=== PATIENT | female | born 1960 | race Caucasian/White ===

== ENCOUNTER 2016-06-13 11:39 | Emergency (ER) | payer MEDICAID ==
[2016-06-13] MEDS ORDERED: NITROGLYCERIN OINT 1 INCH/GM PACKET TOPICAL STA (12:12)
--- NOTE | 2016-06-13 12:16 | ED ---
General Adult HPI - General Chief complaint: Chest Pain Stated complaint: Chest pain Time Seen by Provider: 06/13/16 11:59 Source: patient, RN notes reviewed Mode of arrival: wheelchair Limitations: no limitations - History of Present Illness Initial comments: Patient is a pleasant 55-year-old female presenting to the emergency department complaining of chest discomfort. Onset of symptoms was a week or so ago. Patient has had intermittent symptoms. Discomfort is currently severe rated 10/ 10. Discomfort feels like pressure. Patient does have some mild associated dyspnea. Patient has occasional nausea and occasional diaphoresis. Patient has been taking nitroglycerin multiple times and has finished approximately half of bottle. No leg pain or swelling. No cough or fever. - Related Data Home Medications Medication Instructions Recorded Confirmed Aspirin EC [Ecotrin Low Dose] 81 mg PO DAILY 06/13/16 06/13/16 Ergocalciferol [Vitamin D2] 50,000 unit PO Q7D 06/13/16 06/13/16 Gabapentin [Neurontin] 300 - 600 mg PO HS PRN 06/13/16 06/13/16 Nitroglycerin Sl Tabs [Nitrostat] 0.4 mg SUBLINGUAL Q5M PRN 06/13/16 06/13/16 Ondansetron HCl [Zofran] 4 - 8 mg PO Q4-6H PRN 06/13/16 06/13/16 clonazePAM [KlonoPIN] 2 mg PO TID 06/13/16 06/13/16 Allergies Allergy/AdvReac Type Severity Reaction Status Date / Time No Known Allergies Allergy Verified 06/13/16 12:25 Review of Systems ROS Statement: Those systems with pertinent positive or pertinent negative responses have been documented in the HPI. ROS Other: All systems not noted in ROS Statement are negative. Constitutional: Denies: fever Eyes: Denies: eye pain ENT: Denies: ear pain Respiratory: Reports: dyspnea. Denies: cough Cardiovascular: Reports: chest pain Endocrine: Denies: fatigue Gastrointestinal: Reports: nausea Genitourinary: Denies: dysuria Musculoskeletal: Denies: back pain Skin: Denies: rash Neurological: Denies: weakness Past Medical History Past Medical History: Chest Pain / Angina History of Any Multi-Drug Resistant Organisms: None Reported Past Surgical History: Breast Surgery, Hysterectomy Additional Past Surgical History / Comment(s): right breast lumpectomy Past Psychological History: No Psychological Hx Reported Smoking Status: Current every day smoker Past Alcohol Use History: None Reported Past Drug Use History: None Reported General Exam Limitations: no limitations General appearance: alert, in no apparent distress Head exam: Present: atraumatic Eye exam: Present: normal appearance, PERRL ENT exam: Present: normal oropharynx Neck exam: Present: normal inspection Respiratory exam: Present: normal lung sounds bilaterally. Absent: chest wall tenderness Cardiovascular Exam: Present: regular rate, normal rhythm Expanded Peripheral pulses: 2+: Radial (R), Radial (L), Dorsalis Pedis (R), Dorsalis Pedis (L) GI/Abdominal exam: Present: soft. Absent: tenderness Extremities exam: Present: normal inspection. Absent: pedal edema, calf tenderness Neurological exam: Present: alert Psychiatric exam: Present: normal affect, normal mood Skin exam: Absent: rash Course Vital Signs 06/13/16 06/13/16 06/13/16 11:43 11:55 12:41 Temperature 97.8 F Pulse Rate 89 90 Pulse Rate [ 83 Bilateral Radial] Respiratory 20 14 18 Rate Blood Pressure 114/68 108/69 O2 Sat by Pulse 98 97 Oximetry 06/13/16 06/13/16 13:00 13:26 Temperature Pulse Rate 84 77 Pulse Rate [ Bilateral Radial] Respiratory 18 Rate Blood Pressure 108/61 98/63 O2 Sat by Pulse 98 Oximetry EKG Findings - EKG Comments: EKG Findings:: Normal sinus rhythm at 79. Care 158. QRS 70. QT 364. QTC 417. Normal axis. Normal QRS. Nonspecific T waves. Medical Decision Making - Medical Decision Making Patient reexamined and improved following nitroglycerin. Called patient's professional benefits sales consultant was not available at this time. Patient does prefer to be transferred because her professional benefits sales consultant is at [facility]. Case discussed with Dr. Kirby at the emergency department, who will accept transfer. Patient is recommended transfer by and once however does refuse this. Patient will transfer by private vehicle. - Lab Data Result diagrams: 06/13/16 12:38 06/13/16 12:38 Lab Results 06/13/16 06/13/16 06/13/16 Range/Units 12:38 12:38 12:38 WBC 7.2 (3.8-10.6) k/uL RBC 4.67 (3.80-5.40) m/uL Hgb 14.2 (11.4-16.0) gm/dL Hct 41.3 (34.0-46.0) % MCV 88.5 (80.0-100.0) fL MCH 30.4 (25.0-35.0) pg MCHC 34.3 (31.0-37.0) g/dL RDW 13.3 (11.5-15.5) % Plt Count 277 (150-450) k/uL Neutrophils % 69 % Lymphocytes % 25 % Monocytes % 4 % Eosinophils % 1 % Basophils % 0 % Neutrophils # 4.9 (1.3-7.7) k/uL Lymphocytes # 1.8 (1.0-4.8) k/uL Monocytes # 0.3 (0-1.0) k/uL Eosinophils # 0.1 (0-0.7) k/uL Basophils # 0.0 (0-0.2) k/uL PT (9.0-12.0) sec INR (<1.1) APTT (22.0-30.0) sec Sodium 141 (137-145) mmol/L Potassium 4.8 (3.5-5.1) mmol/L Chloride 108 H (98-107) mmol/L Carbon Dioxide 23 (22-30) mmol/L Anion Gap 10 mmol/L BUN 15 (7-17) mg/dL Creatinine 0.91 (0.52-1.04) mg/dL Est GFR (MDRD) Af Amer >60 (>60 ml/min/1.73 sqM) Est GFR (MDRD) Non-Af >60 (>60 ml/min/1.73 sqM) Glucose 95 (74-99) mg/dL Calcium 9.5 (8.4-10.2) mg/dL Magnesium 2.0 (1.6-2.3) mg/dL Total Bilirubin 0.5 (0.2-1.3) mg/dL AST 31 (14-36) U/L ALT 35 (9-52) U/L Alkaline Phosphatase 106 (38-126) U/L Total Creatine Kinase 75 (30-135) U/L CK-MB (CK-2) 0.3 (0.0-2.4) ng/mL CK-MB (CK-2) Rel Index 0.4 Troponin I <0.012 (0.000-0.034) ng/mL Total Protein 6.8 (6.3-8.2) g/dL Albumin 4.1 (3.5-5.0) g/dL 06/13/16 Range/Units 12:38 WBC (3.8-10.6) k/uL RBC (3.80-5.40) m/uL Hgb (11.4-16.0) gm/dL Hct (34.0-46.0) % MCV (80.0-100.0) fL MCH (25.0-35.0) pg MCHC (31.0-37.0) g/dL RDW (11.5-15.5) % Plt Count (150-450) k/uL Neutrophils % % Lymphocytes % % Monocytes % % Eosinophils % % Basophils % % Neutrophils # (1.3-7.7) k/uL Lymphocytes # (1.0-4.8) k/uL Monocytes # (0-1.0) k/uL Eosinophils # (0-0.7) k/uL Basophils # (0-0.2) k/uL PT 10.8 (9.0-12.0) sec INR 1.1 (<1.1) APTT 23.6 (22.0-30.0) sec Sodium (137-145) mmol/L Potassium (3.5-5.1) mmol/L Chloride (98-107) mmol/L Carbon Dioxide (22-30) mmol/L Anion Gap mmol/L BUN (7-17) mg/dL Creatinine (0.52-1.04) mg/dL Est GFR (MDRD) Af Amer (>60 ml/min/1.73 sqM) Est GFR (MDRD) Non-Af (>60 ml/min/1.73 sqM) Glucose (74-99) mg/dL Calcium (8.4-10.2) mg/dL Magnesium (1.6-2.3) mg/dL Total Bilirubin (0.2-1.3) mg/dL AST (14-36) U/L ALT (9-52) U/L Alkaline Phosphatase (38-126) U/L Total Creatine Kinase (30-135) U/L CK-MB (CK-2) (0.0-2.4) ng/mL CK-MB (CK-2) Rel Index Troponin I (0.000-0.034) ng/mL Total Protein (6.3-8.2) g/dL Albumin (3.5-5.0) g/dL - Radiology Data Radiology results: image reviewed (Chest x-ray shows no acute process) Disposition Clinical Impression: Chest pain Disposition: OTHER INSTITUTION NOT DEFINED - Out of Hospital Transfer - Req. Specs Out of Hospital Transfer - Requested Specifics: Other Emergency Center
[2016-06-13] MEDS: ASPIRIN 81 MG CHEW PO STA (12:40)
[2016-06-13 12:41] VITALS: RESP 18
[2016-06-13 12:45] LABS: Basophils % (A) 0 %; CH 31.3; CHCM 35.4; Eosinophils # (A) 0.1 k/uL (0-0.7); Eosinophils % (A) 1 %; HCT 41.3 % (34.0-46.0); HDW 2.62; HGB 14.2 gm/dL (11.4-16.0); Luc # (Auto) 0.09; Luc % (Auto) 1; Lymphocytes # (A) 1.8 k/uL (1.0-4.8); Lymphocytes % (A) 25 %; MCH 30.4 pg (25.0-35.0); MCHC 34.3 g/dL (31.0-37.0); MCV 88.5 fL (80.0-100.0); Mean Platelet Volume 6.5; Monocytes # (A) 0.3 k/uL (0-1.0); Monocytes % (A) 4 %; Neutrophils # (A) 4.9 k/uL (1.3-7.7); Neutrophils % (A) 69 %; RBC 4.67 m/uL (3.80-5.40); RDW 13.3 % (11.5-15.5); WBC 7.2 k/uL (3.8-10.6); WBC (Perox) 7.51
[2016-06-13] MEDS: NITROGLYCERIN SL TABS 0.4 MG TAB SUBLINGUAL STA ×3 (12:53→14:40)
[2016-06-13 12:54] LABS: INR 1.1 (<1.1); Partial Thromboplastin Time 23.6 sec (22.0-30.0); Prothrombin Time 10.8 sec (9.0-12.0)
[2016-06-13 13:04] LABS: ALT 35 U/L (9-52); AST 31 U/L (14-36); Alkaline Phosphatase 106 U/L (38-126); Anion Gap 10 mmol/L; Blood Urea Nitrogen 15 mg/dL (7-17); Calcium 9.5 mg/dL (8.4-10.2); Carbon Dioxide 23 mmol/L (22-30); Chloride 108 mmol/L (98-107); Glucose 95 mg/dL (74-99); Non-African American GFR(MDRD) >60 (>60 ml/min/1.73 sqM); Potassium 4.8 mmol/L (3.5-5.1); Sodium 141 mmol/L (137-145); Total Bilirubin 0.5 mg/dL (0.2-1.3); Total Protein 6.8 g/dL (6.3-8.2)
[2016-06-13 13:07] LABS: Creatine Kinase 75 U/L (30-135)
--- NOTE | 2016-06-13 13:16 | XR ---
EXAMINATION TYPE: XR chest 2V DATE OF EXAM: 06/13/2016 1:11 PM COMPARISON: 08/08/2011 TECHNIQUE: PA and lateral views submitted. HISTORY: Chest pain FINDINGS: The lungs are clear and there is no pneumothorax, pleural effusion, or focal pneumonia. Biapical pl eural thickening. IMPRESSION: 1. No acute process.
[2016-06-13 13:20] LABS: Creatine Kinase MB 0.3 ng/mL (0.0-2.4); Troponin I <0.012 ng/mL (0.000-0.034)
[2016-06-13 15:24] VITALS: BP 118/59; PULSE 65; TEMP 97.3
== END 2016-06-13 15:24 | disposition other institution (70) ==
LOC: EC 11:39
DX: R07.9 Chest pain, unspecified (principal); F17.200 Nicotine dependence, unspecified, uncomplicated; Z79.82 Long term (current) use of aspirin; Z79.899 Other long term (current) drug therapy
CPT/HCPCS: 36415; 71020; 80053; 82550; 82553; 83735; 84484; 85025; 85610; 85730; 93005; 99285

== ENCOUNTER 2017-04-23 13:15 | Inpatient (IN) | payer BC, MEDICAID ==
[2017-04-23] MEDS ORDERED: NITROGLYCERIN OINT 1 INCH/GM PACKET TOPICAL STA (13:43)
[2017-04-23] MEDS ORDERED: ASPIRIN 81 MG PO STA (13:43)
--- NOTE | 2017-04-23 14:07 | ED ---
General Adult HPI - General Chief complaint: Chest Pain Stated complaint: CHEST PAIN Time Seen by Provider: 04/23/17 13:15 Source: patient, EMS, RN notes reviewed Mode of arrival: EMS - History of Present Illness Initial comments: This a 56-year-old female presents emergency department stating that she was told she had a 60% blockage in her heart for years ago. Patient states today she has been having chest pain for the last 2 days. Patient states the pain is intermittent. Patient states it never completely goes away but gets much better. Patient states the pain is significant she has had some diaphoresis. Patient denies any shortness of breath or difficulty breathing. Patient denies any nausea vomiting or diarrhea. Patient denies any abdominal pain. Patient states she has been dizzy but had no near syncopal episodes. Patient states she 's had a mild headache but denies any numbness or weakness. Patient states occasionally she has some tingling in her fingers. Patient denies any recent injury or trauma. Patient denies any swelling in her legs or calf pain. - Related Data Home Medications Medication Instructions Recorded Confirmed Aspirin EC [Ecotrin Low Dose] 81 mg PO DAILY 06/13/16 04/23/17 Ergocalciferol [Vitamin D2] 50,000 unit PO Q28D 06/13/16 04/23/17 Nitroglycerin Sl Tabs [Nitrostat] 0.4 mg SUBLINGUAL Q5M PRN 06/13/16 04/23/17 clonazePAM [KlonoPIN] 1 mg PO TID 04/23/17 04/23/17 Allergies Allergy/AdvReac Type Severity Reaction Status Date / Time No Known Allergies Allergy Verified 04/23/17 13:59 Review of Systems ROS Statement: Those systems with pertinent positive or pertinent negative responses have been documented in the HPI. ROS Other: All systems not noted in ROS Statement are negative. Past Medical History Past Medical History: Chest Pain / Angina History of Any Multi-Drug Resistant Organisms: None Reported Past Surgical History: Breast Surgery, Hysterectomy Additional Past Surgical History / Comment(s): right breast lumpectomy Past Psychological History: No Psychological Hx Reported Smoking Status: Current every day smoker Past Alcohol Use History: None Reported Past Drug Use History: None Reported General Exam - General Exam Comments Initial Comments: GENERAL: Patient is well-developed and well-nourished. Patient is nontoxic and well- hydrated and is in mild distress. ENT: Neck is soft and supple. No significant lymphadenopathy is noted. Oropharynx is clear. Moist mucous membranes. Neck has full range of motion without eliciting any pain. EYES: The sclera were anicteric and conjunctiva were pink and moist. Extraocular movements were intact and pupils were equal round and reactive to light. Eyelids were unremarkable. PULMONARY: Unlabored respirations. Good breath sounds bilaterally. No audible rales rhonchi or wheezing was noted. CARDIOVASCULAR: There is a regular rate and rhythm without any murmurs gallops or rubs. ABDOMEN: Soft and nontender with normal bowel sounds. No palpable organomegaly was noted. There is no palpable pulsatile mass. SKIN: Skin is clear with no lesions or rashes and otherwise unremarkable. NEUROLOGIC: Patient is alert and oriented x3. Cranial nerves II through XII are grossly intact. Motor and sensory are also intact. Normal speech, volume and content. Symmetrical smile. MUSCULOSKELETAL: Normal extremities with adequate strength and full range of motion. LYMPHATICS: No significant lymphadenopathy is noted PSYCHIATRIC: Normal psychiatric evaluation. Normal interpersonal interactions appears functionally intact in deals appropriately with others. No signs of depression. No signs of anxiety. Course Vital Signs 04/23/17 04/23/17 04/23/17 13:20 13:49 14:05 Temperature 97.5 F L Pulse Rate 67 Pulse Rate [ 54 L Rig Builder Helper ] Respiratory 16 Rate Blood Pressure 119/69 O2 Sat by Pulse 98 Oximetry 04/23/17 15:06 Temperature 97.4 F L Pulse Rate 56 L Pulse Rate [ Rig Builder Helper ] Respiratory 20 Rate Blood Pressure 118/71 O2 Sat by Pulse 98 Oximetry Medical Decision Making - Medical Decision Making EKG shows sinus bradycardia 51 bpm CO interval is 158 QRS is 74 Q-T intervals 406 QTC is 374. Patient's EKG shows no ST segment elevation or depression or T wave abnormalities are noted. Chest x-ray shows no acute abnormality I placed the patient heparin because the significance of her symptoms and the persistence of her symptoms. I spoke with Dr. Monte he agreed to admit the patient I wrote admitting orders I consult cardiology I continue the heparin Nitropaste and aspirin on the floor. - Lab Data Result diagrams: 04/23/17 14:00 04/23/17 14:00 Lab Results 01/15/18 01/15/18 01/15/18 Range/Units 14:00 14:00 14:00 WBC 7.9 (3.8-10.6) k/uL RBC 4.48 (3.80-5.40) m/uL Hgb 13.4 (11.4-16.0) gm/dL Hct 41.2 (34.0-46.0) % MCV 91.9 (80.0-100.0) fL MCH 29.9 (25.0-35.0) pg MCHC 32.5 (31.0-37.0) g/dL RDW 14.3 (11.5-15.5) % Plt Count 191 (150-450) k/uL Neutrophils % 68 % Lymphocytes % 27 % Monocytes % 3 % Eosinophils % 1 % Basophils % 0 % Neutrophils # 5.4 (1.3-7.7) k/uL Lymphocytes # 2.1 (1.0-4.8) k/uL Monocytes # 0.3 (0-1.0) k/uL Eosinophils # 0.1 (0-0.7) k/uL Basophils # 0.0 (0-0.2) k/uL PT (9.0-12.0) sec INR (<1.2) APTT (22.0-30.0) sec Sodium 142 (137-145) mmol/L Potassium 4.5 (3.5-5.1) mmol/L Chloride 109 H (98-107) mmol/L Carbon Dioxide 23 (22-30) mmol/L Anion Gap 10 mmol/L BUN 16 (7-17) mg/dL Creatinine 0.93 (0.52-1.04) mg/dL Est GFR (MDRD) Af Amer >60 (>60 ml/min/1.73 sqM) Est GFR (MDRD) Non-Af >60 (>60 ml/min/1.73 sqM) Glucose 81 (74-99) mg/dL Calcium 8.6 (8.4-10.2) mg/dL Magnesium 1.7 (1.6-2.3) mg/dL Total Bilirubin 0.3 (0.2-1.3) mg/dL AST 20 (14-36) U/L ALT 28 (9-52) U/L Alkaline Phosphatase 80 (38-126) U/L Total Creatine Kinase 54 (30-135) U/L CK-MB (CK-2) 0.3 (0.0-2.4) ng/mL CK-MB (CK-2) Rel Index 0.6 Troponin I <0.012 (0.000-0.034) ng/mL Total Protein 5.8 L (6.3-8.2) g/dL Albumin 3.5 (3.5-5.0) g/dL 04/23/17 Range/Units 14:00 WBC (3.8-10.6) k/uL RBC (3.80-5.40) m/uL Hgb (11.4-16.0) gm/dL Hct (34.0-46.0) % MCV (80.0-100.0) fL MCH (25.0-35.0) pg MCHC (31.0-37.0) g/dL RDW (11.5-15.5) % Plt Count (150-450) k/uL Neutrophils % % Lymphocytes % % Monocytes % % Eosinophils % % Basophils % % Neutrophils # (1.3-7.7) k/uL Lymphocytes # (1.0-4.8) k/uL Monocytes # (0-1.0) k/uL Eosinophils # (0-0.7) k/uL Basophils # (0-0.2) k/uL PT 10.8 (9.0-12.0) sec INR 1.1 (<1.2) APTT 23.2 (22.0-30.0) sec Sodium (137-145) mmol/L Potassium (3.5-5.1) mmol/L Chloride (98-107) mmol/L Carbon Dioxide (22-30) mmol/L Anion Gap mmol/L BUN (7-17) mg/dL Creatinine (0.52-1.04) mg/dL Est GFR (MDRD) Af Amer (>60 ml/min/1.73 sqM) Est GFR (MDRD) Non-Af (>60 ml/min/1.73 sqM) Glucose (74-99) mg/dL Calcium (8.4-10.2) mg/dL Magnesium (1.6-2.3) mg/dL Total Bilirubin (0.2-1.3) mg/dL AST (14-36) U/L ALT (9-52) U/L Alkaline Phosphatase (38-126) U/L Total Creatine Kinase (30-135) U/L CK-MB (CK-2) (0.0-2.4) ng/mL CK-MB (CK-2) Rel Index Troponin I (0.000-0.034) ng/mL Total Protein (6.3-8.2) g/dL Albumin (3.5-5.0) g/dL Critical Care Time Critical Care Time: Yes Total Critical Care Time: 35 Disposition Clinical Impression: Unstable angina pectoris Disposition: ADMITTED IP TO THIS HOSP Referrals: Nonstaff,Physician [REFERRING] - 1-2 days Time of Disposition: 15:51
[2017-04-23 14:16] LABS: Basophils % (A) 0 %; Eosinophils # (A) 0.1 k/uL (0-0.7); Eosinophils % (A) 1 %; HCT 41.2 % (34.0-46.0); HGB 13.4 gm/dL (11.4-16.0); Lymphocytes # (A) 2.1 k/uL (1.0-4.8); Lymphocytes % (A) 27 %; MCH 29.9 pg (25.0-35.0); MCHC 32.5 g/dL (31.0-37.0); MCV 91.9 fL (80.0-100.0); Mean Platelet Volume 7.1; Monocytes # (A) 0.3 k/uL (0-1.0); Monocytes % (A) 3 %; Neutrophils # (A) 5.4 k/uL (1.3-7.7); Neutrophils % (A) 68 %; Platelet Count 191 k/uL (150-450); RBC 4.48 m/uL (3.80-5.40); RDW 14.3 % (11.5-15.5); WBC 7.9 k/uL (3.8-10.6)
[2017-04-23 14:25] LABS: INR 1.1 (<1.2); Partial Thromboplastin Time 23.2 sec (22.0-30.0); Prothrombin Time 10.8 sec (9.0-12.0)
--- NOTE | 2017-04-23 14:26 | XR ---
EXAMINATION TYPE: XR chest 2V DATE OF EXAM: 04/23/2017 COMPARISON: 06/13/2016 TECHNIQUE: PA and lateral views submitted. HISTORY: Chest pain FINDINGS: The lungs are clear and there is no pneumothorax, pleural effusion, or focal pneumonia. Atheroscler otic change aorta. I. Arthropathy shoulders. Hyperinflation suggests COPD. IMPRESSION: 1. No acute process.
[2017-04-23 14:27] LABS: ALT 28 U/L (9-52); AST 20 U/L (14-36); Albumin 3.5 g/dL (3.5-5.0); Alkaline Phosphatase 80 U/L (38-126); Anion Gap 10 mmol/L; Blood Urea Nitrogen 16 mg/dL (7-17); Calcium 8.6 mg/dL (8.4-10.2); Carbon Dioxide 23 mmol/L (22-30); Chloride 109 mmol/L (98-107); Glucose 81 mg/dL (74-99); Magnesium 1.7 mg/dL (1.6-2.3); Potassium 4.5 mmol/L (3.5-5.1); Sodium 142 mmol/L (137-145); Total Bilirubin 0.3 mg/dL (0.2-1.3); Total Protein 5.8 g/dL (6.3-8.2)
[2017-04-23 14:37] LABS: Creatine Kinase 54 U/L (30-135)
[2017-04-23 14:50] LABS: Creatine Kinase MB 0.3 ng/mL (0.0-2.4); Troponin I <0.012 ng/mL (0.000-0.034)
[2017-04-23] MEDS ORDERED: MORPHINE SULFATE 2 MG/ML SYRINGE IVP ONE (15:30)
[2017-04-23] MEDS ORDERED: ONDANSETRON 4 MG/2 ML VIAL IM STA (15:38)
[2017-04-23] MEDS ORDERED: HEPARIN SODIUM,PORCINE 5,000 UNIT/ML 1 ML VIAL IV ONE (15:46)
[2017-04-23] MEDS ORDERED: NITROGLYCERIN SL TABS 0.4 MG TAB SUBLINGUAL PRN (15:53)
[2017-04-23] MEDS ORDERED: HEPARIN SOD,PORK IN 0.45% NACL 25,000 UNIT in 0.45% NACL 1 500ML.BAG IV SCH (16:00)
[2017-04-23 17:08] VITALS: BMI 24.1
[2017-04-23] MEDS ORDERED: MORPHINE SULFATE 2 MG/ML SYRINGE IVP PRN (17:21)
[2017-04-23] MEDS: NITROGLYCERIN OINT 1 INCH/GM PACKET TOPICAL SCH (17:27)
[2017-04-23] MEDS: clonazePAM 1 MG TAB PO SCH ×2 (17:27→23:03)
[2017-04-23] MEDS: ACETAMINOPHEN TAB 325 MG TAB PO PRN (19:35)
[2017-04-23] MEDS ORDERED: HYDROmorphone 0.5 MG/0.5 ML SYRINGE IVP PRN (20:10)
[2017-04-23] MEDS ORDERED: TEMAZEPAM 15 MG CAP PO PRN (20:10)
[2017-04-23] MEDS: ONDANSETRON 4 MG/2 ML VIAL IVP PRN (21:17)
[2017-04-23 21:51] LABS: Creatine Kinase 44 U/L (30-135)
[2017-04-23 22:05] LABS: Creatine Kinase MB <0.2 ng/mL (0.0-2.4); Troponin I <0.012 ng/mL (0.000-0.034)
[2017-04-23 22:35] LABS: Potassium 4.2 mmol/L (3.5-5.1)
--- NOTE | 2017-04-24 00:21 | P.HPIM ---
History of Present Illness H&P Date: 04/23/17 Chief Complaint: Chest pain Patient is a 56-year-old female with a known history of anxiety/panic disorder, GERD and previous history of cardiac catheterization 4 years ago, was found to have 60% blockages as per patient came to ER with complaints of chest pain mainly left retrosternal area-below the left breast.. On and off stabbing pain which has been present for the past 2 days. Patient felt some right arm heaviness and tingling. Pain is associated with shortness of breath and clamminess. Patient states it never completely goes away but gets much better. Patient denies any nausea vomiting or diarrhea. Patient denies any abdominal pain. Patient states she has been dizzy but had no near syncopal episodes. Patient states she's had a mild headache but denies any numbness or weakness. Patient states occasionally she has some tingling in her fingers. Patient denies any recent injury or trauma. Patient denies any swelling in her legs or calf pain. Patient does have a history of panic disorder and does take medications. Patient does take baby aspirin at home. No fever no chills. No recent illnesses. Patient is taking care of her mother wheeze came to be admitted for [facility] in next few days. EKG sinus tachycardia chest x-ray no acute cardio prudent process. Troponin 2 negative. TSH within normal limits Review of Systems Constitutional: Patient denies any fever or chills . No generalized weakness or weight loss. Abdomen: Patient denied nausea vomiting and diarrhea and abdominal pain. Cardiovascular: Patient does have chest pain. No shortness of breath no leg swelling no palpitations. Respiratory: patient denied any cough is from production. No shortness of breath Neurologic: Patient denied any numbness or tingling headache. Musculoskeletal: Patient denies any complaints of joint swelling or deformity. Skin: Negative Psychiatric: Negative Endocrine: No heat or cold intolerance. No recent weight gain. Genitourinary: No dysuria or hematuria. All other 14 point ROS negative except the above Past Medical History Past Medical History: Chest Pain / Angina, GERD/Reflux History of Any Multi-Drug Resistant Organisms: None Reported Past Surgical History: Breast Surgery, Hysterectomy Additional Past Surgical History / Comment(s): right breast lumpectomy Past Anesthesia/Blood Transfusion Reactions: No Reported Reaction Past Psychological History: Anxiety Additional Psychological History / Comment(s): klonopin 1mg tid Smoking Status: Current every day smoker Past Alcohol Use History: None Reported Past Drug Use History: None Reported - Past Family History Father Family Medical History: Chest Pain / Angina, Coronary Artery Disease (CAD), Myocardial Infarction (PA) Mother Family Medical History: Coronary Artery Disease (CAD), Myocardial Infarction (PA ) Additional Family Medical History / Comment(s): history of multiple stents Medications and Allergies Home Medications Medication Instructions Recorded Confirmed Type Aspirin EC [Ecotrin Low Dose] 81 mg PO DAILY 06/13/16 04/23/17 History Ergocalciferol [Vitamin D2] 50,000 unit PO Q28D 06/13/16 04/23/17 History Nitroglycerin Sl Tabs [Nitrostat] 0.4 mg SUBLINGUAL Q5M PRN 06/13/16 04/23/17 History clonazePAM [KlonoPIN] 1 mg PO TID 04/23/17 04/23/17 History Allergies Allergy/AdvReac Type Severity Reaction Status Date / Time No Known Allergies Allergy Verified 04/23/17 13:59 Physical Exam Vitals: Vital Signs Temp Pulse Pulse Pulse Resp BP BP 04/23/17 20:00 97.8 F 55 L 18 101/58 04/23/17 19:30 97/57 04/23/17 17:30 16 04/23/17 16:56 97.7 F 49 L 16 99/58 04/23/17 16:25 97.9 F 04/23/17 15:06 97.4 F L 56 L 20 118/71 04/23/17 14:05 54 L 04/23/17 13:49 97.5 F L 04/23/17 13:20 67 16 119/69 Pulse Ox 04/23/17 20:00 92 L 04/23/17 19:30 04/23/17 17:30 04/23/17 16:56 99 04/23/17 16:25 04/23/17 15:06 98 04/23/17 14:05 04/23/17 13:49 04/23/17 13:20 98 Intake and Output 04/23/17 04/23/17 04/23/17 06:59 14:59 22:59 Intake Total 328.909 Balance 328.909 Intake: Intake, IV Titration 88.909 Amount Heparin Sod,Pork in 0.45% 88.909 NaCl 25,000 unit In 0.45 % NaCl 1 500ml.bag @ 12 UNITS/KG/HR 14.15 mls/hr IV .Q24H [facility] Rx#: [id number] Oral 240 Other: Voiding Method Toilet Weight 58.967 kg 58 kg Patient Weight 04/24/17 06:59 Weight 58 kg PHYSICAL EXAMINATION: Patient is lying in the bed comfortably, no acute distress, awake alert and oriented.. Anxious. HEENT: Normocephalic. Neck is supple. Pupils reactive. Nostrils clear. Oral cavity is moist. Ears reveal no drainage. Neck reveals no JVD, carotid bruits, or thyromegaly. CHEST EXAMINATION: Trachea is central. Symmetrical expansion. Lung gleason clear to auscultation and percussion. CARDIAC: Normal S1, S2 with no gallops. No murmurs ABDOMEN: Soft. Bowel sounds normal. No organomegaly. No abdominal bruits. Extremities: reveal no edema. No clubbing or cyanosis Neurologically awake, alert, oriented x3 with well-coordinated movements. No focal deficits noted Skin: No rash or skin lesions. Psychiatric: Cooperative. Nonsuicidal Musculoskeletal: No joint swelling or deformity. Normal range of motion. Results CBC & Chem 7: 04/23/17 14:00 04/23/17 21:49 Labs: Abnormal Lab Results - Last 24 Hours (Table) 04/23/17 04/23/17 Range/Units 14:00 20:56 APTT 50.3 H (22.0-30.0) sec Chloride 109 H (98-107) mmol/L Total Protein 5.8 L (6.3-8.2) g/dL Thrombosis Risk Factor Assmnt - Choose All That Apply Each Factor Represents 1 point: Age 41-60 years Thrombosis Risk Factor Assessment Total Risk Factor Score: 1 Thrombosis Risk Factor Assessment Level: Low Risk Assessment and Plan Assessment: Chest pain. Possible unstable angina History of prior cardiac Catheterization with 60% stenosis GERD Anxiety and panic disorder Nicotine addiction Plan: Patient will be converted on heparin drip and Nitropaste. ASA. Continue the pain management with morphine. Telemetry monitoring and serial EKG and troponins. Cardiology has been consulted. Smoking cessation has been counseled extensively. Further recommendations based on the clinical course. Continue to follow closely. Time with Patient: Greater than 30
[2017-04-24] MEDS: NITROGLYCERIN OINT 1 INCH/GM PACKET TOPICAL SCH ×2 (01:39→06:02)
[2017-04-24] MEDS: FAMOTIDINE 20 MG TAB PO SCH ×3 (01:45→21:04)
[2017-04-24 02:09] LABS: Creatine Kinase 46 U/L (30-135)
[2017-04-24 02:23] LABS: Creatine Kinase MB 0.3 ng/mL (0.0-2.4); Troponin I <0.012 ng/mL (0.000-0.034)
[2017-04-24 03:13] LABS: Cholesterol 176 mg/dL (<200); HDL Cholesterol 35 mg/dL (40-60); LDL Cholesterol,Calculated 96 mg/dL (0-99); Triglycerides 225 mg/dL (<150)
[2017-04-24] MEDS: ACETAMINOPHEN TAB 325 MG TAB PO PRN (04:39)
[2017-04-24] MEDS ORDERED: AMINOPHYLLINE 500 MG/20 ML VIAL IV PRN (07:57)
[2017-04-24] MEDS ORDERED: REGADENOSON 0.4 MG/5 ML SYRINGE IV ONE (07:57)
[2017-04-24] MEDS: ONDANSETRON 4 MG/2 ML VIAL IVP PRN ×2 (08:00→21:04)
--- NOTE | 2017-04-24 10:18 | ECHOF ---
Referral Reason:cp MEASUREMENTS -------- HEIGHT: 152.4 cm WEIGHT: 57.2 kg BP: RVIDd: 2.5 cm (< 3.3) IVSd: 0.8 cm (0.6 - 1.1) LVIDd: 4.0 cm (3.9 - 5.3) LVPWd: 0.8 cm (0.6 - 1.1) IVSs: 1.1 cm LVIDs: 2.8 cm LVPWs: 1.2 cm LA Diam: 3.1 cm (2.7 - 3.8) Ao Diam: 3.1 cm (2.0 - 3.7) AV Cusp: 1.9 cm (1.5 - 2.6) LA Diam: 2.9 cm (2.7 - 3.8) MV EXCURSION: 20.043 mm (> 18.000) MV EF SLOPE: 120 mm/s (70 - 150) EPSS: 0.4 cm MV E Frankie: 0.72 m/s MV DecT: 159 ms MV A Frankie: 0.53 m/s MV E/A Ratio: 1.37 RAP: 5.00 mmHg RVSP: 15.28 mmHg FINDINGS -------- Sinus rhythm. This was a technically good study. LV size, wall thickness and systolic function are normal, with an EF greater than 55%. The left alton tricular size is normal. The right ventricle is normal in size. The left atrial size is normal. The right atrial size is normal. The aortic valve is trileaflet, and appears structurally normal. No aortic stenosis or regurgitation. Mild mitral regurgitation is present. Mild tricuspid regurgitation present. There is no evidence of pulmonary hypertension. The right v entricular systolic pressure, as measured by Doppler, is 15.28mmHg. There is no pulmonic regurgitation present. The aortic root size is normal. There is no pericardial effusion. CONCLUSIONS -------- 1. LV size, wall thickness and systolic function are normal, with an EF greater than 55%. 2. The left ventricular size is normal. 3. The aortic valve is trileaflet, and appears structurally normal. No aortic stenosis or regurgitati on. 4. Mild mitral regurgitation is present. 5. Mild tricuspid regurgitation present. 6. There is no evidence of pulmonary hypertension. 7. The right ventricular systolic pressure, as measured by Doppler, is 15.28mmHg. 8. There is no pulmonic regurgitation present. 9. The aortic root size is normal. 10. There is no pericardial effusion. FARM ASSISTANT: Dalia Rivera RDCS
--- NOTE | 2017-04-24 11:09 | EST ---
EXERCISE STRESS DATE OF SERVICE: 04/24/2017 AGE: 56 SEX: Female HT: 61" WT: 127 pounds PROTOCOL: Lexiscan Cardiolite. STAGE: DURATION OF EXERCISE: HEART RATE REST: 45 BLOOD PRESSURE REST: 100/50 MAXIMUM HEART RATE ACHIEVED: 103 MAXIMUM BLOOD PRESSURE: 148/56 85% MPHR: 141 100% MPHR: 166 METS: INDICATIONS: Chest pain. CLINICAL INFORMATION: Baseline EKG shows sinus rhythm, normal axis, normal intervals, with nonspecific T-wave inversions in the precordial leads. The patient was given intravenous Lexiscan as per protocol. Did not have chest pain or diagnostic ST-segment depression. CONCLUSIONS: 1. Negative stress test by EKG criteria. 2. Cardiolite portion of the stress test will be reported separately. MMDONAL / CASIN: [id number] /
[2017-04-24] MEDS: ASPIRIN 325 MG TAB PO SCH (11:36)
[2017-04-24] MEDS: clonazePAM 1 MG TAB PO SCH ×3 (11:37→21:04)
--- NOTE | 2017-04-24 12:43 | NM ---
EXAMINATION TYPE: NM stress lexiscan cardiolite DATE OF EXAM: 04/24/2017 COMPARISON: Chest x-ray 04/23/2017 HISTORY: Chest pain TECHNIQUE: After the intravenous administration of 10.1 mCi Tc 99m Sestamibi - Cardiolite resting SP ECT images acquired 50 minutes post injection. The patient received 0.4mg Lexiscan, 26.1 mCi Tc 99m Sestamibi - Stress images obtained [address] injection FINDINGS: Review of stress and rest SPECT images demonstrates questionable mild decreased apical reversible upt tal on stress as compared to rest images. Gated analysis shows normal wall motion with an estimated left ventricular ejection fraction of 67 %. IMPRESSION: Difficult to exclude pharmacologically induced left ventricular apical ischemia
[2017-04-24] MEDS ORDERED: ASPIRIN 325 MG TAB PO STA (13:21)
[2017-04-24] MEDS ORDERED: ATORVASTATIN 80 MG TAB PO STA (13:21)
[2017-04-24] MEDS ORDERED: ALPRAZolam 0.5 MG TAB PO PRN (13:21)
[2017-04-24] MEDS ORDERED: NITROGLYCERIN SL TABS 0.4 MG TAB SUBLINGUAL PRN (13:21)
[2017-04-24] MEDS ORDERED: SODIUM CHLORIDE 0.9% 1,000 ML in EMPTY BAG 1 BAG IV ONE (13:21)
[2017-04-24] MEDS ORDERED: ALPRAZolam 0.25 MG TAB PO PRN (13:21)
[2017-04-24] MEDS: HYDROcodone/APAP 5-325MG 1 EACH TAB PO PRN (16:29)
--- NOTE | 2017-04-24 22:03 | P.PN ---
Subjective Progress Note Date: 04/24/17 Principal diagnosis: Chest pain Patient is a 56-year-old female with a known history of anxiety/panic disorder, GERD and previous history of cardiac catheterization 4 years ago, was found to have 60% blockages as per patient came to ER with complaints of chest pain mainly left retrosternal area-below the left breast.. On and off stabbing pain which has been present for the past 2 days. Patient felt some right arm heaviness and tingling. Pain is associated with shortness of breath and clamminess. Patient states it never completely goes away but gets much better. Patient denies any nausea vomiting or diarrhea. Patient denies any abdominal pain. Patient states she has been dizzy but had no near syncopal episodes. Patient states she's had a mild headache but denies any numbness or weakness. Patient states occasionally she has some tingling in her fingers. Patient denies any recent injury or trauma. Patient denies any swelling in her legs or calf pain. Patient does have a history of panic disorder and does take medications. Patient does take baby aspirin at home. No fever no chills. No recent illnesses. Patient is taking care of her mother wheeze came to be admitted for correction in next few days. EKG sinus tachycardia chest x-ray no acute cardio prudent process. Troponin 2 negative. TSH within normal limits On 04/24/2017 Patient had stress test today Lexiscan showed small apical ischemia reversible. Cardiology is planning for cardiac catheter tomorrow otherwise patient is still complaining of left-sided chest pain. Patient also very anxious and does have a history of panic disorder. No fever no chills. No cough is from production. No other acute overnight issues All other review of systems negative above Current medications reviewed Objective - Vital Signs Vital signs: Vital Signs Temp 96.9 F L 04/24/17 11:25 Pulse 50 L 04/24/17 11:25 Resp 18 04/24/17 11:25 BP 97/55 04/24/17 11:25 Pulse Ox 98 04/24/17 11:25 Intake & Output 04/23/17 04/24/17 04/24/17 18:59 06:59 18:59 Intake Total 240 200.909 Output Total 100 400 Balance 240 100.909 -400 Weight 58 kg 57.7 kg Intake: IV 112 Heparin Sod,Pork in 0.45% 112 NaCl 25,000 unit In 0.45 % NaCl 1 500ml.bag @ 12 UNITS/KG/HR 14.15 mls/hr IV .Q24H [facility] Rx#: [id number] Intake, IV Titration 88.909 Amount Heparin Sod,Pork in 0.45% 88.909 NaCl 25,000 unit In 0.45 % NaCl 1 500ml.bag @ 12 UNITS/KG/HR 14.15 mls/hr IV .Q24H [facility] Rx#: [id number] Oral 240 0 Output: Urine 100 400 Other: Voiding Method Toilet Toilet # Voids 1 - Exam PHYSICAL EXAMINATION: Patient is lying in the bed comfortably, no acute distress, awake alert and oriented. Patient seems very anxious. HEENT: Normocephalic. Neck is supple. Pupils reactive. Nostrils clear. Oral cavity is moist. Ears reveal no drainage. Neck reveals no JVD, carotid bruits, or thyromegaly. CHEST EXAMINATION: Trachea is central. Symmetrical expansion. Lung gleason clear to auscultation and percussion. CARDIAC: Normal S1, S2 with no gallops. No murmurs ABDOMEN: Soft. Bowel sounds normal. No organomegaly. No abdominal bruits. Extremities: reveal no edema. No clubbing or cyanosis Neurologically awake, alert, oriented x3 with well-coordinated movements. No focal deficits noted Skin: No rash or skin lesions. Psychiatric: Coperative. Nonsuicidal Musculoskeletal: No joint swelling or deformity. Normal range of motion. - Labs CBC & Chem 7: 04/23/17 14:00 04/23/17 21:49 Labs: Abnormal Lab Results - Last 24 Hours (Table) 04/23/17 04/23/17 Range/Units 20:56 21:49 APTT 50.3 H (22.0-30.0) sec Triglycerides 225 H (<150) mg/dL HDL Cholesterol 35 L (40-60) mg/dL Assessment and Plan Assessment: Chest pain with abnormal stress test History of prior cardiac Catheterization with 60% stenosis GERD Anxiety and panic disorder Nicotine addiction Plan: Patient will be continued on aspirin. Cardiology is planning for cardiac catheterization tomorrow. Continue with telemetry monitoring and pain management. Continue with anxiolytics. Smoking cessation has been counseled extensively. Further recommendations based on the clinical course. Continue to follow closely. Time with Patient: Greater than 30
[2017-04-25 05:51] LABS: Basophils % (A) 1 %; Eosinophils # (A) 0.1 k/uL (0-0.7); Eosinophils % (A) 2 %; HCT 40.9 % (34.0-46.0); HGB 13.9 gm/dL (11.4-16.0); Lymphocytes # (A) 2.6 k/uL (1.0-4.8); Lymphocytes % (A) 43 %; MCH 30.7 pg (25.0-35.0); MCV 90.2 fL (80.0-100.0); Mean Platelet Volume 6.7; Monocytes # (A) 0.3 k/uL (0-1.0); Monocytes % (A) 4 %; Neutrophils # (A) 3.1 k/uL (1.3-7.7); Neutrophils % (A) 50 %; Platelet Count 239 k/uL (150-450); RBC 4.54 m/uL (3.80-5.40); RDW 12.7 % (11.5-15.5); WBC 6.1 k/uL (3.8-10.6)
[2017-04-25] MEDS: ASPIRIN 325 MG TAB PO SCH (05:51)
[2017-04-25] MEDS: FAMOTIDINE 20 MG TAB PO SCH ×2 (05:51→20:27)
[2017-04-25] MEDS: HYDROcodone/APAP 5-325MG 1 EACH TAB PO PRN ×3 (05:51→20:27)
[2017-04-25] MEDS: clonazePAM 1 MG TAB PO SCH ×3 (05:51→20:27)
[2017-04-25] MEDS: ONDANSETRON 4 MG/2 ML VIAL IVP PRN ×2 (05:53→20:26)
[2017-04-25] MEDS ORDERED: ATORVASTATIN 80 MG TAB PO ONE (06:00)
[2017-04-25 06:06] LABS: Anion Gap 7 mmol/L; Blood Urea Nitrogen 16 mg/dL (7-17); Calcium 9.4 mg/dL (8.4-10.2); Carbon Dioxide 29 mmol/L (22-30); Chloride 107 mmol/L (98-107); Glucose 91 mg/dL (74-99); Potassium 4.6 mmol/L (3.5-5.1); Sodium 143 mmol/L (137-145)
[2017-04-25] MEDS ORDERED: IV FLUID CONTINUATION 1,000 ML IV ONE (12:40)
[2017-04-25] MEDS ORDERED: LIDOCAINE 2% INJ 20 MG/ML (20 ML MDV) ONE (12:50)
[2017-04-25] MEDS ORDERED: fentaNYL (PF) 50 MCG/ML 2 ML AMP ONE (13:08)
[2017-04-25] MEDS ORDERED: fentaNYL (PF) 50 MCG/ML 2 ML AMP IV ONE (13:09)
[2017-04-25] MEDS ORDERED: LIDOCAINE 2% INJ 20 MG/ML SQ ONE (13:11)
[2017-04-25] MEDS: NITROGLYCERIN 1000MCG/10ML SYRINGE INTRACORON ONE ×2 (13:23→13:25)
[2017-04-25] MEDS ORDERED: IOHEXOL 350 MG/ML 125ML BOTTLE INJ ONE (13:37)
[2017-04-25] MEDS ORDERED: SODIUM CHLORIDE 0.9% 1,000 ML IV SCH (13:45)
[2017-04-25] MEDS ORDERED: RX INFO: IV CONTRAST WAS GIVEN 1 EACH MISC MISCELLANE PRN (13:45)
[2017-04-25] MEDS: amLODIPine 2.5 MG TAB PO SCH (14:23)
--- NOTE | 2017-04-25 15:31 | CC ---
CARDIAC CATHETERIZATION REPORT Mrs. Vera is a 56-year-old female with a history of coronary artery disease by cardiac catheterization in 1994, [id number] who presented with persistent chest discomfort going on for the last few days. Her cardiac enzymes and EKG showed no acute changes, but because of the persistent symptoms, she underwent stress test that showed evidence of apical ischemia. In view of that, recommendation made regarding cardiac catheterization. The procedures, risks and complication were discussed with the patient who is in full understanding and agreement. PROCEDURE: Patient was brought to the Enforcement Safety Officer in a fasting semi-sedated state after receiving fentanyl and Benadryl and achieving moderate conscious sedated state. Using Xylocaine anesthesia and Seldinger technique, a 6-Niuean sheath was introduced in the right femoral artery. Selective right and left angiography performed using a 6-Niuean 4 bend right and left Betty catheter and multiviews of the right coronary artery including hemiaxial views were obtained. Following that, a 6-Niuean tight pigtail catheter was introduced into the left ventricle and a 30 degree ZULETA view of the left ventricle was obtained. Following that, catheter and sheaths were removed. Hemostasis was obtained with deployment of an Angio-Seal. There was no immediate complication. Patient is returned to her room in a stable condition. FINDINGS: 1. LEFT MAIN: This is a large-sized vessel, bifurcating into left circumflex, left anterior descending artery, left main coronary artery without any significant obstructive coronary disease. 2. LEFT CIRCUMFLEX: This is a large vessel giving rise to a large diagonal branch. The proximal right coronary artery has an eccentric 30% to 40% plaque. There is another mild plaque in the mid segment of 20% to 30%. The rest of the vessel has no high-grade stenosis. 3. LEFT CIRCUMFLEX: This is a nondominant vessel giving rise to a large obtuse marginal branch. The left circumflex has mild plaque in the mid segment of 20% without any evidence of high-grade stenosis. 4. RIGHT CORONARY ARTERY: This is a dominant vessel bifurcating distally into PDA and posterolateral segment and branches. The midportion of the right coronary artery has diffuse intimal disease and had catheter-induced spasm. The severity of the stenosis throughout the mid right coronary artery is about 40% to 50%. The rest of the vessel has no high-grade stenosis. 5. LEFT VENTRICULOGRAM: Left ventriculogram was performed in 30 degree ZULETA view and reveals normal left ventricular size and systolic function. Ejection fraction is 60%. There was no significant mitral regurgitation. 6. HEMODYNAMICS: There was no gradient across the aortic valve. The left ventricle end-diastolic pressure varela 20 mmHg. CONCLUSION: 1. Moderate disease in the mid right coronary artery with mild disease in the left anterior descending artery and left circumflex. 2. Normal left ventricular size and systolic function. RECOMMENDATION: At this time, I see no evidence of high-grade stenosis to explain her symptoms. I would recommend to maximize her medical therapy and it is possible that some of her symptoms are related to vasospastic disease. Those findings and recommendation were discussed with the patient and her family who are in full understanding and agreement. Duration of the procedure is 26 minutes. MMANGELITAL / IJN: [id number] /
--- NOTE | 2017-04-25 16:10 | CONS ---
CONSULTATION DATE OF SERVICE: 04/24/16 This patient was seen on the and it was dictated then but for some reason the coloring room worker is not available so I am redictating the consult. Mrs. Vera is a 56-year-old female with known history of coronary artery disease has underwent cardiac catheterization in 2014 in [facility] and presented with symptoms of chest discomfort. She has moved to [place] recently has been under increased amount of stress with her mother being in hospice care. For the last few days, she has been complaining of some persistent chest discomfort with dyspnea, dizziness and palpitation. Because of that, she came into the emergency room and subsequently admitted. Prior to that, she has been active physically without difficulty. She has no history of PND or orthopnea. No peripheral edema. No syncope. She has been feeling dizzy at times. Her coronary risk factors are negative for documented hypertension or hyperlipidemia. She is nondiabetic. MEDICATION: Medications at home include aspirin, vitamin D, and Klonopin. REVIEW OF SYSTEMS: RESPIRATORY system: She has dyspnea on exertion. No recent wheezing or cough. Gastroenterology system: No recent GI bleed. No peptic ulcer disease. system: No dysuria or hematuria. Nervous system: No history of stroke or seizure. PHYSICAL EXAMINATION: She is a 56-year-old female, alert, oriented, in no apparent distress. Blood pressure 119/60 with a heart in the 60s. HEAD: Normocephalic. Eyes sclerae anicteric. Neck good upstroke. No bruit. No jugular distention. LUNGS: Clear to auscultation. HEART: Regular rate and rhythm S1, S2. No S3 with soft systolic murmur. No diastolic murmur. No rub. ABDOMEN: Soft, nontender. Positive bowel sounds. No organomegaly. EXTREMITIES: No edema. Intact distal pulses. LAB DATA: BUN and creatinine 16 and 0.93, potassium 4.3. Troponin less than 0.0612 for 3 samples. Cholesterol 176, LDL of 95, hemoglobin of 13.4. EKG reveals sinus mechanism with sinus bradycardia and T-wave inversion anteriorly with no evolution. Chest x-ray shows no infiltrate. IMPRESSION: 1. Chest discomfort of unclear etiology, has atypical features for ischemic heart disease. 2. History of coronary artery disease by cardiac catheterization according to the patient. 3. History of anxiety. RECOMMENDATION: From the cardiac standpoint, I will obtain an echocardiogram as well as stress myocardial perfusion imaging to evaluate her status and guide her treatment. Depending on results of testing, further recommendations will be made. In the meantime, I will try to obtain the results of prior cardiac catheterization. Thank you for this consult. We will follow with you. GRAYSON / COLE: [id number] /
[2017-04-25] MEDS ORDERED: diphenhydrAMINE 2% CREAM 28.4 GM TUBE TOPICAL PRN (20:23)
[2017-04-26 06:37] LABS: Anion Gap 6 mmol/L; Blood Urea Nitrogen 18 mg/dL (7-17); Carbon Dioxide 26 mmol/L (22-30); Chloride 109 mmol/L (98-107); Glucose 91 mg/dL (74-99); Potassium 4.4 mmol/L (3.5-5.1); Sodium 141 mmol/L (137-145)
[2017-04-26] MEDS: amLODIPine 2.5 MG TAB PO SCH (08:03)
[2017-04-26] MEDS: FAMOTIDINE 20 MG TAB PO SCH (08:04)
[2017-04-26] MEDS: HYDROcodone/APAP 5-325MG 1 EACH TAB PO PRN (08:04)
[2017-04-26] MEDS: clonazePAM 1 MG TAB PO SCH (08:05)
[2017-04-26] MEDS: ONDANSETRON 4 MG/2 ML VIAL IVP PRN (08:05)
[2017-04-26] MEDS ORDERED: ATORVASTATIN 40 MG TAB PO SCH (09:00)
[2017-04-26] MEDS ORDERED: ASPIRIN 81 MG PO SCH (09:00)
--- NOTE | 2017-04-26 09:29 | PN ---
PROGRESS NOTE Mrs. Vera is a 56-year-old female who presented with symptoms of chest pain. Had an abnormal myocardial perfusion imaging. Underwent cardiac catheterization, revealed mild to moderate triple-vessel coronary artery disease. She is feeling tired at this time. She has vague pressure. No dizziness. No palpitation. No nausea. She continued to be on aspirin once a day, amlodipine 2.5 mg daily, and atorvastatin 40 mg daily. PHYSICAL EXAMINATION: Blood pressure 109/60 with a heart rate in the 60s. LUNGS: Clear. HEART: Regular rate and rhythm, S1, S2. No S3. No rub. ABDOMEN: Soft, nontender. EXTREMITIES: No edema. Right groin no hematoma. LAB DATA: Revealed BUN and creatinine of 18 and 1.12, potassium 4.4. IMPRESSION: 1. Mild to moderate coronary artery disease. 2. Chest discomfort of unclear etiology. Possible vasospastic disease cannot be excluded. 3. Hyperlipidemia. RECOMMENDATION: Patient should be able to be discharged home today and followed as an outpatient. MMODL / IJN: [id number] /
[2017-04-26 10:49] VITALS: RESP 20
[2017-04-26 11:56] VITALS: BP 105/49; PULSE 52; TEMP 97.3
[2017-04-27] MEDS ORDERED: FAMOTIDINE 20 MG TAB PO SCH (09:00)
--- NOTE | 2017-04-27 23:32 | P.PN ---
Subjective Progress Note Date: 04/25/17 Principal diagnosis: Chest pain Patient is a 56-year-old female with a known history of anxiety/panic disorder, GERD and previous history of cardiac catheterization 4 years ago, was found to have 60% blockages as per patient came to ER with complaints of chest pain mainly left retrosternal area-below the left breast.. On and off stabbing pain which has been present for the past 2 days. Patient felt some right arm heaviness and tingling. Pain is associated with shortness of breath and clamminess. Patient states it never completely goes away but gets much better. Patient denies any nausea vomiting or diarrhea. Patient denies any abdominal pain. Patient states she has been dizzy but had no near syncopal episodes. Patient states she's had a mild headache but denies any numbness or weakness. Patient states occasionally she has some tingling in her fingers. Patient denies any recent injury or trauma. Patient denies any swelling in her legs or calf pain. Patient does have a history of panic disorder and does take medications. Patient does take baby aspirin at home. No fever no chills. No recent illnesses. Patient is taking care of her mother wheeze came to be admitted for group home in next few days. EKG sinus tachycardia chest x-ray no acute cardio prudent process. Troponin 2 negative. TSH within normal limits On 04/24/2017 Patient had stress test today Lexiscan showed small apical ischemia reversible. Cardiology is planning for cardiac catheter tomorrow otherwise patient is still complaining of left-sided chest pain. Patient also very anxious and does have a history of panic disorder. No fever no chills. No cough is from production. No other acute overnight issues. 04/25/2017 Patient had cardiac cath today which showed about 40% stenosis. Suspected passive spasm. Patient was started on Norvasc at low-dose. Otherwise patient continues to have left upper chest pain. No fever no chills no cough is from production. Otherwise no acute overnight issues. Anticipate discharge tomorrow. All other review of systems negative above Current medications reviewed Objective - Vital Signs Vital signs: Vital Signs Temp 98.0 F 04/25/17 19:50 Pulse 52 L 04/25/17 19:50 Resp 16 04/25/17 19:50 BP 109/58 04/25/17 19:50 Pulse Ox 95 04/25/17 19:50 Intake & Output 04/25/17 04/25/17 04/26/17 06:59 18:59 06:59 Intake Total 300 150 580 Output Total 3 700 Balance 297 -550 580 Weight 64.1 kg Intake: IV 150 Intake, IV Titration 60 100 Amount Sodium Chloride 0.9% 1, 100 000 ml @ 100 mls/hr IV . Q10H [facility] Rx#:[id number] Sodium Chloride 0.9% 1, 60 000 ml In Empty Bag 1 bag @ 1 ML/KG/HR 57.7 mls/hr IV .[id number] ONE Rx#: [id number] Oral 240 480 Output: Urine 3 700 Other: Voiding Method Toilet Toilet Bedpan # Voids 1 1 - Exam PHYSICAL EXAMINATION: Patient is lying in the bed comfortably, no acute distress, awake alert and oriented. Patient seems very anxious. HEENT: Normocephalic. Neck is supple. Pupils reactive. Nostrils clear. Oral cavity is moist. Ears reveal no drainage. Neck reveals no JVD, carotid bruits, or thyromegaly. CHEST EXAMINATION: Trachea is central. Symmetrical expansion. Lung gleason clear to auscultation and percussion. CARDIAC: Normal S1, S2 with no gallops. No murmurs ABDOMEN: Soft. Bowel sounds normal. No organomegaly. No abdominal bruits. Extremities: reveal no edema. No clubbing or cyanosis Neurologically awake, alert, oriented x3 with well-coordinated movements. No focal deficits noted Skin: No rash or skin lesions. Psychiatric: Coperative. Nonsuicidal Musculoskeletal: No joint swelling or deformity. Normal range of motion. - Labs CBC & Chem 7: 04/25/17 05:24 04/26/17 06:04 Labs: Abnormal Lab Results - Last 24 Hours (Table) 04/25/17 Range/Units 05:24 Creatinine 1.10 H (0.52-1.04) mg/dL Assessment and Plan Assessment: Chest pain with abnormal stress test. Cardiac catheterization showed 40-50% stenosis. History of prior cardiac Catheterization with 60% stenosis GERD Anxiety and panic disorder Nicotine addiction Plan: Patient will be continued on aspirin . Statin and Norvasc was added. Continue with telemetry monitoring and pain management. Continue with anxiolytics. Smoking cessation has been counseled extensively. Further recommendations based on the clinical course. Continue to follow closely. Discussed with the family and the patient more than 20 minutes. Time with Patient: Greater than 30
--- NOTE | 2017-04-27 23:34 | P.DS ---
Providers Date of admission: 04/24/17 15:27 Expected date of discharge: 04/26/17 Attending physician: Berta Monte Consults: 04/23/17 15:53 Consult Physician Urgent Consulting Provider: [facility] Consult Reason/Comments: [place] Do you want consulting provider notified?: Yes Primary care physician: Luis Holland [facility] Course: Discharge diagnosis Chest pain with abnormal stress test. Cardiac catheterization showed 40-50% stenosis. History of prior cardiac Catheterization with 60% stenosis GERD Anxiety and panic disorder Nicotine addiction Hospital course Patient is a 56-year-old female with a known history of anxiety/panic disorder, GERD and previous history of cardiac catheterization 4 years ago, was found to have 60% blockages as per patient came to ER with complaints of chest pain mainly left retrosternal area-below the left breast.. On and off stabbing pain which has been present for the past 2 days. Patient felt some right arm heaviness and tingling. Pain is associated with shortness of breath and clamminess. Patient states it never completely goes away but gets much better. Patient denies any nausea vomiting or diarrhea. Patient denies any abdominal pain. Patient states she has been dizzy but had no near syncopal episodes. Patient states she's had a mild headache but denies any numbness or weakness. Patient states occasionally she has some tingling in her fingers. Patient denies any recent injury or trauma. Patient denies any swelling in her legs or calf pain. Patient does have a history of panic disorder and does take medications. Patient does take baby aspirin at home. No fever no chills. No recent illnesses. Patient is taking care of her mother wheeze came to be admitted for intermediate in next few days. EKG sinus tachycardia chest x-ray no acute cardio prudent process. Troponin 2 negative. TSH within normal limits On 04/24/2017 Patient had stress test today Lexiscan showed small apical ischemia reversible. Cardiology is planning for cardiac catheter tomorrow otherwise patient is still complaining of left-sided chest pain. Patient also very anxious and does have a history of panic disorder. No fever no chills. No cough is from production. No other acute overnight issues. 04/25/2017 Patient had cardiac cath today which showed about 40% stenosis. Suspected passive spasm. Patient was started on Norvasc at low-dose. Otherwise patient continues to have left upper chest pain. No fever no chills no cough is from production. Otherwise no acute overnight issues. Anticipate discharge tomorrow. Patient was continued on aspirin . Statin and Norvasc was added. Continued with anxiolytics. Smoking cessation has been counseled extensively. Patient did improve symptomatically. Otherwise stable to be discharged home. PHYSICAL EXAMINATION: Patient is lying in the bed comfortably, no acute distress, awake alert and oriented.. HEENT: Normocephalic. Neck is supple. Pupils reactive. Nostrils clear. Oral cavity is moist. Ears reveal no drainage. Neck reveals no JVD, carotid bruits, or thyromegaly. CHEST EXAMINATION: Trachea is central. Symmetrical expansion. Lung gleason clear to auscultation and percussion. CARDIAC: Normal S1, S2 with no gallops. No murmurs ABDOMEN: Soft. Bowel sounds normal. No organomegaly. No abdominal bruits. Extremities: reveal no edema. No clubbing or cyanosis Neurologically awake, alert, oriented x3 with well-coordinated movements. No focal deficits noted Skin: No rash or skin lesions. Psychiatric: Coperative. Nonsuicidal Musculoskeletal: No joint swelling or deformity. Normal range of motion. Total time taken greater than 35 minutes including 18 minutes for counseling and coordination of care. Patient Condition at Discharge: Fair Plan - Discharge Summary Discharge Rx Participant: Yes New Discharge Prescriptions: New amLODIPine [Norvasc] 2.5 mg PO DAILY #30 tab Aspirin 81 mg PO DAILY #30 chew Atorvastatin [Lipitor] 40 mg PO DAILY #30 tab Famotidine [Pepcid] 20 mg PO DAILY #30 tab Continue Ergocalciferol [Vitamin D2 (DRISDOL)] 50,000 unit PO Q28D clonazePAM [KlonoPIN] 1 mg PO TID Nitroglycerin Sl Tabs [Nitrostat] 0.4 mg SUBLINGUAL Q5M PRN #25 tab PRN Reason: Chest Pain Discontinued Aspirin EC [Ecotrin Low Dose] 81 mg PO DAILY Discharge Medication List Ergocalciferol [Vitamin D2 (DRISDOL)] 50,000 unit PO Q28D 06/13/16 [History] clonazePAM [KlonoPIN] 1 mg PO TID 04/23/17 [History] Aspirin 81 mg PO DAILY #30 chew 04/26/17 [Rx] Atorvastatin [Lipitor] 40 mg PO DAILY #30 tab 04/26/17 [Rx] Famotidine [Pepcid] 20 mg PO DAILY #30 tab 04/26/17 [Rx] Nitroglycerin Sl Tabs [Nitrostat] 0.4 mg SUBLINGUAL Q5M PRN #25 tab 04/26/17 [Rx ] amLODIPine [Norvasc] 2.5 mg PO DAILY #30 tab 04/26/17 [Rx] Follow up Appointment(s)/Referral(s): Kasey Hollingsworth MD [STAFF PHYSICIAN] - 05/02/17 2:30 pm Nonstaff,Physician [REFERRING] - 1-2 days Patient Instructions/Handouts: *Surgery [facility] - After Heart Catheterization - Guidance Consultant Instructions, Left Heart Catheterization (DC) Activity/Diet/Wound Care/Special Instructions: To help find a new primary care doctor you can go onto the [facility] website and go to the find a doctor tab. Discharge Disposition: HOME SELF-CARE
== END 2017-04-26 14:14 | disposition home or self-care (01) | DRG 287 ==
LOC: EC 13:15 → 3OBS 15:53 → 6SEL 21:54 → OBSVTOIN 04-24 15:27
PROVIDERS: ADMIT Internal Medicine; ATTEND Internal Medicine
PROC: B2111ZZ Fluoroscopy of Multiple Coronary Arteries using Low Osmolar Contrast (ICD-10-PCS; 2017-04-25)
PROC: 4A023N7 Measurement of Cardiac Sampling and Pressure, Left Heart, Percutaneous Approach (ICD-10-PCS; principal; 2017-04-25 12:45)
DX: I25.110 Atherosclerotic heart disease of native coronary artery with unstable angina pectoris (principal); E78.5 Hyperlipidemia, unspecified; F17.200 Nicotine dependence, unspecified, uncomplicated; F41.0 Panic disorder [episodic paroxysmal anxiety]; R00.0 Tachycardia, unspecified; K21.9 Gastro-esophageal reflux disease without esophagitis; R51 Headache; R00.1 Bradycardia, unspecified; R20.2 Paresthesia of skin; Z79.899 Other long term (current) drug therapy; Z79.82 Long term (current) use of aspirin; Z82.49 Family history of ischemic heart disease and other diseases of the circulatory system; Z71.6 Tobacco abuse counseling; Z90.710 Acquired absence of both cervix and uterus
CPT/HCPCS: 36415; 71046; 78452; 80048; 80053; 80061; 82550; 82553; 83735; 84132; 84443; 84484; 85025; 85610; 85730; 93005; 93017; 93306; 93458; 96372; 96374; 96375; 99291

== ENCOUNTER 2017-06-26 16:54 | Emergency (ER) | payer BC ==
[2017-06-26] MEDS ORDERED: ONDANSETRON 4 MG/2 ML VIAL IVP STA (17:36)
[2017-06-26] MEDS ORDERED: PANTOPRAZOLE 40 MG/10 ML VIAL IVP STA (17:36)
[2017-06-26] MEDS ORDERED: ONDANSETRON 4 MG/2 ML VIAL IVP PRN (17:36)
[2017-06-26] MEDS ORDERED: SODIUM CHLORIDE 0.9% 1,000 ML IV STA ×2 (17:36)
[2017-06-26] MEDS ORDERED: SODIUM CHLORIDE 0.9% 1,000 ML IV ONE (17:36)
[2017-06-26] MEDS ORDERED: MORPHINE SULFATE/PF 10MG/10ML VL IVP PRN (17:36)
[2017-06-26] MEDS ORDERED: MORPHINE SULFATE 4 MG/ML SYRINGE IV STA (17:36)
--- NOTE | 2017-06-26 17:39 | ED ---
General Adult HPI - General Chief complaint: Abdominal Pain Stated complaint: Abd Pain Time Seen by Provider: 06/26/17 17:23 Source: patient, family, RN notes reviewed, old records reviewed Mode of arrival: wheelchair Limitations: no limitations - History of Present Illness Initial comments: This is a 56-year-old female to the ER today in regards to abdominal pain. Patient has history of bowel pain for a year. No significant formal evaluation. She has had issues with her bowel constipation. She has had a hysterectomy, patient is unsure of any other surgery. No fevers. Patient presented to her family doctor for blood work and symptom management earlier today and was told to come to the ER for further evaluation. Patient unsure of what was wrong, she states she did have abnormal lab test - Related Data Home Medications Medication Instructions Recorded Confirmed Charcoal 1 tab PO DAILY 06/26/17 06/26/17 Dicyclomine [Bentyl] 10 mg PO QID 06/26/17 06/26/17 Esomeprazole Magnesium [NexIUM] 40 mg PO DAILY 06/26/17 06/26/17 clonazePAM [Clonazepam] 2 mg PO TID 06/26/17 06/26/17 Previous Rx's Medication Instructions Recorded Aspirin 81 mg PO DAILY #30 chew 04/26/17 Famotidine [Pepcid] 20 mg PO BID #60 tablet 06/26/17 Sucralfate [Carafate] 1 gm PO BID #60 tab 06/26/17 Allergies Allergy/AdvReac Type Severity Reaction Status Date / Time No Known Allergies Allergy Verified 06/26/17 18:30 Review of Systems ROS Statement: Those systems with pertinent positive or pertinent negative responses have been documented in the HPI. ROS Other: All systems not noted in ROS Statement are negative. Past Medical History Past Medical History: Chest Pain / Angina, GERD/Reflux History of Any Multi-Drug Resistant Organisms: None Reported Past Surgical History: Breast Surgery, Hysterectomy Additional Past Surgical History / Comment(s): right breast lumpectomy Past Anesthesia/Blood Transfusion Reactions: No Reported Reaction Past Psychological History: Anxiety Smoking Status: Current every day smoker Past Alcohol Use History: None Reported Past Drug Use History: None Reported - Past Family History Father Family Medical History: Chest Pain / Angina, Coronary Artery Disease (CAD), Myocardial Infarction ([place]) Mother Family Medical History: Coronary Artery Disease (CAD), Myocardial Infarction ([place] ) Additional Family Medical History / Comment(s): history of multiple stents General Exam Limitations: no limitations General appearance: alert, in no apparent distress Head exam: Present: atraumatic, normocephalic, normal inspection Eye exam: Present: normal appearance, PERRL, EOMI. Absent: scleral icterus, conjunctival injection, periorbital swelling ENT exam: Present: normal exam, mucous membranes moist Neck exam: Present: normal inspection. Absent: tenderness, meningismus, lymphadenopathy Respiratory exam: Present: normal lung sounds bilaterally. Absent: respiratory distress, wheezes, rales, rhonchi, stridor Cardiovascular Exam: Present: regular rate, normal rhythm, normal heart sounds. Absent: systolic murmur, diastolic murmur, rubs, gallop, clicks GI/Abdominal exam: Present: soft, normal bowel sounds. Absent: distended, tenderness, guarding, rebound, rigid Extremities exam: Present: normal inspection, full ROM, normal capillary refill. Absent: tenderness, pedal edema, joint swelling, calf tenderness Back exam: Present: normal inspection Neurological exam: Present: alert, oriented X3, CN II-XII intact Psychiatric exam: Present: normal affect, normal mood Skin exam: Present: warm, dry, intact, normal color. Absent: rash Course Vital Signs 06/26/17 06/26/17 06/26/17 17:22 18:50 19:14 Temperature 97.5 F L 97.1 F L Pulse Rate 83 54 L 99 Respiratory 20 16 16 Rate Blood Pressure 140/59 102/55 103/53 O2 Sat by Pulse 98 97 100 Oximetry 06/26/17 06/26/17 20:50 21:12 Temperature 98.2 F Pulse Rate 60 Respiratory 17 Rate Blood Pressure 125/59 O2 Sat by Pulse 98 Oximetry - Reevaluation(s) Reevaluation #1: Spoke with Dr. waller her regarding patient, he is familiar and aware. He was seen this patient as a new patient earlier today, he is unaware of any abnormal lab tests patient had done or any abnormal findings. Patient does have improvement with pain Medical Decision Making - Medical Decision Making 56 female the ER with abdominal pain. Patient does have improved pain at this time. Labwork and CT, ultrasound are negative, CT may show inflammation correlating with gastritis - Lab Data Result diagrams: 06/26/17 18:00 06/26/17 18:00 Lab Results 06/26/17 06/26/17 06/26/17 Range/Units 18:00 18:00 18:00 WBC 9.0 (3.8-10.6) k/uL RBC 4.57 (3.80-5.40) m/uL Hgb 13.8 (11.4-16.0) gm/dL Hct 38.7 (34.0-46.0) % MCV 84.6 D (80.0-100.0) fL MCH 30.3 (25.0-35.0) pg MCHC 35.8 (31.0-37.0) g/dL RDW 12.7 (11.5-15.5) % Plt Count 299 (150-450) k/uL Neutrophils % 67 % Lymphocytes % 26 % Monocytes % 4 % Eosinophils % 2 % Basophils % 0 % Neutrophils # 6.0 (1.3-7.7) k/uL Lymphocytes # 2.4 (1.0-4.8) k/uL Monocytes # 0.3 (0-1.0) k/uL Eosinophils # 0.1 (0-0.7) k/uL Basophils # 0.0 (0-0.2) k/uL Sodium 141 (137-145) mmol/L Potassium 4.5 (3.5-5.1) mmol/L Chloride 107 (98-107) mmol/L Carbon Dioxide 24 (22-30) mmol/L Anion Gap 10 mmol/L BUN 22 H (7-17) mg/dL Creatinine 0.90 (0.52-1.04) mg/dL Est GFR (CKD-EPI)AfAm 84 (>60 ml/min/1.73 sqM) Est GFR (CKD-EPI)NonAf 73 (>60 ml/min/1.73 sqM) Glucose 92 (74-99) mg/dL Plasma Lactic Acid Jakub (0.7-2.0) mmol/L Calcium 9.6 (8.4-10.2) mg/dL Total Bilirubin 0.2 (0.2-1.3) mg/dL AST 22 (14-36) U/L ALT 24 (9-52) U/L Alkaline Phosphatase 104 (38-126) U/L Total Creatine Kinase 48 (30-135) U/L CK-MB (CK-2) <0.2 (0.0-2.4) ng/mL CK-MB (CK-2) Rel Index Troponin I <0.012 (0.000-0.034) ng/mL Total Protein 6.4 (6.3-8.2) g/dL Albumin 3.8 (3.5-5.0) g/dL Amylase 72 (30-110) U/L Lipase 72 (23-300) U/L 06/26/17 Range/Units 18:00 WBC (3.8-10.6) k/uL RBC (3.80-5.40) m/uL Hgb (11.4-16.0) gm/dL Hct (34.0-46.0) % MCV (80.0-100.0) fL MCH (25.0-35.0) pg MCHC (31.0-37.0) g/dL RDW (11.5-15.5) % Plt Count (150-450) k/uL Neutrophils % % Lymphocytes % % Monocytes % % Eosinophils % % Basophils % % Neutrophils # (1.3-7.7) k/uL Lymphocytes # (1.0-4.8) k/uL Monocytes # (0-1.0) k/uL Eosinophils # (0-0.7) k/uL Basophils # (0-0.2) k/uL Sodium (137-145) mmol/L Potassium (3.5-5.1) mmol/L Chloride (98-107) mmol/L Carbon Dioxide (22-30) mmol/L Anion Gap mmol/L BUN (7-17) mg/dL Creatinine (0.52-1.04) mg/dL Est GFR (CKD-EPI)AfAm (>60 ml/min/1.73 sqM) Est GFR (CKD-EPI)NonAf (>60 ml/min/1.73 sqM) Glucose (74-99) mg/dL Plasma Lactic Acid Jakub 0.7 (0.7-2.0) mmol/L Calcium (8.4-10.2) mg/dL Total Bilirubin (0.2-1.3) mg/dL AST (14-36) U/L ALT (9-52) U/L Alkaline Phosphatase (38-126) U/L Total Creatine Kinase (30-135) U/L CK-MB (CK-2) (0.0-2.4) ng/mL CK-MB (CK-2) Rel Index Troponin I (0.000-0.034) ng/mL Total Protein (6.3-8.2) g/dL Albumin (3.5-5.0) g/dL Amylase (30-110) U/L Lipase (23-300) U/L - Radiology Data Radiology results: report reviewed (CT abdomen pelvis shows maybe a little gastritis), image reviewed Disposition Clinical Impression: Abdominal pain, Gastritis Disposition: HOME SELF-CARE Condition: Good Instructions: Abdominal Pain (ED) Prescriptions: Famotidine [Pepcid] 20 mg PO BID #60 tablet Sucralfate [Carafate] 1 gm PO BID #60 tab Referrals: Maury Montesinos MD [Primary Care Provider] - 1-2 days
[2017-06-26 18:14] LABS: Basophils % (A) 0 %; Eosinophils # (A) 0.1 k/uL (0-0.7); Eosinophils % (A) 2 %; HCT 38.7 % (34.0-46.0); HGB 13.8 gm/dL (11.4-16.0); Lymphocytes # (A) 2.4 k/uL (1.0-4.8); Lymphocytes % (A) 26 %; MCH 30.3 pg (25.0-35.0); MCHC 35.8 g/dL (31.0-37.0); Mean Platelet Volume 6.4; Monocytes # (A) 0.3 k/uL (0-1.0); Monocytes % (A) 4 %; Neutrophils % (A) 67 %; Platelet Count 299 k/uL (150-450); RBC 4.57 m/uL (3.80-5.40); RDW 12.7 % (11.5-15.5)
[2017-06-26 18:17] LABS: MCV 84.6 fL (80.0-100.0)
[2017-06-26 18:22] LABS: Albumin 3.8 g/dL (3.5-5.0); Calcium 9.6 mg/dL (8.4-10.2); Potassium 4.5 mmol/L (3.5-5.1); Total Bilirubin 0.2 mg/dL (0.2-1.3); Total Protein 6.4 g/dL (6.3-8.2)
[2017-06-26 18:30] LABS: Creatine Kinase 48 U/L (30-135)
[2017-06-26 18:43] LABS: Creatine Kinase MB <0.2 ng/mL (0.0-2.4); Troponin I <0.012 ng/mL (0.000-0.034)
[2017-06-26] MEDS ORDERED: RX INFO: IV CONTRAST WAS GIVEN 1 EACH MISC MISCELLANE PRN (19:27)
--- NOTE | 2017-06-26 20:21 | CT ---
EXAMINATION TYPE: CT abdomen pelvis w con DATE OF EXAM: 06/26/2017 HISTORY: Epigastric pain x 6months CT DLP: 1172mGycm Automated Exposure Control for Dose Reduction was Utilized. CONTRAST: CT scan of the abdomen and pelvis is performed with IV Contrast, patient injected with 100 mL of Isov ue 300. COMPARISON: None. FINDINGS: LUNG BASES: Bibasilar subsegmental atelectasis is seen LIVER/GB: No significant abnormality is appreciated. Gallbladder is contracted and incompletely evalu ated. PANCREAS: Possible peripancreatic fat stranding as described in the bowel section. No ductal dilatati on. SPLEEN: Punctate splenic lesion is too small to characterize on series 3 image 11 measuring 3 mm. Sta tistically this is benign. ADRENALS: No nodularity. KIDNEYS: Kidneys enhance symmetrically. No hydronephrosis. BOWEL: Focal inflammatory fat stranding is seen inferior to the gastric antrum on series 3 image 30 a nd coronal series 5 image 31. This is also anterior and slightly inferior to the pancreatic head. Phill endix is not definitely visualized, however no right lower quadrant fat stranding changes are seen. B owel is nondilated. UTERUS/ADNEXA: Uterus appears surgically absent. LYMPH NODES: No greater than 1cm abdominal or pelvic lymph nodes are appreciated. OSSEOUS STRUCTURES: No significant abnormality is seen. IMPRESSION: Focal fat stranding situated between the lesser curvature of the gastric antrum and anter ior inferior pancreatic head. Correlate with serum lipase and amylase to exclude pancreatitis. Altern atively this finding could be a sequela of adjacent gastritis. No free air to suggest peptic ulcer pe rforation.
--- NOTE | 2017-06-26 20:22 | US ---
EXAMINATION TYPE: US gallbladder DATE OF EXAM: 06/26/2017 COMPARISON: NONE CLINICAL HISTORY: abd pain. RUQ pain EXAM MEASUREMENTS: Liver Length: 17.6 cm Gallbladder Wall: 0.2 cm CBD: 0.4 cm Right Kidney: 9.3 x 3.8 x 3.8 cm Pancreas: Obscured by bowel gas Liver: wnl Gallbladder: wnl Evidence for sonographic Mitchell's sign: No CBD: wnl Right Kidney: wnl IMPRESSION: No sonographic evidence of cholelithiasis or acute cholecystitis. Nonemergent HIDA scan w ith CCK could be performed to evaluate for chronic cholecystitis or biliary dyskinesia.
[2017-06-26] MEDS ORDERED: MAG HYDROX/AL HYDROX/SIMETH 30 ML, HYOSCYAMINE ELIXIR 10 ML, CIMETIDINE HCL 300 MG, LID... PO STA ×4 (20:30)
[2017-06-26] MEDS ORDERED: SUCRALFATE 1 GM TAB PO STA (20:34)
[2017-06-26 20:51] VITALS: BP 125/59; PULSE 60; RESP 17
[2017-06-26 21:12] VITALS: TEMP 98.2
== END 2017-06-26 21:13 | disposition home or self-care (01) ==
LOC: EC 16:54 → UNDOADMOB 17:37 → 6PED 17:37 → EC 21:13
DX: K29.70 Gastritis, unspecified, without bleeding (principal); K21.9 Gastro-esophageal reflux disease without esophagitis; F41.9 Anxiety disorder, unspecified; F17.200 Nicotine dependence, unspecified, uncomplicated; Z79.899 Other long term (current) drug therapy; Z53.8 Procedure and treatment not carried out for other reasons
CPT/HCPCS: 36415; 80053; 82150; 82550; 82553; 83605; 83690; 84484; 85025; 76705; 74177; 99285; 96374; 96375 ×2; 96361 ×2; J2405; C9113; Q9967; J2270

== ENCOUNTER → 2017-08-02 | Outpatient (CLI) | payer BC ==
--- NOTE | 2017-08-02 14:03 | US ---
EXAMINATION TYPE: US guide vascular access DATE OF EXAM: 08/02/2017 HISTORY: Needs IV access for contrast administration for MRI PROCEDURE: Maximal barrier technique utilized. The skin overlying the basilic vein was localized with ultrasoun d and the vein was noted to be compressible and patent by ultrasound and ultrasound image was obtaine d and submitted on patient's chart. Under direct ultrasound guidance a 20-gauge Angiocath was advanc ed into the vein and fixed in place. Catheter was aspirated and flushed with sterile saline. Hemost asis achieved. Catheter fixed in place. No immediate complication. IMPRESSION: Ultrasound-guided venipuncture, this procedure performed by the undersigned.
== END | disposition home or self-care (01) ==
LOC: RADMRIMAIN 11:45
PROVIDERS: ATTEND Internal Medicine
DX: K55.1 Chronic vascular disorders of intestine (principal); Z98.890 Other specified postprocedural states
CPT/HCPCS: 76937

== ENCOUNTER → 2017-08-29 | Outpatient (CLI) | payer BC ==
--- NOTE | 2017-09-13 13:05 | MM ---
Reason for exam: additional evaluation requested from prior study. Last mammogram was performed 4 years and 8 months ago. History: Patient is postmenopausal, has history of breast cancer at age 48, and history of other cancer. Family history of breast cancer in maternal grandmother at age 40, breast cancer in sister at age 30, and breast cancer in maternal aunt at age 40. Excisional biopsy of the right breast, 2009. Chemotherapy, 2010. Physical Findings: Nurse did not find any significant physical abnormalities on exam. MG 3D Diag Mammo W/Cad JASEN Bilateral CC and MLO view(s) were taken. Prior study comparison: January 03, 2013, mammogram, performed at [facility]. The breast tissue is heterogeneously dense. This may lower the sensitivity of mammography. Finding: Architectural distortion in the subareolar position of the right breast. Focal asymmetry subareolar position, questionable skin thickening. ASSESSMENT: Incomplete: need additional imaging evaluation, BI-RAD 0 RECOMMENDATION: Ultrasound of the right breast.
--- NOTE | 2017-09-13 13:08 | USB ---
Reason for exam: additional evaluation requested from prior study. History: Patient is postmenopausal, has history of breast cancer at age 48, and history of other cancer. Family history of breast cancer in maternal grandmother at age 40, breast cancer in sister at age 30, and breast cancer in maternal aunt at age 40. Excisional biopsy of the right breast, 2010. Chemotherapy, 2010. US Breast RT Right complete breast ultrasound includes all four quadrants, the retroareolar region and axilla. Finding demonstrates a 3 x 3 x 4mm oval, cystic lesion at 7 o'clock, a 4 x 3 x 4mm oval, cystic lesion at 10 o'clock and duct ectasia at the posterior nipple. Persistent distortion on mammogram, needs additional work up. ASSESSMENT: Incomplete: need additional imaging evaluation, BI-RAD 0 RECOMMENDATION: Special view mammogram of the right breast. Manage patient on a clinical basis. [facility] will attempt to contact patient to return for supplemental views.
== END | disposition home or self-care (01) ==
LOC: RADMAMWWP 13:17
PROVIDERS: ATTEND Internal Medicine
DX: C50.919 Malignant neoplasm of unspecified site of unspecified female breast (principal)
CPT/HCPCS: 77062; 77066

== ENCOUNTER → 2017-09-18 | Outpatient (CLI) | payer BC ==
--- NOTE | 2017-09-18 14:05 | MM ---
Reason for exam: additional evaluation requested from abnormal screening. Last mammogram was performed 1 month ago. History: Patient is postmenopausal, has history of breast cancer at age 48, and history of other cancer. Family history of breast cancer in maternal grandmother at age 40, breast cancer in sister at age 30, and breast cancer in maternal aunt at age 40. Excisional biopsy of the right breast, 2009. Chemotherapy, 2010. Physical Findings: Breast exam performed on 08/29/17. MG 3D Follow Up No Charge RT Spot compression CC, spot compression MLO, and LM view(s) were taken of the right breast. Prior study comparison: August 29, 2017, bilateral MG 3d diag mammo w/cad JASEN. January 03, 2013, mammogram, performed at [facility]. The breast tissue is heterogeneously dense. This may lower the sensitivity of mammography. Finding #1: Architectural distortion in the subareolar position of the right breast. Finding #2: There are typically benign calcifications in the right breast. Skin thickening. These results were verbally communicated with the patient and result sheet given to the patient on 09/18/17. ASSESSMENT: Incomplete: need additional imaging evaluation, BI-RAD 0 RECOMMENDATION: Breast MRI and surgical consultation of the right breast. Called with mammographic findings and has scheduled an appointment for the patient for 09/19/[address] Montesinos. PRELIMINARY REPORT CALLED AND FAXED TO DR. MONTESINOS ON 09/18/17.
== END ==
LOC: RADMAMWWP 12:23
PROVIDERS: ATTEND Internal Medicine
DX: Z53.9 Procedure and treatment not carried out, unspecified reason (principal)

== ENCOUNTER → 2017-10-16 | Day surgery (SDC) | payer BC ==
[2017-10-16 11:21] VITALS: BP 113/77; PULSE 66; RESP 18; TEMP 98; BMI 26.4
--- NOTE | 2017-10-16 13:33 | USB ---
EXAMINATION TYPE: US biopsy breast VAD RT, MG diagnostic mammo RT wo CAD DATE OF EXAM: 10/16/2017 CLINICAL HISTORY: R92.8 Abn mammo. Abnormal ultrasound. Spontaneous right breast nipple discharge. TECHNIQUE: Ultrasound guided core biopsy of right breast with clip placement and follow-up diagnostic two-view mammogram. COMPARISON: Complete right breast ultrasound August 29, 2017 FINDINGS: The procedure of ultrasound guided core biopsy was explained to the patient. Benefits, alternatives, and risks were discussed. An informed consent was then obtained. The patient was placed in supine positioning for imaging and for the procedure. The overlying skin was prepped and draped in usual sterile fashion. Lidocaine buffered with bicarbonate was used as anesthetic into the skin and subcutaneous tissue up to area of concern in the right breast. Lidocaine with epinephrine is used as anesthetic into the deeper tissue. Under ultrasound guidance, a 11-gauge vacuum assisted biopsy gun device was used to obtain 7 than 3 additional core samples. Following this, a biopsy clip was left in lesion. The patient tolerated the procedure well without any immediate complication. The patient was kept in the radiology department for short stay after the procedure and then discharged home in stable condition. Postprocedure mammogram shows successful deployment of clip. IMPRESSION: Successful, uncomplicated ultrasound guided core biopsy of area of concern in the right breast, full pathology results to follow. Intermediate index of suspicion noted at time of procedure. Possible papilloma. Pathology Results: Benign RIGHT BREAST LESION AT 7:00 POSITION, NEEDLE CORE BIOPSIES: Clear cell change involving one lobular unit. Fragments of breast parenchyma show fibrocystic spectrum changes. Recommendation Follow up mammogram and ultrasound of the right breast in 6 months. OXANA
== END ==
LOC: RADUSWWP 11:01
PROVIDERS: ATTEND Surgery
DX: R92.8 Other abnormal and inconclusive findings on diagnostic imaging of breast (principal); N60.11 Diffuse cystic mastopathy of right breast
CPT/HCPCS: 88305; 77065; 19083; A4648; J2001

== ENCOUNTER 2018-05-13 04:39 | Observation (INO) | payer BC ==
--- NOTE | 2018-05-13 05:16 | ED ---
Chest Pain HPI - General Chief Complaint: Chest Pain Stated Complaint: Chest Pain Time Seen by Provider: 05/13/18 05:02 Source: patient Mode of arrival: ambulatory Limitations: no limitations - History of Present Illness Initial Comments: This patient is a 57-year-old woman who presents to be evaluated for chest pain and dyspnea. Patient states that since Sunday morning she has experienced a heavy sensation on the sternal area of the chest. She rates it moderate. It has been constant. She has not noted worsening or relieving factors. Patient states she has been feeling short of breath in association. She does note that on in the afternoon, she had changed over from taking Xanax to Ativan in an attempt to wean her from using the Xanax. MD Complaint: chest pain Onset/Timin -: days(s) Onset: during rest Pain Location: substernal Pain Radiation: none Severity: moderate Quality: heaviness Consistency: constant Improves With: nothing Worsens With: nothing Anginal Symptoms: dyspnea Treatments Prior to Arrival: none - Related Data Home Medications Medication Instructions Recorded Confirmed Aspirin 81 mg PO DAILY 05/13/18 05/13/18 Atorvastatin Calcium [Lipitor] 20 mg PO HS 05/13/18 05/13/18 Escitalopram [Lexapro] 10 mg PO DAILY 05/13/18 05/13/18 LORazepam [Ativan] 0.5 mg PO BID 05/13/18 05/13/18 Ondansetron HCl [Zofran] 4 mg PO TID PRN 05/13/18 05/13/18 busPIRone HCL 15 mg PO BID 05/13/18 05/13/18 Allergies Allergy/AdvReac Type Severity Reaction Status Date / Time No Known Allergies Allergy Verified 05/13/18 06:53 Review of Systems ROS Statement: Those systems with pertinent positive or pertinent negative responses have been documented in the HPI. ROS Other: All systems not noted in ROS Statement are negative. Constitutional: Denies: fever, chills, weakness Respiratory: Reports: dyspnea. Denies: cough, wheezes, hemoptysis Cardiovascular: Reports: chest pain. Denies: palpitations, orthopnea, edema, syncope Gastrointestinal: Denies: abdominal pain, nausea, vomiting Genitourinary: Denies: dysuria Skin: Denies: rash Neurological: Denies: headache, weakness, numbness Psychiatric: Reports: anxiety EKG Findings - EKG Results: EKG: interpreted by STONEY, sinus rhythm (Rate 82 bpm), normal axis, normal QRS - Blocks, Renick, Hypertrophy, ST Abn: Repolarization changes or abnormalities: nonspecific abnormality, ST segment, and/or T wave Past Medical History Past Medical History: Cancer, GERD/Reflux Additional Past Medical History / Comment(s): irritable bowel syndrome. right breast cancer 2010 with lumpectomy/chemo x 3 in three sites History of Any Multi-Drug Resistant Organisms: None Reported Past Surgical History: Breast Surgery, Hysterectomy Additional Past Surgical History / Comment(s): right breast lumpectomy 2009/ chemotherapy 2009. 2012 and 2016 Past Anesthesia/Blood Transfusion Reactions: No Reported Reaction Past Psychological History: Anxiety Smoking Status: Current some day smoker Past Alcohol Use History: None Reported Past Drug Use History: None Reported - Past Family History Father Family Medical History: Chest Pain / Angina, Coronary Artery Disease (CAD), Myocardial Infarction ([place]) Mother Family Medical History: Coronary Artery Disease (CAD), Myocardial Infarction ([place] ) Additional Family Medical History / Comment(s): history of multiple stents General Exam Limitations: no limitations General appearance: alert, in no apparent distress, anxious Head exam: Present: atraumatic, normocephalic Eye exam: Present: normal appearance. Absent: scleral icterus, conjunctival injection Neck exam: Present: normal inspection Respiratory exam: Present: normal lung sounds bilaterally. Absent: respiratory distress, wheezes, rales, rhonchi, stridor Cardiovascular Exam: Present: regular rate, normal rhythm, normal heart sounds. Absent: systolic murmur, diastolic murmur, rubs, gallop GI/Abdominal exam: Present: soft. Absent: distended, tenderness, guarding, rebound, rigid, mass Extremities exam: Present: normal inspection, normal capillary refill. Absent: pedal edema, calf tenderness Back exam: Present: normal inspection. Absent: CVA tenderness (R), CVA tenderness (L) Neurological exam: Present: alert Skin exam: Present: warm, dry, intact, normal color. Absent: rash Course Vital Signs 05/13/18 04:42 Temperature 98.1 F Pulse Rate 92 Respiratory 20 Rate Blood Pressure 125/70 O2 Sat by Pulse 95 Oximetry Disposition Clinical Impression: Chest pain Disposition: ADMITTED IP TO THIS HOSP Condition: Fair Instructions (If sedation given, give patient instructions): Chest Pain (ED) Is patient prescribed a controlled substance at d/c from ED?: No Referrals: Maury Montesinos MD [Primary Care Provider] - 1-2 days
[2018-05-13 05:27] LABS: Basophils # (A) 0.1 k/uL (0-0.2); Basophils % (A) 1 %; Eosinophils # (A) 0.2 k/uL (0-0.7); Eosinophils % (A) 2 %; HCT 43.7 % (34.0-46.0); HGB 14.9 gm/dL (11.4-16.0); Lymphocytes # (A) 2.5 k/uL (1.0-4.8); Lymphocytes % (A) 31 %; MCH 29.7 pg (25.0-35.0); MCV 87.2 fL (80.0-100.0); Mean Platelet Volume 6.1; Monocytes # (A) 0.3 k/uL (0-1.0); Monocytes % (A) 4 %; Neutrophils # (A) 4.8 k/uL (1.3-7.7); Neutrophils % (A) 61 %; Platelet Count 265 k/uL (150-450); RBC 5.01 m/uL (3.80-5.40); RDW 13.1 % (11.5-15.5); WBC 7.9 k/uL (3.8-10.6)
[2018-05-13 05:36] LABS: Albumin 4.4 g/dL (3.5-5.0); Calcium 9.7 mg/dL (8.4-10.2); Magnesium 1.9 mg/dL (1.6-2.3); Potassium 4.3 mmol/L (3.5-5.1); Total Bilirubin 0.5 mg/dL (0.2-1.3)
--- NOTE | 2018-05-13 05:41 | XR ---
EXAMINATION TYPE: XR chest 2V DATE OF EXAM: 05/13/2018 COMPARISON: NONE HISTORY: Chest pain TECHNIQUE: Frontal and lateral views of the chest are obtained. FINDINGS: Heart and mediastinum are normal. Lungs are clear. Diaphragm is normal. Bony thorax is int act. There are chest leads. IMPRESSION: Normal chest. No change.
[2018-05-13 05:44] LABS: Creatine Kinase 50 U/L (30-135)
[2018-05-13 05:45] LABS: D-Dimer 0.29 mg/L FEU (<0.60); INR 0.9 (<1.2); Partial Thromboplastin Time 24.4 sec (22.0-30.0); Prothrombin Time 10.1 sec (9.0-12.0)
[2018-05-13 05:57] LABS: Creatine Kinase MB <0.2 ng/mL (0.0-2.4); Troponin I <0.012 ng/mL (0.000-0.034)
[2018-05-13] MEDS ORDERED: LORazepam 2 MG/ML INJ IV STA (07:07)
[2018-05-13] MEDS ORDERED: NITROGLYCERIN SL TABS 0.4 MG TAB SUBLINGUAL PRN (07:11)
[2018-05-13] MEDS ORDERED: ONDANSETRON 4 MG TAB PO PRN (07:14)
[2018-05-13] MEDS ORDERED: ASPIRIN 81 MG PO SCH (09:00)
[2018-05-13 09:33] VITALS: BMI 26.4
[2018-05-13] MEDS: ESCITALOPRAM 10 MG TAB PO SCH (10:28)
[2018-05-13] MEDS: LORazepam 0.5 MG TAB PO SCH ×2 (10:28→21:03)
[2018-05-13] MEDS ORDERED: IBUPROFEN 600 MG TAB PO PRN (10:32)
[2018-05-13] MEDS: busPIRone HCl 5 MG TAB PO SCH ×2 (10:58→19:53)
--- NOTE | 2018-05-13 11:08 | P.CRDCN ---
History of Present Illness History of present illness: This is a pleasant 57-year-old female past medical history significant for mild non-obstructive coronary artery disease, dyslipidemia and former nicotine dependence. She state she recently quit smoking a few weeks ago. She follows with Dr. Hollingsworth in the office. She presented to the hospital with symptoms of chest pain, shortness of breath, dizziness, right shoulder pain , nausea, vomiting and chills. She states she is currently in the process of attempting to discontinue xanax and change to ativan. The pain in her chest is described as a tightness in the left precoridal region with radiation at times to the right shoulder. The pain is not related to activity or exertion. It is intermittent with no specific aggravating factors. She has also had intermittent nausea and vomiting, not associated with chest tightness. She last vomited on Sunday. Currently seen and examined resting comfortably in bed in no acute distress. She does feel chest tightness currently. EKG reveals sinus mechanism with nonspecific T-wave flattening noted in the inferior leads which is no change from EKG 04/2017. There is mild LA depression noted inferiorly. Chest x-ray negative for acute cardiopulmonary process. Laboratory data reviewed, WBC 7.9, hemoglobin 14.9, platelets 265, d-dimer 0.29 , sodium 141, potassium 4.3, magnesium 1.9, creatinine 1.04, cardiac enzymes negative 1, NT proBNP 117. Current cardiac medications include aspirin 81 mg daily and atorvastatin 20 mg daily. Cardiac catheterization performed April 2017 reveals proximal LAD with an eccentric 30-40% plaque, mild plaque in the midsegment of the LAD 20-30%, 20% plaque noted in the mid cirmflex artery and mid RCA 40-50% plaque. Most recent echocardiogram April 2017 reveals preserved left ventricular systolic function with ejection fraction 55%, mild TR and mild MR. At the time of my exam: CONSTITUTIONAL: Denies fever. Denies chills. EYES: Denies blurred vision. Denies vision changes. Denies eye pain. EARS, NOSE, MOUTH & THROAT: Complains of headache. Denies sore throat. Denies ear pain. Complains of facial pain and congestion. CARDIOVASCULAR: Complains of pleuritic chest pain. Denies shortness of breath. Denies orthopnea. Denies PND. Denies palpitations. RESPIRATORY: Complains of cough. GASTROINTESTINAL: Denies abdominal pain. Denies diarrhea. Denies constipation. Denies nausea. Denies vomiting. MUSCULOSKELETAL: Denies myalgias. INTEGUMENTARY: Denies pruitis. Denies rash. NEUROLOGIC: Denies numbness. Denies tingling. Denies weakness. PSYCHIATRIC: Denies anxiety. Denies depression. ENDOCRINE: Denies fatigue. Denies weight change. Denies polydipsia. Denies polyurina. GENITOURINARY: Denies burning, hematuria or urgency with micturation. HEMATOLOGIC: Denies history of anemia. Denies bleeding. Blood pressure 104/67 heart rate 63 afebrile maintaining oxygen saturation on room air GENERAL: This is a 57-year-old female in no apparent distress at the time of my examination. HEENT: Head is atraumatic, normocephalic. Pupils are equal, round. Sclerae anicteric. Conjunctivae are clear. Mucous membranes of the mouth are moist. Neck is supple. There is no jugular venous distention. No carotid bruit is heard. LUNGS: Clear to auscultation no wheezes, rales or rhonchi. No chest wall tenderness is noted on palpation or with deep breathing. HEART: Regular rate and rhythm without murmurs, rubs or gallops. S1 and S2 heard. ABDOMEN: Soft, nontender. Bowel sounds are heard. No organomegaly noted. EXTREMITIES: No evidence of peripheral edema and no calf tenderness noted. VASCULAR: Radial and dorsalis pedis pulses palpated, no evidence of clubbing. NEUROLOGIC: Patient is awake, alert and oriented x3. ASSESSMENT Chest pain, atypical for angina. Pleuritic with URI like symptoms of nasal drainage, cough and congestion. Will rule out pericarditis. History of mild non-obstructive coronary artery disease Dyslipidemia Anxiety, weaning from xanax to ativan Chronic nicotine dependence PLAN Continue to obtain serial cardiac enzymes to rule out an acute coronary event. Check sedimentation rate and c-reactive protein. Obtain 2D echocardiogram and doppler study to assess cardiac structure and function. Give ibuprofen 600mg TID PRN for chest pain. Further recommendations to follow based on clinical course. Thank you kindly for this consultation. Nurse Practitioner note has been reviewed, I agree with a documented findings and plan of care. Patient was seen and examined. Past Medical History Past Medical History: Cancer, GERD/Reflux Additional Past Medical History / Comment(s): irritable bowel syndrome. right breast cancer 2010 with lumpectomy/chemo x 3 in three sites History of Any Multi-Drug Resistant Organisms: None Reported Past Surgical History: Breast Surgery, Hysterectomy Additional Past Surgical History / Comment(s): right breast lumpectomy 2009/ chemotherapy 2009. 2012 and 2015 Past Anesthesia/Blood Transfusion Reactions: No Reported Reaction Past Psychological History: Anxiety Smoking Status: Current some day smoker Past Alcohol Use History: None Reported Past Drug Use History: None Reported - Past Family History Father Family Medical History: Chest Pain / Angina, Coronary Artery Disease (CAD), Myocardial Infarction ([place]) Mother Family Medical History: Coronary Artery Disease (CAD), Myocardial Infarction ([place] ) Additional Family Medical History / Comment(s): history of multiple stents Medications and Allergies Home Medications Medication Instructions Recorded Confirmed Type Aspirin 81 mg PO DAILY 05/13/18 05/13/18 History Atorvastatin Calcium [Lipitor] 20 mg PO HS 05/13/18 05/13/18 History Escitalopram [Lexapro] 10 mg PO DAILY 05/13/18 05/13/18 History LORazepam [Ativan] 0.5 mg PO BID 05/13/18 05/13/18 History Ondansetron HCl [Zofran] 4 mg PO TID PRN 05/13/18 05/13/18 History busPIRone HCL 15 mg PO BID 05/13/18 05/13/18 History Allergies Allergy/AdvReac Type Severity Reaction Status Date / Time No Known Allergies Allergy Verified 05/13/18 06:53 Physical Exam Vitals: Vital Signs Temp Pulse Resp BP Pulse Ox 05/13/18 08:00 119/64 05/13/18 07:30 64 16 125/72 95 05/13/18 07:00 58 L 16 126/75 96 05/13/18 06:30 62 16 109/76 95 05/13/18 06:00 68 18 126/82 96 05/13/18 04:42 98.1 F 92 20 125/70 95 Intake and Output 05/12/18 05/13/18 05/13/18 22:59 06:59 14:59 Other: Weight 61.235 kg Results 05/13/18 05:00 05/13/18 05:00 Cardiac Enzymes 05/13/18 05/13/18 Range/Units 05:00 05:00 AST 34 (14-36) U/L CK-MB (CK-2) <0.2 (0.0-2.4) ng/mL Troponin I <0.012 (0.000-0.034) ng/mL Coagulation 05/13/18 Range/Units 05:00 PT 10.1 (9.0-12.0) sec APTT 24.4 (22.0-30.0) sec CBC 05/13/18 Range/Units 05:00 WBC 7.9 (3.8-10.6) k/uL RBC 5.01 (3.80-5.40) m/uL Hgb 14.9 (11.4-16.0) gm/dL Hct 43.7 (34.0-46.0) % Plt Count 265 (150-450) k/uL Comprehensive Metabolic Panel 05/13/18 Range/Units 05:00 Sodium 141 (137-145) mmol/L Potassium 4.3 (3.5-5.1) mmol/L Chloride 107 (98-107) mmol/L Carbon Dioxide 25 (22-30) mmol/L BUN 14 (7-17) mg/dL Creatinine 1.04 (0.52-1.04) mg/dL Glucose 101 H (74-99) mg/dL Calcium 9.7 (8.4-10.2) mg/dL AST 34 (14-36) U/L ALT 47 (9-52) U/L Alkaline Phosphatase 100 (38-126) U/L Total Protein 7.0 (6.3-8.2) g/dL Albumin 4.4 (3.5-5.0) g/dL Current Medications Generic Name Dose Route Start Last Admin Trade Name Freq PRN Reason Stop Dose Admin Aspirin 325 mg 05/14/18 09:00 Aspirin PO DAILY [facility] Atorvastatin Calcium 20 mg 05/13/18 21:00 Lipitor PO HS [facility] Escitalopram Oxalate 10 mg 05/13/18 09:00 Lexapro PO DAILY [facility] Lorazepam 0.5 mg 05/13/18 09:00 Ativan PO BID SYDNEE Nitroglycerin 0.4 mg 05/13/18 07:11 Nitrostat SUBLINGUAL Q5M PRN Chest Pain Ondansetron HCl 4 mg 05/13/18 07:14 Zofran PO TID PRN Nausea Sodium Chloride 10 ml 05/13/18 09:00 Saline Flush IV BID SYDNEE Intake and Output 05/12/18 05/13/18 05/13/18 22:59 06:59 14:59 Other: Weight 61.235 kg 05/13/18 05:00 05/13/18 05:00
[2018-05-13 12:13] LABS: Creatine Kinase 42 U/L (30-135)
[2018-05-13 12:24] LABS: Creatine Kinase MB <0.2 ng/mL (0.0-2.4); Troponin I <0.012 ng/mL (0.000-0.034)
--- NOTE | 2018-05-13 12:30 | ECHOF ---
Referral Reason:cp MEASUREMENTS -------- HEIGHT: 152.4 cm WEIGHT: 61.2 kg BP: RVIDd: 2.4 cm (< 3.3) IVSd: 0.9 cm (0.6 - 1.1) LVIDd: 3.6 cm (3.9 - 5.3) LVPWd: 1.1 cm (0.6 - 1.1) IVSs: 1.3 cm LVIDs: 3.0 cm LVPWs: 1.2 cm Ao Diam: 2.5 cm (2.0 - 3.7) AV Cusp: 1.5 cm (1.5 - 2.6) LA Diam: 2.7 cm (2.7 - 3.8) MV EXCURSION: 16.312 mm (> 18.000) MV EF SLOPE: 79 mm/s (70 - 150) EPSS: 0.2 cm MV E Frankie: 0.44 m/s MV DecT: 173 ms MV A Frankie: 0.63 m/s MV E/A Ratio: 0.71 RAP: 5.00 mmHg RVSP: 9.49 mmHg FINDINGS -------- Sinus rhythm. This was a technically adequate study. LV size, wall thickness and systolic function are normal, with an EF greater than 55%. The left alton tricular size is normal. The right ventricle is normal in size. The left atrial size is normal. The right atrial size is normal. The aortic valve is trileaflet, and appears structurally normal. No aortic stenosis or regurgitation. Mild mitral annular calcification present. Mild mitral regurgitation is present. Mild tricuspid regurgitation present. There is no evidence of pulmonary hypertension. The right v entricular systolic pressure, as measured by Doppler, is 9.49mmHg. Trace/mild (physiologic) pulmonic regurgitation. The aortic root size is normal. There is no pericardial effusion. CONCLUSIONS -------- 1. LV size, wall thickness and systolic function are normal, with an EF greater than 55%. 2. The left ventricular size is normal. 3. The right ventricle is normal in size. 4. The left atrial size is normal. 5. The right atrial size is normal. 6. The aortic valve is trileaflet, and appears structurally normal. No aortic stenosis or regurgitati on. 7. Mild mitral annular calcification present. 8. Mild mitral regurgitation is present. 9. Mild tricuspid regurgitation present. 10. There is no evidence of pulmonary hypertension. 11. The right ventricular systolic pressure, as measured by Doppler, is 9.49mmHg. 12. Trace/mild (physiologic) pulmonic regurgitation. 13. The aortic root size is normal. 14. There is no pericardial effusion. S[employer]IOR ENTER[employer]ISE ARCHITECT: Dalia Rivera RDCS
--- NOTE | 2018-05-13 13:58 | P.HPIM ---
History of Present Illness H&P Date: 05/13/18 Chief Complaint: Chest pain This is a 57-year-old female patient of Dr. Montesinos with past medical history of coronary artery disease with heart catheterization done April [address] Hollingsworth showing moderate disease in the mid right coronary artery with mild disease in the left anterior descending and left circumflex. Normal left ventricle size and systolic function. At that time recommendations were for maximizing medical therapy and most likely her symptoms were related to vasospastic disease. History of anxiety and panic disorder, gastroesophageal reflux disease, tobacco use and dependence. Patient has been recently established with Dr. Montesinos. Patient has been on Klonopin for about 35 years with concern for addiction and she was weaned off this approximate 45 days ago. She is also been recently taken off Xanax and placed on Ativan. Patient complains of on-and-off episodes of anxiety along with chest pressure that only came with anxiety. This occurred all weekend Sunday and Sunday. Her states that she also was complaining of shadows in the corner of her eyes and shakiness. She states in general, her anxiety is worse in the morning and she takes all 3 of her medications: Lexapro 10 mg, Ativan 0.5 mg, BuSpar 15 mg in order to start her day. She also states that she is still taking Zofran for nausea. She did receive a dose of Ativan IV in the emergency center which she states was not helping and she felt that she had ringing in her ears and she was hearing and seeing things. Patient came into [facility] emergency center for evaluation. Patient was afebrile, heart rate 92, blood pressure 125/70, pulse ox 95% on room air. CBC and comp ransom metabolic panel were within normal limits. Blood sugar is 101, proBNP 117, amylase and lipase were normal. Troponin 0.012. Patient was given a dose of Ativan IV 0.5 mg and placed on the observation unit and consult with cardiology requested. Repeat troponin is negative. Lipid panel in progress. Echocardiogram reveals EF greater than 55%, mild mitral regurgitation, mild tricuspid regurgitation, no pulmonary hypertension. Cardiology has evaluated the patient and ordered repeat enzymes, sed rate and CRP, ibuprofen as needed for chest pain. Consult will be requested with psychiatry for recommendations of anxiety medications to help better control her symptoms. The patient will be discharged after seen by psychiatry. For now, we will keep Ativan 0.5 mg IV available as this seemed to work better than the oral which she has tried taking her home, continue the Zofran, continue BuSpar and Lexapro. Review of Systems All systems: negative Constitutional: Denies anorexia, Denies chills, Denies fatigue, Denies fever, Denies malaise, Denies poor appetite, Denies weakness Eyes: denies blurred vision, denies pain Ears: bilateral: tinnitus Ears, nose, mouth and throat: Denies dysphagia, Denies headache, Denies sore throat, Denies vertigo Cardiovascular: Reports chest pain, Denies decreased exercise tolerance, Denies dyspnea on exertion, Denies edema, Denies leg edema, Denies palpitations, Denies shortness of breath, Denies syncope Respiratory: Denies cough, Denies cough with sputum, Denies dyspnea, Denies excessive sputum, Denies hemoptysis, Denies home oxygen, Denies wheezing Gastrointestinal: Denies abdominal pain, Denies diarrhea, Denies loss of appetite, Denies melena, Denies nausea, Denies vomiting Genitourinary: Denies dysuria, Denies hematuria Musculoskeletal: Denies frequent falls, Denies gait dysfunction, Denies muscle weakness, Denies myalgias Integumentary: Denies darkening of skin, Denies pruritus, Denies rash, Denies wounds Neurological: Denies numbness, Denies weakness Psychiatric: Reports anxiety, Reports anxiety attacks, Reports hallucinations, Denies depression, Denies suicidal ideation Endocrine: Denies fatigue, Denies weight change Past Medical History Past Medical History: Cancer, GERD/Reflux Additional Past Medical History / Comment(s): irritable bowel syndrome. right breast cancer 2010 with lumpectomy/chemo x 3 in three sites History of Any Multi-Drug Resistant Organisms: None Reported Past Surgical History: Breast Surgery, Hysterectomy Additional Past Surgical History / Comment(s): right breast lumpectomy 2009/ chemotherapy 2009. 2012 and 2016 Past Anesthesia/Blood Transfusion Reactions: No Reported Reaction Past Psychological History: Anxiety Smoking Status: Current some day smoker Past Alcohol Use History: None Reported Additional Past Alcohol Use History / Comment(s): Patient is a smoker one pack per day for 24 years and quit on and off. She denies any marijuana, illicit drug use or alcohol use. She lives at home with her . Past Drug Use History: None Reported - Past Family History Father Family Medical History: Chest Pain / Angina, Coronary Artery Disease (CAD), Myocardial Infarction ([place]) Additional Family Medical History / Comment(s): Luisa in his 50s. He was on a cardiac transplant list. Mother Family Medical History: Coronary Artery Disease (CAD), Myocardial Infarction ([place] ) Additional Family Medical History / Comment(s): history of multiple stents. Mother at age 72. Brother(s) Additional Family Medical History / Comment(s): Patient has 3 brothers. One has no major medical problems, one is unknown medical problems, when his cardiac problems. All brothers have anxiety. Sister(s) Additional Family Medical History / Comment(s): Patient has 3 sisters all suffering from anxiety. Daughter(s) Additional Family Medical History / Comment(s): Patient has 2 daughters. One daughter has MS. One daughter has anxiety. Patient does not have any sons. Medications and Allergies Home Medications Medication Instructions Recorded Confirmed Type Aspirin 81 mg PO DAILY 05/13/18 05/13/18 History Atorvastatin Calcium [Lipitor] 20 mg PO HS 05/13/18 05/13/18 History Ondansetron HCl [Zofran] 4 mg PO TID PRN 05/13/18 05/13/18 History Diazepam [Valium] 10 mg PO MOWEFR tab 05/14/18 Rx Ibuprofen [Motrin] 600 mg PO TID PRN tab 05/14/18 Rx PARoxetine [Paxil] 30 mg PO DAILY #90 tab 05/14/18 Rx busPIRone HCl [Buspar] 20 mg PO BID #120 tab 05/14/18 Rx Allergies Allergy/AdvReac Type Severity Reaction Status Date / Time No Known Allergies Allergy Verified 05/13/18 06:53 Physical Exam Vitals: Vital Signs Temp Pulse Resp BP Pulse Ox 05/13/18 07:00 58 L 16 126/75 96 05/13/18 06:30 62 16 109/76 95 05/13/18 06:00 68 18 126/82 96 05/13/18 04:42 98.1 F 92 20 125/70 95 Intake and Output 05/12/18 05/13/18 05/13/18 22:59 06:59 14:59 Other: Weight 61.235 kg Gen: This is a 57-year-old female. She is resting in bed and appears to be comfortable in no acute distress. Tremor noted to bilateral hands. HEENT: Head is atraumatic, normocephalic. Pupils equal, round. Sclerae is anicteric. Conjunctiva pink. NECK: Supple. No JVD. No lymphadenopathy. No thyromegaly. LUNGS: Clear to auscultation. No wheezes or rhonchi. No intercostal retractions. HEART: Regular rate and rhythm. No murmur. ABDOMEN: Soft. Bowel sounds are present. No masses. No tenderness. EXTREMITIES: No pedal edema. No calf tenderness. NEUROLOGICAL: Patient is awake, alert and oriented x3. Cranial nerves 2 through 12 are grossly intact. Results CBC & Chem 7: 05/13/18 05:00 05/13/18 05:00 Labs: Abnormal Lab Results - Last 24 Hours (Table) 05/13/18 Range/Units 05:00 Glucose 101 H (74-99) mg/dL Thrombosis Risk Factor Assmnt - DVT/VTE Prophylaxis DVT/VTE Prophylaxis: Mechanical Prophylaxis ordered Assessment and Plan Plan: 1. Chest pain that occurs with anxiety. Cardiac enzymes negative so far. Echocardiogram as above. Cardiology consult appreciated. 2. Generalized anxiety disorder and panic attacks. Plan to continue Ativan 0.5 mg IV every 8 hours as needed, Lexapro 10 mg daily, BuSpar 15 mg twice daily. Psychiatry evaluation for further recommendations and medication treatment. Patient has been off Klonopin for about 45 days and recently taken off Xanax and started on Ativan. 3. Gastroesophageal reflux disease. Pepcid 4. Coronary artery disease, mild to moderate disease found on heart catheterization April 2017. 5. Tobacco use and dependence. 6. History of breast cancer status post lumpectomy and chemotherapy. Patient placed on the observation unit. Discharge plan: Return home Impression and plan of care have been directed as dictated by the signing physician. Anastasiya Espitia nurse practitioner acting as scribe for signing physician.
[2018-05-13] MEDS: LORazepam 2 MG/ML INJ IV PRN (14:38)
[2018-05-13 19:28] VITALS: RESP 16
[2018-05-13 20:43] LABS: Creatine Kinase 42 U/L (30-135)
[2018-05-13 20:56] LABS: Creatine Kinase MB <0.2 ng/mL (0.0-2.4); Troponin I <0.012 ng/mL (0.000-0.034)
[2018-05-13] MEDS ORDERED: ATORVASTATIN 20 MG TAB PO SCH (21:00)
[2018-05-14] MEDS: LORazepam 2 MG/ML INJ IV PRN (03:37)
[2018-05-14 05:16] LABS: Cholesterol 214 mg/dL (<200); HDL Cholesterol 38 mg/dL (40-60); LDL Cholesterol,Calculated 146 mg/dL (0-99); Triglycerides 149 mg/dL (<150)
[2018-05-14] MEDS: busPIRone HCl 5 MG TAB PO SCH (08:10)
[2018-05-14] MEDS: ESCITALOPRAM 10 MG TAB PO SCH (08:10)
[2018-05-14] MEDS: LORazepam 0.5 MG TAB PO SCH (08:41)
[2018-05-14] MEDS ORDERED: ASPIRIN 81 MG PO SCH (09:00)
[2018-05-14] MEDS ORDERED: ASPIRIN 325 MG TAB PO SCH (09:00)
[2018-05-14] MEDS ORDERED: FAMOTIDINE 20 MG TAB PO SCH (09:00)
[2018-05-14] MEDS ORDERED: DOBUTamine DRIP for NUC MED 500 MG in DEXTROSE/WATER 1 250ML.BAG IV ONE ×2 (09:43→12:18)
--- NOTE | 2018-05-14 10:04 | P.PN ---
Subjective This is a pleasant 57-year-old female past medical history significant for mild non-obstructive coronary artery disease, dyslipidemia and former nicotine dependence. She state she recently quit smoking a few weeks ago. She follows with Dr. Hollingsworth in the office. She is seen and examined sitting up in bed in no acute distress. She continues to feel pain in the chest associated with stress. The pain is tight in the precordial region with shortness of breath. Laboratory data reviewed, sedimentation rate 8, C-reactive protein less than 5, cardiac enzymes negative 3, LDL 146 and HDL 38. Blood pressure 118/74 heart rate 75 afebrile maintaining oxygen saturation on room air. Echocardiogram obtained reveals preserved left ventricular systolic function with ejection fraction greater than 55%. GENERAL: This is a 57-year-old female in no apparent distress at the time of my examination. HEENT: Head is atraumatic, normocephalic. Pupils are equal, round. Sclerae anicteric. Conjunctivae are clear. Mucous membranes of the mouth are moist. Neck is supple. There is no jugular venous distention. No carotid bruit is heard. LUNGS: Clear to auscultation no wheezes, rales or rhonchi. No chest wall tenderness is noted on palpation or with deep breathing. HEART: Regular rate and rhythm without murmurs, rubs or gallops. S1 and S2 heard. EXTREMITIES: No evidence of peripheral edema and no calf tenderness noted. ASSESSMENT Chest pain, atypical for angina. Pleuritic with URI like symptoms of nasal drainage, cough and congestion. Will rule out pericarditis. History of mild non-obstructive coronary artery disease Dyslipidemia Anxiety, weaning from xanax to ativan Chronic nicotine dependence PLAN An acute coronary event has been ruled out. Increase atorvastatin to 40 mg daily for better control of her LDL cholesterol. She continues to feel atypical chest pains at rest. Proceed with dobutamine stress echo. If stress test is normal she may be discharged from a cardiac perspective. Follow up with Dr. Hollingsworth upon discharge. Nurse Practitioner note has been reviewed, I agree with a documented findings and plan of care. Patient was seen and examined. Objective - Vital Signs Vital signs: Vital Signs Temp 98.3 F 05/14/18 07:51 Pulse 75 05/14/18 07:51 Resp 16 05/14/18 07:51 BP 118/74 05/14/18 07:51 Pulse Ox 96 02/05/19 07:51 Intake & Output 05/13/18 05/14/18 05/14/18 18:59 06:59 18:59 Intake Total 236 240 Balance 236 240 Intake: Oral 236 240 Other: Voiding Method Toilet Toilet # Voids 1 1 - Labs CBC & Chem 7: 05/13/18 05:00 05/13/18 05:00 Labs: Abnormal Lab Results - Last 24 Hours (Table) 05/14/18 Range/Units 05:00 Cholesterol 214 H (<200) mg/dL LDL Cholesterol, Calc 146 H (0-99) mg/dL HDL Cholesterol 38 L (40-60) mg/dL
[2018-05-14] MEDS ORDERED: LORazepam 2 MG/ML INJ IV PRN (11:53)
[2018-05-14] MEDS ORDERED: busPIRone HCl 5 MG TAB PO STA (11:59)
[2018-05-14] MEDS ORDERED: DIAZEPAM 5 MG TAB PO STA (12:40)
--- NOTE | 2018-05-14 14:04 | ECHOS ---
STRESS ECHOCARDIOGRAM INDICATIONS: Chest pain. BASELINE HEART RATE: 63 BASELINE BLOOD PRESSURE: 123/82 MAXIMUM HEART RATE: 145 MAXIMUM BLOOD PRESSURE: 145/62 85% MPHR: 140 100% MPHR: 165 MAXIMUM STAGE REACHED: 3 TOTAL EXERCISE TIME: 10:11 CLINICAL INFORMATION: Patient was given dobutamine infusion according to the standard protocol. Peak heart rate of 145 was achieved, maximum blood pressure of 145/62 mmHg was noted. Resting EKG shows normal sinus rhythm with normal clear interval and QRS duration and normal ST-T waves. No ST-segment depression suggestive of ischemia was noted. No dysrhythmias were noted. The baseline echocardiographic images reveal normal left ventricular chamber size with normal left ventricular systolic function. At the peak dose of dobutamine infusion, normal increase in the wall thickness and contractility is noted. FINAL IMPRESSION: 1. This dobutamine stress echocardiographic study is negative for stress-induced ischemia. 2. EKG portion of the stress test is not suggestive of ischemia. MMODL / IJN: [id number] /
[2018-05-14 15:37] VITALS: BP 103/63; PULSE 70; TEMP 98.1
--- NOTE | 2018-05-14 16:05 | P.DS ---
Providers Date of admission: 05/13/18 07:29 Expected date of discharge: 05/14/18 Attending physician: Maury Montesinos Consults: 05/13/18 07:11 Consult Physician Routine Consulting Provider: Mike Campos Consult Reason/Comments: chest pain Do you want consulting provider notified?: Yes 05/13/18 10:43 Consult Physician Routine Consulting Provider: Nabeel Couch Consult Reason/Comments: anxiety, failed med changes Do you want consulting provider notified?: Yes Primary care physician: Maury Montesinos [facility] Course: This is a 57-year-old female patient of Dr. Montesinos with past medical history of coronary artery disease with heart catheterization done April [address] Hollingsworth showing moderate disease in the mid right coronary artery with mild disease in the left anterior descending and left circumflex. Normal left ventricle size and systolic function. At that time recommendations were for maximizing medical therapy and most likely her symptoms were related to vasospastic disease. History of anxiety and panic disorder, gastroesophageal reflux disease, tobacco use and dependence. Patient has been recently established with Dr. Montesinos. Patient has been on Klonopin for about 35 years with concern for addiction and she was weaned off this approximate 45 days ago. She is also been recently taken off Xanax and placed on Ativan. Patient complains of on-and-off episodes of anxiety along with chest pressure that only came with anxiety. This occurred all weekend Sunday and Sunday. Her states that she also was complaining of shadows in the corner of her eyes and shakiness. She states in general, her anxiety is worse in the morning and she takes all 3 of her medications: Lexapro 10 mg, Ativan 0.5 mg, BuSpar 15 mg in order to start her day. She also states that she is still taking Zofran for nausea. She did receive a dose of Ativan IV in the emergency center which she states was not helping and she felt that she had ringing in her ears and she was hearing and seeing things. Patient came into [facility] emergency center for evaluation. Patient was afebrile, heart rate 92, blood pressure 125/70, pulse ox 95% on room air. CBC and comp ransom metabolic panel were within normal limits. Blood sugar is 101, proBNP 117, amylase and lipase were normal. Troponin 0.012. Patient was given a dose of Ativan IV 0.5 mg and placed on the observation unit and consult with cardiology requested. Repeat troponin is negative. Lipid panel in progress. Echocardiogram reveals EF greater than 55%, mild mitral regurgitation, mild tricuspid regurgitation, no pulmonary hypertension. Cardiology has evaluated the patient and ordered repeat enzymes, sed rate and CRP, ibuprofen as needed for chest pain. Consult will be requested with psychiatry for recommendations of anxiety medications to help better control her symptoms. The patient will be discharged after seen by psychiatry. For now, we will keep Ativan 0.5 mg IV available as this seemed to work better than the oral which she has tried taking her home, continue the Zofran, continue BuSpar and Lexapro. 05/14: Psychiatry was unable to see the patient but discussed over the phone and the following recommendations were made. Stop all Ativan, start Valium 5 mg 2 tablets on Sunday and Sunday. Stop Lexapro and placed on Paxil 30 mg daily. Plan will be to gradually wean off Valium. Patient subsequently undergone dobutamine stress test that came back negative and patient will be discharged home today in stable condition. Discharge diagnoses: 1. Chest pain secondary to anxiety. 2. Generalized anxiety disorder and panic attacks. 3. Gastroesophageal reflux disease. 4. Coronary artery disease, mild to moderate disease found on heart catheterization April 2017. 5. Tobacco use and dependence. 6. History of breast cancer status post lumpectomy and chemotherapy. Discharge plan: Return home Impression and plan of care have been directed as dictated by the signing physician. Anastasiya Espitia nurse practitioner acting as scribe for signing physician. Patient Condition at Discharge: Good Plan - Discharge Summary New Discharge Prescriptions: New busPIRone HCl [Buspar] 20 mg PO BID #120 tab Diazepam [Valium] 10 mg PO MOWEFR tab Ibuprofen [Motrin] 600 mg PO TID PRN tab PRN Reason: Pain PARoxetine [Paxil] 30 mg PO DAILY #90 tab Continue Atorvastatin Calcium [Lipitor] 20 mg PO HS Aspirin 81 mg PO DAILY Ondansetron HCl [Zofran] 4 mg PO TID PRN PRN Reason: Nausea Discontinued busPIRone HCL 15 mg PO BID LORazepam [Ativan] 0.5 mg PO BID Escitalopram [Lexapro] 10 mg PO DAILY Discharge Medication List Aspirin 81 mg PO DAILY 05/13/18 [History] Atorvastatin Calcium [Lipitor] 20 mg PO HS 05/13/18 [History] Ondansetron HCl [Zofran] 4 mg PO TID PRN 05/13/18 [History] Diazepam [Valium] 10 mg PO MOWEFR tab 05/14/18 [Rx] Ibuprofen [Motrin] 600 mg PO TID PRN tab 05/14/18 [Rx] PARoxetine [Paxil] 30 mg PO DAILY #90 tab 05/14/18 [Rx] busPIRone HCl [Buspar] 20 mg PO BID #120 tab 05/14/18 [Rx] Follow up Appointment(s)/Referral(s): Kasey Hollingsworth MD [STAFF PHYSICIAN] - 2 Weeks Maury Montesinos MD [Primary Care Provider] - 1 Week Patient Instructions/Handouts: Chest Pain (ED) Discharge Disposition: HOME SELF-CARE
[2018-05-14] MEDS ORDERED: ATORVASTATIN 40 MG TAB PO SCH (21:00)
[2018-05-14] MEDS ORDERED: busPIRone HCl 10 MG TAB PO SCH (21:00)
[2018-05-15] MEDS ORDERED: PARoxetine 10 MG TAB PO SCH (09:00)
[2018-05-15] MEDS ORDERED: DIAZEPAM 5 MG TAB PO SCH (09:00)
== END 2018-05-14 16:34 | disposition home or self-care (01) ==
LOC: EC 04:39 → 1SOBS 07:29
PROVIDERS: ADMIT Internal Medicine; ATTEND Internal Medicine
DX: F41.1 Generalized anxiety disorder (principal); F41.0 Panic disorder [episodic paroxysmal anxiety]; R06.02 Shortness of breath; R42 Dizziness and giddiness; R11.2 Nausea with vomiting, unspecified; R06.00 Dyspnea, unspecified; R09.89 Other specified symptoms and signs involving the circulatory and respiratory systems; R05 Cough; R68.83 Chills (without fever); Z82.49 Family history of ischemic heart disease and other diseases of the circulatory system; I25.10 Atherosclerotic heart disease of native coronary artery without angina pectoris; Z87.891 Personal history of nicotine dependence; K21.9 Gastro-esophageal reflux disease without esophagitis; Z85.3 Personal history of malignant neoplasm of breast; Z92.21 Personal history of antineoplastic chemotherapy; E78.5 Hyperlipidemia, unspecified; Z79.82 Long term (current) use of aspirin; Z79.899 Other long term (current) drug therapy
CPT/HCPCS: 96376 ×2; 96374; 99285; 36415; 93005; 93306; 93351; 85379; 83880; 80061; 80053; 85652; 82150; 82550; 82553; 83690; 83735; 84484; 85025; 85610; 85730; 86140; 71046; G0378 ×2; J2060 ×2; J1250

== ENCOUNTER 2018-10-09 10:54 | Observation (INO) | payer BC ==
[2018-10-09] MEDS ORDERED: SODIUM CHLORIDE 0.9% 1,000 ML IV STA (11:01)
--- NOTE | 2018-10-09 11:01 | ED ---
Chest Pain HPI - General Chief Complaint: Chest Pain Stated Complaint: Chest pain Time Seen by Provider: 10/09/18 11:01 Source: patient, RN notes reviewed, old records reviewed Mode of arrival: wheelchair Limitations: no limitations - History of Present Illness Initial Comments: This is a 58-year-old female the ER for evaluation [facility] of mainly chest pain. History of heart disease and angioplasty. Patient has had chest pain for 2 weeks now episodic most recently 3 days, dizzy family doctor who sent her to emergency room. Patient admits to shortness of breath and diaphoresis with chest pain. Currently is currently having chest pain heaviness currently with left ear and left jaw tenderness MD Complaint: chest pain -: week(s) Onset: during rest, during exertion Pain Location: left chest Pain Radiation: jaw/teeth Severity: moderate Severity scale (1-10): 4 Quality: tightness, heaviness Consistency: constant Improves With: nothing Worsens With: nothing Treatments Prior to Arrival: aspirin - Related Data Home Medications Medication Instructions Recorded Confirmed Aspirin 81 mg PO DAILY 05/13/18 10/09/18 Atorvastatin [Lipitor] 40 mg PO HS 10/09/18 10/09/18 Diazepam [Valium] 5 mg PO DAILY 10/09/18 10/09/18 PARoxetine [Paxil] 10 mg PO DAILY 10/09/18 10/09/18 busPIRone HCl [Buspar] 10 mg PO BID@1200,2000 10/09/18 10/09/18 busPIRone HCl [Buspar] 20 mg PO DAILY@0730 10/09/18 10/09/18 Allergies Allergy/AdvReac Type Severity Reaction Status Date / Time No Known Allergies Allergy Verified 10/09/18 11:23 Review of Systems ROS Statement: Those systems with pertinent positive or pertinent negative responses have been documented in the HPI. ROS Other: All systems not noted in ROS Statement are negative. EKG Findings - EKG Comments: EKG Findings:: EKG shows sinus rhythm rate of 66, CT 156, QRS 76, QTc 389 Past Medical History Past Medical History: Cancer, GERD/Reflux Additional Past Medical History / Comment(s): irritable bowel syndrome. right breast cancer 2009 with lumpectomy/chemo x 3 in three sites History of Any Multi-Drug Resistant Organisms: None Reported Past Surgical History: Breast Surgery, Hysterectomy Additional Past Surgical History / Comment(s): right breast lumpectomy 2009/ chemotherapy 2009. 2012 and 2016 Past Anesthesia/Blood Transfusion Reactions: No Reported Reaction Past Psychological History: Anxiety Smoking Status: Current some day smoker Past Alcohol Use History: None Reported Past Drug Use History: None Reported - Past Family History Father Family Medical History: Chest Pain / Angina, Coronary Artery Disease (CAD), Myocardial Infarction ([place]) Additional Family Medical History / Comment(s): Luisa in his 50s. He was on a cardiac transplant list. Mother Family Medical History: Coronary Artery Disease (CAD), Myocardial Infarction ([place]) Additional Family Medical History / Comment(s): history of multiple stents. Mother at age 72. Brother(s) Additional Family Medical History / Comment(s): Patient has 3 brothers. One has no major medical problems, one is unknown medical problems, when his cardiac problems. All brothers have anxiety. Sister(s) Additional Family Medical History / Comment(s): Patient has 3 sisters all suffering from anxiety. Daughter(s) Additional Family Medical History / Comment(s): Patient has 2 daughters. One daughter has MS. One daughter has anxiety. Patient does not have any sons. General Exam Limitations: no limitations General appearance: alert, in no apparent distress Head exam: Present: atraumatic, normocephalic, normal inspection Eye exam: Present: normal appearance, PERRL, EOMI. Absent: scleral icterus, conjunctival injection, periorbital swelling ENT exam: Present: normal exam, mucous membranes moist Neck exam: Present: normal inspection. Absent: tenderness, meningismus, lymphadenopathy Respiratory exam: Present: normal lung sounds bilaterally. Absent: respiratory distress, wheezes, rales, rhonchi, stridor Cardiovascular Exam: Present: regular rate, normal rhythm, normal heart sounds. Absent: systolic murmur, diastolic murmur, rubs, gallop, clicks GI/Abdominal exam: Present: soft, normal bowel sounds. Absent: distended, tenderness, guarding, rebound, rigid Extremities exam: Present: normal inspection, full ROM, normal capillary refill. Absent: tenderness, pedal edema, joint swelling, calf tenderness Back exam: Present: normal inspection Neurological exam: Present: alert, oriented X3, CN II-XII intact Psychiatric exam: Present: normal affect, normal mood Skin exam: Present: warm, dry, intact, normal color. 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 ] Respiratory 18 18 Rate Blood Pressure 119/80 139/72 O2 Sat by Pulse 97 99 Oximetry - Reevaluation(s) Reevaluation #1: 10/09/18 13:17 Medical record is reviewed Reevaluation #2: 10/09/18 13:17 Still with chest pain Chest Pain MDM - MDM 58 female to be admitted for chest pain observation cardiology evaluation Critical Care Time Critical Care Time: Yes Total Critical Care Time: 31 Disposition Clinical Impression: Chest pain Disposition: ADMITTED IP TO THIS HOSP Condition: Good Instructions (If sedation given, give patient instructions): Chest Pain (ED) Is patient prescribed a controlled substance at d/c from ED?: No Referrals: Maury Montesinos MD [Primary Care Provider] - 1-2 days
[2018-10-09 12:40] LABS: Basophils % (A) 1 %; Eosinophils # (A) 0.1 k/uL (0-0.7); Eosinophils % (A) 1 %; HCT 45.6 % (34.0-46.0); HGB 15.2 gm/dL (11.4-16.0); Lymphocytes # (A) 1.5 k/uL (1.0-4.8); Lymphocytes % (A) 21 %; MCH 30.4 pg (25.0-35.0); MCHC 33.3 g/dL (31.0-37.0); MCV 91.3 fL (80.0-100.0); Mean Platelet Volume 7.7; Monocytes # (A) 0.3 k/uL (0-1.0); Monocytes % (A) 4 %; Neutrophils % (A) 72 %; Platelet Count 241 k/uL (150-450); RBC 4.99 m/uL (3.80-5.40); RDW 15.5 % (11.5-15.5)
--- NOTE | 2018-10-09 12:43 | XR ---
EXAMINATION TYPE: XR chest 2V DATE OF EXAM: 10/09/2018 COMPARISON: May 13, 2018 HISTORY: Shortness of breath TECHNIQUE: Frontal and lateral views of the chest are obtained. FINDINGS: Scattered senescent parenchymal changes noted. No evidence for infiltrate. No evidence for atelectasis. Heart size is stable. Mediastinal structures are stable and grossly unremarkable. No evidence for hilar prominence. Degenerative changes dorsal spine. IMPRESSION: 1. No evidence for acute pulmonary disease.
[2018-10-09 12:46] LABS: D-Dimer 0.32 mg/L FEU (<0.60)
[2018-10-09 12:47] LABS: Partial Thromboplastin Time 25.3 sec (22.0-30.0); Prothrombin Time 10.3 sec (9.0-12.0)
[2018-10-09 13:09] LABS: Albumin 4.3 g/dL (3.5-5.0); Calcium 9.6 mg/dL (8.4-10.2); Potassium 4.7 mmol/L (3.5-5.1); Total Bilirubin 0.4 mg/dL (0.2-1.3)
[2018-10-09] MEDS ORDERED: ASPIRIN 81 MG PO STA (13:15)
[2018-10-09] MEDS ORDERED: HEPARIN SODIUM,PORCINE 5,000 UNIT/ML 1 ML VIAL IV ONE (13:15)
[2018-10-09] MEDS ORDERED: HEPARIN SODIUM,PORCINE 5,000 UNIT/ML 1 ML VIAL IV PRN (13:15)
[2018-10-09] MEDS ORDERED: NITROGLYCERIN SL TABS 0.4 MG TAB SUBLINGUAL PRN (13:15)
[2018-10-09] MEDS ORDERED: DIAZEPAM 5 MG/ML 2 ML INJ IVP STA (13:16)
[2018-10-09] MEDS ORDERED: busPIRone HCl 10 MG TAB PO STA (13:31)
[2018-10-09] MEDS ORDERED: HEPARIN SOD,PORK IN 0.45% NACL 25,000 UNIT in 0.45% NACL 1 250ML.BAG IV SCH (14:00)
[2018-10-09] MEDS ORDERED: SODIUM CHLORIDE 0.9% 1,000 ML IV SCH (14:15)
[2018-10-09 15:04] VITALS: RESP 16
[2018-10-09] MEDS ORDERED: MORPHINE SULFATE 2 MG/ML SYRINGE IVP PRN (17:42)
[2018-10-09] MEDS ORDERED: ACETAMINOPHEN TAB 325 MG TAB PO PRN (18:22)
[2018-10-09] MEDS: NITROGLYCERIN OINT 1 INCH/GM PACKET TOPICAL SCH ×2 (18:23→23:24)
[2018-10-09] MEDS ORDERED: MAG HYDROX/AL HYDROX/SIMETH 30 ML CUP PO PRN (18:31)
[2018-10-09] MEDS: METOPROLOL TARTRATE 25 MG TAB PO SCH (19:55)
[2018-10-09] MEDS ORDERED: busPIRone HCl 10 MG TAB PO SCH (20:00)
[2018-10-09] MEDS ORDERED: ATORVASTATIN 40 MG TAB PO SCH (21:00)
[2018-10-10] MEDS: NITROGLYCERIN OINT 1 INCH/GM PACKET TOPICAL SCH (05:35)
[2018-10-10] MEDS ORDERED: busPIRone HCl 10 MG TAB PO SCH (07:30)
[2018-10-10 07:34] VITALS: BP 108/71; PULSE 54; TEMP 98.2
[2018-10-10 08:53] LABS: Basophils # (A) 0.1 k/uL (0-0.2); Basophils % (A) 1 %; Eosinophils # (A) 0.2 k/uL (0-0.7); Eosinophils % (A) 2 %; HCT 40.8 % (34.0-46.0); HGB 13.9 gm/dL (11.4-16.0); Lymphocytes # (A) 2.3 k/uL (1.0-4.8); Lymphocytes % (A) 31 %; MCH 30.2 pg (25.0-35.0); MCHC 34.1 g/dL (31.0-37.0); MCV 88.5 fL (80.0-100.0); Monocytes # (A) 0.4 k/uL (0-1.0); Monocytes % (A) 5 %; Neutrophils # (A) 4.4 k/uL (1.3-7.7); Neutrophils % (A) 59 %; Platelet Count 260 k/uL (150-450); RBC 4.61 m/uL (3.80-5.40); WBC 7.4 k/uL (3.8-10.6)
[2018-10-10] MEDS ORDERED: ASPIRIN 325 MG TAB PO SCH (09:00)
[2018-10-10] MEDS ORDERED: PARoxetine 10 MG TAB PO SCH (09:00)
[2018-10-10] MEDS ORDERED: ASPIRIN 81 MG PO SCH (09:00)
[2018-10-10] MEDS ORDERED: DIAZEPAM 5 MG TAB PO SCH (09:00)
[2018-10-10] MEDS: METOPROLOL TARTRATE 25 MG TAB PO SCH (09:04)
--- NOTE | 2018-10-10 09:14 | P.CRDCN ---
History of Present Illness Consult date: 10/10/18 History of present illness: This is a 58-year-old female with history of coronary artery disease diagnosis with cardiac catheterization in 1994. At the time it was felt that disease was mild to moderate. Patient had a repeat cardiac catheterization in April 2017. This was performed by Dr. Hollingsworth. At the time she was found to have normal left main. The right coronary artery has 30-40% plaque proximally and also in the midportion. There is about 20% stenosis of the left circumflex. Patient has been following apparently with Dr. AUDREY Varela. She was admitted to this hospital in May and had had a stress echocardiogram. That was negative for ischemia. Now patient comes with complaints of pains intermittently for the last month. She claims the pain is sharp in the middle of the chest and then becomes a diffuse pain under both breast. The pain lasted up to couple of days at a time. The pain is not necessarily exertional in nature. Not associated with any nausea, vomiting. Her EKGs so far negative. Her cardiac enzyme 3 are negative. Her pains appear to be atypical. Patient probably could be discharged home and to be seen by Dr. AUDREY Varela for outpatient evaluation. Patient also may be considered for GI evaluation because of recurrent chest pains in spite of cardiac cath and not showing any significant disease and also a negative stress test in May of this year. Review of Systems As per the chart Past Medical History Past Medical History: Cancer, GERD/Reflux Additional Past Medical History / Comment(s): irritable bowel syndrome. right breast cancer 2009 with lumpectomy/chemo x 3 in three sites History of Any Multi-Drug Resistant Organisms: None Reported Past Surgical History: Breast Surgery, Hysterectomy Additional Past Surgical History / Comment(s): right breast lumpectomy 2009/ chemotherapy 2009. 2012 and 2016 Past Anesthesia/Blood Transfusion Reactions: No Reported Reaction Past Psychological History: Anxiety Additional Psychological History / Comment(s): klonopin 1mg tid Smoking Status: Current every day smoker Past Alcohol Use History: None Reported Additional Past Alcohol Use History / Comment(s): Patient is a smoker one pack per day for 24 years and quit on and off. She denies any marijuana, illicit drug use or alcohol use. She lives at home with her . Past Drug Use History: None Reported - Past Family History Father Family Medical History: Chest Pain / Angina, Coronary Artery Disease (CAD), Myocardial Infarction ([place]) Additional Family Medical History / Comment(s): Luisa in his 50s. He was on a cardiac transplant list. Mother Family Medical History: Coronary Artery Disease (CAD), Myocardial Infarction ([place]) Additional Family Medical History / Comment(s): history of multiple stents. Mother at age 72. Brother(s) Additional Family Medical History / Comment(s): Patient has 3 brothers. One has no major medical problems, one is unknown medical problems, when his cardiac problems. All brothers have anxiety. Sister(s) Additional Family Medical History / Comment(s): Patient has 3 sisters all suffering from anxiety. Daughter(s) Additional Family Medical History / Comment(s): Patient has 2 daughters. One daughter has MS. One daughter has anxiety. Patient does not have any sons. Medications and Allergies Home Medications Medication Instructions Recorded Confirmed Type Aspirin 81 mg PO DAILY 05/13/18 10/09/18 History Atorvastatin [Lipitor] 40 mg PO HS 10/09/18 10/09/18 History Diazepam [Valium] 5 mg PO DAILY 10/09/18 10/09/18 History PARoxetine [Paxil] 10 mg PO DAILY 10/09/18 10/09/18 History busPIRone HCl [Buspar] 10 mg PO BID@1200,2000 10/09/18 10/09/18 History busPIRone HCl [Buspar] 20 mg PO DAILY@0730 10/09/18 10/09/18 History Allergies Allergy/AdvReac Type Severity Reaction Status Date / Time No Known Allergies Allergy Verified 10/09/18 11:23 Physical Exam Vitals: Vital Signs Temp Pulse Pulse Pulse Resp BP BP 10/10/18 08:00 54 L 16 10/10/18 07:33 98.2 F 54 L 16 108/71 10/10/18 04:00 97.8 F 61 16 92/58 10/10/18 03:52 16 10/09/18 23:47 16 10/09/18 23:42 98.0 F 54 L 16 92/55 10/09/18 20:00 16 10/09/18 19:43 98.1 F 67 16 105/62 10/09/18 15:26 10/09/18 15:01 97.4 F L 72 16 103/68 10/09/18 14:30 57 L 18 116/66 10/09/18 12:41 97.2 F L 62 18 139/72 10/09/18 11:09 69 10/09/18 10:57 98.2 F 81 18 119/80 Pulse Ox 10/10/18 08:00 10/10/18 07:33 96 10/10/18 04:00 94 L 10/10/18 03:52 10/09/18 23:47 10/09/18 23:42 95 10/09/18 20:00 10/09/18 19:43 96 10/09/18 15:26 98 10/09/18 15:01 98 10/09/18 14:30 98 10/09/18 12:41 99 10/09/18 11:09 10/09/18 10:57 97 Intake and Output 10/09/18 10/10/18 10/10/18 22:59 06:59 14:59 Intake Total 240 Balance 240 Intake: Oral 240 Other: Voiding Method Toilet Toilet Toilet # Voids 1 1 GENERAL EXAM: Patient is alert and oriented and doesn't appear to be in any acute distress HEENT: Normocephalic. Normal reaction of pupils, equal size, normal range of extraocular motion. No erythema or exudates in the throat. NECK: No masses, no nuchal rigidity. CHEST: No chest wall deformity. LUNGS: Equal air entry with no crackles or wheeze. HEART: S1 and S2 normal with no audible mumurs or gallops. Regular rhythm, femorals equal on both sides.. ABDOMEN: No hepatosplenomegaly, normal bowel sounds, no guarding or rigidity. SKIN: No rashes CENTRAL NERVOUS SYSTEM: No focal deficits. EXTREMITIES: No cyanosis, clubbing or edema. Results 10/10/18 08:31 10/09/18 11:55 Cardiac Enzymes 10/09/18 10/09/18 10/09/18 Range/Units 11:55 11:55 18:46 AST 35 (14-36) U/L Troponin I <0.012 <0.012 (0.000-0.034) ng/mL 10/10/18 Range/Units 01:11 AST (14-36) U/L Troponin I <0.012 (0.000-0.034) ng/mL Coagulation 10/09/18 10/09/18 Range/Units 12:12 20:24 PT 10.3 (9.0-12.0) sec APTT 25.3 65.6 H (22.0-30.0) sec CBC 10/09/18 10/10/18 Range/Units 11:55 08:31 WBC 7.0 7.4 (3.8-10.6) k/uL RBC 4.99 4.61 (3.80-5.40) m/uL Hgb 15.2 13.9 (11.4-16.0) gm/dL Hct 45.6 40.8 (34.0-46.0) % Plt Count 241 260 (150-450) k/uL Comprehensive Metabolic Panel 10/09/18 Range/Units 11:55 Sodium 139 (137-145) mmol/L Potassium 4.7 (3.5-5.1) mmol/L Chloride 109 H (98-107) mmol/L Carbon Dioxide 21 L (22-30) mmol/L BUN 21 H (7-17) mg/dL Creatinine 0.96 (0.52-1.04) mg/dL Glucose 86 (74-99) mg/dL Calcium 9.6 (8.4-10.2) mg/dL AST 35 (14-36) U/L ALT 25 (9-52) U/L Alkaline Phosphatase 106 (38-126) U/L Total Protein 7.0 (6.3-8.2) g/dL Albumin 4.3 (3.5-5.0) g/dL Current Medications Generic Name Dose Route Start Last Admin Trade Name Freq PRN Reason Stop Dose Admin Acetaminophen 650 mg 10/09/18 18:22 10/09/18 21:16 Tylenol Tab PO 650 mg Q4HR PRN Administration Fever and/ or Mild Pain Al Hydroxide/Mg Hydroxide 30 ml 10/09/18 18:31 Maalox PO Q4HR PRN GI Upset Aspirin 81 mg 10/10/18 09:00 10/10/18 09:05 Aspirin PO 81 mg DAILY SYDNEE Administration Atorvastatin Calcium 40 mg 10/09/18 21:00 10/09/18 19:55 Lipitor PO 40 mg HS SYDNEE Administration Buspirone HCl 10 mg 10/09/18 20:00 10/09/18 19:55 Buspar PO 10 mg BID@1200,2000 SYDNEE Administration Buspirone HCl 20 mg 10/10/18 07:30 10/10/18 08:07 Buspar PO 20 mg DAILY@0730 SYDNEE Administration Diazepam 5 mg 10/10/18 09:00 10/10/18 08:07 Valium PO 5 mg DAILY SYDNEE Administration Heparin Sodium (Porcine) 0 unit 10/09/18 13:15 Heparin IV Q6HR PRN Low PTT Protocol Heparin Sodium/Sodium Chloride 250 mls @ 7.784 mls/hr 10/09/18 14:00 10/09/18 14:18 25,000 unit/ Sodium Chloride IV 12 units/kg/hr .Q24H SYDNEE 7.784 mls/hr Administration Protocol 12 UNITS/KG/HR Sodium Chloride 1,000 mls @ 20 mls/hr 10/09/18 14:15 10/09/18 14:23 Saline 0.9% IV 20 mls/hr .Q24H SYDNEE Administration Metoprolol Tartrate 25 mg 10/09/18 21:00 10/10/18 09:04 Lopressor PO 25 mg BID SYDNEE Administration Morphine Sulfate 1 mg 10/09/18 17:42 10/09/18 22:07 Morphine Sulfate (Inj) IVP 1 mg Q3HR PRN Administration Pain/Discomfort Nitroglycerin 1 inch 10/09/18 18:00 10/10/18 05:35 Nitro-Bid Oint TOPICAL Not Given Q6HR [facility] Paroxetine HCl 10 mg 10/10/18 09:00 10/10/18 08:08 Paxil PO 10 mg DAILY SYDNEE Administration Intake and Output 10/09/18 10/10/18 10/10/18 22:59 06:59 14:59 Intake Total 240 Balance 240 Intake: Oral 240 Other: Voiding Method Toilet Toilet Toilet # Voids 1 1 10/10/18 08:31 10/09/18 11:55 EKG Interpretations (text) Showed sinus rhythm without acute changes Assessment and Plan (1) Coronary artery disease Current Visit: Yes Status: Acute Code(s): I25.10 - ATHSCL HEART DISEASE OF [place] CORONARY ARTERY W/O ANG PCTRS SNOMED Code(s): 55928359 (2) Chest pain Current Visit: Yes Status: Acute Code(s): R07.9 - CHEST PAIN, UNSPECIFIED SNOMED Code(s): 35765518 (3) Anxiety Current Visit: Yes Status: Acute Code(s): F41.9 - ANXIETY DISORDER, UNSPECIFIED SNOMED Code(s): 23672242 Plan: So far her cardiac enzymes are negative. EKGs are negative. Cardiac cath in 2018 showed mild disease. In May of this year patient had a stress echo which was negative. Clinically also pains appear to be typical. From Cardec standpoint, patient could be discharged home. Follow-up with Dr. AUDREY Varela. Possible GI consult.
[2018-10-10 09:24] LABS: Cholesterol 201 mg/dL (<200); HDL Cholesterol 38 mg/dL (40-60); LDL Cholesterol,Calculated 130 mg/dL (0-99); Triglycerides 166 mg/dL (<150)
[2018-10-10] MEDS ORDERED: DIAZEPAM 5 MG/ML 2 ML INJ IVP STA (10:54)
--- NOTE | 2018-10-10 11:42 | CT ---
EXAMINATION TYPE: CT chest wo con DATE OF EXAM: 10/10/2018 COMPARISON: None HISTORY: Pulmonary fibrosis CT DLP: 436.2 mGycm. Automated Exposure Control for Dose Reduction was Utilized. TECHNIQUE: CT scan of the thorax is performed without IV contrast. FINDINGS: There is apical pleural-based thickening. Nodularity measuring 5 mm or less. Groundglass changes are seen in the anterior segments of both upper lobes. No significant interlobular septal thickening. The heart is prominent in size. There is atherosclerotic change of aorta. Structures of the upper area limited. IMPRESSION: 1. Bilateral subsegmental groundglass changes involving the anterior segment of both upper lobes may been the basis of atelectasis. A alveolitis or pneumonitis not excluded. 2. biapical pleural thickening with 5 mm less subpleural nodularity is nonspecific and too small to c haracterize likely inflammatory. Recommend 6 month follow-up standard CT of the chest for further clinton luation.
--- NOTE | 2018-10-10 11:45 | P.HPIM ---
History of Present Illness H&P Date: 10/10/18 Chief Complaint: chest pain or difficulty of breathing wheezing this would be a discharge summary and history and physical this is a pleasant 58-year-old lady patient of Dr. Montesinos she has underlying history off CAD with heart In October 2018, not requiring any stents, she has mo derate disease in the mid RCA with mild disease in the left anterior descending and left circumflex, followed by Dr. Hollingsworth. Patient has normal LV function and LV size. Patient is maximized on medical therapy related to vasospastic disease. Patient has a history off panic disorder and anxiety, and is been followed closely by Dr. Montesinos, has been on clonidine pain in the past including Xanax and Ativan currently on BuSpar and Valium. Patient comes in with substernal epigastric discomfort radiating on bilateral subcostal region, related to wheezing, and difficulty of breathing. Patient denies any significant cough or purulence, no fever no chills, patient denies any dysphagia or melena and hematochezia, patient denies any dyspepsia. Patient has chronic ALLERGIES as well, mentions that she hasn't seen a pulmonary doctor in the past, and cannot tolerate any bronchodilator inhalers, or steroidspills secondary to worsening of anxiety Patient was admitted to the emergency room with negative troponins 0.012, proBNP of 117, Lasix lipase normal,.d-dimer negative, blood sugar of 101and is seen consultation by cardiology. I had a lengthy discussion on the patient during this admissionit seems this would be a pulmonary complaint against globus hystericus, patient refused to be seen by psychiatry at this time, however she allowed us to investigate pulmonary causes, she would the in the guest investigated with a CAT scan chest high resolution no contrast, Valium 5 mg IV will be given as the patient also has claustrophobia, also outpatient tests include hypersensitivity pneumonitis panel, [facility] 7 ALLERGY panel, IgE level and alpha-[address] Prince/Ravi Varela consult as an outpatientpatient wants to be discharged to home with outpatient follow-up patient also was advised to quit smoking as soon as possible Review of Systems Constitutional: Reports as per HPI, Denies anorexia, Denies chills, Denies chronic headaches, Denies chronic pain, Denies daytime sleepiness, Denies fatigue, Denies fever, Denies lethargy, Denies malaise, Denies night sweats, Denies poor appetite, Denies sweats, Denies weakness, Denies weight gain, Denies weight loss Ears, nose, mouth and throat: Reports as per HPI, Reports post-nasal drip, Denies ant. neck pain, Denies bleeding gums, Denies dental pain, Denies dysphagia, Denies epistaxis, Denies headache, Denies hoarseness, Denies mouth pain, Denies nasal congestion, Denies nasal discharge, Denies neck fullness/pressure, Denies neck lump, Denies nose pain, Denies odynophagia, Denies sinus pain, Denies sinus pressure, Denies swelling in mouth, Denies swelling in throat, Denies sore throat, Denies vertigo, Denies voice changes Cardiovascular: Reports as per HPI, Reports dyspnea on exertion, Reports shortness of breath, Denies chest pain, Denies claudication, Denies decreased exercise tolerance, Denies edema, Denies high blood pressure, Denies irregular heart beat, Denies leg edema, Denies lightheadedness, Denies orthopnea, Denies palpitations, Denies paroxysmal nocturnal dyspnea, Denies phlebitis, Denies rapid heart beat, Denies syncope Respiratory: Reports as per HPI, Reports dyspnea, Reports pain on inspiration, Reports wheezing, Denies congestion, Denies cough, Denies cough with sputum, Denies excessive sputum, Denies hemoptysis, Denies home oxygen, Denies pain, Denies pleurisy, Denies respiratory infections, Denies sleep apnea, Denies snoring Gastrointestinal: Reports as per HPI, Denies abdominal pain, Denies belching, Denies bloating, Denies BRBPR, Denies change in bowel habits, Denies coffee ground emesis, Denies constipation, Denies diarrhea, Denies dyspepsia, Denies ea rly satiety, Denies excessive gas, Denies heartburn, Denies hematemesis, Denies hematochezia, Denies indigestion, Denies jaundice, Denies lactose intolerance, Denies loss of appetite, Denies melena, Denies nausea, Denies vomiting Genitourinary: Reports as per HPI, Denies abnormal vaginal bleeding, Denies decreased libido, Denies difficulty conceiving, Denies difficulty voiding, Denies dysmenorrhea, Denies dyspareunia, Denies dysuria, Denies flank pain, Denies genital sores, Denies hematuria, Denies hot flashes, Denies incomplete emptying, Denies kidney stones, Denies menorrhagia, Denies mixed incontinence, Denies nocturia, Denies pelvic pain, Denies post void dribbling, Denies , Denies prolapse symptoms, Denies stress incontinence, Denies urge incontinence, Denies urgency, Denies urinary frequency, Denies vaginal discharge, Denies vaginal dryness, Denies vaginal itching, Denies vaginal odor Menstruation: Reports as per HPI, Denies amenorrhea, Denies amenorrhea on BC, Denies currently menstrual, Denies cycle < 21 days, Denies cycle > 35 days, Denies cycle variable, Denies menses 1-7 days, Denies menses 8 or > days, Denies menses variable, Denies period heavy, Denies period light, Denies period normal, Denies period spotting, Denies post hysterectomy, Denies postmenopausal, Denies premenarcheal Musculoskeletal: Reports as per HPI, Denies arm numbness/tingling, Denies atrophy, Denies fractures, Denies frequent falls, Denies gait dysfunction, Denies hot joints, Denies leg numbness/tingling, Denies limitation of motion, Denies loss of height, Denies low back pain, Denies morning stiffness, Denies muscle cramps, Denies muscle weakness, Denies myalgias, Denies neck pain, Denies neck stiffness, Denies prior amputations, Denies redness of joints, Denies shooting arm pain, Denies shooting leg pain Integumentary: Reports as per HPI, Denies acne, Denies boils, Denies brittle nails, Denies change in hair/nails, Denies color changes, Denies darkening of skin, Denies depigmentation, Denies dryness, Denies foot/leg ulcers, Denies growths, Denies hirsutism, Denies lesions, Denies onychomycosis, Denies pruritus, Denies rash, Denies sores, Denies striae, Denies unusual bruising, Denies wounds Neurological: Reports as per HPI, Denies aphasia, Denies ataxia, Denies balance difficulties, Denies burning pain, Denies change in mentation, Denies change in smell/taste, Denies change in speech, Denies confusion, Denies convulsions, Denies double vision, Denies gait dysfunction, Denies head injury, Denies headaches, Denies hearing difficulties, Denies lack of coordination, Denies loss of vision, Denies memory loss, Denies migraines, Denies motor disturbance, Denies numbness, Denies paralysis, Denies paresthesias, Denies seizures, Denies sensory deficit, Denies spasticity, Denies syncope, Denies tic, Denies tingling, Denies transient paralysis, Denies tremors, Denies vertigo, Denies weakness, Denies visual changes Psychiatric: Reports as per HPI, Reports anxiety, Reports anxiety attacks, Reports sleep disturbances, Denies anhedonia, Denies change in appetite, Denies change in libido, Denies change in sleep habits, Denies confusion, Denies depression, Denies difficulty concentrating, Denies disorientation, Denies hallucinations, Denies hopelessness, Denies hypersomnia, Denies insomnia, Denies irritability, Denies memory loss, Denies mood swings, Denies paranoia, Denies sadness/tearfulness, Denies suicidal ideation Endocrine: Reports as per HPI, Denies cold intolerance, Denies deepening of the voice, Denies excessive sweating, Denies excessive thirst, Denies fatigue, Denies flushing, Denies heat intolerance, Denies high blood sugars, Denies increase in ring/shoe/hat size, Denies low blood sugars, Denies nocturia, Denies palpitations, Denies polydipsia, Denies polyphagia, Denies polyuria, Denies proptosis, Denies recent glucocorticoid use, Denies thyroid mass, Denies weight change Hematologic/Lymphatic: Reports as per HPI, Denies easy bleeding, Denies easy bruising, Denies lymphadenopathy, Denies lymphedema, Denies thrombophilia Allergic/Immunologic: Reports as per HPI, Denies allergic rhinitis, Denies anaphylaxis, Denies angioedema, Denies gluten intolerance, Denies persistent infections, Denies seasonal allergies, Denies urticaria, Denies wheezing Past Medical History Past Medical History: Cancer, GERD/Reflux Additional Past Medical History / Comment(s): irritable bowel syndrome. right breast cancer 2009 with lumpectomy/chemo x 3 in three sites History of Any Multi-Drug Resistant Organisms: None Reported Past Surgical History: Breast Surgery, Hysterectomy Additional Past Surgical History / Comment(s): right breast lumpectomy 2009/ chemotherapy 2009. 2012 and 2016 Past Anesthesia/Blood Transfusion Reactions: No Reported Reaction Past Psychological History: Anxiety Additional Psychological History / Comment(s): klonopin 1mg tid Smoking Status: Current every day smoker Past Alcohol Use History: None Reported Additional Past Alcohol Use History / Comment(s): Patient is a smoker one pack per day for 24 years and quit on and off. She denies any marijuana, illicit drug use or alcohol use. She lives at home with her . Past Drug Use History: None Reported - Past Family History Father Family Medical History: Chest Pain / Angina, Coronary Artery Disease (CAD), Myocardial Infarction ([place]) Additional Family Medical History / Comment(s): Luisa in his 50s. He was on a cardiac transplant list. Mother Family Medical History: Coronary Artery Disease (CAD), Myocardial Infarction ([place]) Additional Family Medical History / Comment(s): history of multiple stents. Mother at age 72. Brother(s) Additional Family Medical History / Comment(s): Patient has 3 brothers. One has no major medical problems, one is unknown medical problems, when his cardiac problems. All brothers have anxiety. Sister(s) Additional Family Medical History / Comment(s): Patient has 3 sisters all suffer ing from anxiety. Daughter(s) Additional Family Medical History / Comment(s): Patient has 2 daughters. One daughter has MS. One daughter has anxiety. Patient does not have any sons. Medications and Allergies Home Medications Medication Instructions Recorded Confirmed Type Aspirin 81 mg PO DAILY 05/13/18 10/09/18 History Atorvastatin [Lipitor] 40 mg PO HS 10/09/18 10/09/18 History Diazepam [Valium] 5 mg PO DAILY 10/09/18 10/09/18 History PARoxetine [Paxil] 10 mg PO DAILY 10/09/18 10/09/18 History busPIRone HCl [Buspar] 10 mg PO BID@1200,2000 10/09/18 10/09/18 History busPIRone HCl [Buspar] 20 mg PO DAILY@0730 10/09/18 10/09/18 History Fluticasone Propionate [Flovent 2 puff INHALATION BID #1 inhaler 10/10/18 Rx Hfa 110 mcg] Montelukast [Singulair] 10 mg PO DAILY #30 tab 10/10/18 Rx Allergies Allergy/AdvReac Type Severity Reaction Status Date / Time No Known Allergies Allergy Verified 10/09/18 11:23 Physical Exam Vitals: Vital Signs Temp Pulse Pulse Pulse Resp BP BP 10/10/18 07:33 98.2 F 54 L 16 108/71 10/10/18 04:00 97.8 F 61 16 92/58 10/10/18 03:52 16 10/09/18 23:47 16 10/09/18 23:42 98.0 F 54 L 16 92/55 10/09/18 20:00 16 10/09/18 19:43 98.1 F 67 16 105/62 10/09/18 15:26 10/09/18 15:01 97.4 F L 72 16 103/68 10/09/18 14:30 57 L 18 116/66 10/09/18 12:41 97.2 F L 62 18 139/72 10/09/18 11:09 69 10/09/18 10:57 98.2 F 81 18 119/80 Pulse Ox 10/10/18 07:33 96 10/10/18 04:00 94 L 10/10/18 03:52 10/09/18 23:47 10/09/18 23:42 95 10/09/18 20:00 10/09/18 19:43 96 10/09/18 15:26 98 10/09/18 15:01 98 10/09/18 14:30 98 10/09/18 12:41 99 10/09/18 11:09 10/09/18 10:57 97 Intake and Output 10/09/18 10/10/18 10/10/18 22:59 06:59 14:59 Intake Total 240 Balance 240 Intake: Oral 240 Other: Voiding Method Toilet Toilet # Voids 1 1 - Constitutional General appearance: cooperative, no acute distress - EENT Eyes: anicteric sclerae, edentulous, poor dentition, normal appearance ENT: NA/AT - Neck Neck: normal ROM - Respiratory Respiratory: bilateral: CTA, negative: diminished, dullness, rales, rhonchi - Cardiovascular Rhythm: regular Heart sounds: normal: S1, S2 Abnormal Heart Sounds: no systolic murmur, no diastolic murmur, no rub, no S3 Gallop, no S4 Gallop, no click, no other - Gastrointestinal General gastrointestinal: decreased bowel sounds, soft - Integumentary Integumentary: normal, normal turgor - Neurologic Neurologic: CNII-XII intact - Musculoskeletal Musculoskeletal: gait normal, strength equal bilaterally - Psychiatric Psychiatric: A&O x's 3, appropriate affect, intact judgment & insight Results CBC & Chem 7: 10/10/18 08:31 10/09/18 11:55 Labs: Abnormal Lab Results - Last 24 Hours (Table) 10/09/18 10/09/18 Range/Units 11:55 20:24 APTT 65.6 H (22.0-30.0) sec Chloride 109 H (98-107) mmol/L Carbon Dioxide 21 L (22-30) mmol/L BUN 21 H (7-17) mg/dL Laboratory Results WBC 7.4 k/uL (3.8-10.6) 10/10/18 08:31 RBC 4.61 m/uL (3.80-5.40) 10/10/18 08:31 Hgb 13.9 gm/dL (11.4-16.0) 10/10/18 08:31 Hct 40.8 % (34.0-46.0) 10/10/18 08:31 MCV 88.5 fL (80.0-100.0) 10/10/18 08:31 MCH 30.2 pg (25.0-35.0) 10/10/18 08:31 MCHC 34.1 g/dL (31.0-37.0) 10/10/18 08:31 RDW 14.0 % (11.5-15.5) 10/10/18 08:31 Plt Count 260 k/uL (150-450) 10/10/18 08:31 Neutrophils % 59 % 10/10/18 08:31 Lymphocytes % 31 % 10/10/18 08:31 Monocytes % 5 % 10/10/18 08:31 Eosinophils % 2 % 10/10/18 08:31 Basophils % 1 % 10/10/18 08:31 Neutrophils # 4.4 k/uL (1.3-7.7) 10/10/18 08:31 Lymphocytes # 2.3 k/uL (1.0-4.8) 10/10/18 08:31 Monocytes # 0.4 k/uL (0-1.0) 10/10/18 08:31 Eosinophils # 0.2 k/uL (0-0.7) 10/10/18 08:31 Basophils # 0.1 k/uL (0-0.2) 10/10/18 08:31 PT 10.3 sec (9.0-12.0) 10/09/18 12:12 INR 1.0 (<1.2) 10/09/18 12:12 APTT 65.6 sec (22.0-30.0) H 10/09/18 20:24 D-Dimer 0.32 mg/L FEU (<0.60) 10/09/18 12:12 Sodium 139 mmol/L (137-145) 10/09/18 11:55 Potassium 4.7 mmol/L (3.5-5.1) 10/09/18 11:55 Chloride 109 mmol/L (98-107) H 10/09/18 11:55 Carbon Dioxide 21 mmol/L (22-30) L 10/09/18 11:55 Anion Gap 9 mmol/L 10/09/18 11:55 BUN 21 mg/dL (7-17) H 10/09/18 11:55 Creatinine 0.96 mg/dL (0.52-1.04) 10/09/18 11:55 Est GFR (CKD-EPI)AfAm 77 (>60 ml/min/1.73 sqM) 10/09/18 11:55 Est GFR (CKD-EPI)NonAf 66 (>60 ml/min/1.73 sqM) 10/09/18 11:55 Glucose 86 mg/dL (74-99) 10/09/18 11:55 Calcium 9.6 mg/dL (8.4-10.2) 10/09/18 11:55 Magnesium 2.0 mg/dL (1.6-2.3) 10/09/18 11:55 Total Bilirubin 0.4 mg/dL (0.2-1.3) 10/09/18 11:55 AST 35 U/L (14-36) 10/09/18 11:55 ALT 25 U/L (9-52) 10/09/18 11:55 Alkaline Phosphatase 106 U/L (38-126) 10/09/18 11:55 Troponin I <0.012 ng/mL (0.000-0.034) 10/10/18 01:11 NT-Pro-B Natriuret Pep 49 pg/mL 10/09/18 11:55 Total Protein 7.0 g/dL (6.3-8.2) 10/09/18 11:55 Albumin 4.3 g/dL (3.5-5.0) 10/09/18 11:55 Triglycerides 166 mg/dL (<150) H 10/10/18 08:31 Cholesterol 201 mg/dL (<200) H 10/10/18 08:31 LDL Cholesterol, Calc 130 mg/dL (0-99) H 10/10/18 08:31 HDL Cholesterol 38 mg/dL (40-60) L 10/10/18 08:31 Lipase 127 U/L (23-300) 10/09/18 11:55 Thrombosis Risk Factor Assmnt - Choose All That Apply Any of the Below Risk Factors Present?: Yes Each Factor Represents 1 point: Age 41-60 years Other Risk Factors: No Thrombosis Risk Factor Assessment Total Risk Factor Score: 1 Thrombosis Risk Factor Assessment Level: Low Risk Assessment and Plan Plan: 1. Chest pain multifactorial with concurrent anxiety. Cardiac enzymes negative so far. Echocardiogram as above. Cardiology consult appreciated patient is cleared by cardiology with no medication changespatient does not think this is a panic attack this timewithout GI symptomatology. Patient had a normal stress test May 2018, echocardiogram also was unremarkable 05/28 2. Pleurisy with wheezing, underlying reactive airway disease is suspected,patient would undergo CT high resolution chest, the following for pulmonary fibrosis, and chronic bronchial asthma, patient refused inhaled bronchodilators, as it worsens her panic attack, patient will be started on Singulair 10 mg daily, and Flovent 110 2 puffs twice a day,blood testing [place] [facility] 7 Test, Hypersensitivity Pneumonitis Panel, IgE Levels, Alpha-1 antitrypsin Levels, Consult with Dr. Olivier Varela As an Outpatient 2. Generalized anxiety disorder and panic attackspossible globus hystericus. Paxil 10 mg daily BuSpar 20 mg Valium 5 mg daily patient refuses psychiatry for globus hystericus workup and treatment . Patient failed Klonopin Xanax and Ativan in the past 3. Gastroesophageal reflux disease. Pepcid 4. Coronary artery disease, mild to moderate disease found on heart catheterization April 2017. 5. Tobacco use and dependence.patient was counseled to irrevocably quit smoking as soon as possible 6. History of breast cancer status post lumpectomy and chemotherapy. Patient placed on the observation unit. discharge to home today, patient refused to have the workup to be done while in the hospital, outpatient follow-up. S/P Varela, patient declined psychiatric eval for globus hystericus. Prognosis guarded however stable Discharge Medication List Aspirin 81 mg PO DAILY 05/13/18 [History] Atorvastatin [Lipitor] 40 mg PO HS 10/09/18 [History] Diazepam [Valium] 5 mg PO DAILY 10/09/18 [History] PARoxetine [Paxil] 10 mg PO DAILY 10/09/18 [History] busPIRone HCl [Buspar] 10 mg PO BID@1200,2000 10/09/18 [History] busPIRone HCl [Buspar] 20 mg PO DAILY@0730 10/09/18 [History] Fluticasone Propionate [Flovent Hfa 110 mcg] 2 puff INHALATION BID #1 inhaler 10/10/18 [Rx] Montelukast [Singulair] 10 mg PO DAILY #30 tab 10/10/18 [Rx]
== END 2018-10-10 11:52 | disposition home or self-care (01) ==
LOC: EC 10:54 → 1SOBS 13:15
PROVIDERS: ADMIT Family Medicine; ATTEND Family Medicine
DX: R07.89 Other chest pain (principal); F41.1 Generalized anxiety disorder; R09.1 Pleurisy; F41.0 Panic disorder [episodic paroxysmal anxiety]; J45.909 Unspecified asthma, uncomplicated; J84.10 Pulmonary fibrosis, unspecified; I25.10 Atherosclerotic heart disease of native coronary artery without angina pectoris; K21.9 Gastro-esophageal reflux disease without esophagitis; K58.9 Irritable bowel syndrome, unspecified; F40.240 Claustrophobia; R42 Dizziness and giddiness; R61 Generalized hyperhidrosis; F17.210 Nicotine dependence, cigarettes, uncomplicated; Z79.82 Long term (current) use of aspirin; Z79.899 Other long term (current) drug therapy; Z85.3 Personal history of malignant neoplasm of breast; Z92.21 Personal history of antineoplastic chemotherapy; Z90.710 Acquired absence of both cervix and uterus; Z82.49 Family history of ischemic heart disease and other diseases of the circulatory system; Z82.69 Family history of other diseases of the musculoskeletal system and connective tissue; Z81.8 Family history of other mental and behavioral disorders
CPT/HCPCS: 96366 ×2; 96375 ×2; 96376 ×2; 96361; 96365; 99291; 36415; 93005; 85379; 83880; 80061; 80053; 83690; 83735; 84484 ×2; 85025 ×2; 85610; 85730; 71046; 71250; G0378 ×2; J1644 ×2; J3360 ×2; J2270

== ENCOUNTER → 2019-05-28 | Outpatient (CLI) | payer BC ==
--- NOTE | 2019-05-28 10:27 | MM ---
Reason for exam: clinical finding. Last mammogram was performed 1 year and 7 months ago. History: Patient is postmenopausal, has history of breast cancer at age 48, and history of other cancer. Family history of breast cancer in maternal grandmother at age 40, breast cancer in sister at age 30, and breast cancer in maternal aunt at age 40. Benign US biopsy breast VAD RT of the right breast, October 16, 2017. Excisional biopsy of the right breast, 2009. Chemotherapy, 2009. Radiation therapy, 2009. Taking antineoplastic for 6 months beginning at age 48. Physical Findings: Nurse Summary: 1cm nodule in the right breast at 10 o'clock (nurse dw). MG Diagnostic Mammo w CAD JASEN Bilateral CC and MLO view(s) were taken. Prior study comparison: October 16, 2017, right breast MG diagnostic mammo RT wo CAD. September 18, 2017, right breast MG 3d follow up no charge RT. The breast tissue is heterogeneously dense. This may lower the sensitivity of mammography. Previous mammotome biopsy in the right breast. There is no discrete abnormality including area of concern in the right breast, pain. No significant new findings when compared with previous films. These results were verbally communicated with the patient and result sheet given to the patient on 05/28/19. ASSESSMENT: Benign, BI-RAD 2 RECOMMENDATION: Routine screening mammogram of both breasts in 1 year. Manage patient on a clinical basis.
--- NOTE | 2019-05-28 10:28 | USB ---
Reason for exam: clinical finding. History: Patient is postmenopausal, has history of breast cancer at age 48, and history of other cancer. Family history of breast cancer in maternal grandmother at age 40, breast cancer in sister at age 30, and breast cancer in maternal aunt at age 40. Benign US biopsy breast VAD RT of the right breast, October 16, 2017. Excisional biopsy of the right breast, 2009. Chemotherapy, 2009. Radiation therapy, 2009. Taking antineoplastic for 6 months beginning at age 48. US Breast RT Right complete breast ultrasound includes all four quadrants, the retroareolar region and axilla. Finding demonstrates no cystic or solid lesion seen. These results were verbally communicated with the patient and result sheet given to the patient on 05/28/19. ASSESSMENT: Benign, BI-RAD 2 RECOMMENDATION: Routine screening mammogram of both breasts in 1 year. Manage patient on a clinical basis.
== END | disposition home or self-care (01) ==
LOC: RADMAMWWP 08:55
PROVIDERS: ATTEND Internal Medicine
DX: N64.52 Nipple discharge (principal)
CPT/HCPCS: 77066

== ENCOUNTER 2020-03-27 09:55 | Observation (INO) | payer BC ==
[2020-03-27] MEDS ORDERED: SODIUM CHLORIDE 0.9% 1,000 ML IV STA ×2 (10:12)
[2020-03-27] MEDS ORDERED: MORPHINE SULFATE 4 MG/ML SYRINGE IV STA (10:12)
[2020-03-27] MEDS ORDERED: NITROGLYCERIN SL TABS 0.4 MG TAB SUBLINGUAL STA (10:12)
[2020-03-27] MEDS ORDERED: ASPIRIN 81 MG PO STA (10:12)
[2020-03-27] MEDS ORDERED: ACETAMINOPHEN TAB 500 MG TAB PO STA (10:14)
--- NOTE | 2020-03-27 10:19 | ED ---
Chest Pain HPI - General Source: patient, RN notes reviewed, old records reviewed Mode of arrival: wheelchair Limitations: no limitations <Mariah Swan - Last Filed: 03/27/20 11:49> <Scooter Hodgson - Last Filed: 03/27/20 12:18> - General Chief Complaint: Chest Pain Stated Complaint: Chest Pain Time Seen by Provider: 03/27/20 10:02 - History of Present Illness Initial Comments: Patient is a 9-year-old female with a history of coronary artery disease, hyperlipidemia who presents emergency department today with 2 days of chest pain, shortness of breath nausea and headache. She reports that she has episodes of chest tightness. 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 She denies any previous cardiac stenting. Patient relates that she's been tested for covert twice during these last week and is negative both times. Patient does have history of anxiety as well, on Xanax. She has been compliant taking aspirin and Lipitor. (Mariah Swan) - Related Data Home Medications Medication Instructions Recorded Confirmed Aspirin 81 mg PO DAILY 05/13/18 03/27/20 Atorvastatin [Lipitor] 40 mg PO DAILY 10/09/18 03/27/20 ALPRAZolam [Xanax] 0.5 mg PO TID 03/27/20 03/27/20 Ondansetron [Zofran] 4 mg PO Q8HR PRN 03/27/20 03/27/20 Allergies Allergy/AdvReac Type Severity Reaction Status Date / Time No Known Allergies Allergy Verified 03/27/20 10:33 Review of Systems ROS Other: All systems not noted in ROS Statement are negative. <Mariah Swan - Last Filed: 03/27/20 11:49> ROS Other: All systems not noted in ROS Statement are negative. <Scooter Hodgson - Last Filed: 03/27/20 12:18> ROS Statement: Those systems with pertinent positive or pertinent negative responses have been documented in the HPI. EKG Findings - EKG Comments: EKG Findings:: EKG shows normal sinus rhythm and nonspecific T-wave abnormality. Abnormal EKG. Ventricular rate is a 2 bpm. Intervals 154 ms. QRS duration shows a 68 ms. QT QTc 346/378 ms. . <Mariah Swan - Last Filed: 03/27/20 11:49> Past Medical History Past Medical History: Cancer, GERD/Reflux Additional Past Medical History / Comment(s): irritable bowel syndrome. right breast cancer 2010 with lumpectomy/chemo x 3 in three sites History of Any Multi-Drug Resistant Organisms: None Reported Past Surgical History: Breast Surgery, Hysterectomy Additional Past Surgical History / Comment(s): right breast lumpectomy 2009/ chemotherapy 2009. 2012 and 2016 Past Anesthesia/Blood Transfusion Reactions: No Reported Reaction Past Psychological History: Anxiety Smoking Status: Current every day smoker Past Alcohol Use History: None Reported Past Drug Use History: None Reported - Past Family History Father Family Medical History: Chest Pain / Angina, Coronary Artery Disease (CAD), Myocardial Infarction ([place]) Additional Family Medical History / Comment(s): Luisa in his 50s. He was on a cardiac transplant list. Mother Family Medical History: Coronary Artery Disease (CAD), Myocardial Infarction ([place]) Additional Family Medical History / Comment(s): history of multiple stents. Mother at age 72. Brother(s) Additional Family Medical History / Comment(s): Patient has 3 brothers. One has no major medical problems, one is unknown medical problems, when his cardiac problems. All brothers have anxiety. Sister(s) Additional Family Medical History / Comment(s): Patient has 3 sisters all suffering from anxiety. Daughter(s) Additional Family Medical History / Comment(s): Patient has 2 daughters. One daughter has MS. One daughter has anxiety. Patient does not have any sons. <Mariah Swan - Last Filed: 03/27/20 11:49> General Exam Limitations: no limitations General appearance: alert, in no apparent distress Head exam: Present: atraumatic, normocephalic, normal inspection Eye exam: Present: normal appearance, PERRL, EOMI. Absent: scleral icterus, conjunctival injection, periorbital swelling ENT exam: Present: normal exam, mucous membranes moist Neck exam: Present: normal inspection. Absent: tenderness, meningismus, lymphadenopathy Respiratory exam: Present: normal lung sounds bilaterally. Absent: respiratory distress, wheezes, rales, rhonchi, stridor Cardiovascular Exam: Present: regular rate, normal rhythm, normal heart sounds. Absent: systolic murmur, diastolic murmur, rubs, gallop, clicks GI/Abdominal exam: Present: soft, normal bowel sounds. Absent: distended, tenderness, guarding, rebound, rigid Extremities exam: Present: normal inspection, full ROM, normal capillary refill. Absent: tenderness, pedal edema, joint swelling, calf tenderness Back exam: Present: normal inspection Neurological exam: Present: alert Psychiatric exam: Present: normal affect, normal mood Skin exam: Present: warm, dry, intact, normal color. Absent: rash <Mariah Swan - Last Filed: 03/27/20 11:49> - General Exam Comments Initial Comments: 59-year-old female. Alert and oriented. Patient is anxious. (Mariah Swan) Course <Mariah Swan - Last Filed: 03/27/20 11:49> <Scooter Hodgson - Last Filed: 03/27/20 12:18> Vital Signs 03/27/20 03/27/20 03/27/20 09:58 10:42 10:45 Temperature 98.8 F Pulse Rate 78 71 86 Respiratory 18 18 18 Rate Blood Pressure 100/63 128/64 124/73 O2 Sat by Pulse 97 96 95 Oximetry 03/27/20 11:08 Temperature Pulse Rate 58 L Respiratory Rate Blood Pressure 100/63 O2 Sat by Pulse Oximetry - Reevaluation(s) Reevaluation #1: 03/27/20 11:49 Patient is reevaluated after medication still stating that her chest pains a 10 out of 10, and she is resting comfortably in bed. (Mariah Swan) Reevaluation #2: 03/27/20 12:17 This case. Patient will be admitted for evaluation by cardiology. Dr. Montesinos was consulted (Scooter Hodgson) Chest Pain MDM <Mariah Swan - Last Filed: 03/27/20 11:49> - [facility] Patient is a 59-year-old male who presents emergency department today for chief complaint of chest pain. She reports she's been feeling well for the past few weeks reports that she was having significant chest pain last night into today. She has a history of have a history of coronary artery disease and sees Dr. Varela. Patient was given IV fluids and laboratory obtained. EKG showed no acute changes at this time. Initial troponin was negative. D-dimer is negative. Chest x-rays are negative for acute cortical a process. Patient was reevaluated and continued to complain of chest pain. I discussed that conservative history of coronary artery disease with Patient and with Dr. Hodgson and agreed to admit for 24-hour observation. Her code test is negative. All questions answered. (Mariah Swan) Disposition Is patient prescribed a controlled substance at d/c from ED?: No Time of Disposition: 11:51 <Mariah Swan - Last Filed: 03/27/20 11:49> <Scooter Hodgson - Last Filed: 03/27/20 12:18> Clinical Impression: Chest pain Disposition: ADMITTED IP TO THIS HOSP Condition: Stable Referrals: Maury Montesinos MD [Primary Care Provider] - 1-2 days
[2020-03-27 10:30] LABS: Basophils # (A) 0.1 k/uL (0-0.2); Basophils % (A) 1 %; Eosinophils # (A) 0.1 k/uL (0-0.7); Eosinophils % (A) 2 %; HCT 45.2 % (34.0-46.0); HGB 15.7 gm/dL (11.4-16.0); Lymphocytes # (A) 1.5 k/uL (1.0-4.8); Lymphocytes % (A) 20 %; MCH 30.8 pg (25.0-35.0); MCHC 34.9 g/dL (31.0-37.0); MCV 88.4 fL (80.0-100.0); Mean Platelet Volume 6.7; Monocytes # (A) 0.3 k/uL (0-1.0); Monocytes % (A) 4 %; Neutrophils # (A) 5.4 k/uL (1.3-7.7); Neutrophils % (A) 72 %; Platelet Count 265 k/uL (150-450); RBC 5.11 m/uL (3.80-5.40); RDW 12.2 % (11.5-15.5); WBC 7.6 k/uL (3.8-10.6)
[2020-03-27] MEDS ORDERED: ONDANSETRON 4 MG/2 ML VIAL IVP STA (10:31)
[2020-03-27 10:38] LABS: Albumin 4.3 g/dL (3.5-5.0); Calcium 9.6 mg/dL (8.4-10.2); Potassium 4.7 mmol/L (3.5-5.1); Total Bilirubin 0.6 mg/dL (0.2-1.3)
[2020-03-27 10:47] LABS: D-Dimer 0.26 mg/L FEU (<0.60); Partial Thromboplastin Time 24.3 sec (22.0-30.0); Prothrombin Time 10.1 sec (9.0-12.0)
--- NOTE | 2020-03-27 10:59 | XR ---
EXAMINATION TYPE: XR chest 2V DATE OF EXAM: 03/27/2020 COMPARISON: 24/07/2018 TECHNIQUE: PA and lateral views submitted. HISTORY: Shortness of breath and bodyaches FINDINGS: The lungs are clear and there is no pneumothorax, pleural effusion, or focal pneumonia. No overt fa ilure. Biapical pleural thickening. Heart size normal. IMPRESSION: 1. No acute process.
[2020-03-27] MEDS ORDERED: LORazepam 2 MG/ML INJ IV STA (11:12)
[2020-03-27] MEDS ORDERED: LORazepam 0.5 MG TAB PO PRN (11:51)
[2020-03-27] MEDS ORDERED: IBUPROFEN 400 MG TAB PO PRN (11:51)
[2020-03-27] MEDS ORDERED: NALOXONE 0.4 MG/ML 1 ML VIAL IV PRN (11:51)
[2020-03-27] MEDS ORDERED: ONDANSETRON 4 MG TAB PO PRN (12:13)
[2020-03-27] MEDS: KETOROLAC 15 MG/ML 1 ML VIAL IVP PRN (12:38)
[2020-03-27] MEDS: MORPHINE SULFATE 4 MG/ML SYRINGE IV PRN ×2 (13:35→21:21)
[2020-03-27] MEDS: ONDANSETRON 4 MG/2 ML VIAL IVP PRN ×2 (13:51→21:20)
[2020-03-27] MEDS: NITROGLYCERIN SL TABS 0.4 MG TAB SUBLINGUAL PRN ×2 (14:01→14:06)
[2020-03-27] MEDS ORDERED: KETOROLAC 15 MG/ML 1 ML VIAL IM STA (15:46)
[2020-03-27] MEDS: ALPRAZolam 0.5 MG TAB PO SCH ×2 (16:26→21:20)
--- NOTE | 2020-03-27 17:05 | P.HPIM ---
History of Present Illness H&P Date: 03/27/20 Chief Complaint: chest pain This is a 59-year-old female patient of mine with past medical history of coronary artery disease with heart catheterization done April [address] Hollingsworth showing moderate disease in the mid right coronary artery with mild disease in the left anterior descending and left circumflex. Normal left ventricle size and systolic function. At that time recommendations were for maximizing medical therapy and most likely her symptoms were related to vasospastic disease. History of anxiety and panic disorder, gastroesophageal reflux disease, tobacco use and dependence, patient developed to have a significant chest heaviness yesterday with increase night sweats associated with shortness of breath, he was described as 100 pound sitting in her chest, patient went to bed and woke up again with significant chest pressure associated with shortness breath, and profuse sweating she went and had a shower and change her close, and she ended up decided to come to the emergency department at [facility] for evaluation twelve-lead EKG did not show any evidence of acute abnormalities, troponins negative, however because of the presentation and because of her prior history of coronary artery disease patient was admitted to the hospital cardiology evaluation. Review of Systems Constitutional: Denies anorexia, Denies chronic headaches, Denies chronic pain, Denies fatigue, Denies malaise, Denies weakness Eyes: denies blurred vision, denies bulging eye, denies decreased vision, denies diplopia Ears: deny: decreased hearing Ears, nose, mouth and throat: Denies dysphagia, Denies neck lump, Denies sore throat Cardiovascular: Reports chest pain, Reports decreased exercise tolerance, Reports dyspnea on exertion, Reports shortness of breath, Denies lightheadedness, Denies rapid heart beat, Denies syncope Respiratory: Denies congestion, Denies cough, Denies cough with sputum, Denies home oxygen, Denies respiratory infections Gastrointestinal: Reports nausea, Reports vomiting, Denies abdominal pain, Denies bloating, Denies BRBPR, Denies change in bowel habits, Denies diarrhea, Denies heartburn, Denies loss of appetite, Denies melena Genitourinary: Denies dysuria, Denies nocturia Menstruation: Reports postmenopausal Musculoskeletal: absent: ankle pain, ankle stiffness, ankle swelling, elbow pain, elbow stiffness, elbow swelling, foot pain, foot stiffness, foot swelling, hand pain, hand stiffness, hand swelling, hip pain, hip stiffness, hip swelling, knee pain, knee stiffness, knee swelling, shoulder pain, shoulder stiffness, shoulder swelling, wrist pain, wrist stiffness, wrist swelling Integumentary: Denies pruritus, Denies rash Neurological: Denies numbness, Denies weakness Psychiatric: Reports anxiety, Reports depression, Denies sadness/tearfulness, Denies sleep disturbances, Denies suicidal ideation Endocrine: Denies fatigue, Denies weight change Past Medical History Past Medical History: Coronary Artery Disease (CAD), Cancer, GERD/Reflux, Hyperlipidemia Additional Past Medical History / Comment(s): irritable bowel syndrome. right breast cancer 2010 with lumpectomy/chemo x 3 in three sites History of Any Multi-Drug Resistant Organisms: None Reported Past Surgical History: Breast Surgery, Hysterectomy Additional Past Surgical History / Comment(s): right breast lumpectomy 2009/ chemotherapy 2009. 2012 and 2015 Past Anesthesia/Blood Transfusion Reactions: No Reported Reaction Past Psychological History: Anxiety Smoking Status: Current every day smoker Past Alcohol Use History: None Reported Past Drug Use History: None Reported - Past Family History Father Family Medical History: Chest Pain / Angina, Coronary Artery Disease (CAD), Myocardial Infarction ([place]) Additional Family Medical History / Comment(s): Luisa in his 50s. He was on a cardiac transplant list. Mother Family Medical History: Coronary Artery Disease (CAD), Myocardial Infarction ([place]) Additional Family Medical History / Comment(s): history of multiple stents. Mother at age 72. Brother(s) Additional Family Medical History / Comment(s): Patient has 3 brothers. One has no major medical problems, one is unknown medical problems, when his cardiac problems. All brothers have anxiety. Sister(s) Additional Family Medical History / Comment(s): Patient has 3 sisters all suffering from anxiety. Daughter(s) Additional Family Medical History / Comment(s): Patient has 2 daughters. One daughter has MS. One daughter has anxiety. Patient does not have any sons. Medications and Allergies Home Medications Medication Instructions Recorded Confirmed Type Aspirin 81 mg PO DAILY 05/13/18 03/27/20 History Atorvastatin [Lipitor] 40 mg PO DAILY 10/09/18 03/27/20 History ALPRAZolam [Xanax] 0.5 mg PO TID 03/27/20 03/27/20 History Ondansetron [Zofran] 4 mg PO Q8HR PRN 03/27/20 03/27/20 History Allergies Allergy/AdvReac Type Severity Reaction Status Date / Time No Known Allergies Allergy Verified 03/27/20 10:33 Physical Exam Vitals: Vital Signs Temp Pulse Resp BP Pulse Ox 03/27/20 12:21 97.8 F 78 18 105/68 97 03/27/20 11:08 58 L 100/63 03/27/20 10:45 86 18 124/73 95 03/27/20 10:42 71 18 128/64 96 03/27/20 09:58 98.8 F 78 18 100/63 97 Intake and Output 03/27/20 03/27/20 03/27/20 06:59 14:59 22:59 Other: Weight 68.039 kg Physical examination: HEENT: Head is atraumatic, normocephalic, pupils were equal round reactive to light and recommendation, extraocular muscle movement were intact, sclera nonicteric conjunctiva not pale mucous membranes of the mouth are somewhat dry. Neck:Supple, no JVD, no lymphadenopathy. Chest: Decreased breath sounds at bases, few rhonchi, no expiratory wheezes, no chest wall tenderness, no intercostal retractions. Heart: First heart sound is depressed, second heart sounds normal, there is no gallop or murmur. Abdomen: Soft, nontender, nondistended, positive bowel sounds. Extremities: There is no edema, no calf tenderness, discussed sunscreens +2 bilaterally. Neurologic examination: Patient is awake alert and oriented 3, cranial nerves 2-12 appear grossly intact muscle power 5 out of 5 in upper and lower extremities bilaterally. Results CBC & Chem 7: 03/27/20 10:15 03/27/20 10:15 Labs: Abnormal Lab Results - Last 24 Hours (Table) 03/27/20 Range/Units 10:15 Chloride 108 H (98-107) mmol/L BUN 18 H (7-17) mg/dL Glucose 103 H (74-99) mg/dL ALT 35 H (4-34) U/L Thrombosis Risk Factor Assmnt - DVT/VTE Prophylaxis DVT/VTE Prophylaxis: Pharmacologic Prophylaxis ordered, Mechanical Prophylaxis ordered Assessment and Plan Assessment: Assessment and plan: 1. Chest pain in a patient with prior history of moderate disease of the LAD and RCA. Patient did have a heart catheterization back in 2018, admit the patient to hospital continue aspirin 325 mg orally once every day, continue Lipitor 40 mg once every day, cardiology evaluation. 2. Hyperlipidemia. Continue patient on Lipitor 40 mg orally once every day. 3. GERD. Continue patient on Protonix 40 mg IV push once every day. 4. Anxiety disorder. Continue patient on BuSpar 10 mg orally 3 times every day and Xanax 0.5 mg orally 3 times every day. 5. DVT prophylaxis. Continue patient Lovenox 40 mg subcutaneously every 24 hours 6. GI prophylaxis. Continue patient on Protonix 40 mg IV push every 24 hours 7. Observation. 8. Full code.
[2020-03-27] MEDS: ACETAMINOPHEN TAB 325 MG TAB PO PRN (19:01)
[2020-03-27] MEDS: busPIRone HCl 10 MG TAB PO SCH (21:20)
[2020-03-28] MEDS: KETOROLAC 15 MG/ML 1 ML VIAL IVP PRN ×3 (01:14→18:34)
[2020-03-28 03:13] LABS: Cholesterol 142 mg/dL (<200); HDL Cholesterol 35 mg/dL (40-60); LDL Cholesterol,Calculated 78 mg/dL (0-99); Triglycerides 144 mg/dL (<150)
[2020-03-28] MEDS: ACETAMINOPHEN TAB 325 MG TAB PO PRN (04:28)
[2020-03-28] MEDS: ONDANSETRON 4 MG/2 ML VIAL IVP PRN ×2 (04:28→15:12)
[2020-03-28] MEDS: ATORVASTATIN 40 MG TAB PO SCH (07:39)
[2020-03-28] MEDS: ALPRAZolam 0.5 MG TAB PO SCH ×3 (07:39→21:16)
[2020-03-28] MEDS: ENOXAPARIN 40 MG/0.4 ML SYRINGE SQ SCH (07:40)
[2020-03-28] MEDS: ASPIRIN 81 MG PO SCH (07:40)
[2020-03-28] MEDS: busPIRone HCl 10 MG TAB PO SCH ×3 (08:37→21:17)
[2020-03-28] MEDS ORDERED: PANTOPRAZOLE 40 MG/10 ML VIAL IV SCH (09:00)
[2020-03-28] MEDS ORDERED: ASPIRIN 325 MG TAB PO SCH (09:00)
--- NOTE | 2020-03-28 09:29 | P.PN ---
Subjective Progress Note Date: 03/28/20 Principal diagnosis: Chest pain This is a 59-year-old female patient of mine with past medical history of coronary artery disease with heart catheterization done April [address] Hollingsworth showing moderate disease in the mid right coronary artery with mild disease in the left anterior descending and left circumflex. Normal left ventricle size and systolic function. At that time recommendations were for maximizing medical therapy and most likely her symptoms were related to vasospastic disease. History of anxiety and panic disorder, gastroesophageal reflux disease, tobacco use and dependence, patient developed to have a significant chest heaviness yesterday with increase night sweats associated with shortness of breath, he was described as 100 pound sitting in her chest, patient went to bed and woke up again with significant chest pressure associated with shortness breath, and profuse sweating she went and had a shower and change her close, and she ended up decided to come to the emergency department at [facility] for evaluation twelve-lead EKG did not show any evidence of acute abnormalities, troponins negative, however because of the presentation and because of her prior history of coronary artery disease patient was admitted to the hospital cardiology evaluation. 03/28: Patient sitting up in bed she continues to have chest pain overnight, she did receive morphine as well as Toradol, she stated her pain is worse with inspiration, she still feels like a heavy weight on her chest, she denies any shortness breath with that, she denies any coughing, she denies any pleurisy, she has no hemoptysis, patient will be seen by cardiology, for further evaluation and recommendation we will order ultrasound of the liver for further evaluation of her abdomen. Objective - Vital Signs Vital signs: Vital Signs Temp 97.6 F 03/28/20 07:35 Pulse 53 L 03/28/20 08:28 Resp 16 03/28/20 08:28 BP 116/70 03/28/20 07:35 Pulse Ox 97 03/28/20 07:35 Intake & Output 03/27/20 03/28/20 03/28/20 18:59 06:59 18:59 Weight 68.039 kg Other: Voiding Method Toilet Toilet Toilet # Voids 2 - Exam Review of Systems Constitutional: Denies anorexia, Denies chronic headaches, Denies chronic pain, Denies fatigue, Denies malaise, Denies weakness Eyes: denies blurred vision, denies bulging eye, denies decreased vision, denies diplopia Ears: deny: decreased hearing Ears, nose, mouth and throat: Denies dysphagia, Denies neck lump, Denies sore throat Cardiovascular: Reports chest pain, Reports decreased exercise tolerance, Reports dyspnea on exertion, Reports shortness of breath, Denies lightheadedness, Denies rapid heart beat, Denies syncope Respiratory: Denies congestion, Denies cough, Denies cough with sputum, Denies home oxygen, Denies respiratory infections Gastrointestinal: Reports nausea, Reports vomiting, Denies abdominal pain, Denies bloating, Denies BRBPR, Denies change in bowel habits, Denies diarrhea, Denies heartburn, Denies loss of appetite, Denies melena Genitourinary: Denies dysuria, Denies nocturia Menstruation: Reports postmenopausal Musculoskeletal: absent: ankle pain, ankle stiffness, ankle swelling, elbow pa in, elbow stiffness, elbow swelling, foot pain, foot stiffness, foot swelling, hand pain, hand stiffness, hand swelling, hip pain, hip stiffness, hip swelling, knee pain, knee stiffness, knee swelling, shoulder pain, shoulder stiffness, shoulder swelling, wrist pain, wrist stiffness, wrist swelling Integumentary: Denies pruritus, Denies rash Neurological: Denies numbness, Denies weakness Psychiatric: Reports anxiety, Reports depression, Denies sadness/tearfulness, Denies sleep disturbances, Denies suicidal ideation Endocrine: Denies fatigue, Denies weight change Physical examination: HEENT: Head is atraumatic, normocephalic, pupils were equal round reactive to light and recommendation, extraocular muscle movement were intact, sclera nonicteric conjunctiva not pale mucous membranes of the mouth are somewhat dry. Neck:Supple, no JVD, no lymphadenopathy. Chest: Decreased breath sounds at bases, few rhonchi, no expiratory wheezes, no chest wall tenderness, no intercostal retractions. Heart: First heart sound is depressed, second heart sounds normal, there is no gallop or murmur. Abdomen: Soft, nontender, nondistended, positive bowel sounds. Extremities: There is no edema, no calf tenderness, discussed sunscreens +2 bilaterally. Neurologic examination: Patient is awake alert and oriented 3, cranial nerves 2-12 appear grossly intact muscle power 5 out of 5 in upper and lower extremities bilaterally. - Labs CBC & Chem 7: 03/27/20 10:15 03/27/20 10:15 Labs: Abnormal Lab Results - Last 24 Hours (Table) 03/27/20 03/27/20 Range/Units 10:15 10:15 Chloride 108 H (98-107) mmol/L BUN 18 H (7-17) mg/dL Glucose 103 H (74-99) mg/dL ALT 35 H (4-34) U/L HDL Cholesterol 35 L (40-60) mg/dL Assessment and Plan Assessment: Assessment and plan: 1. Chest pain in a patient with prior history of moderate disease of the LAD and RCA. Patient did have a heart catheterization back in 2018, admit the patient to hospital continue aspirin 325 mg orally once every day, continue Lipitor 40 mg once every day, cardiology evaluation, we'll continue with Toradol 15 mg IV push every 6 hours, continue morphine 2 mg IV push every 4 hours, Of the Abdomen to Be Obtained. 2. Hyperlipidemia. Continue patient on Lipitor 40 mg orally once every day. 3. GERD. Continue patient on Protonix 40 mg IV push once every day. 4. Anxiety disorder. Continue patient on BuSpar 10 mg orally 3 times every day and Xanax 0.5 mg orally 3 times every day. 5. DVT prophylaxis. Continue patient Lovenox 40 mg subcutaneously every 24 hours 6. GI prophylaxis. Continue patient on Protonix 40 mg IV push every 24 hours 7. Observation. 8. Full code.
--- NOTE | 2020-03-28 09:51 | US ---
EXAMINATION TYPE: US liver DATE OF EXAM: 03/28/2020 COMPARISON: US & CT 2018 CLINICAL HISTORY: Abdominal pain/Fatty liver. EXAM MEASUREMENTS: Liver Length: 13.3 cm Gallbladder Wall: 0.3 cm CBD: 0.3 cm Right Kidney: 9.5 x 4.5 x 4.7 cm Pancreas: not well visualized due to overlying bowel gas. Liver: wnl Gallbladder: No stones seen Evidence for sonographic Mitchell's sign: No CBD: wnl Right Kidney: No hydronephrosis or masses seen IMPRESSION:
[2020-03-28] MEDS: MORPHINE SULFATE 4 MG/ML SYRINGE IV PRN ×2 (10:48→21:17)
[2020-03-28] MEDS ORDERED: MAG HYDROX/AL HYDROX/SIMETH 30 ML, HYOSCYAMINE ELIXIR 10 ML, LIDOCAINE VISCOUS 2% 10 ML PO ONE ×3 (12:00)
--- NOTE | 2020-03-28 12:16 | P.CRDCN ---
History of Present Illness Consult date: 03/28/20 Consult reason: chest pain History of present illness: The patient is a 59-year-old female who follows with Dr. AUDREY Varela in the office. She has a past medical history of intermediate coronary artery disease and dyslipidemia, who presented to the hospital with worsening chest pressure. She states over the course of the last week she developed significant weakness, where she did not have the strength to even stand and make her bed. She states she feels as though there is someone pushing on her chest, however it is not worse when she is up and moving. She states the most significant symptoms developed yesterday. She denies any shortness of breath, orthopnea, palpitations, dizziness, or lightheadedness. The patient was interviewed and examined lying comfortably in bed. She states she continues to have the heaviness in her chest at this time. DIAGNOSTICS: Chest x-ray shows no acute cardiopulmonary process EKG shows sinus mechanism with nonspecific T-wave changes Laboratory data shows WBC 7.6, hemoglobin 15.7, hematocrit 45.2, platelet 265, sodium 139, potassium 4.7, BUN 18, creatinine 0.93, AST 33, ALT 35, troponins negative 3, triglycerides 144, LDL 78, [place] PCR negative PAST MEDICAL HISTORY: Coronary artery disease, dyslipidemia, anxiety, irritable bowel syndrome REVIEW OF SYSTEMS: No fever or chills. No cough or expectoration. No diaphoresis. Patient denies headache, dizziness, blurred vision, double vision. Patient denies any stomach discomfort. No nausea, vomiting. No hematochezia. No hematemesis. Denies any black stools or blood in his stools. Denies dysuria or hematuria. No muscle weakness or numbness. Positive for chest pressure. Negative for shortness of breath. Negative for orthopnea. PHYSICAL EXAMINATION: This is a 59-year-old female in no apparent distress at the time of my examination. HEENT: Head is atraumatic, normocephalic. Pupils are equal, round. Sclerae anicteric. Conjunctivae are clear. Mucous membranes of the mouth are moist. Neck is supple. There is no jugular venous distention. No carotid bruit is heard. CHEST EXAMINATION: Lungs are clear to auscultation. No chest wall tenderness is noted on palpation or with deep breathing. HEART EXAMINATION: Heart regular rate and rhythm. S1, S2 heard. No murmurs, gallops or rub. ABDOMEN: Soft, nontender. Bowel sounds are heard. No organomegaly noted. EXTREMITIES: 2+ peripheral pulses with no evidence of peripheral edema and no calf tenderness noted. NEUROLOGIC EXAMINATION: Patient is awake, alert and oriented x3. FINAL ASSESSMENT AND PLAN: #1 chest discomfort, ACS workup negative #2 intermediate coronary artery disease, on statin and aspirin therapy #3 history of anxiety PLAN: Reduce aspirin 81 mg daily Schedule dobutamine stress echocardiogram to be done in the morning to rule out progression of coronary artery disease Clinical course to be determined based on above testing The patient has been seen and evaluated. Plan of care has been reviewed and agreed upon by Dr Ruvalcaba. Past Medical History Past Medical History: Coronary Artery Disease (CAD), Cancer, GERD/Reflux, Hyperlipidemia Additional Past Medical History / Comment(s): irritable bowel syndrome. right breast cancer 2010 with lumpectomy/chemo x 3 in three sites History of Any Multi-Drug Resistant Organisms: None Reported Past Surgical History: Breast Surgery, Hysterectomy Additional Past Surgical History / Comment(s): right breast lumpectomy 2009/ chemotherapy 2009. 2012 and 2015 Past Anesthesia/Blood Transfusion Reactions: No Reported Reaction Past Psychological History: Anxiety Smoking Status: Current every day smoker Past Alcohol Use History: None Reported Past Drug Use History: None Reported - Past Family History Father Family Medical History: Chest Pain / Angina, Coronary Artery Disease (CAD), Myocardial Infarction ([place]) Additional Family Medical History / Comment(s): Luisa in his 50s. He was on a cardiac transplant list. Mother Family Medical History: Coronary Artery Disease (CAD), Myocardial Infarction ([place]) Additional Family Medical History / Comment(s): history of multiple stents. Mother at age 72. Brother(s) Additional Family Medical History / Comment(s): Patient has 3 brothers. One has no major medical problems, one is unknown medical problems, when his cardiac problems. All brothers have anxiety. Sister(s) Additional Family Medical History / Comment(s): Patient has 3 sisters all suffering from anxiety. Daughter(s) Additional Family Medical History / Comment(s): Patient has 2 daughters. One daughter has MS. One daughter has anxiety. Patient does not have any sons. Medications and Allergies Home Medications Medication Instructions Recorded Confirmed Type Aspirin 81 mg PO DAILY 05/13/18 03/27/20 History Atorvastatin [Lipitor] 40 mg PO DAILY 10/09/18 03/27/20 History ALPRAZolam [Xanax] 0.5 mg PO TID 03/27/20 03/27/20 History Ondansetron [Zofran] 4 mg PO Q8HR PRN 03/27/20 03/27/20 History Allergies Allergy/AdvReac Type Severity Reaction Status Date / Time No Known Allergies Allergy Verified 03/27/20 10:33 Physical Exam Vitals: Vital Signs Temp Pulse Pulse Resp BP BP Pulse Ox 03/28/20 08:28 53 L 16 03/28/20 07:35 97.6 F 53 L 16 116/70 97 03/28/20 04:05 97.9 F 64 18 102/64 97 03/27/20 20:00 97.7 F 56 L 18 112/70 96 03/27/20 15:00 97.8 F 63 18 107/66 97 03/27/20 12:21 97.8 F 78 18 105/68 97 Intake and Output 03/27/20 03/28/20 03/28/20 22:59 06:59 14:59 Other: Voiding Method Toilet Toilet Toilet # Voids 1 2 Results 03/27/20 10:15 03/27/20 10:15 Cardiac Enzymes 03/27/20 03/27/20 Range/Units 14:39 17:31 Troponin I <0.012 <0.012 (0.000-0.034) ng/mL Lipids 03/27/20 Range/Units 10:15 Triglycerides 144 (<150) mg/dL Cholesterol 142 (<200) mg/dL HDL Cholesterol 35 L (40-60) mg/dL Current Medications Generic Name Dose Route Start Last Admin Trade Name Freq PRN Reason Stop Dose Admin Acetaminophen 650 mg 03/27/20 11:51 03/28/20 04:28 Acetaminophen Tab 325 Mg Tab PO 650 mg Q6HR PRN Administration Mild Pain or Fever > 100.5 Alprazolam 0.5 mg 03/27/20 16:00 03/28/20 07:39 Alprazolam 0.5 Mg Tab PO 0.5 mg TID SYDNEE Administration Aspirin 81 mg 03/28/20 09:00 03/28/20 07:40 Aspirin 81 Mg PO 81 mg DAILY SYDNEE Administration Atorvastatin Calcium 40 mg 03/28/20 09:00 03/28/20 07:39 Atorvastatin 40 Mg Tab PO 40 mg DAILY SYDNEE Administration Buspirone HCl 10 mg 03/27/20 22:00 03/28/20 08:37 Buspirone Hcl 10 Mg Tab PO 10 mg TID SYDNEE Administration Al Hydroxide/Mg Hydroxide 30 0 ml 03/28/20 12:00 ml/ Hyoscyamine 10 ml/ PO 03/28/20 12:01 Lidocaine HCl 10 ml ONCE ONE Enoxaparin Sodium 40 mg 03/28/20 09:00 03/28/20 07:40 Enoxaparin 40 Mg/0.4 Ml Syringe SQ 40 mg DAILY SYDNEE Administration Ibuprofen 400 mg 03/27/20 11:51 Ibuprofen 400 Mg Tab PO Q6HR PRN Mild Pain or Fever > 100.5 Ketorolac Tromethamine 15 mg 03/27/20 11:51 03/28/20 07:39 Ketorolac 15 Mg/Ml 1 Ml Vial IVP 03/30/20 11:52 15 mg Q6HR PRN Administration Moderate Pain Lorazepam 0.5 mg 03/27/20 11:51 Lorazepam 0.5 Mg Tab PO Q6HR PRN Anxiety Morphine Sulfate 4 mg 03/27/20 11:51 03/28/20 10:48 Morphine Sulfate 4 Mg/Ml Syringe IV 4 mg Q4HR PRN Administration Severe Pain Naloxone HCl 0.2 mg 03/27/20 11:51 Naloxone 0.4 Mg/Ml 1 Ml Vial IV Q2M PRN Opioid Reversal Nitroglycerin 0.4 mg 03/27/20 11:53 03/27/20 14:06 Nitroglycerin Sl Tabs 0.4 Mg Tab SUBLINGUAL 0.4 mg Q5M PRN Administration Chest Pain Ondansetron HCl 4 mg 03/27/20 11:51 03/28/20 04:28 Ondansetron 4 Mg/2 Ml Vial IVP 4 mg Q8HR PRN Administration Nausea And Vomiting Ondansetron HCl 4 mg 03/27/20 12:13 Ondansetron 4 Mg Tab PO Q8HR PRN Nausea Pantoprazole Sodium 40 mg 03/28/20 09:00 03/28/20 07:38 Pantoprazole 40 Mg/10 Ml Vial IV 40 mg DAILY SYDNEE Administration Intake and Output 03/27/20 03/28/20 03/28/20 22:59 06:59 14:59 Other: Voiding Method Toilet Toilet Toilet # Voids 1 2 03/27/20 10:15 03/27/20 10:15
[2020-03-29] MEDS: KETOROLAC 15 MG/ML 1 ML VIAL IVP PRN ×3 (01:02→12:54)
[2020-03-29] MEDS: ONDANSETRON 4 MG/2 ML VIAL IVP PRN ×2 (04:29→12:53)
[2020-03-29] MEDS: ACETAMINOPHEN TAB 325 MG TAB PO PRN (04:29)
[2020-03-29] MEDS ORDERED: PANTOPRAZOLE 40 MG TABLET PO SCH ×2 (07:30→13:00)
[2020-03-29 08:27] VITALS: BP 106/66; PULSE 60; RESP 16; TEMP 97.7
[2020-03-29] MEDS: ASPIRIN 81 MG PO SCH (08:40)
[2020-03-29] MEDS: ENOXAPARIN 40 MG/0.4 ML SYRINGE SQ SCH (08:40)
[2020-03-29] MEDS: ALPRAZolam 0.5 MG TAB PO SCH (08:40)
[2020-03-29] MEDS: ATORVASTATIN 40 MG TAB PO SCH (08:40)
[2020-03-29] MEDS ORDERED: DOBUTamine DRIP for NUC MED 500 MG in DEXTROSE/WATER 1 250ML.BAG IV ONE (09:37)
--- NOTE | 2020-03-29 12:54 | P.DS ---
Providers Date of admission: 03/27/20 12:20 Expected date of discharge: 03/29/20 Attending physician: Maury Montesinos Consults: 03/27/20 11:51 Consult Physician Stat Consulting Provider: Lester Varela Consult Reason/Comments: chest pain Do you want consulting provider notified?: Yes Primary care physician: Maury Montesinos Hospital Course: This is a 59-year-old female patient of mine with past medical history of coronary artery disease with heart catheterization done April [address] Hollingsworth showing moderate disease in the mid right coronary artery with mild disease in the left anterior descending and left circumflex. Normal left ventricle size and systolic function. At that time recommendations were for maximizing medical therapy and most likely her symptoms were related to vasospastic disease. History of anxiety and panic disorder, gastroesophageal reflux disease, tobacco use and dependence, patient developed to have a significant chest heaviness yesterday with increase night sweats associated with shortness of breath, he was described as 100 pound sitting in her chest, patient went to bed and woke up again with significant chest pressure associated with shortness breath, and profuse sweating she went and had a shower and change her close, and she ended up decided to come to the emergency department at [facility] today for evaluation twelve-lead EKG did not show any evidence of acute abnormalities, troponins negative, however because of the presentation and because of her prior history of coronary artery disease patient was admitted to the hospital cardiology evaluation. 03/28: Patient sitting up in bed she continues to have chest pain overnight, she did receive morphine as well as Toradol, she stated her pain is worse with inspi ration, she still feels like a heavy weight on her chest, she denies any shortness breath with that, she denies any coughing, she denies any pleurisy, she has no hemoptysis, patient will be seen by cardiology, for further evaluation and recommendation we will order ultrasound of the liver for further evaluation of her abdomen. discharge diagnoses: 1. Chest pain in a patient with prior history of moderate disease of the LAD and RCA. 2. Hyperlipidemia. 3. GERD. 4. Anxiety disorder. 5. DVT prophylaxis. 6. GI prophylaxis. Patient Condition at Discharge: Stable Plan - Discharge Summary Discharge Rx Participant: No New Discharge Prescriptions: No Action Aspirin 81 mg PO DAILY Atorvastatin [Lipitor] 40 mg PO DAILY Ondansetron [Zofran] 4 mg PO Q8HR PRN PRN Reason: Nausea ALPRAZolam [Xanax] 0.5 mg PO TID Discharge Medication List Aspirin 81 mg PO DAILY 05/13/18 [History] Atorvastatin [Lipitor] 40 mg PO DAILY 10/09/18 [History] ALPRAZolam [Xanax] 0.5 mg PO TID 03/27/20 [History] Ondansetron [Zofran] 4 mg PO Q8HR PRN 03/27/20 [History] Follow up Appointment(s)/Referral(s): Maury Montesinos MD [Primary Care Provider] - 1-2 days
[2020-03-29] MEDS: busPIRone HCl 10 MG TAB PO SCH (12:56)
--- NOTE | 2020-03-29 14:44 | P.PN ---
Subjective This is a pleasant 59-year-old female past medical history significant for nonobstructive coronary artery disease and dyslipidemia. She follows in the office with Dr. Varela. She is seen and examined resting comfortably lying flat in bed in no acute distress. She continues to complain of chest pain described as a heavy pressure sensation across the entire anterior portion of her chest that is exacerbated by any sort of movement or deep breathing. She denies associated shortness of breath, dizziness or palpitations. She is scheduled to undergo dobutamine stress echocardiogram today which was negative for stress- induced ischemia. Blood pressure 106/66 heart rate 68 afebrile maintaining oxygen saturation on room air. GENERAL: Well-appearing, well-nourished and in no acute distress. NECK: Supple without JVD or thyromegaly. LUNGS: Breath sounds clear to auscultation bilaterally. Respiration equal and unlabored. No wheezes, rales or rhonchi. HEART: Regular rate and rhythm without murmurs, rubs or gallops. S1 and S2 heard . EXTREMITIES: Normal range of motion, no edema. No clubbing or cyanosis. Peripheral pulses intact. ASSESSMENT Chest pain, atypical. An acute coronary event has been ruled out. Nonobstructive coronary artery disease Dyslipidemia History of anxiety PLAN Stress test is negative for stress-induced ischemia. Consider other etiologies for chest pain such as GI/esophagitis. Stable for discharge to follow-up with Dr. Varela in the office. Nurse Practitioner note has been reviewed, I agree with a documented findings and plan of care. Patient was seen and examined. Objective - Vital Signs Vital signs: Vital Signs Temp 97.7 F 03/29/20 08:25 Pulse 60 03/29/20 09:00 Resp 16 03/29/20 09:00 BP 106/66 03/29/20 08:25 Pulse Ox 99 03/29/20 08:25 Intake & Output 03/28/20 03/29/20 03/29/20 18:59 06:59 18:59 Intake Total 700 540 Balance 700 540 Weight 68.04 kg Intake: Oral 700 540 Other: Voiding Method Toilet Toilet Toilet # Voids 2 2 2 - Labs CBC & Chem 7: 03/27/20 10:15 03/27/20 10:15
--- NOTE | 2020-03-30 07:36 | P.STRESS ---
- Stress Test Note Stress Test Results/Findings: Exam Performed: dobutamine stress echo with con Exam Date: 03/29/20 Reason for Exam: CP Height: 5 ft 1 in Weight: 68.04 kg Protocol: DOBUTAMINE STRESS ECHO W/ LUMASON Stage: 3 Duration of Exercise: 10:11 Resting Heart Rate: 49 Resting Blood Pressure: 111/69 Maximum Achieved Heart Rate: 146 Maximum Achieved Blood Pressure: 143/48 85% PMHR: 139 100% PMHR: 163 METS: NA Technologist Comment: Stress Test Results/Findings: Height: 5 ft 2 in Weight: 63.503 kg Protocol: Stage: Duration of Exercise: Resting Heart Rate: Resting Blood Pressure: Maximum Achieved Heart Rate: Maximum Achieved Blood Pressure: 85% PMHR: 100% PMHR: METS: Technologist Comment: Stress Test Results/Findings: This is a 59-year-old female with history of smoking, mild coronary artery disease was being evaluated for symptoms of chest pain. Her EKGs and cardiac enzymes have been negative. Stress data: Baseline EKG showed sinus rhythm with normal WI and chronic aspiration. Blood pressure at rest is 111/69, pulse rate of 49. Patient had chest pain which is constant throughout the testing and also pretesting and posttesting period. Appear to be atypical. A standard dose of dobutamine was initiated and titrated to maximum of about 30 mics achieved a maximum rate of 146 with a blood pressure 124/48. EKGs taken during and after infusion did not reveal any significant changes to suggest ischemia. Echo data: Baseline echo images with contrast showed normal LV function. Echo images taken with the low-dose and high-dose dobutamine showed progressive augmentation of wall motion and thickening. Final impression: #1. Negative dobutamine stress test #2. Negative dobutamine stress echo. #3. Patient had constant chest pain which appeared to be atypical
== END 2020-03-29 15:24 | disposition home or self-care (01) ==
LOC: EC 09:55 → 1SOBS 12:20
PROVIDERS: ADMIT Internal Medicine; ATTEND Internal Medicine
DX: R07.9 Chest pain, unspecified (principal); I25.10 Atherosclerotic heart disease of native coronary artery without angina pectoris; E78.5 Hyperlipidemia, unspecified; K21.9 Gastro-esophageal reflux disease without esophagitis; F41.9 Anxiety disorder, unspecified; Z20.828 Contact with and (suspected) exposure to other viral communicable diseases; K58.9 Irritable bowel syndrome, unspecified; Z85.3 Personal history of malignant neoplasm of breast; Z92.21 Personal history of antineoplastic chemotherapy; Z90.710 Acquired absence of both cervix and uterus; F17.200 Nicotine dependence, unspecified, uncomplicated; Z82.49 Family history of ischemic heart disease and other diseases of the circulatory system; Z82.69 Family history of other diseases of the musculoskeletal system and connective tissue; F41.0 Panic disorder [episodic paroxysmal anxiety]; Z79.899 Other long term (current) drug therapy; Z79.82 Long term (current) use of aspirin
CPT/HCPCS: 93005 ×3; 96361 ×3; 96372 ×3; 96375 ×2; 96376 ×3; 96374; 99285; 36415; 93351; 85379; 83880; 80061; 80053; 83735; 84484; 85025; 85610; 85730; 87635; 71046; 76705; G0378 ×3; J2060; J1250; J2270 ×2; J2405 ×3; J1650 ×2; J1885 ×3; C9113; Q9950

== ENCOUNTER → 2020-04-30 | Outpatient (CLI) | payer BC ==
--- NOTE | 2020-04-30 21:50 | CT ---
EXAMINATION TYPE: CT lower extremity RT wo con DATE OF EXAM: 04/30/2020 COMPARISON: None at this location HISTORY: Right foot and ankle pain after fall off ladder x1 week ago. CT DLP: 324.3 mGycm Automated exposure control for dose reduction was used. Her graft technique: Axial images 2 mm thick sections. Reconstructed images in the coronal and sagittal planes. Three-D reconstructed images are o btained. FINDINGS: There is some subtle calcification inferior to the fibular cortex. This is most likely secondary ossi fication center. No donor site to suggest an avulsion is identified. Correlate with location of the p atient's pain. The ankle mortise appears intact. There is a superior medial navicular fracture which extends towards the tail of navicular junction. E xample image series 5 image 62. There is a displaced anterior lateral calcaneal fracture. Example image series 5 image 66. There is a small avulsion from the superior distal anterior talus. Example image series 7 image 24. Metatarsal tarsal alignment appears normal. No metatarsal fractures are identified. Soft tissue swelling is present along the anterior lateral midfoot at the fracture site level this ex tends into the distal dorsal foot IMPRESSION: 1. DISPLACED AVULSION FROM THE ANTERIOR LATERAL CALCANEUS. 2. LONGITUDINAL FRACTURE WITHIN THE MEDIAL SUPERIOR NAVICULAR WITH EXTENSION TO THE ARTICULAR SURFACE . 3. SMALL AVULSION FROM THE ANTERIOR INFERIOR TALUS. 4. SOFT TISSUE SWELLING OVER THE FRACTURE SITES
== END | disposition home or self-care (01) ==
LOC: RADCTMAIN 16:34
PROVIDERS: ATTEND Orthopaedic Surgery Orthopaedic Surgery of the Spine
DX: S92.021A Displaced fracture of anterior process of right calcaneus, initial encounter for closed fracture (principal); S92.251A Displaced fracture of navicular [scaphoid] of right foot, initial encounter for closed fracture; S92.151A Displaced avulsion fracture (chip fracture) of right talus, initial encounter for closed fracture; M79.89 Other specified soft tissue disorders

== ENCOUNTER → 2020-05-28 | Outpatient (CLI) | payer BC ==
--- NOTE | 2020-05-28 15:15 | US ---
EXAMINATION TYPE: US venous doppler duplex LE RT DATE OF EXAM: 05/28/2020 2:58 PM COMPARISON: NONE CLINICAL HISTORY: I80.9 Phlebitis and thrombophlebitis. Patient states having a broken foot. Foot pa in. Swelling. On aspirin. SIDE PERFORMED: Right TECHNIQUE: The lower extremity deep venous system is examined utilizing real time linear array sonog richard with graded compression, doppler sonography and color-flow sonography. VESSELS IMAGED: Common Femoral Vein Deep Femoral Vein Greater Saphenous Vein * Femoral Vein Popliteal Vein Small Saphenous Vein * Proximal Calf Veins (* superficial vessels) Right Leg: Negative for DVT IMPRESSION: 1. Right lower extremity venous ultrasound negative for deep venous thrombosis.
== END | disposition home or self-care (01) ==
LOC: RADUSWWP 14:40
PROVIDERS: ATTEND Podiatrist
DX: I80.201 Phlebitis and thrombophlebitis of unspecified deep vessels of right lower extremity (principal); S92.151D Displaced avulsion fracture (chip fracture) of right talus, subsequent encounter for fracture with routine healing; S92.031A Displaced avulsion fracture of tuberosity of right calcaneus, initial encounter for closed fracture; Z86.39 Personal history of other endocrine, nutritional and metabolic disease; Z85.9 Personal history of malignant neoplasm, unspecified; Z87.19 Personal history of other diseases of the digestive system; Z87.39 Personal history of other diseases of the musculoskeletal system and connective tissue

== ENCOUNTER → 2020-07-13 | Outpatient (CLI) | payer BC ==
--- NOTE | 2020-07-13 12:47 | NM ---
EXAMINATION TYPE: NM bone 3 phase DATE OF EXAM: 07/13/2020 COMPARISON: NONE HISTORY: Pain and swelling Triple phase bone scintigraphy was performed following the injection of 23.7 mCi Tc 99m MDP. Immedia te images and 4 hours post injection images acquired. FINDINGS: There is increased flow to the right ventricle. Increased soft tissue uptake. Delayed imaging demonstrates increased uptake involving the right ankle and midfoot. IMPRESSION: 1. Findings demonstrate increased flow and soft tissue uptake correlate for a cellulitis. Chronic fra cture would also be in the differential diagnosis. Abnormal uptake surrounding the ankle on delayed i mages could be on the basis of previous fracture rather than infection. Osteomyelitis not excluded co rrelate with MRI as clinically warranted.
== END | disposition home or self-care (01) ==
LOC: RADNMMAIN 07:33
PROVIDERS: ATTEND Podiatrist
DX: R93.7 Abnormal findings on diagnostic imaging of other parts of musculoskeletal system (principal); M79.671 Pain in right foot; S93.491D Sprain of other ligament of right ankle, subsequent encounter; G90.521 Complex regional pain syndrome I of right lower limb; M25.571 Pain in right ankle and joints of right foot; S93.411D Sprain of calcaneofibular ligament of right ankle, subsequent encounter
CPT/HCPCS: 78315; A9503

== ENCOUNTER 2021-01-24 12:05 | Emergency (ER) | payer BC ==
[2021-01-24 12:54] VITALS: BP 137/83; PULSE 56; RESP 20; TEMP 98
[2021-01-24] MEDS ORDERED: HYDROmorphone 1 MG/ML 1 ML SYRINGE IVP STA ×2 (14:02→17:22)
[2021-01-24] MEDS ORDERED: ONDANSETRON 4 MG/2 ML VIAL IVP STA (14:26)
[2021-01-24 14:31] LABS: Basophils % (A) 1 %; Eosinophils # (A) 0.1 k/uL (0-0.7); Eosinophils % (A) 1 %; HCT 42.9 % (34.0-46.0); HGB 14.4 gm/dL (11.4-16.0); Lymphocytes # (A) 2.2 k/uL (1.0-4.8); Lymphocytes % (A) 25 %; MCH 30.6 pg (25.0-35.0); MCHC 33.6 g/dL (31.0-37.0); MCV 91.1 fL (80.0-100.0); Mean Platelet Volume 6.7; Monocytes # (A) 0.3 k/uL (0-1.0); Monocytes % (A) 4 %; Neutrophils # (A) 5.8 k/uL (1.3-7.7); Neutrophils % (A) 68 %; Platelet Count 275 k/uL (150-450); RBC 4.71 m/uL (3.80-5.40); RDW 12.8 % (11.5-15.5); WBC 8.5 k/uL (3.8-10.6)
[2021-01-24 14:46] LABS: ALT 35 U/L (4-34); AST 35 U/L (14-36); African American GFR (CKD) >90 (>60 ml/min/1.73 sqM); Albumin 4.1 g/dL (3.5-5.0); Alkaline Phosphatase 102 U/L (38-126); Anion Gap 6 mmol/L; Blood Urea Nitrogen 11 mg/dL (7-17); C Reactive Protein <0.5 mg/dL (<1.0); Calcium 9.4 mg/dL (8.4-10.2); Carbon Dioxide 25 mmol/L (22-30); Chloride 107 mmol/L (98-107); Creatine Kinase 55 U/L (30-135); Glucose 98 mg/dL (74-99); Non-African American GFR(CKD) 87 (>60 ml/min/1.73 sqM); Potassium 4.4 mmol/L (3.5-5.1); Sodium 138 mmol/L (137-145); Total Bilirubin 0.5 mg/dL (0.2-1.3); Total Protein 6.8 g/dL (6.3-8.2)
--- NOTE | 2021-01-24 15:23 | XR ---
EXAMINATION TYPE: XR ankle complete RT DATE OF EXAM: 01/24/2021 COMPARISON: NONE HISTORY: Pain TECHNIQUE: Frontal, lateral and oblique images of the right ankle are obtained. COMPARISON: None. FINDINGS: Tiny ossific density adjacent to the lateral malleolar tip appears chronic in nature. Small avulsion fracture difficult to exclude however. Correlate clinically with point tenderness. Mild sof t tissue edema noted. The joint spaces appear within normal limits. IMPRESSION: Tiny ossific density adjacent to the lateral malleolar tip appears chronic in nature. Sm all avulsion fracture difficult to exclude however. Correlate clinically with point tenderness.
--- NOTE | 2021-01-24 15:24 | XR ---
EXAMINATION TYPE: XR foot complete RT DATE OF EXAM: 01/24/2021 CLINICAL HISTORY: pain TECHNIQUE: Frontal, lateral and oblique images of the right foot are obtained. COMPARISON: None. FINDINGS: There is no acute fracture/dislocation evident. The joint spaces appear within normal bean its. The overlying soft tissue appears unremarkable. The bony structures are osteopenic. IMPRESSION: There is no acute fracture or dislocation. ICD 10 NO FRACTURE, INITIAL EVALUATION
--- NOTE | 2021-01-24 16:44 | US ---
EXAMINATION TYPE: US venous doppler duplex LE RT DATE OF EXAM: 01/24/2021 4:35 PM COMPARISON: NONE CLINICAL HISTORY: pain. Right ankle and leg pain and swelling for 2 days SIDE PERFORMED: Right TECHNIQUE: The lower extremity deep venous system is examined utilizing real time linear array sonog richard with graded compression, doppler sonography and color-flow sonography. VESSELS IMAGED: Common Femoral Vein Deep Femoral Vein Greater Saphenous Vein * Femoral Vein Popliteal Vein Small Saphenous Vein * Proximal Calf Veins (* superficial vessels) Right Leg: Negative for DVT IMPRESSION: No evidence of right lower extremity DVT.
--- NOTE | 2021-01-24 17:21 | ED ---
Extremity Problem HPI - General Chief complaint: Extremity Problem,Nontraumatic Stated complaint: RT foot and leg pain x3days Time Seen by Provider: 01/24/21 12:50 Source: patient Mode of arrival: wheelchair Limitations: no limitations - History of Present Illness Initial comments: 60-year-old female past medical history of complex regional pain syndrome s/p fracture ankle in april dents to the emergency department with reported right ankle pain which extends up to her thigh. She currently sees Dr. Tamayo for the pain and is on Gabapentin and [place]. States that her pain got worse starting on Sunday. Normally affects her ankle however has never extended up the thigh before. She has had multiple tests performed by Dr. Tamayo. She called him today and he directed that she go into the ER. Her next appointment is on the . States that the pain is much more intense. Denies any provocative factors. States that she has difficulty in ambulating on it due to the pain. Also reports that it feels cool to the touch. Denies history of DVT or PE. No new injuries. No fevers or chills. No other alleviating, precipitating or modifying factors - Related Data Home Medications Medication Instructions Recorded Confirmed Aspirin 81 mg PO DAILY 05/13/18 03/27/20 Atorvastatin [Lipitor] 40 mg PO DAILY 10/09/18 03/27/20 ALPRAZolam [Xanax] 0.5 mg PO TID 03/27/20 03/27/20 Previous Rx's Medication Instructions Recorded Ondansetron [Zofran] 4 mg PO Q8HR PRN #30 tab 03/29/20 Pantoprazole [Protonix] 40 mg PO AC-BRKFST #30 tablet. 03/29/20 busPIRone HCl [Buspar] 10 mg PO TID tab 03/29/20 HYDROcodone/APAP 10-325MG [[place] 1 tab PO Q4HR PRN 3 Days #18 tab 01/24/21 10-325] Allergies Allergy/AdvReac Type Severity Reaction Status Date / Time No Known Allergies Allergy Verified 01/24/21 12:47 Review of Systems ROS Statement: Those systems with pertinent positive or pertinent negative responses have been documented in the HPI. ROS Other: All systems not noted in ROS Statement are negative. Past Medical History Past Medical History: Coronary Artery Disease (CAD), Cancer, GERD/Reflux, Hyperlipidemia Additional Past Medical History / Comment(s): irritable bowel syndrome. right breast cancer 2010 with lumpectomy/chemo x 3 in three sites History of Any Multi-Drug Resistant Organisms: None Reported Past Surgical History: Breast Surgery, Hysterectomy Additional Past Surgical History / Comment(s): right breast lumpectomy 2009/ chemotherapy 2009. 2012 and 2016 Past Anesthesia/Blood Transfusion Reactions: No Reported Reaction Past Psychological History: Anxiety Smoking Status: Current every day smoker Past Alcohol Use History: Rare Past Drug Use History: None Reported - Past Family History Father Family Medical History: Chest Pain / Angina, Coronary Artery Disease (CAD), Myocardial Infarction ([place]) Additional Family Medical History / Comment(s): Luisa in his 50s. He was on a cardiac transplant list. Mother Family Medical History: Coronary Artery Disease (CAD), Myocardial Infarction ([place]) Additional Family Medical History / Comment(s): history of multiple stents. Mother at age 72. Brother(s) Additional Family Medical History / Comment(s): Patient has 3 brothers. One has no major medical problems, one is unknown medical problems, when his cardiac problems. All brothers have anxiety. Sister(s) Additional Family Medical History / Comment(s): Patient has 3 sisters all suffering from anxiety. Daughter(s) Additional Family Medical History / Comment(s): Patient has 2 daughters. One daughter has MS. One daughter has anxiety. Patient does not have any sons. General Exam Limitations: no limitations General appearance: alert, anxious Respiratory exam: Present: normal lung sounds bilaterally. Absent: respiratory distress, wheezes, rales, rhonchi, stridor Cardiovascular Exam: Present: regular rate, normal rhythm, normal heart sounds. Absent: systolic murmur, diastolic murmur, rubs, gallop, clicks GI/Abdominal exam: Present: soft, normal bowel sounds. Absent: distended, tenderness, guarding, rebound, rigid Extremities exam: Present: tenderness (medial and lateral malleolus tenderness - extreme upon even light touch. Very mild soft tissue swelling. No joint ef fusion. 2+ DP and PT pulses. No erythema. No ecchymosis) Course Vital Signs 01/24/21 12:48 Temperature 98.0 F Pulse Rate 56 L Respiratory 20 Rate Blood Pressure 137/83 O2 Sat by Pulse 97 Oximetry Medical Decision Making - Medical Decision Making Upon arrival patient placed into [facility] 22. History and physical exam is performed. IV is established patient is given a dose of Dilaudid. Lab studies, venous Doppler and x-rays are all obtained due to the patient reportedly new and worsening symptoms. Lab studies all within normal limits. Ultrasound negative for DVT. X-ray demonstrates a small avulsion fracture of the lateral malleolus. Patient reevaluated reports to improvement in her pain. Requesting second dose for which she is provided per patient will be discharged home and given a stronger prescription for [place]. Instructed follow-up with Dr. Tamayo for further medication changes and workup. Patient did agree to this. Return to the emergency room for any new or worsening symptoms. patient is discharged home in stable condition - Lab Data Result diagrams: 01/24/21 14:09 01/24/21 14:09 Lab Results 01/24/21 01/24/21 01/24/21 Range/Units 14:09 14:09 14:09 WBC 8.5 (3.8-10.6) k/uL RBC 4.71 (3.80-5.40) m/uL Hgb 14.4 (11.4-16.0) gm/dL Hct 42.9 (34.0-46.0) % MCV 91.1 (80.0-100.0) fL MCH 30.6 (25.0-35.0) pg MCHC 33.6 (31.0-37.0) g/dL RDW 12.8 (11.5-15.5) % Plt Count 275 (150-450) k/uL MPV 6.7 Neutrophils % 68 % Lymphocytes % 25 % Monocytes % 4 % Eosinophils % 1 % Basophils % 1 % Neutrophils # 5.8 (1.3-7.7) k/uL Lymphocytes # 2.2 (1.0-4.8) k/uL Monocytes # 0.3 (0-1.0) k/uL Eosinophils # 0.1 (0-0.7) k/uL Basophils # 0.0 (0-0.2) k/uL Sodium 138 (137-145) mmol/L Potassium 4.4 (3.5-5.1) mmol/L Chloride 107 (98-107) mmol/L Carbon Dioxide 25 (22-30) mmol/L Anion Gap 6 mmol/L BUN 11 (7-17) mg/dL Creatinine 0.76 (0.52-1.04) mg/dL Est GFR (CKD-EPI)AfAm >90 (>60 ml/min/1.73 sqM) Est GFR (CKD-EPI)NonAf 87 (>60 ml/min/1.73 sqM) Glucose 98 (74-99) mg/dL Plasma Lactic Acid Jakub 1.1 (0.7-2.0) mmol/L Calcium 9.4 (8.4-10.2) mg/dL Total Bilirubin 0.5 (0.2-1.3) mg/dL AST 35 (14-36) U/L ALT 35 H (4-34) U/L Alkaline Phosphatase 102 (38-126) U/L Creatine Kinase 55 (30-135) U/L C-Reactive Protein <0.5 (<1.0) mg/dL Total Protein 6.8 (6.3-8.2) g/dL Albumin 4.1 (3.5-5.0) g/dL Disposition Clinical Impression: Chronic pain of right ankle Disposition: HOME SELF-CARE Condition: Stable Instructions (If sedation given, give patient instructions): Leg Pain (ED) Additional Instructions: Please follow up with Dr. Tamayo for further medication changes. Return to the ED for any new or worsening symptoms. Prescriptions: HYDROcodone/APAP 10-325MG [[place] 10-325] 1 tab PO Q4HR PRN 3 Days #18 tab PRN Reason: Pain Is patient prescribed a controlled substance at d/c from ED?: Yes When asked, does pt state using other controlled substances?: No If prescribed controlled substance>3 days was MAPS reviewed?: Prescribed <3 Days If opioid is for acute pain is fill amount 7 days or less?: Yes If Rx opioid, was Start Talking consent form obtained?: Yes Referrals: Maury Montesinos MD [Primary Care Provider] - 1-2 days Mando Tamayo MD [STAFF PHYSICIAN] - 1-2 days Time of Disposition: 17:25
== END 2021-01-24 17:56 | disposition home or self-care (01) ==
LOC: EC 12:05
DX: M25.571 Pain in right ankle and joints of right foot (principal); G89.29 Other chronic pain; I25.10 Atherosclerotic heart disease of native coronary artery without angina pectoris; E78.5 Hyperlipidemia, unspecified; F17.200 Nicotine dependence, unspecified, uncomplicated; Z79.82 Long term (current) use of aspirin; Z79.899 Other long term (current) drug therapy
CPT/HCPCS: 99284; 96374; 96375; 96376; 36415; 80053; 82550; 83605; 85025; 86140; 73610; 73630; 93971; J2405; J1170

== ENCOUNTER 2021-04-06 12:07 | Emergency (ER) | payer BC ==
[2021-04-06 12:42] VITALS: RESP 18; TEMP 97.6
[2021-04-06] MEDS ORDERED: SODIUM CHLORIDE 0.9% 1,000 ML IV ONE (14:25)
[2021-04-06] MEDS ORDERED: HYDROmorphone 0.5 MG/0.5 ML SYRINGE IVP STA (14:25)
[2021-04-06] MEDS ORDERED: ONDANSETRON 4 MG/2 ML VIAL IVP STA (14:26)
[2021-04-06 14:36] LABS: Basophils % (A) 0 %; Eosinophils # (A) 0.1 k/uL (0-0.7); Eosinophils % (A) 1 %; HCT 45.1 % (34.0-46.0); HGB 15.1 gm/dL (11.4-16.0); Lymphocytes % (A) 22 %; MCHC 33.4 g/dL (31.0-37.0); MCV 92.8 fL (80.0-100.0); Mean Platelet Volume 7.3; Monocytes # (A) 0.4 k/uL (0-1.0); Monocytes % (A) 4 %; Neutrophils # (A) 6.8 k/uL (1.3-7.7); Neutrophils % (A) 73 %; Platelet Count 275 k/uL (150-450); RBC 4.86 m/uL (3.80-5.40); RDW 12.8 % (11.5-15.5); WBC 9.3 k/uL (3.8-10.6)
[2021-04-06 14:45] LABS: Appearance,Urine Clear (Clear); Bilirubin,Urine Negative (Negative); Blood,Urine Negative (Negative); Color,Urine Light Yellow; Glucose,Urine (UA) Negative (Negative); Ketones,Urine Negative (Negative); Leukocyte Esterase,Urine Negative (Negative); Nitrite,Urine Negative (Negative); PH, Urine 5.5 (5.0-8.0); Protein,Urine Negative (Negative); Specific Gravity,Urine 1.004 (1.001-1.035); Urobilinogen,Urine <2.0 mg/dL (<2.0)
[2021-04-06 15:08] LABS: Albumin 4.4 g/dL (3.5-5.0); Calcium 9.6 mg/dL (8.4-10.2); Total Bilirubin 0.6 mg/dL (0.2-1.3); Total Protein 7.3 g/dL (6.3-8.2)
[2021-04-06 15:13] LABS: Potassium 5.2 mmol/L (3.5-5.1)
--- NOTE | 2021-04-06 15:13 | CT ---
EXAMINATION TYPE: CT abdomen pelvis w con DATE OF EXAM: 04/06/2021 COMPARISON: None HISTORY: generalized abdominal pain, nausea, vomiting, diarrhea CT DLP: 1021 mGycm CONTRAST: CT scan of the abdomen and pelvis is performed without Oral Contrast and with IV Contrast, patient in jected with 100 mL of Isovue 300. FINDINGS: LUNG BASES-: No visible nodule. No infiltrate. LIVER/GB: No calcified gallstones. No space occupying hepatic lesion. Biliary tree is of normal ca liber. PANCREAS: No inflammation. No distinct mass. SPLEEN: No splenic enlargement. No lesion seen. ADRENALS: No nodule. No thickening. KIDNEYS/BLADDER: No hydronephrosis. No nephrolithiasis. No distinct renal mass. Urinary bladder g rossly unremarkable. BOWEL: Normal appendix. Normal bowel caliber. No inflammation. GENITAL ORGANS: No gross abnormality. LYMPH NODES: No greater than 1cm abdominal or pelvic lymph nodes are appreciated. AORTA: No significant abnormality. OSSEOUS STRUCTURES: No significant abnormality is seen. OTHER: No significant additional abnormality is seen. IMPRESSION: 1. No acute intra-abdominal process identified.
[2021-04-06] MEDS ORDERED: LORazepam 2 MG/ML INJ IV STA (15:32)
--- NOTE | 2021-04-06 16:11 | ED ---
Abdominal Pain HPI - General Chief Complaint: Abdominal Pain Stated Complaint: abdominal pain, 2 weeks Time Seen by Provider: 04/06/21 12:40 Source: patient Mode of arrival: wheelchair Limitations: no limitations - History of Present Illness Initial Comments: 60-year-old female presents emergency room with reported abdominal pain. States has been going on for the past 2 weeks. Admits generalized with associated nausea and vomiting. She has not been taking any medications at home for her symptoms. Reports a previous history of gastric ulcers. She denies hematemesis. No black or bloody stools. Denies fevers. Spoke with her primary care office he recommended that she come in to the emergency room for evaluation. Denies any chest pain. No ripping or tearing station her back. No numbness, tingling or weakness in her extremities. Denies any changes in her bladder habits. No other alleviating, precipitating or modifying factors - Related Data Home Medications Medication Instructions Recorded Confirmed Aspirin 81 mg PO DAILY 05/13/18 03/27/20 Atorvastatin [Lipitor] 40 mg PO DAILY 10/09/18 03/27/20 ALPRAZolam [Xanax] 0.5 mg PO TID 03/27/20 03/27/20 Previous Rx's Medication Instructions Recorded Ondansetron [Zofran] 4 mg PO Q8HR PRN #30 tab 03/29/20 Pantoprazole [Protonix] 40 mg PO AC-BRKFST #30 tablet. 03/29/20 busPIRone HCl [Buspar] 10 mg PO TID tab 03/29/20 HYDROcodone/APAP 10-325MG [[place] 1 tab PO Q4HR PRN 3 Days #18 tab 01/24/21 10-325] Allergies Allergy/AdvReac Type Severity Reaction Status Date / Time No Known Allergies Allergy Verified 04/06/21 12:40 Review of Systems ROS Statement: Those systems with pertinent positive or pertinent negative responses have been documented in the HPI. ROS Other: All systems not noted in ROS Statement are negative. Past Medical History Past Medical History: Coronary Artery Disease (CAD), Cancer, GERD/Reflux, Hyperlipidemia Additional Past Medical History / Comment(s): irritable bowel syndrome. right breast cancer 2009 with lumpectomy/chemo x 3 in three sites History of Any Multi-Drug Resistant Organisms: None Reported Past Surgical History: Breast Surgery, Hysterectomy Additional Past Surgical History / Comment(s): right breast lumpectomy 2009/ chemotherapy 2009. 2012 and 2016 Past Anesthesia/Blood Transfusion Reactions: No Reported Reaction Past Psychological History: Anxiety Smoking Status: Current every day smoker Past Alcohol Use History: Rare Past Drug Use History: None Reported - Past Family History Father Family Medical History: Chest Pain / Angina, Coronary Artery Disease (CAD), Myocardial Infarction ([place]) Additional Family Medical History / Comment(s): Luisa in his 50s. He was on a cardiac transplant list. Mother Family Medical History: Coronary Artery Disease (CAD), Myocardial Infarction ([place]) Additional Family Medical History / Comment(s): history of multiple stents. Mother at age 72. Brother(s) Additional Family Medical History / Comment(s): Patient has 3 brothers. One has no major medical problems, one is unknown medical problems, when his cardiac problems. All brothers have anxiety. Sister(s) Additional Family Medical History / Comment(s): Patient has 3 sisters all suff ering from anxiety. Daughter(s) Additional Family Medical History / Comment(s): Patient has 2 daughters. One daughter has MS. One daughter has anxiety. Patient does not have any sons. General Exam Limitations: no limitations General appearance: alert, in no apparent distress Head exam: Present: atraumatic, normocephalic, normal inspection Eye exam: Present: normal appearance, PERRL, EOMI. Absent: scleral icterus, conjunctival injection, periorbital swelling ENT exam: Present: normal exam, mucous membranes moist Neck exam: Present: normal inspection. Absent: tenderness, meningismus, lymphadenopathy Respiratory exam: Present: normal lung sounds bilaterally. Absent: respiratory distress, wheezes, rales, rhonchi, stridor Cardiovascular Exam: Present: regular rate, normal rhythm, normal heart sounds. Absent: systolic murmur, diastolic murmur, rubs, gallop, clicks GI/Abdominal exam: Present: soft, tenderness (generalized), normal bowel sounds. Absent: distended, guarding, rebound, rigid Extremities exam: Present: normal inspection, full ROM, normal capillary refill. Absent: tenderness, pedal edema, joint swelling, calf tenderness Back exam: Present: normal inspection Neurological exam: Present: alert, oriented X3, CN II-XII intact Psychiatric exam: Present: normal affect, normal mood Skin exam: Present: warm, dry, intact, normal color. Absent: rash Course Vital Signs 04/06/21 04/06/21 04/06/21 12:40 14:42 16:41 Temperature 97.6 F Pulse Rate 69 99 88 Respiratory 18 18 18 Rate Blood Pressure 141/78 132/87 133/83 O2 Sat by Pulse 98 95 95 Oximetry Medical Decision Making - Medical Decision Making On arrival patient is placed into the hallway 21. A thorough history and physical exam was performed. IV is established the patient is given 0.5 mg of D ilaudid for pain control and 4 mg of Zofran for nausea. She is also given a liter bolus normal saline. Laboratory studies are conducted. Patient provided urine sample. Patient went for CT of her abdomen and pelvis. Laboratory studies are reviewed and are within normal limits. CT abdomen and pelvis demonstrates no acute intra-abdominal process. She is reevaluated and does report improvement in her pain. Requesting something for anxiety and therefore is given 1 mg of Ativan. I called and spoke with Dr. Montesinos. Reports that he will follow up with the patient in office tomorrow for further evaluation of her symptoms. Patient understood this was given written and verbal discharge instru ctions and discharged home in stable condition - Lab Data Result diagrams: 04/06/21 14:21 04/06/21 14:21 Lab Results 04/06/21 04/06/21 04/06/21 Range/Units 14:21 14:21 14:31 WBC 9.3 (3.8-10.6) k/uL RBC 4.86 (3.80-5.40) m/uL Hgb 15.1 (11.4-16.0) gm/dL Hct 45.1 (34.0-46.0) % MCV 92.8 (80.0-100.0) fL MCH 31.0 (25.0-35.0) pg MCHC 33.4 (31.0-37.0) g/dL RDW 12.8 (11.5-15.5) % Plt Count 275 (150-450) k/uL MPV 7.3 Neutrophils % 73 % Lymphocytes % 22 % Monocytes % 4 % Eosinophils % 1 % Basophils % 0 % Neutrophils # 6.8 (1.3-7.7) k/uL Lymphocytes # 2.0 (1.0-4.8) k/uL Monocytes # 0.4 (0-1.0) k/uL Eosinophils # 0.1 (0-0.7) k/uL Basophils # 0.0 (0-0.2) k/uL Sodium 139 (137-145) mmol/L Potassium 5.2 H (3.5-5.1) mmol/L Chloride 107 (98-107) mmol/L Carbon Dioxide 21 L (22-30) mmol/L Anion Gap 11 mmol/L BUN 11 (7-17) mg/dL Creatinine 0.84 (0.52-1.04) mg/dL Est GFR (CKD-EPI)AfAm 89 (>60 ml/min/1.73 sqM) Est GFR (CKD-EPI)NonAf 77 (>60 ml/min/1.73 sqM) Glucose 94 (74-99) mg/dL Plasma Lactic Acid Jakub (0.7-2.0) mmol/L Calcium 9.6 (8.4-10.2) mg/dL Total Bilirubin 0.6 (0.2-1.3) mg/dL AST 50 H (14-36) U/L ALT 47 H (4-34) U/L Alkaline Phosphatase 93 (38-126) U/L Total Protein 7.3 (6.3-8.2) g/dL Albumin 4.4 (3.5-5.0) g/dL Lipase 53 (23-300) U/L Urine Color Light Yellow Urine Appearance Clear (Clear) Urine pH 5.5 (5.0-8.0) Ur Specific [place] 1.004 (1.001-1.035) Urine Protein Negative (Negative) Urine Glucose (UA) Negative (Negative) Urine Ketones Negative (Negative) Urine Blood Negative (Negative) Urine Nitrite Negative (Negative) Urine Bilirubin Negative (Negative) Urine Urobilinogen <2.0 (<2.0) mg/dL Ur Leukocyte Esterase Negative (Negative) 04/06/21 Range/Units 14:31 WBC (3.8-10.6) k/uL RBC (3.80-5.40) m/uL Hgb (11.4-16.0) gm/dL Hct (34.0-46.0) % MCV (80.0-100.0) fL MCH (25.0-35.0) pg MCHC (31.0-37.0) g/dL RDW (11.5-15.5) % Plt Count (150-450) k/uL MPV Neutrophils % % Lymphocytes % % Monocytes % % Eosinophils % % Basophils % % Neutrophils # (1.3-7.7) k/uL Lymphocytes # (1.0-4.8) k/uL Monocytes # (0-1.0) k/uL Eosinophils # (0-0.7) k/uL Basophils # (0-0.2) k/uL Sodium (137-145) mmol/L Potassium (3.5-5.1) mmol/L Chloride (98-107) mmol/L Carbon Dioxide (22-30) mmol/L Anion Gap mmol/L BUN (7-17) mg/dL Creatinine (0.52-1.04) mg/dL Est GFR (CKD-EPI)AfAm (>60 ml/min/1.73 sqM) Est GFR (CKD-EPI)NonAf (>60 ml/min/1.73 sqM) Glucose (74-99) mg/dL Plasma Lactic Acid Jakub 1.1 (0.7-2.0) mmol/L Calcium (8.4-10.2) mg/dL Total Bilirubin (0.2-1.3) mg/dL AST (14-36) U/L ALT (4-34) U/L Alkaline Phosphatase (38-126) U/L Total Protein (6.3-8.2) g/dL Albumin (3.5-5.0) g/dL Lipase (23-300) U/L Urine Color Urine Appearance (Clear) Urine pH (5.0-8.0) Ur Specific [place] (1.001-1.035) Urine Protein (Negative) Urine Glucose (UA) (Negative) Urine Ketones (Negative) Urine Blood (Negative) Urine Nitrite (Negative) Urine Bilirubin (Negative) Urine Urobilinogen (<2.0) mg/dL Ur Leukocyte Esterase (Negative) Disposition Clinical Impression: Abdominal pain Disposition: HOME SELF-CARE Condition: Stable Instructions (If sedation given, give patient instructions): Abdominal Pain (ED) Additional Instructions: Please call and make an appointment with Dr. Montesinos. He wants you to see him tomorrow in office. Return for any new or worsening symptoms Is patient prescribed a controlled substance at d/c from ED?: No Referrals: Maury Montesinos MD [Primary Care Provider] - 1-2 days Time of Disposition: 16:11
[2021-04-06 16:42] VITALS: BP 133/83; PULSE 88
== END 2021-04-06 16:42 | disposition home or self-care (01) ==
LOC: EC 12:07
DX: R10.84 Generalized abdominal pain (principal); R11.2 Nausea with vomiting, unspecified; F17.200 Nicotine dependence, unspecified, uncomplicated; E78.5 Hyperlipidemia, unspecified; I25.10 Atherosclerotic heart disease of native coronary artery without angina pectoris; Z79.899 Other long term (current) drug therapy; Z79.82 Long term (current) use of aspirin; Z87.11 Personal history of peptic ulcer disease
CPT/HCPCS: 36415; 80053; 83605; 83690; 85025; 81003; 74177; 99284; 96374; 96375; 96361; J2060; J2405; J1170; Q9967

== ENCOUNTER → 2021-09-02 | Outpatient (CLI) | payer BC ==
--- NOTE | 2021-09-02 15:18 | US ---
EXAMINATION TYPE: US venous doppler duplex LE RT DATE OF EXAM: 09/02/2021 2:53 PM COMPARISON: US January 24, 2021 CLINICAL HISTORY: PAIN IN RIGHT LEG M79.604. Right leg pain x 3 weeks, patient taking aspirin SIDE PERFORMED: Right TECHNIQUE: The lower extremity deep venous system is examined utilizing real time linear array sonog richard with graded compression, doppler sonography and color-flow sonography. VESSELS IMAGED: Common Femoral Vein Deep Femoral Vein Greater Saphenous Vein * Femoral Vein Popliteal Vein Small Saphenous Vein * Proximal Calf Veins (* superficial vessels) Right Leg: Appears negative for DVT Grayscale, color doppler, spectral doppler imaging performed of the deep veins of the right lower ext remity. There is normal flow, compressibility, vascular waveforms. IMPRESSION: No ultrasound evidence for acute DVT in the right lower extremity. No significant change from prior.
== END | disposition home or self-care (01) ==
LOC: RADUSWWP 14:27
PROVIDERS: ATTEND Internal Medicine
DX: M79.604 Pain in right leg (principal)

== ENCOUNTER 2021-11-07 12:41 | Emergency (ER) | payer BC ==
[2021-11-07 12:53] VITALS: BP 125/79; PULSE 69; RESP 18; TEMP 97.5
[2021-11-07] MEDS ORDERED: KETOROLAC 15 MG/ML 1 ML VIAL IM STA (13:39)
[2021-11-07] MEDS ORDERED: ORPHENADRINE 30 MG/ML 2 ML VIAL IVP STA (13:39)
[2021-11-07] MEDS ORDERED: METOCLOPRAMIDE 10 MG TAB PO STA (13:40)
--- NOTE | 2021-11-07 13:58 | ED ---
Extremity Problem HPI - General Chief complaint: Extremity Problem,Nontraumatic Stated complaint: leg & back pain Time Seen by Provider: 11/07/21 13:16 Source: patient Mode of arrival: ambulatory Limitations: no limitations - History of Present Illness Initial comments: Patient is a 61-year-old female presenting with chief complaint of right foot pain. Patient broke her foot 2 months ago, she has been dealing with acute pain ever sent. She states she is unable to get into pain management as she recently had stents put in her heart. Patient is currently taking pregabalin and [place] for the pain which is not effective. She states the pain radiates up the leg and into the back. Denies any new injury or trauma. No redness, swelling, fever, chills, numbness, tingling, loss of bowel or bladder control, saddle paresthesia. Patient also states that on the left lower leg she noticed a "knot", she states that it is only mildly painful, no lower extremity swelling. - Related Data Home Medications Medication Instructions Recorded Confirmed Aspirin 81 mg PO DAILY 05/13/18 11/07/21 Albuterol Inhaler [Ventolin Hfa 2 puff INHALATION RT-Q6H PRN 11/07/21 11/07/21 Inhaler] HYDROcodone/APAP 10-325MG [[place] 1 tab PO TID PRN 11/07/21 11/07/21 10-325] Metoprolol Succinate [Metoprolol 25 mg PO DAILY 11/07/21 11/07/21 Succinate ER] Nitroglycerin Sl Tabs [Nitrostat] 0.4 mg SUBLINGUAL Q5M PRN 11/07/21 11/07/21 PARoxetine HCL [Paxil Cr] 37.5 mg PO DAILY 11/07/21 11/07/21 Prasugrel HCl 10 mg PO DAILY 11/07/21 11/07/21 Pregabalin [Lyrica] 50 mg PO TID 11/07/21 11/07/21 clonazePAM [KlonoPIN] 0.5 mg PO DAILY PRN 11/07/21 11/07/21 Previous Rx's Medication Instructions Recorded Ondansetron [Zofran] 4 mg PO Q8HR PRN #30 tab 03/29/20 Pantoprazole [Protonix] 40 mg PO SHI-AUDREYKFSAlyssia #30 tablet. 03/29/20 Cyclobenzaprine [Flexeril] 10 mg PO TID PRN #15 tab 11/07/21 Allergies Allergy/AdvReac Type Severity Reaction Status Date / Time No Known Allergies Allergy Verified 11/07/21 16:01 Review of Systems ROS Statement: Those systems with pertinent positive or pertinent negative responses have been documented in the HPI. ROS Other: All systems not noted in ROS Statement are negative. Past Medical History Past Medical History: Coronary Artery Disease (CAD), Cancer, GERD/Reflux, Hyperlipidemia Additional Past Medical History / Comment(s): irritable bowel syndrome. right breast cancer 2010 with lumpectomy/chemo x 3 in three sites History of Any Multi-Drug Resistant Organisms: None Reported Past Surgical History: Breast Surgery, Heart Catheterization With Stent, Hysterectomy Additional Past Surgical History / Comment(s): right breast lumpectomy 2009/ chemotherapy 2009. 2012 and 2015 Past Anesthesia/Blood Transfusion Reactions: No Reported Reaction Past Psychological History: Anxiety Smoking Status: Current every day smoker, Light tobacco smoker Past Alcohol Use History: Rare Past Drug Use History: None Reported - Past Family History Father Family Medical History: Chest Pain / Angina, Coronary Artery Disease (CAD), Myocardial Infarction ([place]) Additional Family Medical History / Comment(s): Luisa in his 50s. He was on a cardiac transplant list. Mother Family Medical History: Coronary Artery Disease (CAD), Myocardial Infarction ([place]) Additional Family Medical History / Comment(s): history of multiple stents. Mother at age 72. Brother(s) Additional Family Medical History / Comment(s): Patient has 3 brothers. One has no major medical problems, one is unknown medical problems, when his cardiac problems. All brothers have anxiety. Sister(s) Additional Family Medical History / Comment(s): Patient has 3 sisters all suffering from anxiety. Daughter(s) Additional Family Medical History / Comment(s): Patient has 2 daughters. One daughter has MS. One daughter has anxiety. Patient does not have any sons. General Exam Limitations: no limitations General appearance: alert, in no apparent distress Head exam: Present: atraumatic, normocephalic, normal inspection Eye exam: Present: normal appearance, EOMI. Absent: scleral icterus, periorbital swelling Neck exam: Present: normal inspection Respiratory exam: Present: normal lung sounds bilaterally. Absent: respiratory distress, wheezes, rales, rhonchi, stridor Cardiovascular Exam: Present: regular rate, normal rhythm, normal heart sounds. Absent: systolic murmur, diastolic murmur, rubs, gallop, clicks Right Lower Leg exam: Present: normal inspection, full ROM, tenderness. Absent: swelling Ankle exam: Present: normal inspection, full ROM, tenderness. Absent: swelling Foot/Toe exam: Present: normal inspection, full ROM, tenderness. Absent: swelling, abrasion, ecchymosis Neurological exam: Present: alert, oriented X3, CN II-XII intact Psychiatric exam: Present: normal affect, normal mood Skin exam: Present: warm, dry, intact, normal color. Absent: rash Course Vital Signs 11/07/21 12:47 Temperature 97.5 F L Pulse Rate 69 Respiratory 18 Rate Blood Pressure 125/79 O2 Sat by Pulse 96 Oximetry Medical Decision Making - Medical Decision Making Patient is a 61-year-old female presenting with chief complaint of right leg, foot, and back pain. Patient states that this pain is been ongoing for several months, however today it is much worse than usual. Patient states she broke her foot several months ago, the foot as the epicenter of the pain, however she feels was the pain travels up the leg into the back. Patient states that the back pain is somewhat new. Patient also states that she noticed a "knot" in the left lower extremity, she is concerned for DVT. On examination there is ten derness to palpation, 2+ pedal pulses bilaterally. X-ray of the lumbar spine is negative for any acute process. Venous Doppler study is negative for any DVT. Patient is given pain medication and instructed to follow-up with her PCP. Report back to ER with any new or worsening symptoms. Discussed return parameters answered all questions. Patient conveyed verbal understanding and agreed to the plan. I discussed this case with my attending Dr. Rm. Disposition Clinical Impression: Chronic pain Disposition: HOME SELF-CARE Condition: Good Instructions (If sedation given, give patient instructions): Pain Management (ED), Back Pain (ED) Additional Instructions: Follow-up with PCP in one to 2 days. Report back to ER with any new or worsening symptoms. Take Motrin and Tylenol as needed for pain control. Take muscle relaxer as needed, may cause drowsiness, do not take before driving or operating heavy machinery. Prescriptions: Cyclobenzaprine [Flexeril] 10 mg PO TID PRN #15 tab PRN Reason: Spasms Is patient prescribed a controlled substance at d/c from ED?: No Referrals: Maury Montesinos MD [Primary Care Provider] - 1-2 days Time of Disposition: 16:23
--- NOTE | 2021-11-07 14:11 | XR ---
Lumbar spine HISTORY: Low back pain, radiculopathy 3 views of lumbar spine No comparisons Lumbar vertebral bodies show preserved height. There is a texture scoliosis centered at the lumbosacr al junction. Sclerosis is present in the posterior elements of the lower lumbar spine consistent with facet arthropathy. There is mild multilevel spondylosis. Disc spaces appear maintained. Apical scarr ing vascular calcifications are present in the aorta iliac distribution. IMPRESSION: Lumbar spondylosis, facet arthropathy, osteopenia and slight spinal curvature, could be p ositional. Consider lumbar MRI.
[2021-11-07] MEDS ORDERED: ORPHENADRINE 30 MG/ML 2 ML VIAL IM STA (14:13)
[2021-11-07] MEDS ORDERED: HYDROmorphone 0.5 MG/0.5 ML SYRINGE IM STA (15:11)
--- NOTE | 2021-11-07 15:16 | US ---
EXAMINATION TYPE: US venous doppler duplex LE LT DATE OF EXAM: 11/07/2021 3:01 PM COMPARISON: None. CLINICAL HISTORY: "bump" on L lower leg. Patient states feeling bump on left leg. No redness. No swe lling. On aspirin. SIDE PERFORMED: Left TECHNIQUE: The lower extremity deep venous system is examined utilizing real time linear array sonog richard with graded compression, doppler sonography and color-flow sonography. VESSELS IMAGED: Common Femoral Vein Deep Femoral Vein Greater Saphenous Vein * Femoral Vein Popliteal Vein Small Saphenous Vein * Proximal Calf Veins (* superficial vessels) Left Leg: Negative for DVT. Area of concern scanned at medial leg inferior to knee, superficial, ec hogenic and nonvascular lesion seen= 1.2 x 1.9 x 0.9 cm Grayscale, color doppler, spectral doppler imaging performed of the deep veins of the left lower extr emity. There is normal flow, compressibility, vascular waveforms. IMPRESSION: No ultrasound evidence for acute DVT in the left lower extremity. There is superficial 1 .3 cm ill-defined hyperechoic structure in the subcutaneous tissue on the last images saved a palpabl e abnormality favoring benign subcutaneous lipoma just below the dermal layer.
== END 2021-11-07 17:18 | disposition home or self-care (01) ==
LOC: EC 12:41
DX: G89.4 Chronic pain syndrome (principal); M79.671 Pain in right foot; I25.10 Atherosclerotic heart disease of native coronary artery without angina pectoris; K21.9 Gastro-esophageal reflux disease without esophagitis; E78.5 Hyperlipidemia, unspecified; F41.9 Anxiety disorder, unspecified; F17.210 Nicotine dependence, cigarettes, uncomplicated; Z79.82 Long term (current) use of aspirin; Z79.899 Other long term (current) drug therapy
CPT/HCPCS: 72100; 93971; 99284; 96372 ×3; J2360; J1885; J1170

== ENCOUNTER → 2021-12-07 | Outpatient (CLI) | payer BC ==
--- NOTE | 2021-12-08 12:28 | MR ---
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 IV Contrast: None FINDINGS: Alignment: The lumbar vertebral bodies have preserved heights and alignment. Cord: The conus medullaris and the distal spinal cord appear unremarkable with regards to their signa l intensity and morphology. Bones/Discs: Bone signal is within normal limits. Multilevel degenerative disc disease and minimal t hroughout the spine. Multilevel facet joint arthropathy seen throughout the lumbar spine. L1-L2: No significant disc pathology. Spinal canal is patent. The neural foramen are patent. L2-L3: No significant disc pathology. Spinal canal is patent. The neural foramen are patent. L3-L4: No significant disc pathology. Spinal canal is patent. The neural foramen are patent. L4-L5: No significant disc pathology. Spinal canal is patent. The neural foramen are patent. L5-S1: Rounded posterior morphology without evidence for significant spinal canal stenosis. The neura l foramen are patent. Other findings: None. IMPRESSION: 1. No definitive evidence of disc herniation or significant spinal canal stenosis. 2. Minimal multilevel disc degeneration with associated osteoarthritic changes.
== END | disposition home or self-care (01) ==
LOC: RADMRIMAIN 16:10
PROVIDERS: ATTEND Internal Medicine
DX: M47.16 Other spondylosis with myelopathy, lumbar region (principal)
CPT/HCPCS: 72148

== ENCOUNTER → 2022-01-17 | Outpatient (CLI) | payer BC ==
--- NOTE | 2022-01-17 11:27 | CT ---
EXAMINATION TYPE: CT abdomen pelvis w con DATE OF EXAM: 01/17/2022 COMPARISON: 04/06/2021 HISTORY: 61-year-old female R10.9, abdominal pain TECHNIQUE: Contiguous axial scanning of the abdomen and pelvis following administration of 100 ml Iso yesi 370 IV contrast. Delayed images through the kidneys and coronal/sagittal reconstructions perform ed. CT DLP: 1023.10 mGycm Automated exposure control for dose reduction was used. FINDINGS: LUNG BASES: RCA coronary calcifications. Heart upper limits of normal in size without pericardial eff usion. Scattered groundglass and interstitial changes are noted in the lower lungs and could represen t some mild fibrosis. LIVER/GB: Liver enlarged at 19.3 cm with low-attenuation suggesting fatty infiltration. Portal venous system is patent. No biliary ductal dilatation or focal liver lesion seen. Gallbladder shows no abno rmality. PANCREAS: No significant abnormality is seen. SPLEEN: No significant abnormality is seen. ADRENALS: No significant abnormality is seen. KIDNEYS: No significant abnormality is seen. BOWEL: No dilated small bowel, free fluid, or free air. Scattered mild stool burden. No pericolonic i nflammatory change. There is some questionable short segment annular narrowing and thickening at the junction of the cecum and ascending colon, axial image 52 which could represent focal peristalsis. Di rect visualization to exclude a mucosal lesion. LYMPH NODES: Scattered [id number] atherosclerotic calcifications infrarenal abdominal aorta and common iliac arteries without aneurysm. No mesenteric or retroperitoneal lymphadenopathy. PELVIS: Mild circumferential bladder wall thickening. Uterus surgically absent. Scattered pelvic phle bolith. Neither ovary is clearly seen. No abnormal fluid collection in the pelvis or pelvic lymphaden opathy. There may be mild pelvic floor relaxation. BONES: There is some facet arthropathy mid to lower lumbar spine particularly on the right. IMPRESSION: 1. MILDLY ENLARGED LIVER AT 19.3 CM WITH MODERATE HEPATIC STEATOSIS. 2. POSSIBLE SHORT SEGMENT ANNULAR THICKENING AND NARROWING AT THE JUNCTION OF THE CECUM AND ASCENDING COLON. THIS COULD REPRESENT A FOCAL AREA OF PERISTALSIS. DIRECT VISUALIZATION TO EXCLUDE A MUCOSAL L ESION IF ROUTINE SCREENING COLONOSCOPY IS NOT BEING PERFORMED. 3. MILD CIRCUMFERENTIAL BLADDER WALL THICKENING MAY BE CHRONIC FOR THE PATIENT. CORRELATE TO EXCLUDE CYSTITIS.
== END | disposition home or self-care (01) ==
LOC: RADCTMAIN 01-13 14:59
PROVIDERS: ATTEND Internal Medicine Gastroenterology
DX: R10.9 Unspecified abdominal pain (principal)
CPT/HCPCS: 74177; Q9967

== ENCOUNTER 2022-02-14 10:54 | Inpatient (IN) | payer BC ==
--- NOTE | 2022-02-14 11:19 | ED ---
SOB HPI - General Chief Complaint: Shortness of Breath Stated Complaint: SOB, Sent by Urgent Care Time Seen by Provider: 02/14/22 11:02 Source: patient, RN notes reviewed Mode of arrival: ambulatory Limitations: no limitations - History of Present Illness Initial Comments: Patient is a 61-year-old female presenting to the emergency room with complaints of cough and shortness of breath along with low-grade temperatures ongoing for approximately 5 days. On January 31 she underwent cardiac catheterization at [facility] and had 2 cardiac stents placed. She states that she was diagnosed with pericarditis but was not placed on antibiotic th erapy and was given Cherokee for atypical sharp stabbing chest pain secondary to her pericarditis she was placed on a diuretic regimen which she has been following. She reports that that pain persists and has been unchanged. She also complains of some nausea without vomiting, abdominal pain or diarrhea. She reports generalized malaise and fatigue. She denies any orthopnea, diaphoresis, typical chest pain, fevers above 100.2 or chills. In addition to her CAD with stent history she has past medical history significant for breast cancer, hyperlipidemia, GERD, anxiety and depression. - Related Data Home Medications Medication Instructions Recorded Confirmed Aspirin 81 mg PO DAILY 05/13/18 11/07/21 Albuterol Inhaler [Ventolin Hfa 2 puff INHALATION RT-Q6H PRN 11/07/21 11/07/21 Inhaler] HYDROcodone/APAP 10-325MG [Cherokee 1 tab PO TID PRN 11/07/21 11/07/21 10-325] Metoprolol Succinate [Metoprolol 25 mg PO DAILY 11/07/21 11/07/21 Succinate ER] Nitroglycerin Sl Tabs [Nitrostat] 0.4 mg SUBLINGUAL Q5M PRN 11/07/21 11/07/21 PARoxetine HCL [Paxil Cr] 37.5 mg PO DAILY 11/07/21 11/07/21 Prasugrel HCl 10 mg PO DAILY 11/07/21 11/07/21 Pregabalin [Lyrica] 50 mg PO TID 11/07/21 11/07/21 clonazePAM [KlonoPIN] 0.5 mg PO DAILY PRN 11/07/21 11/07/21 Previous Rx's Medication Instructions Recorded Ondansetron [Zofran] 4 mg PO Q8HR PRN #30 tab 03/29/20 Pantoprazole [Protonix] 40 mg PO AC-BRKFST #30 tablet. 03/29/20 Cyclobenzaprine [Flexeril] 10 mg PO TID PRN #15 tab 11/07/21 Allergies Allergy/AdvReac Type Severity Reaction Status Date / Time steroids Allergy Rash/Hives Uncoded 02/14/22 10:58 Review of Systems ROS Statement: Those systems with pertinent positive or pertinent negative responses have been documented in the HPI. ROS Other: All systems not noted in ROS Statement are negative. Past Medical History Past Medical History: Coronary Artery Disease (CAD), Cancer, GERD/Reflux, Hyperlipidemia Additional Past Medical History / Comment(s): irritable bowel syndrome. right breast cancer 2009 with lumpectomy/chemo x 3 in three sites History of Any Multi-Drug Resistant Organisms: None Reported Past Surgical History: Breast Surgery, Heart Catheterization With Stent, Hyst erectomy Additional Past Surgical History / Comment(s): right breast lumpectomy 2009/ chemotherapy 2009. 2012 and 2015 Past Anesthesia/Blood Transfusion Reactions: No Reported Reaction Past Psychological History: Anxiety, Depression Smoking Status: Current every day smoker, Light tobacco smoker Past Alcohol Use History: Rare Past Drug Use History: None Reported - Past Family History Father Family Medical History: Chest Pain / Angina, Coronary Artery Disease (CAD), Myocardial Infarction (MT) Additional Family Medical History / Comment(s): Luisa in his 50s. He was on a cardiac transplant list. Mother Family Medical History: Coronary Artery Disease (CAD), Myocardial Infarction (MT) Additional Family Medical History / Comment(s): history of multiple stents. Mother at age 72. Brother(s) Additional Family Medical History / Comment(s): Patient has 3 brothers. One has no major medical problems, one is unknown medical problems, when his cardiac problems. All brothers have anxiety. Sister(s) Additional Family Medical History / Comment(s): Patient has 3 sisters all suffering from anxiety. Daughter(s) Additional Family Medical History / Comment(s): Patient has 2 daughters. One daughter has MS. One daughter has anxiety. Patient does not have any sons. General Exam Limitations: no limitations General appearance: alert, in no apparent distress Head exam: Present: atraumatic, normocephalic, normal inspection Eye exam: Present: normal appearance, PERRL, EOMI. Absent: scleral icterus, conjunctival injection, periorbital swelling ENT exam: Present: normal exam, mucous membranes moist Neck exam: Present: normal inspection, full ROM Respiratory exam: Present: normal lung sounds bilaterally. Absent: respiratory distress, wheezes, rales, rhonchi, stridor Cardiovascular Exam: Present: regular rate, normal rhythm, normal heart sounds. Absent: systolic murmur, diastolic murmur, rubs, gallop, clicks GI/Abdominal exam: Present: soft, normal bowel sounds. Absent: distended, tenderness, guarding, rebound, rigid Extremities exam: Present: normal inspection. Absent: pedal edema, joint swelling Back exam: Present: normal inspection Neurological exam: Present: alert, oriented X3, CN II-XII intact Psychiatric exam: Present: normal affect, normal mood Skin exam: Present: warm, dry, intact, normal color. Absent: rash Course Vital Signs 02/14/22 02/14/22 10:54 14:38 Temperature 99.1 F Pulse Rate 115 H 104 H Respiratory 22 18 Rate Blood Pressure 99/55 126/76 O2 Sat by Pulse 99 97 Oximetry Medical Decision Making - Medical Decision Making 61-year-old female presented to the emergency room with 5 days of cough and shortness of breath along with atypical chest pain ongoing since after her cardiac catheterization approximately 2 weeks ago. Will workup for both infectious and cardiovascular etiology with EKG, chest x-ray, CBC, CMP, troponin, magnesium, proBNP, d-dimer, lactic acid, influenza swab, Covid spot and urinalysis. Will give morphine for pain and monitor response. CBC shows mild leukocytosis, CMP reveals slightly elevated liver enzymes and alk phos no significant abnormalities. ProBNP with out evidence of volume overload lactic acid normal, influenza and coated swabs normal. Urinalysis without evidence of urinary tract infection, chest x-ray consistent with left lower lobe scarring. D-dimer elevated at 0.63 CTA of the chest ordered due to chest pain, shortness of breath and elevated d-dimer. Pain returned after morphine will give an additional dose of morphine. CT of the chest negative for pulmonary emboli. Left lower lobe atelectasis again noted. No indication for further diagnostic imaging or testing at this time however in the setting of chest pain, shortness of breath and recent cardiac intervention recommend observation admission for continued monitoring. Presentation and evaluation discussed with Dr. Montesinos patient's primary care provider who accepts observation admission. Will place orders for admission along with consultation to cardiology per his recommendations. Case discussed with Dr. Bond. - Lab Data Result diagrams: 02/14/22 11:03 02/14/22 11:03 Lab Results 02/14/22 02/14/22 02/14/22 Range/Units 11: 11: 11:03 WBC 12.9 H (3.8-10.6) k/uL RBC 4.75 (3.80-5.40) m/uL Hgb 15.1 (11.4-16.0) gm/dL Hct 42.2 (34.0-46.0) % MCV 88.8 (80.0-100.0) fL MCH 31.7 (25.0-35.0) pg MCHC 35.7 (31.0-37.0) g/dL RDW 13.4 (11.5-15.5) % Plt Count 293 (150-450) k/uL MPV 6.6 Neutrophils % 80 % Lymphocytes % 14 % Monocytes % 4 % Eosinophils % 1 % Basophils % 1 % Neutrophils # 10.3 H (1.3-7.7) k/uL Lymphocytes # 1.7 (1.0-4.8) k/uL Monocytes # 0.5 (0-1.0) k/uL Eosinophils # 0.2 (0-0.7) k/uL Basophils # 0.1 (0-0.2) k/uL APTT (22.0-30.0) sec D-Dimer (<0.60) mg/L FEU Sodium 141 (137-145) mmol/L Potassium 3.9 (3.5-5.1) mmol/L Chloride 102 (98-107) mmol/L Carbon Dioxide 28 (22-30) mmol/L Anion Gap 11 mmol/L BUN 13 (7-17) mg/dL Creatinine 0.90 (0.52-1.04) mg/dL Est GFR (CKD-EPI)AfAm 81 (>60 ml/min/1.73 sqM) Est GFR (CKD-EPI)NonAf 71 (>60 ml/min/1.73 sqM) Glucose 120 H (74-99) mg/dL Plasma Lactic Acid Jakub 1.8 (0.7-2.0) mmol/L Calcium 8.9 (8.4-10.2) mg/dL Total Bilirubin 0.5 (0.2-1.3) mg/dL AST 49 H (14-36) U/L ALT 58 H (4-34) U/L Alkaline Phosphatase 156 H (38-126) U/L Troponin I (0.000-0.034) ng/mL Total Protein 7.4 (6.3-8.2) g/dL Albumin 4.7 (3.5-5.0) g/dL Urine Color Urine Appearance (Clear) Urine pH (5.0-8.0) Ur Specific [place] (1.001-1.035) Urine Protein (Negative) Urine Glucose (UA) (Negative) Urine Ketones (Negative) Urine Blood (Negative) Urine Nitrite (Negative) Urine Bilirubin (Negative) Urine Urobilinogen (<2.0) mg/dL Ur Leukocyte Esterase (Negative) Urine RBC (0-5) /hpf Urine WBC (0-5) /hpf Ur Squamous Epith Cells (0-4) /hpf Urine Mucus (None) /hpf Coronavirus (PCR) (Not Detectd) Influenza Type A RNA (Not Detectd) Influenza Type B (PCR) (Not Detectd) 02/14/22 02/14/22 02/14/22 Range/Units 11:22 11: 11:22 WBC (3.8-10.6) k/uL RBC (3.80-5.40) m/uL Hgb (11.4-16.0) gm/dL Hct (34.0-46.0) % MCV (80.0-100.0) fL MCH (25.0-35.0) pg MCHC (31.0-37.0) g/dL RDW (11.5-15.5) % Plt Count (150-450) k/uL MPV Neutrophils % % Lymphocytes % % Monocytes % % Eosinophils % % Basophils % % Neutrophils # (1.3-7.7) k/uL Lymphocytes # (1.0-4.8) k/uL Monocytes # (0-1.0) k/uL Eosinophils # (0-0.7) k/uL Basophils # (0-0.2) k/uL APTT (22.0-30.0) sec D-Dimer (<0.60) mg/L FEU Sodium (137-145) mmol/L Potassium (3.5-5.1) mmol/L Chloride (98-107) mmol/L Carbon Dioxide (22-30) mmol/L Anion Gap mmol/L BUN (7-17) mg/dL Creatinine (0.52-1.04) mg/dL Est GFR (CKD-EPI)AfAm (>60 ml/min/1.73 sqM) Est GFR (CKD-EPI)NonAf (>60 ml/min/1.73 sqM) Glucose (74-99) mg/dL Plasma Lactic Acid Jakub (0.7-2.0) mmol/L Calcium (8.4-10.2) mg/dL Total Bilirubin (0.2-1.3) mg/dL AST (14-36) U/L ALT (4-34) U/L Alkaline Phosphatase (38-126) U/L Troponin I <0.012 (0.000-0.034) ng/mL Total Protein (6.3-8.2) g/dL Albumin (3.5-5.0) g/dL Urine Color Urine Appearance (Clear) Urine pH (5.0-8.0) Ur Specific [place] (1.001-1.035) Urine Protein (Negative) Urine Glucose (UA) (Negative) Urine Ketones (Negative) Urine Blood (Negative) Urine Nitrite (Negative) Urine Bilirubin (Negative) Urine Urobilinogen (<2.0) mg/dL Ur Leukocyte Esterase (Negative) Urine RBC (0-5) /hpf Urine WBC (0-5) /hpf Ur Squamous Epith Cells (0-4) /hpf Urine Mucus (None) /hpf Coronavirus (PCR) Not Detected (Not Detectd) Influenza Type A RNA Not Detected (Not Detectd) Influenza Type B (PCR) Not Detected (Not Detectd) 02/14/22 02/14/22 Range/Units 11: 12:46 WBC (3.8-10.6) k/uL RBC (3.80-5.40) m/uL Hgb (11.4-16.0) gm/dL Hct (34.0-46.0) % MCV (80.0-100.0) fL MCH (25.0-35.0) pg MCHC (31.0-37.0) g/dL RDW (11.5-15.5) % Plt Count (150-450) k/uL MPV Neutrophils % % Lymphocytes % % Monocytes % % Eosinophils % % Basophils % % Neutrophils # (1.3-7.7) k/uL Lymphocytes # (1.0-4.8) k/uL Monocytes # (0-1.0) k/uL Eosinophils # (0-0.7) k/uL Basophils # (0-0.2) k/uL APTT 24.4 (22.0-30.0) sec D-Dimer 0.63 H (<0.60) mg/L FEU Sodium (137-145) mmol/L Potassium (3.5-5.1) mmol/L Chloride (98-107) mmol/L Carbon Dioxide (22-30) mmol/L Anion Gap mmol/L BUN (7-17) mg/dL Creatinine (0.52-1.04) mg/dL Est GFR (CKD-EPI)AfAm (>60 ml/min/1.73 sqM) Est GFR (CKD-EPI)NonAf (>60 ml/min/1.73 sqM) Glucose (74-99) mg/dL Plasma Lactic Acid Jakub (0.7-2.0) mmol/L Calcium (8.4-10.2) mg/dL Total Bilirubin (0.2-1.3) mg/dL AST (14-36) U/L ALT (4-34) U/L Alkaline Phosphatase (38-126) U/L Troponin I (0.000-0.034) ng/mL Total Protein (6.3-8.2) g/dL Albumin (3.5-5.0) g/dL Urine Color Light Yellow Urine Appearance Clear (Clear) Urine pH 5.5 (5.0-8.0) Ur Specific [place] 1.005 (1.001-1.035) Urine Protein Negative (Negative) Urine Glucose (UA) Negative (Negative) Urine Ketones Negative (Negative) Urine Blood Negative (Negative) Urine Nitrite Negative (Negative) Urine Bilirubin Negative (Negative) Urine Urobilinogen <2.0 (<2.0) mg/dL Ur Leukocyte Esterase Trace H (Negative) Urine RBC 1 (0-5) /hpf Urine WBC 1 (0-5) /hpf Ur Squamous Epith Cells 1 (0-4) /hpf Urine Mucus Rare H (None) /hpf Coronavirus (PCR) (Not Detectd) Influenza Type A RNA (Not Detectd) Influenza Type B (PCR) (Not Detectd) - EKG Data -: EKG Interpreted by Me EKG Comments: EKG at 1124 shows sinus tachycardia with first-degree AV block, ST deviation and T-wave abnormality, ventricular 109 bpm, NC interval 260 ms, QRS duration 70 ms, QT/QTC 348 ms, PRT axes 68, 42, -12 - Radiology Data Radiology results: report reviewed, image reviewed Two-view chest x-ray no pneumothorax, pleural effusion or focal pneumonia. Basilar atelectasis versus early infiltrate. CT chest angiogram for PE shows no evidence of pulmonary emboli. Left lower lobe obesity correlates for aspiration/retained secretions. Atelectasis and scarring seen in left lung base. Disposition Clinical Impression: Chest pain Disposition: ADMITTED IP TO THIS HOSP Condition: Stable Is patient prescribed a controlled substance at d/c from ED?: No Referrals: Maury Montesinos MD [Primary Care Provider] - 1-2 days Time of Disposition: 16:10
[2022-02-14] MEDS ORDERED: MORPHINE SULFATE 4 MG/ML SYRINGE IVP STA ×2 (11:27→14:40)
[2022-02-14 11:50] LABS: Appearance,Urine Clear (Clear); Bilirubin,Urine Negative (Negative); Blood,Urine Negative (Negative); Color,Urine Light Yellow; Glucose,Urine (UA) Negative (Negative); Ketones,Urine Negative (Negative); Leukocyte Esterase,Urine Trace (Negative); Mucus,Urine Rare /hpf; Nitrite,Urine Negative (Negative); PH, Urine 5.5 (5.0-8.0); Protein,Urine Negative (Negative); RBC,Urine 1 /hpf (0-5); Specific Gravity,Urine 1.005 (1.001-1.035); Squamous Epithelial Cell,Urine 1 /hpf (0-4); Urobilinogen,Urine <2.0 mg/dL (<2.0); WBC,Urine 1 /hpf (0-5)
--- NOTE | 2022-02-14 12:09 | XR ---
EXAMINATION TYPE: XR chest 2V DATE OF EXAM: 02/14/2022 COMPARISON: NONE TECHNIQUE: PA and lateral views submitted. HISTORY: Cough FINDINGS: The lungs are clear and there is no pneumothorax, pleural effusion, or focal pneumonia. Heart size n ormal. No overt failure. Diffuse osteopenia. Subsegmental changes lung bases. Coronary artery stentin g noted. IMPRESSION: 1. Basilar atelectasis versus early infiltrate..
[2022-02-14 12:53] LABS: Basophils # (A) 0.1 k/uL (0-0.2); Basophils % (A) 1 %; Eosinophils # (A) 0.2 k/uL (0-0.7); Eosinophils % (A) 1 %; HCT 42.2 % (34.0-46.0); HGB 15.1 gm/dL (11.4-16.0); Lymphocytes # (A) 1.7 k/uL (1.0-4.8); Lymphocytes % (A) 14 %; MCH 31.7 pg (25.0-35.0); MCHC 35.7 g/dL (31.0-37.0); MCV 88.8 fL (80.0-100.0); Mean Platelet Volume 6.6; Monocytes # (A) 0.5 k/uL (0-1.0); Monocytes % (A) 4 %; Neutrophils # (A) 10.3 k/uL (1.3-7.7); Neutrophils % (A) 80 %; Platelet Count 293 k/uL (150-450); RBC 4.75 m/uL (3.80-5.40); RDW 13.4 % (11.5-15.5); WBC 12.9 k/uL (3.8-10.6)
[2022-02-14 13:05] LABS: Albumin 4.7 g/dL (3.5-5.0); Calcium 8.9 mg/dL (8.4-10.2); Potassium 3.9 mmol/L (3.5-5.1); Total Bilirubin 0.5 mg/dL (0.2-1.3); Total Protein 7.4 g/dL (6.3-8.2)
[2022-02-14 13:15] LABS: Partial Thromboplastin Time 24.4 sec (22.0-30.0)
--- NOTE | 2022-02-14 15:56 | CT ---
EXAMINATION TYPE: CT chest angio for PE CT DLP: 327.4 mGycm, Automated exposure control for dose reduction was used. DATE OF EXAM: 02/14/2022 3:33 PM COMPARISON: Chest 10/10/2018 CLINICAL INDICATION:Female, 61 years old with history of shortness of breath elevated d-dimer; elevat ed d-dimer, chest pain TECHNIQUE/CONTRAST: CTA scan of the thorax is performed with IV Contrast, patient injected with 100 mL of Isovue 370, pul monary embolism protocol. MIP images are created and reviewed. FINDINGS: Pulmonary Artery: There is no evidence for a filling defect within the pulmonary vasculature to sugge st acute pulmonary embolism. The pulmonary artery is of normal size. Lungs/Pleura: No evidence of focal consolidation, pleural effusion or pneumothorax. Atelectasis/scarr ing seen in the left lung base. Airway: A few opacified large airways are seen in the left lower lobe Heart: Heart is within normal limits for size.. Vasculature: No evidence of aortic aneurysm. Mediastinum: Scattered prominent nonenlarged lymph nodes are seen throughout the mediastinum the larg est in the AP window measuring up to 7 mm in short axis. Musculoskeletal: No acute osseous abnormalities Soft Tissues: Unremarkable. Lower neck: No significant findings. Upper Abdomen: Diffuse low-attenuation to the liver parenchyma.. IMPRESSION: 1. No evidence of pulmonary embolism. 2. Left lower lobe opacified airways correlate for aspiration/retained secretions.
[2022-02-14] MEDS ORDERED: ACETAMINOPHEN TAB 325 MG TAB PO PRN (16:11)
[2022-02-14] MEDS ORDERED: NALOXONE 0.4 MG/ML 1 ML VIAL IV PRN (16:11)
[2022-02-14] MEDS ORDERED: NITROGLYCERIN SL TABS 0.4 MG TAB SUBLINGUAL PRN (19:09)
[2022-02-14] MEDS ORDERED: DULoxetine HCL 30 MG CAPSULE.DR PO PRN (19:09)
[2022-02-14] MEDS: PIPERACILLIN-TAZOBACTAM 3.375 GM in SODIUM CHLORIDE 0.9% 100 ML IVPB SCH (20:51)
[2022-02-14] MEDS: BENZONATATE 100 MG CAP PO PRN (20:52)
[2022-02-14] MEDS: HYDROcodone/APAP 10-325MG 1 EACH TAB PO PRN (20:57)
[2022-02-14] MEDS: BUMETANIDE 0.5 MG TABLET PO SCH (20:57)
[2022-02-14] MEDS: CYCLOBENZAPRINE 5 MG TAB PO SCH (20:58)
[2022-02-14] MEDS: clonazePAM 0.5 MG TAB PO SCH (20:58)
[2022-02-15] MEDS: MORPHINE SULFATE 4 MG/ML SYRINGE IV PRN ×2 (00:48→14:48)
[2022-02-15] MEDS: BENZONATATE 100 MG CAP PO PRN ×2 (04:28→20:49)
[2022-02-15] MEDS: PIPERACILLIN-TAZOBACTAM 3.375 GM in SODIUM CHLORIDE 0.9% 100 ML IVPB SCH ×3 (04:29→20:49)
[2022-02-15] MEDS: PANTOPRAZOLE 40 MG TABLET PO SCH (06:27)
[2022-02-15] MEDS: HYDROcodone/APAP 10-325MG 1 EACH TAB PO PRN (08:03)
[2022-02-15] MEDS: ASPIRIN 81 MG PO SCH (08:31)
[2022-02-15] MEDS: PRASUGREL 10 MG TAB PO SCH (08:31)
[2022-02-15] MEDS: EZETIMIBE 10 MG TAB PO SCH (08:31)
[2022-02-15] MEDS: BUMETANIDE 0.5 MG TABLET PO SCH ×2 (08:31→20:49)
[2022-02-15] MEDS: METOPROLOL SUCCINATE (ER) 25 MG TAB.ER.24H PO SCH (08:31)
[2022-02-15] MEDS: clonazePAM 0.5 MG TAB PO SCH ×2 (08:31→20:49)
[2022-02-15] MEDS: PARoxetine 10 MG TAB PO SCH (08:31)
[2022-02-15] MEDS: ALBUTEROL NEBULIZED 2.5 MG/3 ML INHALATION PRN (08:41)
[2022-02-15] MEDS: COLCHICINE 0.6 MG EACH PO SCH ×2 (09:07→20:49)
--- NOTE | 2022-02-15 10:07 | P.HPIM ---
History of Present Illness H&P Date: 02/14/22 Chief Complaint: Chest pain HISTORY OF PRESENT ILLNESS: This is a 61-year-old female with past medical history of hyperlipidemia, gastroesophageal reflux disease, generalized anxiety disorder, coronary artery disease. Patient complains of cough and shortness of breath along with low- grade fever, generalized malaise and fatigue for the past 5 days. She contacted the office and was instructed coming to the ER for evaluation. Patient did undergo cardiac catheterization at [facility] and had 2 cardiac stents placed on January 31. She was also apparently diagnosed with pericarditis and given Anton for pain. She also complains of nausea without vomiting. No abdominal pain or diarrhea. Patient was found to have leukocytosis at 12.9, e lectrolytes and renal function within normal limits. Lactic acid was 1.8. Liver function tests were elevated with total bilirubin 0.5, AST 49, ALT 58, alkaline phosphatase 156. Troponin was negative. [place] virus PCR not detected. Influenza A and influenza B not detected. D-dimer 0.63. Urinalysis negative for infection. EKG sinus tachycardia with first-degree AV block, chest x-ray revealed basilar atelectasis versus early infiltrate. She underwent a CAT scan of the chest which was negative for pulmonary embolism. Left lower lobe paces side airways correlate for aspiration/retained secretions. Patient placed on the observation unit, cardiology consult, echocardiogram and serial tro ponins. REVIEW OF SYSTEMS: Constitutional: Reports fever, reports chills, no night sweats. No weight change. No weakness, reports fatigue no lethargy. No daytime sleepiness. EENT: No headache. No blurred vision or double vision, no loss of vision. No loss of Hearing, no ringing in the ears, no dizziness. No nasal drainage or congestion. No epistaxis. No sore throat. Lungs: Reports shortness of breath, reports cough, no sputum production. No wheezing. Reports dyspnea with activity. Cardiovascular: Reports chest pain, no lower extremity edema. No palpitations. No paroxysmal nocturnal dyspnea. No orthopnea. No lightheadedness or dizziness. No syncopal episodes. Abdominal: Reports abdominal pain. Reports nausea, no vomiting. No diarrhea. No constipation. No bloody or tarry stools reports loss of appetite. Genitourinary: No dysuria, increased frequency, urgency. No urinary retention. Musculoskeletal: No myalgias. No muscle weakness, no gait dysfunction, no frequent falls. No back pain. No neck pain. Integumentary: No wounds, no lesions. No rash or pruritus. No unusual bruising. No change in hair or nails. Neurologic: No aphasia. No facial droop. No change in mentation. No head injury. No headache. No paralysis. No paresthesia. Psychiatric: No depression. No anxiety. No mood swings. Endocrine: No abnormal blood sugars. No weight change. 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 PAST SURGICAL HISTORY: Hysterectomy 1984 Right breast lumpectomy 2007, 2012, 2014 Left heart catheterization which revealed moderate disease of the LAD and RCA Left heart catheterization 01/31/2022 status post 2 stents Appendectomy EES RCA 06/24/2021 SOCIAL HISTORY: Patient is an active tobacco smoker less than half a pack per day. FAMILY HISTORY: Mother at age 59 from heart attack with history of heart failure, COPD and anxiety. Patient has 2 brothers one with anxiety and the second with coronary artery disease and anxiety diagnosed with a heart attack. Patient has 2 sisters one with history of breast cancer and anxiety and the second with history of coronary artery disease, COPD and anxiety diagnosed with cancer and heart attack. Patient has 2 daughters one with MS and anxiety and one with thyroid disorder and anxiety. PHYSICAL EXAMINATION: General: This is a 61-year-old obese female. She is resting in bed appears to be comfortable and in no acute distress. HEENT: Head is atraumatic, normocephalic, pupils were equal round reactive to light and recommendation, extraocular muscle movement were intact, sclera nonicteric, conjunctivae were pale, mucous membranes of the mouth are somewhat dry. Neck: Supple, no JVP, normal carotid upstroke bilaterally, no lymphadenopathy. Chest: Decreased breath sounds at the bases, few rhonchi, no extremity wheezes, no chest wall tenderness, no intercostal retractions. Heart: First heart sound is depressed, second heart sounds normal. There is a 2/6 systolic ejection murmur at the left sternal border, no S3, no S4. Abdomen: Soft, nontender, nondistended, positive bowel sounds. Extremities: There is no edema no calf tenderness DP +2 bilaterally. Neurologic examination: Patient is awake alert and oriented -3, cranial nerves II-12 appear grossly intact, muscle power were 5 out of 5 in upper extremities and 5 out of 5 in bilateral lower extremities, deep tendon reflexes normal bilaterally. ASSESSMENT AND PLAN: 1. Chest pain with recent cardiac catheterization status post PCI/stent 2 at [facility] on January 31, serial troponins, echocardiogram, cardiology consult, continue patient on aspirin 81 mg daily, continue patient on Effient 10 mg daily, continue patient on metoprolol succinate 25 mg daily, Bumex 0.5 mg twi ce daily . 2. Possible aspiration pneumonia. Patient started on Zosyn 3.75 g IV piggyback every 8 hours. 3. Recent diagnosis of pericarditis at [facility]. Cardiology consult, sed rate. 3. Hyperlipidemia. Continue patient on Zetia 10 mg daily. 3. Gastroesophageal reflux disease. continue patient on Protonix 40 mg daily. 6. Generalized anxiety disorder and recurrent depression. Continue patient on Paxil 37.5 mg daily, Cymbalta 30 mg daily, clonazepam 0.5 mg twice daily. 7. COPD. Continue patient on albuterol inhaler 2 puffs every 6 hours as needed. 8. Spondylosis of the lumbar spine. Continue Flexeril 5 mg at bedtime, Anton 10 one tablet 4 times daily as needed. Past Medical History Past Medical History: Coronary Artery Disease (CAD), Cancer, GERD/Reflux, Hyperlipidemia Additional Past Medical History / Comment(s): irritable bowel syndrome. right breast cancer 2009 with lumpectomy/chemo x 3 in three sites History of Any Multi-Drug Resistant Organisms: None Reported Past Surgical History: Breast Surgery, Heart Catheterization With Stent, Hysterectomy Additional Past Surgical History / Comment(s): right breast lumpectomy 2009/ chemotherapy 2009. 2012 and 2016 Past Anesthesia/Blood Transfusion Reactions: No Reported Reaction Past Psychological History: Anxiety, Depression Smoking Status: Current every day smoker, Light tobacco smoker Past Alcohol Use History: Rare Past Drug Use History: None Reported - Past Family History Father Family Medical History: Chest Pain / Angina, Coronary Artery Disease (CAD), Myocardial Infarction ([place]) Additional Family Medical History / Comment(s): Luisa in his 50s. He was on a cardiac transplant list. Mother Family Medical History: Coronary Artery Disease (CAD), Myocardial Infarction ([place]) Additional Family Medical History / Comment(s): history of multiple stents. Mother at age 72. Brother(s) Additional Family Medical History / Comment(s): Patient has 3 brothers. One has no major medical problems, one is unknown medical problems, when his cardiac problems. All brothers have anxiety. Sister(s) Additional Family Medical History / Comment(s): Patient has 3 sisters all suffering from anxiety. Daughter(s) Additional Family Medical History / Comment(s): Patient has 2 daughters. One haris dumas has MS. One daughter has anxiety. Patient does not have any sons. Medications and Allergies Home Medications Medication Instructions Recorded Confirmed Type Aspirin 81 mg PO DAILY 05/13/18 02/14/22 History Albuterol Inhaler [Ventolin Hfa 2 puff INHALATION RT-Q6H PRN 11/07/21 02/14/22 History Inhaler] HYDROcodone/APAP 10-325MG [Anton 1 tab PO QID PRN 11/07/21 02/14/22 History 10-325] Metoprolol Succinate [Metoprolol 25 mg PO DAILY 11/07/21 02/14/22 History Succinate ER] Nitroglycerin Sl Tabs [Nitrostat] 0.4 mg SUBLINGUAL Q5M PRN 11/07/21 02/14/22 History PARoxetine HCL [Paxil Cr] 37.5 mg PO DAILY 11/07/21 02/14/22 History Prasugrel HCl 10 mg PO DAILY 11/07/21 02/14/22 History clonazePAM [KlonoPIN] 0.5 mg PO BID 11/07/21 02/14/22 History Bumetanide [BUMEX] 0.5 mg PO BID 02/14/22 02/14/22 History Cyclobenzaprine [Flexeril] 5 mg PO HS 02/14/22 02/14/22 History DULoxetine HCL [Cymbalta] 30 mg PO DAILY PRN 02/14/22 02/14/22 History Ezetimibe [Zetia] 10 mg PO DAILY 02/14/22 02/14/22 History Pantoprazole [Protonix] 40 mg PO DAILY 02/14/22 02/14/22 History Allergies Allergy/AdvReac Type Severity Reaction Status Date / Time ondansetron [From Zofran] AdvReac extreme Verified 02/14/22 16:55 constipation steroids Allergy Rash/Hives Uncoded 02/14/22 10:58 Physical Exam Vitals: Vital Signs Temp Pulse Pulse Resp BP BP Pulse Ox 02/14/22 18:03 99.6 F 109 H 18 135/72 96 02/14/22 17:17 108 H 22 123/77 97 02/14/22 14:38 104 H 18 126/76 97 02/14/22 10:54 99.1 F 115 H 22 99/55 99 Intake and Output 02/14/22 02/14/22 02/14/22 06:59 14:59 22:59 Other: Weight 77.111 kg Results CBC & Chem 7: 02/14/22 11:03 02/14/22 11:03 Labs: Abnormal Lab Results - Last 24 Hours (Table) 02/14/22 02/14/22 02/14/22 Range/Units 11:03 11:03 11:22 WBC 12.9 H (3.8-10.6) k/uL Neutrophils # 10.3 H (1.3-7.7) k/uL D-Dimer (<0.60) mg/L FEU Glucose 120 H (74-99) mg/dL AST 49 H (14-36) U/L ALT 58 H (4-34) U/L Alkaline Phosphatase 156 H (38-126) U/L Ur Leukocyte Esterase Trace H (Negative) Urine Mucus Rare H (None) /hpf 02/14/22 Range/Units 12:46 WBC (3.8-10.6) k/uL Neutrophils # (1.3-7.7) k/uL D-Dimer 0.63 H (<0.60) mg/L FEU Glucose (74-99) mg/dL AST (14-36) U/L ALT (4-34) U/L Alkaline Phosphatase (38-126) U/L Ur Leukocyte Esterase (Negative) Urine Mucus (None) /hpf
[2022-02-15] MEDS ORDERED: ONDANSETRON 4 MG/2 ML VIAL IVP PRN (10:08)
--- NOTE | 2022-02-15 10:44 | P.CRDCN ---
History of Present Illness History of present illness: HISTORY OF PRESENT ILLNESS: This is a 61-year-old female with a past medical history significant for coronary artery disease with recent stenting and hyperlipidemia. Patient follows with a ginseng farmer at [facility] but would like to establish care in the area. We have been asked to see the patient in consultation for chest pain. Patient examined at the bedside. Patient states that she was hospitalized at [facility] at the end of January and underwent stent placement 2. She also states she was diagnosed with pericarditis after her stent placement. She presented to the hospital with multiple complaints. She reports having chest pain that is in the middle of her chest and feels like a stabbing sensation. She states that pain is worse with deep inspiration. She states the pain is better when she is leaning forward. She also reports having a cough with sputum production. She reports having a fever as high as 104 at home. She also reports generalized weakness and diaphoresis. She states that her daughter and her granddaughter recently had an upper respiratory infection. * EKG reveals sinus mechanism with mild ST elevation in aVR * Chest xray basilar atelectasis versus early infiltrate * Chest CTA: No evidence for PE. Left lower lobe opacified airways correlate for aspiration/retained secretions * Laboratory data: WBC 10.9. Hemoglobin 15.1. Platelet count 293. Sodium 141. Potassium 3.9. BUN 13. Creatinine 0.90. Troponin negative 2. * Current home cardiac medications include Lipitor 80 mg daily, Zetia 10 mg daily, Bumex 0.5 mg twice a day, metoprolol succinate 25 mg daily, aspirin 81 mg daily REVIEW OF SYSTEMS: At the time of my exam: CONSTITUTIONAL: Denies fever or chills. HEENT: Denies blurred vision, vision changes, or eye pain. Denies hemoptysis CARDIOVASCULAR: Denies chest pain. Denies orthopnea. Denies PND. Denies palpitations RESPIRATORY: Denies shortness of breath. GASTROINTESTINAL: Denies abdominal pain. Denies nausea or vomiting. HEMATOLOGIC: Denies bleeding disorders. GENITOURINARY: Denies any blood in urine. SKIN: Denies pruitis. Denies rash. PHYSICAL EXAM: VITAL SIGNS: Reviewed. GENERAL: Well-developed in no acute distress. HEENT: Head is normocephalic. Pupils are equal, round. Sclerae anicteric. Mucous membranes of the mouth are moist. Neck supple. No JVD or thyromegaly LUNGS: Respirations even and unlabored. Lungs essentially clear to auscultation bilaterally. HEART: Regular rate and rhythm. S1 and S2 heard. ABDOMEN: Soft. Nondistended. Nontender. EXTREMITIES: Normal range of motion. No clubbing or cyanosis. Peripheral pulse s intact. No lower extremity edema NEUROLOGIC: Awake and alert. Oriented x 3. 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 Rule out pericardial effusion. Resume home cardiac medications Check CRP and sed rate Begin colchicine 0.6 mg twice a day Avoid NSAIDS as patient is on dual antiplatelet therapy. May use Tylenol if needed. Further recommendations pending patient course Nurse practitioner note has been reviewed by physician. Signing provider agrees with the documented findings, assessment, and plan of care. Past Medical History Past Medical History: Coronary Artery Disease (CAD), Cancer, GERD/Reflux, Hyperlipidemia Additional Past Medical History / Comment(s): irritable bowel syndrome. right b reast cancer 2010 with lumpectomy/chemo x 3 in three sites History of Any Multi-Drug Resistant Organisms: None Reported Past Surgical History: Breast Surgery, Heart Catheterization With Stent, Hysterectomy Additional Past Surgical History / Comment(s): right breast lumpectomy 2009/ chemotherapy 2009. 2012 and 2016 Past Anesthesia/Blood Transfusion Reactions: No Reported Reaction Date of Last Stent Placement:: 2 weeks ago Past Psychological History: Anxiety, Depression Smoking Status: Current every day smoker, Light tobacco smoker Past Alcohol Use History: Rare Past Drug Use History: None Reported - Past Family History Father Family Medical History: Chest Pain / Angina, Coronary Artery Disease (CAD), Myocardial Infarction ([place]) Additional Family Medical History / Comment(s): Luisa in his 50s. He was on a cardiac transplant list. Mother Family Medical History: Coronary Artery Disease (CAD), Myocardial Infarction ([place]) Additional Family Medical History / Comment(s): history of multiple stents. Mother at age 72. Brother(s) Additional Family Medical History / Comment(s): Patient has 3 brothers. One has no major medical problems, one is unknown medical problems, when his cardiac pro blems. All brothers have anxiety. Sister(s) Additional Family Medical History / Comment(s): Patient has 3 sisters all suffering from anxiety. Daughter(s) Additional Family Medical History / Comment(s): Patient has 2 daughters. One daughter has MS. One daughter has anxiety. Patient does not have any sons. Medications and Allergies Home Medications Medication Instructions Recorded Confirmed Type Aspirin 81 mg PO DAILY 05/13/18 02/14/22 History Albuterol Inhaler [Ventolin Hfa 2 puff INHALATION RT-Q6H PRN 11/07/21 02/14/22 History Inhaler] HYDROcodone/APAP 10-325MG [[place] 1 tab PO QID PRN 11/07/21 02/14/22 History 10-325] Metoprolol Succinate [Metoprolol 25 mg PO DAILY 11/07/21 02/14/22 History Succinate ER] Nitroglycerin Sl Tabs [Nitrostat] 0.4 mg SUBLINGUAL Q5M PRN 11/07/21 02/14/22 History PARoxetine HCL [Paxil Cr] 37.5 mg PO DAILY 11/07/21 02/14/22 History Prasugrel HCl 10 mg PO DAILY 11/07/21 02/14/22 History clonazePAM [KlonoPIN] 0.5 mg PO BID 11/07/21 02/14/22 History Bumetanide [BUMEX] 0.5 mg PO BID 02/14/22 02/14/22 History Cyclobenzaprine [Flexeril] 5 mg PO HS 02/14/22 02/14/22 History DULoxetine HCL [Cymbalta] 30 mg PO DAILY PRN 02/14/22 02/14/22 History Ezetimibe [Zetia] 10 mg PO DAILY 02/14/22 02/14/22 History Pantoprazole [Protonix] 40 mg PO DAILY 02/14/22 02/14/22 History Atorvastatin [Lipitor] 80 mg PO DAILY 02/15/22 02/15/22 History Allergies Allergy/AdvReac Type Severity Reaction Status Date / Time ondansetron [From Zofran] AdvReac extreme Verified 02/14/22 16:55 constipation steroids Allergy Rash/Hives Uncoded 02/14/22 10:58 Physical Exam Vitals: Vital Signs Temp Pulse Pulse Resp BP BP Pulse Ox 02/15/22 06:55 98.5 F 110 H 18 129/75 91 L 02/15/22 03:10 99.0 F 104 H 17 118/76 91 L 02/14/22 19:43 99.4 F 105 H 20 135/79 96 02/14/22 19:09 107 H 02/14/22 18:03 99.6 F 109 H 18 135/72 96 02/14/22 17:17 108 H 22 123/77 97 02/14/22 14:38 104 H 18 126/76 97 02/14/22 10:54 99.1 F 115 H 22 99/55 99 Intake and Output 02/14/22 02/15/22 02/15/22 22:59 06:59 14:59 Other: # Voids 1 3 Weight 77.111 kg Results 02/14/22 11:03 02/14/22 11:03 Cardiac Enzymes 02/14/22 02/14/22 Range/Units 11:03 11: AST 49 H (14-36) U/L Troponin I <0.012 (0.000-0.034) ng/mL Coagulation 02/14/22 Range/Units 12:46 APTT 24.4 (22.0-30.0) sec CBC 02/14/22 Range/Units 11:03 WBC 12.9 H (3.8-10.6) k/uL RBC 4.75 (3.80-5.40) m/uL Hgb 15.1 (11.4-16.0) gm/dL Hct 42.2 (34.0-46.0) % Plt Count 293 (150-450) k/uL Comprehensive Metabolic Panel 02/14/22 Range/Units 11:03 Sodium 141 (137-145) mmol/L Potassium 3.9 (3.5-5.1) mmol/L Chloride 102 (98-107) mmol/L Carbon Dioxide 28 (22-30) mmol/L BUN 13 (7-17) mg/dL Creatinine 0.90 (0.52-1.04) mg/dL Glucose 120 H (74-99) mg/dL Calcium 8.9 (8.4-10.2) mg/dL AST 49 H (14-36) U/L ALT 58 H (4-34) U/L Alkaline Phosphatase 156 H (38-126) U/L Total Protein 7.4 (6.3-8.2) g/dL Albumin 4.7 (3.5-5.0) g/dL Current Medications Generic Name Dose Route Start Last Admin Trade Name Freq PRN Reason Stop Dose Admin Acetaminophen 650 mg 02/14/22 16:11 Acetaminophen Tab 325 Mg Tab PO Q6HR PRN Mild Pain or Fever > 100.5 Hydrocodone Bitart/Acetaminophen 1 each 02/14/22 19:09 02/15/22 08:03 Hydrocodone/Apap 10-325mg 1 Each Tab PO 1 each QID PRN Administration Pain Albuterol Sulfate 2.5 mg 02/14/22 19:09 Albuterol Nebulized 2.5 Mg/3 Ml INHALATION RT-Q6H PRN Shortness Of Breath Aspirin 81 mg 02/15/22 09:00 Aspirin 81 Mg PO DAILY SYDNEE Benzonatate 100 mg 02/14/22 19:29 02/15/22 04:28 Benzonatate 100 Mg Cap PO 100 mg TID PRN Administration Cough Bumetanide 0.5 mg 02/14/22 21:00 02/14/22 20:57 Bumetanide 0.5 Mg Tablet PO 0.5 mg BID SYDNEE Administration Clonazepam 0.5 mg 02/14/22 21:00 02/14/22 20:58 Clonazepam 0.5 Mg Tab PO 0.5 mg BID SYDNEE Administration Cyclobenzaprine HCl 5 mg 02/14/22 21:00 02/14/22 20:58 Cyclobenzaprine 5 Mg Tab PO 5 mg HS SYDNEE Administration Duloxetine HCl 30 mg 02/14/22 19:09 Duloxetine Hcl 30 Mg Capsule.Dr PO DAILY PRN nerve pain Ezetimibe 10 mg 02/15/22 09:00 Ezetimibe 10 Mg Tab PO DAILY SYDNEE Piperacillin Sod/Tazobactam 100 mls @ 25 mls/hr 02/14/22 20:00 02/15/22 04:29 Sod 3.375 gm/ Sodium Chloride IVPB 25 mls/hr Q8H SYDNEE Administration Protocol Metoprolol Succinate 25 mg 02/15/22 09:00 Metoprolol Succinate (Er) 25 Mg Tab.Er.24h PO DAILY [facility] Morphine Sulfate 4 mg 02/14/22 16:11 02/15/22 00:48 Morphine Sulfate 4 Mg/Ml Syringe IV 4 mg Q4HR PRN Administration Severe Pain (Scale 7 to 10) Naloxone HCl 0.2 mg 02/14/22 16:11 Naloxone 0.4 Mg/Ml 1 Ml Vial IV Q2M PRN Opioid Reversal Nitroglycerin 0.4 mg 02/14/22 19:09 Nitroglycerin Sl Tabs 0.4 Mg Tab SUBLINGUAL Q5M PRN Chest Pain Pantoprazole Sodium 40 mg 02/15/22 07:30 02/15/22 06:27 Pantoprazole 40 Mg Tablet PO 40 mg [id number] SYDNEE Administration Paroxetine HCl 30 mg 02/15/22 09:00 Paroxetine 10 Mg Tab PO DAILY SYDNEE Prasugrel 10 mg 02/15/22 09:00 Prasugrel 10 Mg Tab PO DAILY [facility] Intake and Output 02/14/22 02/15/22 02/15/22 22:59 06:59 14:59 Other: # Voids 1 3 Weight 77.111 kg 02/14/22 11:03 02/14/22 11:03
[2022-02-15 11:31] LABS: Basophils # (A) 0.06 X 10*3/uL (0.00-0.10); Basophils % (A) 0.4 %; Eosinophils # (A) 0.08 X 10*3/uL (0.04-0.35); Eosinophils % (A) 0.6 %; HCT 38.4 % (37.2-46.3); Immature Grans, Automated 0.3 %; Lymphocytes # (A) 1.34 X 10*3/uL (0.90-5.00); Lymphocytes % (A) 9.4 %; MCH 30.8 pg (27.0-32.0); MCHC 33.9 g/dL (32.0-37.0); Monocytes # (A) 0.96 X 10*3/uL (0.20-1.00); Monocytes % (A) 6.8 %; NRBC Per 100 WBC 0 /100 WBCS (0.0-0.0); Neutrophils # (A) 11.73 X 10*3/uL (1.80-7.70); Neutrophils % (A) 82.5 %; Platelet Count 239 X 10*3/uL (140-440); RBC 4.22 X 10*6/uL (4.10-5.20); RDW 13.4 % (11.5-14.5); WBC 14.21 X 10*3/uL (4.50-10.00)
[2022-02-15 11:32] LABS: African American GFR (CKD) 71.4 (60.0-200.0); Albumin 4.1 g/dL (3.8-4.9); Albumin/Globulin Ratio 2.05 (1.60-3.17); BUN/Creat Ratio 11.2 Ratio (12.00-20.00); Blood Urea Nitrogen 11.2 mg/dL (9.0-27.0); Calcium 8.8 mg/dL (8.7-10.3); Non-African American GFR(CKD) 61.6 (60.0-200.0); Potassium 3.6 mmol/L (3.5-5.5); Total Bilirubin 0.5 mg/dL (0.30-1.20); Total Protein 6.1 g/dL (6.2-8.2)
[2022-02-15] MEDS ORDERED: SCOPOLAMINE 1 MG/72 HR PATCH TRANSDERM STA (13:03)
--- NOTE | 2022-02-15 13:51 | P.PN ---
Subjective Progress Note Date: 02/15/22 HISTORY OF PRESENT ILLNESS: This is a 61-year-old female with past medical history of hyperlipidemia, gastroesophageal reflux disease, generalized anxiety disorder, coronary artery disease. Patient complains of cough and shortness of breath along with low- grade fever, generalized malaise and fatigue for the past 5 days. She contacted the office and was instructed coming to the ER for evaluation. Patient did undergo cardiac catheterization at [facility] and had 2 cardiac stents placed on January 31. She was also apparently diagnosed with pericarditis and given [place] for pain. She also complains of nausea without vomiting. No abdominal pain or diarrhea. Patient was found to have leukocytosis at 12.9, electrolytes and renal function within normal limits. Lactic acid was 1.8. Liver function tests were elevated with total bilirubin 0.5, AST 49, ALT 58, alkaline phosphatase 156. Troponin was negative. Tipton virus PCR not detected. Influenza A and influenza B not detected. D-dimer 0.63. Urinalysis negative for infection. EKG sinus tachycardia with first-degree AV block, chest x-ray revealed basilar atelectasis versus early infiltrate. She underwent a CAT scan of the chest which was negative for pulmonary embolism. Left lower lobe paces side airways correlate for aspiration/retained secretions. Patient placed on the observation unit, cardiology consult, echocardiogram and serial troponins. 02/15: Patient has been seen by cardiology and started on colchicine, echocardiogram report is pending. Repeat troponins are negative on 2 draws. C- reactive protein is 8.1. ProBNP 113. Patient is complaining of continued nausea, chest pain and sweats. Patient was started on Colchicine 0.6 mg twice daily by cardiology. Patient states that Zofran did not help her nausea. We will order a scopolamine patch. Patient is also asking for clonazepam to be increased which will be evaluated. Patient remains afebrile, heart rate 97, blood pressure 98/60, pulse ox 93% on room air. Repeat blood work reveals WBC of 14.2, hemoglobin 13, platelet count 239. Sed rate 15. Electrolytes and renal function normal. Blood sugar 116. Alkaline phosphatase 140 otherwise liver function tests are within normal limits. REVIEW OF SYSTEMS: Constitutional: Denies fever, reports chills, reports sweats. No weight change. No weakness, reports fatigue no lethargy. No daytime sleepiness. EENT: No headache. No blurred vision or double vision, no loss of vision. No loss of Hearing, no ringing in the ears, no dizziness. No nasal drainage or congestion. No epistaxis. No sore throat. Lungs: Reports shortness of breath, reports cough, no sputum production. No wheezing. Reports dyspnea with activity. Cardiovascular: Reports chest pain, no lower extremity edema. No palpitations. No paroxysmal nocturnal dyspnea. No orthopnea. No lightheadedness or dizziness. No syncopal episodes. Abdominal: Denies abdominal pain. Reports nausea, no vomiting. No diarrhea. No constipation. No bloody or tarry stools. reports loss of appetite. Genitourinary: No dysuria, increased frequency, urgency. No urinary retention. Musculoskeletal: No myalgias. No muscle weakness, no gait dysfunction, no frequent falls. No back pain. No neck pain. Integumentary: No wounds, no lesions. No rash or pruritus. No unusual bruising. No change in hair or nails. Neurologic: No aphasia. No facial droop. No change in mentation. No head injury. No headache. No paralysis. No paresthesia. Psychiatric: No depression. No anxiety. No mood swings. Endocrine: No abnormal blood sugars. No weight change. PHYSICAL EXAMINATION: General: This is a 61-year-old obese female. She is resting in bed appears to be somewhat uncomfortable secondary to chest pain, nausea and sweats. HEENT: Head is atraumatic, normocephalic, pupils were equal round reactive to light and recommendation, extraocular muscle movement were intact, sclera nonicteric, conjunctivae were pale, mucous membranes of the mouth are somewhat dry. Neck: Supple, no JVP, normal carotid upstroke bilaterally, no lymphadenopathy. Chest: Decreased breath sounds at the bases, few rhonchi, no extremity wheezes, no chest wall tenderness, no intercostal retractions. Heart: First heart sound is depressed, second heart sounds normal. There is a 2/6 systolic ejection murmur at the left sternal border, no S3, no S4. Abdomen: Soft, nontender, nondistended, positive bowel sounds. Extremities: There is no edema no calf tenderness DP +2 bilaterally. Neurologic examination: Patient is awake alert and oriented oriented 3, cranial nerves II-12 appear grossly intact. Patient is able to move all 4 extremities with no focal neural deficits. ASSESSMENT AND PLAN: 1. Chest pain with recent cardiac catheterization status post PCI/stent 2 at [facility] on January 31, serial troponins, echocardiogram report is pending, cardiology consult appreciated, continue patient on aspirin 81 mg daily, continue patient on Effient 10 mg daily, continue patient on metoprolol succinate 25 mg daily, Bumex 0.5 mg twice daily . 2. Possible aspiration pneumonia. Patient started on Zosyn 3.75 g IV piggyback every 8 hours. 3. Recent diagnosis of pericarditis at [facility]. Cardiology consult, sed rate. Colchicine 0.6 mg twice daily added by cardiology. 3. Hyperlipidemia. Continue patient on Zetia 10 mg daily, continue patient on atorvastatin 80 mg daily.. 3. Gastroesophageal reflux disease. continue patient on Protonix 40 mg daily. 6. Generalized anxiety disorder and recurrent depression. Continue patient on Paxil 37.5 mg daily, Cymbalta 30 mg daily, clonazepam 0.5 mg twice daily. 7. COPD. Continue patient on albuterol inhaler 2 puffs every 6 hours as needed. 8. Spondylosis of the lumbar spine. Continue Flexeril 5 mg at bedtime, [place] 10 one tablet 4 times daily as needed. 9. Nausea possibly related to colchicine. Resistant to Zofran, scopolamine pa tch added. Impression and plan of care have been directed as dictated by the signing ph ysician. Anastasiya Espitia nurse practitioner acting as scribe for signing physician. Objective - Vital Signs Vital signs: Vital Signs Temp 98.5 F 02/15/22 06:55 Pulse 110 H 02/15/22 06:55 Resp 18 02/15/22 06:55 BP 129/75 02/15/22 06:55 Pulse Ox 91 L 02/15/22 06:55 FiO2 Intake & Output 02/14/22 02/15/22 02/15/22 18:59 06:59 18:59 Weight 77.111 kg Other: # Voids 3 - Labs CBC & Chem 7: 02/15/22 06:34 02/15/22 06:34 Labs: Abnormal Lab Results - Last 24 Hours (Table) 02/14/22 02/14/22 02/14/22 Range/Units 11:03 11:03 11: WBC 12.9 H (3.8-10.6) k/uL Neutrophils # 10.3 H (1.3-7.7) k/uL D-Dimer (<0.60) mg/L FEU Glucose 120 H (74-99) mg/dL AST 49 H (14-36) U/L ALT 58 H (4-34) U/L Alkaline Phosphatase 156 H (38-126) U/L Ur Leukocyte Esterase Trace H (Negative) Urine Mucus Rare H (None) /hpf 02/14/22 Range/Units 12:46 WBC (3.8-10.6) k/uL Neutrophils # (1.3-7.7) k/uL D-Dimer 0.63 H (<0.60) mg/L FEU Glucose (74-99) mg/dL AST (14-36) U/L ALT (4-34) U/L Alkaline Phosphatase (38-126) U/L Ur Leukocyte Esterase (Negative) Urine Mucus (None) /hpf
--- NOTE | 2022-02-15 19:46 | CA ---
Transthoracic Echo Report Name: Lois Sanders Age: 61 Gender: F : 1960 Exam Date: 02/15/2022 10:42 Exam Location: [place] [facility] Ht (in): 60 Wt (lb): 170 Ordering Physician: Caridad Sargent Attending/Referring Phys: [id number], Arie [employer] Machine Operator Dalia Rivera RDCS Procedure CPT: Indications: LV function Cardiac Hx: Technical Quality: Fair Contrast 1: N/A Total Dose (mL): Contrast 2: Total Dose (mL): MEASUREMENTS (Male / Female) Normal Values 2D ECHO LV Diastolic Diameter PLAX 4.5 cm 4.2 - 5.9 / 3.9 - 5.3 cm LV Systolic Diameter PLAX 3.3 cm IVS Diastolic Thickness 0.6 cm 0.6 - 1.0 / 0.6 - 0.9 cm LVPW Diastolic Thickness 0.9 cm 0.6 - 1.0 / 0.6 - 0.9 cm LV Relative Wall Thickness 0.3 RV Internal Dim ED PLAX 2.6 cm LA Systolic Diameter LX 3.4 cm 3.0 - 4.0 / 2.7 - 3.8 cm M-MODE Aortic Root Diameter MM 2.4 cm LA Systolic Diameter MM 3.4 cm LA Ao Ratio MM 1.4 MV E Point Septal Separation 0.5 cm DOPPLER MV Area PHT 3.6 cm??? Mitral E Point Velocity 35.1 cm/s Mitral A Point Velocity 48.1 cm/s Mitral E to A Ratio 0.7 MV Deceleration Time 209.6 ms MV E' Velocity 5.6 cm/s Mitral E to MV E' Ratio 6.3 FINDINGS Left Ventricle Left ventricular ejection fraction is estimated at 50-55 %. Right Ventricle Normal right ventricular size and function. Right Atrium Normal right atrial size. Left Atrium Normal left atrial size. Mitral Valve Structurally normal mitral valve. Mild mitral regurgitation. Aortic Valve Trileaflet aortic valve. Tricuspid Valve Structurally normal tricuspid valve. Pulmonic Valve Pulmonic valve not well visualized. Pericardium Echo free space anterior to the right ventricle likely represents a fat pad. Aorta Normal size aortic root and proximal ascending aorta. CONCLUSIONS Normal left ventricular dimension and systolic function Previewed by: Dr. Mack Sanchez MD (Electronically Signed) Final Date: 15 February 2022 19:46
[2022-02-15] MEDS: CYCLOBENZAPRINE 5 MG TAB PO SCH (20:49)
[2022-02-16] MEDS: MORPHINE SULFATE 4 MG/ML SYRINGE IV PRN ×2 (01:58→13:04)
[2022-02-16] MEDS: PIPERACILLIN-TAZOBACTAM 3.375 GM in SODIUM CHLORIDE 0.9% 100 ML IVPB SCH ×3 (04:10→20:01)
[2022-02-16] MEDS: BENZONATATE 100 MG CAP PO PRN ×2 (04:10→20:03)
[2022-02-16] MEDS: HYDROcodone/APAP 10-325MG 1 EACH TAB PO PRN ×3 (04:11→21:09)
[2022-02-16] MEDS: PANTOPRAZOLE 40 MG TABLET PO SCH (06:15)
[2022-02-16] MEDS: ALBUTEROL NEBULIZED 2.5 MG/3 ML INHALATION PRN ×2 (07:05→11:07)
--- NOTE | 2022-02-16 08:52 | P.PN ---
Subjective Progress Note Date: 02/16/22 HISTORY OF PRESENT ILLNESS: This is a 61-year-old female with past medical history of hyperlipidemia, gastroesophageal reflux disease, generalized anxiety disorder, coronary artery disease. Patient complains of cough and shortness of breath along with low- grade fever, generalized malaise and fatigue for the past 5 days. She contacted the office and was instructed coming to the ER for evaluation. Patient did undergo cardiac catheterization at [facility] and had 2 cardiac stents placed on January 31. She was also apparently diagnosed with pericarditis and given [place] for pain. She also complains of nausea without vomiting. No abdominal pain or diarrhea. Patient was found to have leukocytosis at 12.9, electrolytes and renal function within normal limits. Lactic acid was 1.8. Liver function tests were elevated with total bilirubin 0.5, AST 49, ALT 58, alkaline phosphatase 156. Troponin was negative. Tipton virus PCR not detected. Influenza A and influenza B not detected. D-dimer 0.63. Urinalysis negative for infection. EKG sinus tachycardia with first-degree AV block, chest x-ray revealed basilar atelectasis versus early infiltrate. She underwent a CAT scan of the chest which was negative for pulmonary embolism. Left lower lobe paces side airways correlate for aspiration/retained secretions. Patient placed on the observation unit, cardiology consult, echocardiogram and serial troponins. 02/15: Patient has been seen by cardiology and started on colchicine, echocardiogram report is pending. Repeat troponins are negative on 2 draws. C- reactive protein is 8.1. ProBNP 113. Patient is complaining of continued nausea, chest pain and sweats. Patient was started on Colchicine 0.6 mg twice daily by cardiology. Patient states that Zofran did not help her nausea. We will order a scopolamine patch. Patient is also asking for clonazepam to be increased which will be evaluated. Patient remains afebrile, heart rate 97, blood pressure 98/60, pulse ox 93% on room air. Repeat blood work reveals WBC of 14.2, hemoglobin 13, platelet count 239. Sed rate 15. Electrolytes and renal function normal. Blood sugar 116. Alkaline phosphatase 140 otherwise liver function tests are within normal limits. 02/16: Patient states that she started coughing around 3:30 this morning could not stop. She denies any sputum production. She states the pain in her chest is worth worse and also pain with deep breathing. She continues to have w heezing. She states she does not have much appetite but ate oatmeal and low better for this morning which is the first real meal she's had. She has not had a bowel movement since she came in but denies feeling constipated. Patient continued on Zosyn, Pulmicort 1 mg twice daily added, consult with pulmonary medicine. Discussed with patient need for IV steroids and she was reluctant but did agree, we will increase clonazepam to 1 mg twice daily. Patient states that her daughter and granddaughter have tested positive for RSV. Nausea is improved with the addition of scopolamine patch yesterday. REVIEW OF SYSTEMS: Constitutional: Denies fever, reports chills, reports sweats. No weight change. No weakness, reports fatigue no lethargy. No daytime sleepiness. EENT: No headache. No blurred vision or double vision, no loss of vision. No loss of Hearing, no ringing in the ears, no dizziness. No nasal drainage or congestion. No epistaxis. No sore throat. Lungs: Reports shortness of breath, reports cough, no sputum production. Reports wheezing. Reports dyspnea with activity. Cardiovascular: Reports chest pain, no lower extremity edema. No palpitations. No paroxysmal nocturnal dyspnea. No orthopnea. No lightheadedness or dizziness. No syncopal episodes. Abdominal: Denies abdominal pain. Reports nausea, no vomiting. No diarrhea. No constipation. No bloody or tarry stools. reports loss of appetite. Genitourinary: No dysuria, increased frequency, urgency. No urinary retention. Musculoskeletal: No myalgias. No muscle weakness, no gait dysfunction, no frequent falls. No back pain. No neck pain. Integumentary: No wounds, no lesions. No rash or pruritus. No unusual bruising. No change in hair or nails. Neurologic: No aphasia. No facial droop. No change in mentation. No head injury. No headache. No paralysis. No paresthesia. Psychiatric: No depression. Reports anxiety. No mood swings. Endocrine: No abnormal blood sugars. No weight change. PHYSICAL EXAMINATION: General: This is a 61-year-old obese female. She is resting in bed appears to be somewhat uncomfortable secondary to chest pain, nausea and sweats. HEENT: Head is atraumatic, normocephalic, pupils were equal round reactive to light and recommendation, extraocular muscle movement were intact, sclera nonicteric, conjunctivae were pale, mucous membranes of the mouth are somewhat dry. Neck: Supple, no JVP, normal carotid upstroke bilaterally, no lymphadenopathy. Chest: Decreased breath sounds at the bases, few rhonchi, bilateral expiratory, positive chest wall tenderness, no intercostal retractions. Heart: First heart sound is depressed, second heart sounds normal. There is a 2/6 systolic ejection murmur at the left sternal border, no S3, no S4. Abdomen: Soft, nontender, nondistended, positive bowel sounds. Extremities: There is no edema no calf tenderness DP +2 bilaterally. Neurologic examination: Patient is awake alert and oriented oriented 3, cranial nerves II-12 appear grossly intact. Patient is able to move all 4 extremities with no focal neural deficits. ASSESSMENT AND PLAN: 1. Chest pain with recent cardiac catheterization status post PCI/stent 2 at [facility] on January 31, serial troponins, echocardiogram report is pending, cardiology consult appreciated, continue patient on aspirin 81 mg daily, continue patient on Effient 10 mg daily, continue patient on metoprolol succinate 25 mg daily, Bumex 0.5 mg twice daily . 2. Possible aspiration Pneumonia. Patient started on Zosyn 3.75 g IV piggyback every 8 hours. Pulmicort 1 mg twice daily, Solu-Medrol 40 mg IV every 8 hours, Robitussin with codeine, and pulmonary consult added 3. Recent diagnosis of pericarditis at [facility]. Cardiology consult, sed rate. Colchicine 0.6 mg twice daily added by cardiology. 3. Hyperlipidemia. Continue patient on Zetia 10 mg daily, continue patient on atorvastatin 80 mg daily.. 3. Gastroesophageal reflux disease. continue patient on Protonix 40 mg daily. 6. Generalized anxiety disorder and recurrent depression. Continue patient on Paxil 37.5 mg daily, Cymbalta 30 mg daily, clonazepam 0.5 mg twice daily. 7. COPD. Continue patient on albuterol inhaler 2 puffs every 6 hours as needed. 8. Spondylosis of the lumbar spine. Continue Flexeril 5 mg at bedtime, [place] 10 one tablet 4 times daily as needed. 9. Nausea possibly related to colchicine. Resistant to Zofran, scopolamine patch added. Impression and plan of care have been directed as dictated by the signing physician. Anastasiya Espitia nurse practitioner acting as scribe for signing physician. Objective - Vital Signs Vital signs: Vital Signs Temp 98 F 02/16/22 07:50 Pulse 74 02/16/22 07:50 Resp 24 02/16/22 07:50 BP 102/65 02/16/22 07:50 Pulse Ox 98 02/16/22 07:50 FiO2 Intake & Output 02/15/22 02/16/22 02/16/22 18:59 06:59 18:59 Intake Total 358 Balance 358 Intake: Oral 358 Other: # Voids 2 2 - Labs CBC & Chem 7: 02/15/22 06:34 02/15/22 06:34 Labs: Abnormal Lab Results - Last 24 Hours (Table) 02/15/22 02/15/22 02/15/22 Range/Units 06:34 06:34 08:25 WBC 14.21 H (4.50-10.00) X 10*3/uL MPV 9.0 L (9.5-12.2) fL Neutrophils # 11.73 H (1.80-7.70) X 10*3/uL BUN/Creatinine Ratio 11.20 L (12.00-20.00) Ratio Glucose 116 H (70-110) mg/dL Alkaline Phosphatase 140 H (41-126) U/L C-Reactive Protein 8.1 H (<1.0) mg/dL Total Protein 6.1 L (6.2-8.2) g/dL
[2022-02-16] MEDS: EZETIMIBE 10 MG TAB PO SCH (09:05)
[2022-02-16] MEDS: ATORVASTATIN 80 MG TAB PO SCH (09:05)
[2022-02-16] MEDS: COLCHICINE 0.6 MG EACH PO SCH ×2 (09:05→20:02)
[2022-02-16] MEDS: BUMETANIDE 0.5 MG TABLET PO SCH ×2 (09:05→20:02)
[2022-02-16] MEDS: PARoxetine 10 MG TAB PO SCH (09:06)
[2022-02-16] MEDS: ASPIRIN 81 MG PO SCH (09:06)
[2022-02-16] MEDS: clonazePAM 1 MG TAB PO SCH ×2 (09:06→20:02)
[2022-02-16] MEDS: PRASUGREL 10 MG TAB PO SCH (09:06)
[2022-02-16] MEDS: METOPROLOL SUCCINATE (ER) 25 MG TAB.ER.24H PO SCH (09:06)
[2022-02-16] MEDS: methylPREDNISolone SOD SUCCI 40 MG/ML 1 ML VIAL IV SCH ×3 (09:07→19:53)
[2022-02-16] MEDS: guaiFENesin-Coden 100-10MG/5ML 10 ML CUP PO PRN ×2 (09:19→15:02)
--- NOTE | 2022-02-16 09:41 | P.PN ---
Subjective Progress Note Date: 02/16/22 HISTORY OF PRESENT ILLNESS: This is a 61-year-old female with a past medical history significant for coronary artery disease with recent stenting and hyperlipidemia. Patient follows with a manager clinical research at [facility] but would like to establish care in the area. We have been asked to see the patient in consultation for chest pain. Patient examined at the bedside. Patient states that she was hospitalized at [facility] at the end of January and underwent stent placement 2. She also states she was diagnosed with pericarditis after her stent placement. She presented to the hospital with multiple complaints. She reports having chest pain that is in the middle of her chest and feels like a stabbing sensation. She states that pain is worse with deep inspiration. She states the pain is better when she is leaning forward. She also reports having a cough without spu abran production. She reports having a fever as high as 104 at home. She also reports generalized weakness and diaphoresis. She states that her daughter and her granddaughter recently had an upper respiratory infection. * EKG reveals sinus mechanism with mild ST elevation in aVR * Chest xray basilar atelectasis versus early infiltrate * Chest CTA: No evidence for PE. Left lower lobe opacified airways correlate for aspiration/retained secretions * Laboratory data: WBC 10.9. Hemoglobin 15.1. Platelet count 293. Sodium 141. Potassium 3.9. BUN 13. Creatinine 0.90. Troponin negative 2. * Current home cardiac medications include Lipitor 80 mg daily, Zetia 10 mg daily, Bumex 0.5 mg twice a day, metoprolol succinate 25 mg daily, aspirin 81 mg daily 02/16/2022 Patient examined this morning at the bedside. Patient continues to report chest pain this morning that is worse with deep . She reports significant coughing and states she has been up since 3:00 this morning with a constant nonproductive cough. She does report that her daughter and granddaughter recently tested positive for RSV. ESR 15. CRP 8.1. Echocardiogram completed revealing ejection fraction 50-55%, mild MR PHYSICAL EXAM: VITAL SIGNS: Reviewed. GENERAL: Well-developed in no acute distress. HEENT: Head is normocephalic. Pupils are equal, round. Sclerae anicteric. Mucous membranes of the mouth are moist. Neck supple. No JVD or thyromegaly LUNGS: Respirations even and unlabored. Lungs essentially clear to auscultation bilaterally, diminished. HEART: Regular rate and rhythm. S1 and S2 heard. ABDOMEN: Soft. Nondistended. Nontender. EXTREMITIES: Normal range of motion. No clubbing or cyanosis. Peripheral pulses intact. No lower extremity edema NEUROLOGIC: Awake and alert. Oriented x 3. 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 May use Tylenol if needed. Check RSV Further recommendations pending patient course Nurse practitioner note has been reviewed by physician. Signing provider agrees with the documented findings, assessment, and plan of care. Objective - Vital Signs Vital signs: Vital Signs Temp 98 F 02/16/22 08:03 Pulse 63 02/16/22 08:03 Resp 16 02/16/22 08:03 BP 100/65 02/16/22 08:03 Pulse Ox 97 02/16/22 08:03 FiO2 Intake & Output 02/15/22 02/16/22 02/16/22 18:59 06:59 18:59 Intake Total 358 Balance 358 Intake: Oral 358 Other: # Voids 2 2 - Labs CBC & Chem 7: 02/15/22 06:34 02/15/22 06:34 Labs: Abnormal Lab Results - Last 24 Hours (Table) 02/15/22 02/15/22 Range/Units 06:34 06:34 WBC 14.21 H (4.50-10.00) X 10*3/uL MPV 9.0 L (9.5-12.2) fL Neutrophils # 11.73 H (1.80-7.70) X 10*3/uL BUN/Creatinine Ratio 11.20 L (12.00-20.00) Ratio Glucose 116 H (70-110) mg/dL Alkaline Phosphatase 140 H (41-126) U/L Total Protein 6.1 L (6.2-8.2) g/dL
--- NOTE | 2022-02-16 11:29 | P.CNPUL ---
History of Present Illness Consult date: 02/16/22 Requesting physician: Maury Montesinos Reason for consult: dyspnea, cough, chest pain, abnormal CXR/CT Chief complaint: Shortness of breath, cough, congestion History of present illness: This is a very pleasant 61-year-old female patient with a history of hypertension, hyperlipidemia, anxiety, depression, gastroesophageal reflux disease and coronary artery disease with recent stent placement at [facility] on 01/31/2022. At that time she also had pericarditis. She was discharged home and states she was doing quite well until a few days ago she started developing increasing shortness of breath, chest discomfort and dry nonproductive cough. She was seen in the urgent care and subsequently referred here to the emergency room on 01/14/2022. Chest x-ray revealed basilar atelectasis versus early infiltrate. CT angiogram ruled out pulmonary embolism. There is a left lower lobe opacity. White count 14.2. Hemoglobin 13.0. D- dimer 0.63. Sodium 139. Potassium 3.6. BUN 11. Creatinine 1.0. Glucose 116. Troponin negative 3 Propulsid 10 and 0.07. Tipton virus negative, influenza A and B-, RSV negative. Of note, her daughter and granddaughter who live with her both have RSV. She is still coughing and congestion we are consulted today due to her ongoing symptoms. She is currently sitting up in bed. Maintaining good O2 saturations in the mid 90s on room air. She's been afebrile. Hemodynamically stable. She's been initiated on albuterol, Tessalon Perles, Pulmicort inhalations, IV Solu-Medrol and antibiotics in the form of Zosyn. She is on Colcrys per cardiology. Review of Systems REVIEW OF SYSTEMS: CONSTITUTIONAL: Denies any recent significant weight loss or weight gain. EYES: Denies change in vision. EARS, NOSE, MOUTH, THROAT: Denies headaches, denies sore throat. CARDIOVASCULAR: Positive for chest pain, no palpitations or syncopal episodes. RESPIRATORY: Positive for shortness of breath, cough, congestion no hemoptysis. GASTROINTESTINAL: Denies change in appetite, denies abdominal pain GENITOURINARY: Denies hematuria, denies infections. MUSKULOSKELETAL: Denies pain, denies swelling. INTEGUMENTARY: Denies rash, denies eczema. NEUROLOGICAL: Denies recent memory loss, no recent seizure activity. PSYCHIATRIC: Denies anxiety, denies depression. HEMATOLOGIC/LYMPHATIC: Denies anemia, denies enlarged lymph nodes. Past Medical History Past Medical History: Coronary Artery Disease (CAD), Cancer, GERD/Reflux, Hyperlipidemia Additional Past Medical History / Comment(s): irritable bowel syndrome. right breast cancer 2010 with lumpectomy/chemo x 3 in three sites History of Any Multi-Drug Resistant Organisms: None Reported Past Surgical History: Breast Surgery, Heart Catheterization With Stent, Hysterectomy Additional Past Surgical History / Comment(s): right breast lumpectomy 2009/ c hemotherapy 2009. 2012 and 2015 Past Anesthesia/Blood Transfusion Reactions: No Reported Reaction Date of Last Stent Placement:: 2 weeks ago Past Psychological History: Anxiety, Depression Smoking Status: Current every day smoker, Light tobacco smoker Past Alcohol Use History: Rare Past Drug Use History: None Reported - Past Family History Father Family Medical History: Chest Pain / Angina, Coronary Artery Disease (CAD), Myocardial Infarction (AL) Additional Family Medical History / Comment(s): Luisa in his 50s. He was on a cardiac transplant list. Mother Family Medical History: Coronary Artery Disease (CAD), Myocardial Infarction (AL) Additional Family Medical History / Comment(s): history of multiple stents. Mother at age 72. Brother(s) Additional Family Medical History / Comment(s): Patient has 3 brothers. One has no major medical problems, one is unknown medical problems, when his cardiac problems. All brothers have anxiety. Sister(s) Additional Family Medical History / Comment(s): Patient has 3 sisters all suffering from anxiety. Daughter(s) Additional Family Medical History / Comment(s): Patient has 2 daughters. One daughter has MS. One daughter has anxiety. Patient does not have any sons. Medications and Allergies Home Medications Medication Instructions Recorded Confirmed Type Aspirin 81 mg PO DAILY 05/13/18 02/14/22 History Albuterol Inhaler [Ventolin Hfa 2 puff INHALATION RT-Q6H PRN 11/07/21 02/14/22 History Inhaler] HYDROcodone/APAP 10-325MG [[place] 1 tab PO QID PRN 11/07/21 02/14/22 History 10-325] Metoprolol Succinate [Metoprolol 25 mg PO DAILY 11/07/21 02/14/22 History Succinate ER] Nitroglycerin Sl Tabs [Nitrostat] 0.4 mg SUBLINGUAL Q5M PRN 11/07/21 02/14/22 History PARoxetine HCL [Paxil Cr] 37.5 mg PO DAILY 11/07/21 02/14/22 History Prasugrel HCl 10 mg PO DAILY 11/07/21 02/14/22 History clonazePAM [KlonoPIN] 0.5 mg PO BID 11/07/21 02/14/22 History Bumetanide [BUMEX] 0.5 mg PO BID 02/14/22 02/14/22 History Cyclobenzaprine [Flexeril] 5 mg PO HS 02/14/22 02/14/22 History DULoxetine HCL [Cymbalta] 30 mg PO DAILY PRN 02/14/22 02/14/22 History Ezetimibe [Zetia] 10 mg PO DAILY 02/14/22 02/14/22 History Pantoprazole [Protonix] 40 mg PO DAILY 02/14/22 02/14/22 History Atorvastatin [Lipitor] 80 mg PO DAILY 02/15/22 02/15/22 History Allergies Allergy/AdvReac Type Severity Reaction Status Date / Time ondansetron [From Zofran] AdvReac extreme Verified 02/14/22 16:55 constipation steroids Allergy Rash/Hives Uncoded 02/14/22 10:58 Physical Exam Vitals: Vital Signs Temp Pulse Pulse Resp BP Pulse Ox 02/16/22 11:07 80 02/16/22 08:03 98 F 63 16 100/65 97 02/16/22 07:50 98 F 74 24 102/65 98 02/16/22 07:19 90 02/16/22 07:05 88 02/16/22 00:19 97.9 F 81 19 101/58 92 L 02/15/22 19:06 98.2 F 98 17 95/59 94 L 02/15/22 16:11 79 110/73 93 L 02/15/22 15:00 98.4 F 72 16 102/64 95 Intake and Output 02/15/22 02/16/22 02/16/22 22:59 06:59 14:59 Intake Total 240 Balance 240 Intake: Oral 240 Other: # Voids 1 2 GENERAL EXAM: Alert, pleasant 61-year-old female, on room air, fairly comfortable in no apparent distress. HEAD: Normocephalic. EYES: Normal reaction of pupils, equal size. NOSE: Clear with pink turbinates. THROAT: No erythema or exudates. NECK: No masses, no JVD. CHEST: No chest wall deformity. LUNGS: Equal air entry with crackles, wheeze in the left lung base. CVS: S1 and S2 normal with no audible murmur, regular rhythm. ABDOMEN: No hepatosplenomegaly, normal bowel sounds, no guarding or rigidity. SPINE: No scoliosis or deformity SKIN: No rashes CENTRAL NERVOUS SYSTEM: No focal deficits, tone is normal in all 4 extremities. EXTREMITIES: There is no peripheral edema. No clubbing, no cyanosis. Peripheral pulses are intact. Results - Laboratory Findings CBC and BMP: 02/15/22 06:34 02/15/22 06:34 PT/INR, D-dimer D-Dimer 0.63 mg/L FEU (<0.60) H 02/14/22 12:46 Abnormal lab findings: Abnormal Labs 02/14/22 02/14/22 02/14/22 11:03 11:03 11:22 WBC 12.9 H MPV Neutrophils # 10.3 H D-Dimer BUN/Creatinine Ratio Glucose 120 H AST 49 H ALT 58 H Alkaline Phosphatase 156 H C-Reactive Protein Total Protein Ur Leukocyte Esterase Trace H Urine Mucus Rare H 02/14/22 02/15/22 02/15/22 12:46 06:34 06:34 WBC 14.21 H MPV 9.0 L Neutrophils # 11.73 H D-Dimer 0.63 H BUN/Creatinine Ratio 11.20 L Glucose 116 H AST ALT Alkaline Phosphatase 140 H C-Reactive Protein Total Protein 6.1 L Ur Leukocyte Esterase Urine Mucus 02/15/22 08:25 WBC MPV Neutrophils # D-Dimer BUN/Creatinine Ratio Glucose AST ALT Alkaline Phosphatase C-Reactive Protein 8.1 H Total Protein Ur Leukocyte Esterase Urine Mucus - Diagnostic Findings Chest x-ray: image reviewed CT scan - chest: image reviewed Assessment and Plan Assessment: Acute healthcare acquired left lower lobe pneumonia. Currently on Zosyn recurrent virus negative. Influenza screen negative. RSV negative Recent admission to [facility] with pericarditis and coronary disease with 2 stents placed on 01/31/2022 Anxiety/depression Chronic obstructive pulmonary disease History of chronic tobacco dependence however quit approximately 1 year ago Chronic back pain Hyperlipidemia Plan: The patient was seen and evaluated Chest x-ray, CAT scan, labs and medications reviewed Check pro calcitonin Check Legionella antigen Continue Zosyn and bronchodilators Continue IV steroids Follow-up chest x-ray in a.m. We will continue to follow and make further recommendations based on her clinical status I have personally seen and examined the patient, performed the documentation and the assessment and plan as written. Number of minutes spent on the visit: 20.
[2022-02-16] MEDS: BUDESONIDE 1 MG/2 ML NEBU INHALATION SCH (18:59)
[2022-02-16] MEDS: CYCLOBENZAPRINE 5 MG TAB PO SCH (20:03)
[2022-02-17] MEDS: MORPHINE SULFATE 4 MG/ML SYRINGE IV PRN ×2 (02:21→08:42)
[2022-02-17] MEDS: PIPERACILLIN-TAZOBACTAM 3.375 GM in SODIUM CHLORIDE 0.9% 100 ML IVPB SCH ×3 (03:39→20:37)
[2022-02-17] MEDS: BENZONATATE 100 MG CAP PO PRN ×2 (04:29→20:38)
[2022-02-17] MEDS: PANTOPRAZOLE 40 MG TABLET PO SCH (06:45)
--- NOTE | 2022-02-17 08:11 | XR ---
EXAMINATION TYPE: XR chest 2V DATE OF EXAM: 02/17/2022 COMPARISON: 02/14/2022 TECHNIQUE: PA and lateral views submitted. HISTORY: Cough FINDINGS: Bilateral lower lobe subsegmental consolidation no sizable pleural effusion or pneumothorax. Heart si ze normal. No overt failure. Osseous structures stable. IMPRESSION: 1. Bilateral lower lobe infiltrate stable
[2022-02-17] MEDS: BUDESONIDE 1 MG/2 ML NEBU INHALATION SCH ×2 (08:22→20:45)
[2022-02-17] MEDS: methylPREDNISolone SOD SUCCI 40 MG/ML 1 ML VIAL IV SCH ×2 (08:35→17:39)
[2022-02-17 08:40] LABS: HCT 36.3 % (37.2-46.3); HGB 12.1 g/dL (12.0-15.0); MCH 30.1 pg (27.0-32.0); MCHC 33.3 g/dL (32.0-37.0); MCV 90.3 fL (80.0-97.0); NRBC Per 100 WBC 0 /100 WBCS (0.0-0.0); Platelet Count 277 X 10*3/uL (140-440); RBC 4.02 X 10*6/uL (4.10-5.20); RDW 13.2 % (11.5-14.5); WBC 14.26 X 10*3/uL (4.50-10.00)
--- NOTE | 2022-02-17 09:30 | P.PN ---
Subjective Progress Note Date: 02/17/22 HISTORY OF PRESENT ILLNESS: This is a 61-year-old female with a past medical history significant for coronary artery disease with recent stenting and hyperlipidemia. 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 We have been asked to see the patient in consultation for chest pain. Patient examined at the bedside. Patient states that she was hospitalized at [facility] at the end of January and underwent stent placement 2. She also states she was diagnosed with pericarditis after her stent placement. She presented to the hospital with multiple complaints. She reports having chest pain that is in the middle of her chest and feels like a stabbing sensation. She states that pain is worse with deep inspiration. She states the pain is better when she is leaning forward. She also reports having a cough without spu abran production. She reports having a fever as high as 104 at home. She also reports generalized weakness and diaphoresis. She states that her daughter and her granddaughter recently had an upper respiratory infection. * EKG reveals sinus mechanism with mild ST elevation in aVR * Chest xray basilar atelectasis versus early infiltrate * Chest CTA: No evidence for PE. Left lower lobe opacified airways correlate for aspiration/retained secretions * Laboratory data: WBC 10.9. Hemoglobin 15.1. Platelet count 293. Sodium 141. Potassium 3.9. BUN 13. Creatinine 0.90. Troponin negative 2. * Current home cardiac medications include Lipitor 80 mg daily, Zetia 10 mg daily, Bumex 0.5 mg twice a day, metoprolol succinate 25 mg daily, aspirin 81 mg daily 02/16/2022 Patient examined this morning at the bedside. Patient continues to report chest pain this morning that is worse with deep . She reports significant coughing and states she has been up since 3:00 this morning with a constant nonproductive cough. She does report that her daughter and granddaughter recently tested positive for RSV. ESR 15. CRP 8.1. Echocardiogram completed revealing ejection fraction 50-55%, mild MR 02/17/2022 Patient examined this morning at the bedside. She reports she is feeling sli ghtly better than yesterday. She continues to have a nonproductive cough. She continues to report chest pain that is worse with deep inspiration. She reports she was started on colchicine at [facility] and she was diagnosed with pericarditis. She states that after taking it for 5 days she began to have nausea, vomiting, and diarrhea. She also reports having bright red blood per rectum. Patient does report having some nausea during this hospitalization. She denies having any further episodes of bleeding per rectum. Patient has been started on IV steroids per internal medicine. Chest x-ray this morning reveals bilateral lower lobe infiltrates. PHYSICAL EXAM: VITAL SIGNS: Reviewed. GENERAL: Well-developed in no acute distress. HEENT: Head is normocephalic. Pupils are equal, round. Sclerae anicteric. Mucous membranes of the mouth are moist. Neck supple. No JVD or thyromegaly LUNGS: Respirations even and unlabored. Lungs essentially clear to auscultation bilaterally, diminished. HEART: Regular rate and rhythm. S1 and S2 heard. ABDOMEN: Soft. Nondistended. Nontender. EXTREMITIES: Normal range of motion. No clubbing or cyanosis. Peripheral pulses intact. No lower extremity edema NEUROLOGIC: Awake and alert. Oriented x 3. 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 May use Tylenol if needed. Further recommendations pending patient course Patient would like to follow up with Dr. Sanchez post discharge Nurse practitioner note has been reviewed by physician. Signing provider agrees with the documented findings, assessment, and plan of care. Objective - Vital Signs Vital signs: Vital Signs Temp 97 F L 02/17/22 07:35 Pulse 84 02/17/22 08:39 Resp 22 02/17/22 07:35 BP 114/68 02/17/22 07:35 Pulse Ox 96 02/17/22 07:35 FiO2 Intake & Output 02/16/22 02/17/22 02/17/22 18:59 06:59 18:59 Intake Total 240 Balance 240 Intake: Oral 240 Other: # Voids 1 1 - Labs CBC & Chem 7: 02/17/22 05:07 02/15/22 06:34 Labs: Abnormal Lab Results - Last 24 Hours (Table) 02/17/22 Range/Units 05:07 WBC 14.26 H (4.50-10.00) X 10*3/uL RBC 4.02 L (4.10-5.20) X 10*6/uL Hct 36.3 L (37.2-46.3) % MPV 9.0 L (9.5-12.2) fL
[2022-02-17 09:45] LABS: ALT 81 U/L (8-44); AST 49 U/L (13-35); African American GFR (CKD) 93.5 (60.0-200.0); Albumin 3.9 g/dL (3.8-4.9); Albumin/Globulin Ratio 1.95 (1.60-3.17); Alkaline Phosphatase 140 U/L (41-126); Calcium 9.4 mg/dL (8.7-10.3); Carbon Dioxide 26.9 mmol/L (20.0-27.5); Chloride 105 mmol/L (96-109); Glucose 144 mg/dL (70-110); Non-African American GFR(CKD) 80.7 (60.0-200.0); Potassium 4.9 mmol/L (3.5-5.5); Sodium 141 mmol/L (135-145); Total Bilirubin <0.15 mg/dL (0.30-1.20); Total Protein 5.9 g/dL (6.2-8.2)
[2022-02-17] MEDS: BUMETANIDE 0.5 MG TABLET PO SCH ×2 (11:35→20:37)
[2022-02-17] MEDS: PARoxetine 10 MG TAB PO SCH (11:35)
[2022-02-17] MEDS: PRASUGREL 10 MG TAB PO SCH (11:36)
[2022-02-17] MEDS: COLCHICINE 0.6 MG EACH PO SCH ×2 (11:36→20:38)
[2022-02-17] MEDS: ATORVASTATIN 80 MG TAB PO SCH (11:45)
[2022-02-17] MEDS: clonazePAM 1 MG TAB PO SCH ×2 (11:45→20:37)
[2022-02-17] MEDS: METOPROLOL SUCCINATE (ER) 25 MG TAB.ER.24H PO SCH (11:45)
[2022-02-17] MEDS: ASPIRIN 81 MG PO SCH (11:45)
[2022-02-17] MEDS: EZETIMIBE 10 MG TAB PO SCH (11:45)
[2022-02-17] MEDS: HYDROcodone/APAP 10-325MG 1 EACH TAB PO PRN ×2 (12:40→21:34)
--- NOTE | 2022-02-17 12:41 | P.PN ---
Subjective Progress Note Date: 02/17/22 This is a very pleasant 61-year-old female patient with a history of hypertension, hyperlipidemia, anxiety, depression, gastroesophageal reflux disease and coronary artery disease with recent stent placement at [facility] on 01/31/2022. At that time she also had pericarditis. She was discharged home and states she was doing quite well until a few days ago she started developing increasing shortness of breath, chest discomfort and dry nonproductive cough. She was seen in the urgent care and subsequently referred here to the emergency room on 01/14/2022. Chest x-ray revealed basilar atelectasis versus early infiltrate. CT angiogram ruled out pulmonary embolism. There is a left lower lobe opacity. White count 14.2. Hemoglobin 13.0. D- dimer 0.63. Sodium 139. Potassium 3.6. BUN 11. Creatinine 1.0. Glucose 116. Troponin negative 3 Propulsid 10 and 0.07. Tipton virus negative, influenza A and B-, RSV negative. Of note, her daughter and granddaughter who live with her both have RSV. She is still coughing and congestion we are consulted today due to her ongoing symptoms. She is currently sitting up in bed. Maintaining good O2 saturations in the mid 90s on room air. She's been afebrile. Hemodynamically stable. She's been initiated on albuterol, Tessalon Perles, Pulmicort inhalations, IV Solu-Medrol and antibiotics in the form of Zosyn. She is on Colcrys per cardiology. The patient is seen today 02/17/2022 in follow-up on the regular medical floor. She is currently sitting up in bed. Awake and alert in no acute distress. She continues with a loose cough. She is maintaining O2 saturations in the 90s on room air. Afebrile. Hemodynamically stable. Chest x-ray continues to revealed bilateral lower lobe infiltrates. Stable. White count 14.2. Hemoglobin 12.1. Sodium 141 potassium 4.9. BUN 14. Creatinine 0.8. AST 49. ALT 81. Legionella antigen negative. RSV by PCR negative. Pro-calcitonin 0.08. She is continued on Pulmicort inhalations, albuterol inhalations, IV Solu-Medrol. Antibiotics in the form of Zosyn. Objective - Vital Signs Vital signs: Vital Signs Temp 97 F L 02/17/22 07:35 Pulse 60 02/17/22 10:50 Resp 18 02/17/22 10:50 BP 126/80 02/17/22 10:50 Pulse Ox 92 L 02/17/22 10:50 FiO2 Intake & Output 02/16/22 02/17/22 02/17/22 18:59 06:59 18:59 Intake Total 240 Balance 240 Intake: Oral 240 Other: Voiding Method Toilet # Voids 1 1 - Exam GENERAL EXAM: Alert, 61-year-old female, on room air, fairly comfortable in no apparent distress. HEAD: Normocephalic. EYES: Normal reaction of pupils, equal size. NOSE: Clear with pink turbinates. THROAT: No erythema or exudates. NECK: No masses, no JVD. CHEST: No chest wall deformity. LUNGS: Equal air entry with crackles, wheeze in the lung bases. CVS: S1 and S2 normal with no audible murmur, regular rhythm. ABDOMEN: No hepatosplenomegaly, normal bowel sounds, no guarding or rigidity. SPINE: No scoliosis or deformity SKIN: No rashes CENTRAL NERVOUS SYSTEM: No focal deficits, tone is normal in all 4 extremities. EXTREMITIES: There is no peripheral edema. No clubbing, no cyanosis. Peripheral pulses are intact. - Labs CBC & Chem 7: 02/17/22 05:07 02/17/22 05:07 Labs: Abnormal Lab Results - Last 24 Hours (Table) 02/17/22 02/17/22 Range/Units 05:07 05:07 WBC 14.26 H (4.50-10.00) X 10*3/uL RBC 4.02 L (4.10-5.20) X 10*6/uL Hct 36.3 L (37.2-46.3) % MPV 9.0 L (9.5-12.2) fL Anion Gap 9.10 L (10.00-18.00) mmol/L Glucose 144 H (70-110) mg/dL Total Bilirubin <0.15 L (0.30-1.20) mg/dL AST 49 H (13-35) U/L ALT 81 H (8-44) U/L Alkaline Phosphatase 140 H (41-126) U/L Total Protein 5.9 L (6.2-8.2) g/dL Assessment and Plan Assessment: Acute healthcare acquired left lower lobe pneumonia. Currently on Zosyn. Tipton virus negative. Influenza screen negative. RSV negative. Legionella antigen negative Recent admission to [facility] with pericarditis and coronary disease with 2 stents placed on 01/31/2022 Anxiety/depression Chronic obstructive pulmonary disease History of chronic tobacco dependence however quit approximately 1 year ago Chronic back pain Hyperlipidemia Plan: The patient was seen and evaluated Chest x-ray, labs and medications reviewed Continue Zosyn and bronchodilators Continue IV steroids We will continue to follow I have personally seen and examined the patient, performed the documentation and the assessment and plan as written. Number of minutes spent on the visit: 10.
[2022-02-17] MEDS ORDERED: DEXTROSE 50% SYRINGE 50 ML IVP PRN ×2 (13:53)
[2022-02-17] MEDS: guaiFENesin-Coden 100-10MG/5ML 10 ML CUP PO PRN ×2 (14:02→20:48)
[2022-02-17] MEDS ORDERED: bisacodyL 10 MG SUPP RECTAL STA (14:17)
--- NOTE | 2022-02-17 14:34 | P.PN ---
Subjective Progress Note Date: 02/17/22 HISTORY OF PRESENT ILLNESS: This is a 61-year-old female with past medical history of hyperlipidemia, gastroesophageal reflux disease, generalized anxiety disorder, coronary artery disease. Patient complains of cough and shortness of breath along with low- grade fever, generalized malaise and fatigue for the past 5 days. She contacted the office and was instructed coming to the ER for evaluation. Patient did undergo cardiac catheterization at [facility] and had 2 cardiac stents placed on January 31. She was also apparently diagnosed with pericarditis and given [place] for pain. She also complains of nausea without vomiting. No abdominal pain or diarrhea. Patient was found to have leukocytosis at 12.9, electrolytes and renal function within normal limits. Lactic acid was 1.8. Liver function tests were elevated with total bilirubin 0.5, AST 49, ALT 58, alkaline phosphatase 156. Troponin was negative. Tipton virus PCR not detected. Influenza A and influenza B not detected. D-dimer 0.63. Urinalysis negative for infection. EKG sinus tachycardia with first-degree AV block, chest x-ray revealed basilar atelectasis versus early infiltrate. She underwent a CAT scan of the chest which was negative for pulmonary embolism. Left lower lobe paces side airways correlate for aspiration/retained secretions. Patient placed on the observation unit, cardiology consult, echocardiogram and serial troponins. 02/15: Patient has been seen by cardiology and started on colchicine, echocardiogram report is pending. Repeat troponins are negative on 2 draws. C- reactive protein is 8.1. ProBNP 113. Patient is complaining of continued nausea, chest pain and sweats. Patient was started on Colchicine 0.6 mg twice daily by cardiology. Patient states that Zofran did not help her nausea. We will order a scopolamine patch. Patient is also asking for clonazepam to be increased which will be evaluated. Patient remains afebrile, heart rate 97, blood pressure 98/60, pulse ox 93% on room air. Repeat blood work reveals WBC of 14.2, hemoglobin 13, platelet count 239. Sed rate 15. Electrolytes and renal function normal. Blood sugar 116. Alkaline phosphatase 140 otherwise liver function tests are within normal limits. 02/16: Patient states that she started coughing around 3:30 this morning could not stop. She denies any sputum production. She states the pain in her chest is worth worse and also pain with deep breathing. She continues to have wh eezing. She states she does not have much appetite but ate oatmeal and low better for this morning which is the first real meal she's had. She has not had a bowel movement since she came in but denies feeling constipated. Patient continued on Zosyn, Pulmicort 1 mg twice daily added, consult with pulmonary medicine. Discussed with patient need for IV steroids and she was reluctant but did agree, we will increase clonazepam to 1 mg twice daily. Patient states that her daughter and granddaughter have tested positive for RSV. Nausea is improved with the addition of scopolamine patch yesterday. 02/17: Patient states that she is not feeling any better. She still has shortness of breath and a cough. Patient noted to be hoarse. Levaquin 750 mg daily added. She is also complaining of constipation despite taking colchicine. We will add in a Dulcolax suppository per her request for today. Patient has been seen and followed by pulmonary medicine. Pro-calcitonin is 0.08, RSV negative, Legionella AG negative. WBC 14.2, hemoglobin 12.1, platelet count 277. Electrolytes within normal limits, creatinine 0.8. Blood sugar 144. Total bilirubin 0.15, AST 49, ALT 81, alkaline phosphatase 140. Sed rate 15. Patient has been afebrile, heart rate in the 60s and 70s, blood pressure 114/68, pulse ox 96% on room air. Sputum to be obtained for culture. Records will be obtained from Faiza Patten. Repeat chest x-ray this morning reveals bilateral lower lobe infiltrates stable. Echocardiogram reveals normal left ventricular dimension and systolic function. Mild mitral regurgitation. REVIEW OF SYSTEMS: Constitutional: Denies fever, reports chills, reports sweats. No weight change. No weakness, reports fatigue no lethargy. No daytime sleepiness. EENT: No headache. No blurred vision or double vision, no loss of vision. No loss of Hearing, no ringing in the ears, no dizziness. No nasal drainage or congestion. No epistaxis. No sore throat. Lungs: Reports shortness of breath, reports cough, reports sputum production. Reports wheezing. Reports dyspnea with activity. Cardiovascular: Reports chest pain, improved lower extremity edema. No palpitations. No paroxysmal nocturnal dyspnea. No orthopnea. No lightheadedness or dizziness. No syncopal episodes. Abdominal: Denies abdominal pain. Reports nausea, no vomiting. No diarrhea. No constipation. No bloody or tarry stools. reports loss of appetite. Genitourinary: No dysuria, increased frequency, urgency. No urinary retention. Musculoskeletal: No myalgias. No muscle weakness, no gait dysfunction, no kobi quent falls. No back pain. No neck pain. Integumentary: No wounds, no lesions. No rash or pruritus. No unusual bruising. No change in hair or nails. Neurologic: No aphasia. No facial droop. No change in mentation. No head injury. No headache. No paralysis. No paresthesia. Psychiatric: No depression. Reports anxiety. No mood swings. Endocrine: No abnormal blood sugars. No weight change. PHYSICAL EXAMINATION: General: This is a 61-year-old obese female. She is resting in bed appears to be comfortable. HEENT: Head is atraumatic, normocephalic, pupils were equal round, sclera nonicteric, conjunctivae were pale, mucous membranes of the mouth are somewhat dry. Neck: Supple, no JVP, normal carotid upstroke bilaterally, no lymphadenopathy. Chest: Decreased breath sounds at the bases, few rhonchi, bilateral expiratory, positive chest wall tenderness, no intercostal retractions. Heart: First heart sound is depressed, second heart sounds normal. There is a 2/6 systolic ejection murmur at the left sternal border, no S3, no S4. Abdomen: Soft, nontender, nondistended, positive bowel sounds. Extremities: There is trace edema, no calf tenderness, DP +2 bilaterally. Neurologic examination: Patient is awake alert and oriented oriented 3, cranial nerves II-12 appear grossly intact. Patient is able to move all 4 extremities with no focal neural deficits. ASSESSMENT AND PLAN: 1. Chest pain with recent cardiac catheterization status post PCI/stent 2 at [facility] on January 31. Cardiology consult appreciated, continue patient on aspirin 81 mg daily, continue patient on Effient 10 mg daily, continue patient on metoprolol succinate 25 mg daily, atorvastatin 80 mg daily, Bumex 0.5 mg twice daily . 2. Possible aspiration Pneumonia. Patient continued on Zosyn 3.75 g IV piggyback every 8 hours. Add Levaquin 750 mg daily. Continue patient on Pulmicort 1 mg twice daily, Solu-Medrol 40 mg IV every 8 hours, Robitussin with codeine, and pulmonary consult appreciated. 3. Recent diagnosis of pericarditis at [facility]. Cardiology consult appreciated. Colchicine 0.6 mg twice daily added by cardiology. Patient previously unable to tolerate colchicine. 4. Coronary artery disease with recent cardiac stenting done on January 31 at [facility]. Records will be obtained from [facility]. 5. Hyperlipidemia. Continue patient on Zetia 10 mg daily, continue patient on atorvastatin 80 mg daily.. 6. Gastroesophageal reflux disease. continue patient on Protonix 40 mg daily. 7. Generalized anxiety disorder and recurrent depression. Continue patient on Paxil 37.5 mg daily, Cymbalta 30 mg daily, clonazepam 0.5 mg twice daily. 8. COPD. Continue patient on albuterol inhaler 2 puffs every 6 hours as needed. 9. Spondylosis of the lumbar spine. Continue Flexeril 5 mg at bedtime, [place] 10 one tablet 4 times daily as needed. 10. Nausea possibly related to colchicine. Resistant to Zofran, scopolamine patch added. 11. Constipation. Dulcolax suppository 1. Impression and plan of care have been directed as dictated by the signing physician. Anastasiya Espitia nurse practitioner acting as scribe for signing [email or web address]. Objective - Vital Signs Vital signs: Vital Signs Temp 97 F L 02/17/22 07:35 Pulse 60 02/17/22 07:35 Resp 22 02/17/22 07:35 BP 114/68 02/17/22 07:35 Pulse Ox 96 02/17/22 07:35 FiO2 Intake & Output 02/16/22 02/17/22 02/17/22 18:59 06:59 18:59 Intake Total 240 Balance 240 Intake: Oral 240 Other: # Voids 1 1 - Labs CBC & Chem 7: 02/17/22 05:07 02/17/22 05:07
[2022-02-17 16:35] LABS: Glucose,Whole Blood 197 mg/dL (70-110)
--- NOTE | 2022-02-17 16:38 | CDI ---
Documentation Clarification Form Date: 02/17/2022 04:19:33 PM From: Almita Navarro Admit Date: 02/15/2022 01:51:00 PM Patient Name: Lois Sanders Visit Number: [id number] Discharge Date: ATTENTION: The Clinical Documentation Specialists (CDI) and [employer] Coding Staff appreciate your assistance in clarifying documentation. Please respond to the clarification below the line at the bottom and electronically sign. The CDI & [employer] Coding staff will review the response and follow-up if needed. Please note: Queries are made part of the Legal Health Record. If you have any questions, please contact the author of this message via ITS. Dr. Maury Montesinos Conflicting documentation has been found in the medical record. As attending physician, please provide clarification. Possible aspiration pneumonia, H&P and Medicine notes 02/14- 02/17 Acute Healthcare acquired left lower lobe pneumonia, Pulmonary consult & note 02/16 -02/17. History/Risk Factors:61-year-old female presents to the ED with shortness of breath, low grade fever, generalized malaise and fatigue for five days. Medical History: CAD, HLD and GERD. 02/14, H&P. Clinical Indicators: VSS, 02/14: B/P 99/55; HR 115; Temp 99.5 F Oral; RR 22; SpO2 99% room air CXR, 02/14: Basilar atelectasis versus early infiltrate CTA, 02/14 Left lower lobe opacified airways correlated for aspiration / retained secretions. CXR, 02/17: Bilateral lower lobe infiltrate stable. Labs: 02/14 Wbc 12.9; Neutrophils 10.3 02/16, Pulmonary consult: coronary artery disease with recent stent placement at [facility] on 01/31/2022. At that time she also had pericarditis. Treatment: 02/14 Zosyn IVPB Q8H; 02/17 Levaquin 750mg PO Daily; 02/14 Ventolin Inhalation Q6H PRN; 02/14 Tessalon Perles 100mg PO TID; 02/16 Solumedrol 40mg IV Q8HR; 02/16 Pulmicort Inhalation BID SYDNEE. Please clarify which diagnosis is most appropriate: [ ] Acute Aspiration pneumonia [ X ] Acute Healthcare acquired left lower lobe pneumonia gram negative [ ] Other (please specify) [ ] Unable to determine (Template Last Revised: June 2020) MTDD
--- NOTE | 2022-02-17 16:54 | CDI ---
Documentation Clarification Form Date: 02/17/2022 04:40:50 PM From: Almita Navarro RN CCDS Admit Date: 02/15/2022 01:51:00 PM Patient Name: Lois Sanders Visit Number: [id number] Discharge Date: ATTENTION: The Clinical Documentation Specialists (CDI) and [facility] Coding Staff appreciate your assistance in clarifying documentation. Please respond to the clarification below the line at the bottom and electronically sign. The CDI & [facility] Coding staff will review the response and follow-up if needed. Please note: Queries are made part of the Legal Health Record. If you have any questions, please contact the author of this message via ITS. Dr. Maury Montesinos Your patient is receiving the following Bumetanide and Toprol XL, 02/14 to current. Please clarify what condition/ diagnosis is being treated. History/Risk Factors:61-year-old female presents to the ED with shortness of breath, low grade fever, generalized malaise and fatigue for five days. Medical History: CAD, HLD and GERD. 02/14, H&P. Clinical Indicators: Home Medications: Toprol XL 25mg PO Daily; Bumetanide 0.5mg PO BID VSS, 02/14: B/P 99/55; HR 115; Temp 99.5 F Oral; RR 22; SpO2 99% room air BNP: 02/15 113 Echocardiogram Results, 02/15: EF 50-55% Mild mitral regurgitation; Normal left ventricular dimension and systolic function. CXR, 02/14: Basilar atelectasis versus early infiltrate CTA, 02/14 Left lower lobe opacified airways correlated for aspiration / retained secretions. 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 Treatment: 02/14 Bumetanide 0.5mg PO BID; 02/15 Toprol XL 25mg PO Daily In your professional opinion, what are you treating with Toprol xl and Bumetanide? [ X ] Chronic Diastolic Heart Failure (preserved EF) [ ] Heart Failure ruled out [ ] Other, please specify [ ] Unable to determine (Template Last Revised: May 2020) MTDD
[2022-02-17] MEDS: LEVOFLOXACIN 750 MG TAB PO SCH (17:38)
[2022-02-17] MEDS: INSULIN ASPART (NovoLOG) 100 UNIT/ML VIAL SQ SCH ×2 (17:38→20:17)
[2022-02-17 20:01] LABS: Glucose,Whole Blood 192 mg/dL (70-110)
[2022-02-17] MEDS: CYCLOBENZAPRINE 5 MG TAB PO SCH (20:38)
[2022-02-17] MEDS: ALBUTEROL NEBULIZED 2.5 MG/3 ML INHALATION PRN (20:46)
[2022-02-18] MEDS: methylPREDNISolone SOD SUCCI 40 MG/ML 1 ML VIAL IV SCH ×2 (00:18→09:35)
[2022-02-18] MEDS: MORPHINE SULFATE 4 MG/ML SYRINGE IV PRN ×2 (01:07→05:30)
[2022-02-18] MEDS: HYDROcodone/APAP 10-325MG 1 EACH TAB PO PRN (04:04)
[2022-02-18] MEDS: PIPERACILLIN-TAZOBACTAM 3.375 GM in SODIUM CHLORIDE 0.9% 100 ML IVPB SCH ×2 (04:04→12:48)
[2022-02-18 04:18] VITALS: RESP 18
[2022-02-18] MEDS: INSULIN ASPART (NovoLOG) 100 UNIT/ML VIAL SQ SCH (05:36)
[2022-02-18] MEDS: PANTOPRAZOLE 40 MG TABLET PO SCH (05:38)
[2022-02-18 05:40] LABS: Glucose,Whole Blood 178 mg/dL (70-110)
[2022-02-18] MEDS: BUDESONIDE 1 MG/2 ML NEBU INHALATION SCH (08:31)
[2022-02-18 08:40] LABS: HCT 37.1 % (37.2-46.3); HGB 12.2 g/dL (12.0-15.0); MCH 30.5 pg (27.0-32.0); MCHC 32.9 g/dL (32.0-37.0); MCV 92.8 fL (80.0-97.0); Mean Platelet Volume 9.5 fL (9.5-12.2); NRBC Per 100 WBC 0 /100 WBCS (0.0-0.0); Platelet Count 241 X 10*3/uL (140-440); RDW 13.3 % (11.5-14.5); WBC 16.01 X 10*3/uL (4.50-10.00)
[2022-02-18 08:52] LABS: ALT 68 U/L (8-44); AST 38 U/L (13-35); African American GFR (CKD) 81.1 (60.0-200.0); Albumin 3.8 g/dL (3.8-4.9); Albumin/Globulin Ratio 1.73 (1.60-3.17); Alkaline Phosphatase 133 U/L (41-126); BUN/Creat Ratio 15.67 Ratio (12.00-20.00); Blood Urea Nitrogen 14.1 mg/dL (9.0-27.0); Carbon Dioxide 21.6 mmol/L (20.0-27.5); Chloride 106 mmol/L (96-109); Globulin 2.2 g/dL (1.6-3.3); Glucose 162 mg/dL (70-110); Potassium 4.1 mmol/L (3.5-5.5); Sodium 141 mmol/L (135-145); Total Bilirubin <0.15 mg/dL (0.30-1.20)
[2022-02-18] MEDS ORDERED: predniSONE 20 MG TAB PO SCH (09:00)
[2022-02-18 09:04] VITALS: BP 138/75; PULSE 58; TEMP 97.6
--- NOTE | 2022-02-18 09:09 | P.DS ---
Providers Date of admission: 02/15/22 13:51 Expected date of discharge: 02/18/22 Attending physician: Maury Montesinos Consults: 02/14/22 16:11 Consult Physician Routine Consulting Provider: Mack Sanchez Consult Reason/Comments: chest pain Do you want consulting provider notified?: Yes 02/16/22 08:40 Consult Physician Routine Consulting Provider: Sarath Craig Consult Reason/Comments: pneumonia wheezing Do you want consulting provider notified?: Yes Primary care physician: Maury Montesinos Hospital Course: HISTORY OF PRESENT ILLNESS: This is a 61-year-old female with past medical history of hyperlipidemia, gastroesophageal reflux disease, generalized anxiety disorder, coronary artery disease. Patient complains of cough and shortness of breath along with low- grade fever, generalized malaise and fatigue for the past 5 days. She contacted the office and was instructed coming to the ER for evaluation. Patient did undergo cardiac catheterization at [facility] and had 2 cardiac stents placed on January 31. She was also apparently diagnosed with pericarditis and given [place] for pain. She also complains of nausea without vomiting. No abdominal pain or diarrhea. Patient was found to have leukocytosis at 12.9, electrolytes and renal function within normal limits. Lactic acid was 1.8. Liver function tests were elevated with total bilirubin 0.5, AST 49, ALT 58, alkaline phosphatase 156. Troponin was negative. Tipton virus PCR not detected. Influenza A and influenza B not detected. D-dimer 0.63. Urinalysis negative for infection. EKG sinus tachycardia with first-degree AV block, chest x-ray revealed basilar atelectasis versus early infiltrate. She underwent a CAT scan of the chest which was negative for pulmonary embolism. Left lower lobe paces side airways correlate for aspiration/retained secretions. Patient placed on the observation unit, cardiology consult, echocardiogram and serial troponins. 02/15: Patient has been seen by cardiology and started on colchicine, echocardiogram report is pending. Repeat troponins are negative on 2 draws. C- reactive protein is 8.1. ProBNP 113. Patient is complaining of continued nausea, chest pain and sweats. Patient was started on Colchicine 0.6 mg twice daily by cardiology. Patient states that Zofran did not help her nausea. We will order a scopolamine patch. Patient is also asking for clonazepam to be increased which will be evaluated. Patient remains afebrile, heart rate 97, blood pressure 98/60, pulse ox 93% on room air. Repeat blood work reveals WBC of 14.2, hemoglobin 13, platelet count 239. Sed rate 15. Electrolytes and renal function normal. Blood sugar 116. Alkaline phosphatase 140 otherwise liver function tests are within normal limits. 02/16: Patient states that she started coughing around 3:30 this morning could not stop. She denies any sputum production. She states the pain in her chest is worth worse and also pain with deep breathing. She continues to have wheezing. She states she does not have much appetite but ate oatmeal and low better for this morning which is the first real meal she's had. She has not had a bowel movement since she came in but denies feeling constipated. Patient continued on Zosyn, Pulmicort 1 mg twice daily added, consult with pulmonary medicine. Discussed with patient need for IV steroids and she was reluctant but did agree, we will increase clonazepam to 1 mg twice daily. Patient states that her daughter and granddaughter have tested positive for RSV. Nausea is improved with the addition of scopolamine patch yesterday. 02/17: Patient states that she is not feeling any better. She still has shortness of breath and a cough. Patient noted to be hoarse. Levaquin 750 mg daily added. She is also complaining of constipation despite taking colchicine. We will add in a Dulcolax suppository per her request for today. Patient has been seen and followed by pulmonary medicine. Pro-calcitonin is 0.08, RSV negative, Legionella AG negative. WBC 14.2, hemoglobin 12.1, platelet count 277. Electrolytes within normal limits, creatinine 0.8. Blood sugar 144. Total bilirubin 0.15, AST 49, ALT 81, alkaline phosphatase 140. Sed rate 15. Patient has been afebrile, heart rate in the 60s and 70s, blood pressure 114/68, pulse ox 96% on room air. Sputum to be obtained for culture. Records will be obtained from [facility] Patten. Repeat chest x-ray this morning reveals bilateral lower lobe infiltrates stable. Echocardiogram reveals normal left ventricular dimension and systolic function. Mild mitral regurgitation. 02/18: Patient complains of feeling tired because she has not been sleeping. She received steroid injection late last night and was not able to sleep all ni t. She states she is still having chest pain in the low mid sternal area that is a #10. She has pain with deep breathing. Shortness of breath and coughing are improved. Patient has been cleared by pulmonary medicine and cardiology for discharge home today. is cleared from cardiology for discharge home today. DISCHARGE DIAGNOSES 1. Chest pain with recent cardiac catheterization status post PCI/stent 2 at [facility] on January 31, acute coronary syndrome ruled out. 2. Acute aspiration Pneumonia. 3. Recent diagnosis of pericarditis at [facility]. 4. Coronary artery disease with recent cardiac stenting done on January 31 at [facility]. 5. Hyperlipidemia. 6. Gastroesophageal reflux disease. 7. Generalized anxiety disorder and recurrent depression. 8. COPD. 9. Spondylosis of the lumbar spine. 10. Nausea possibly related to colchicine. 11. Constipation. Greater than 35 minutes was utilized and coordinating patient's discharge. Impression and plan of care have been directed as dictated by the signing physician. Anastasiya Espitia nurse practitioner acting as scribe for signing physician. Patient Condition at Discharge: Stable Plan - Discharge Summary New Discharge Prescriptions: New Colchicine [Colcrys] 0.6 mg PO BID #60 each predniSONE 0 mg PO DIRECTED #30 tab Budesonide [Pulmicort] 1 mg INHALATION RT-BID #120 ml Levofloxacin [Levaquin] 750 mg PO DAILY #7 tab Benzonatate [Tessalon Perles] 100 mg PO TID PRN #30 cap PRN Reason: Cough Albuterol Nebulized [Ventolin Nebulized] 2.5 mg INHALATION RT-Q6H PRN #540 ml PRN Reason: Shortness Of Breath clonazePAM [KlonoPIN] 1 mg PO BID tab Continue Aspirin 81 mg PO DAILY Nitroglycerin Sl Tabs [Nitrostat] 0.4 mg SUBLINGUAL Q5M PRN PRN Reason: Chest Pain Pantoprazole [Protonix] 40 mg PO DAILY Ezetimibe [Zetia] 10 mg PO DAILY Atorvastatin [Lipitor] 80 mg PO DAILY Prasugrel HCl 10 mg PO DAILY PARoxetine HCL [Paxil Cr] 37.5 mg PO DAILY Metoprolol Succinate [Metoprolol Succinate ER] 25 mg PO DAILY HYDROcodone/APAP 10-325MG [[place] 10-325] 1 tab PO QID PRN PRN Reason: Pain Cyclobenzaprine [Flexeril] 5 mg PO HS DULoxetine HCL [Cymbalta] 30 mg PO DAILY PRN PRN Reason: nerve pain Ranolazine [Ranexa] 1,000 mg PO BID Bumetanide [BUMEX] 2 mg PO DAILY Discontinued clonazePAM [KlonoPIN] 0.5 mg PO BID Discharge Medication List Aspirin 81 mg PO DAILY 05/13/18 [History] HYDROcodone/APAP 10-325MG [[place] 10-325] 1 tab PO QID PRN 11/07/21 [History] Metoprolol Succinate [Metoprolol Succinate ER] 25 mg PO DAILY 11/07/21 [History] Nitroglycerin Sl Tabs [Nitrostat] 0.4 mg SUBLINGUAL Q5M PRN 11/07/21 [History] PARoxetine HCL [Paxil Cr] 37.5 mg PO DAILY 11/07/21 [History] Prasugrel HCl 10 mg PO DAILY 11/07/21 [History] Cyclobenzaprine [Flexeril] 5 mg PO HS 02/14/22 [History] DULoxetine HCL [Cymbalta] 30 mg PO DAILY PRN 02/14/22 [History] Ezetimibe [Zetia] 10 mg PO DAILY 02/14/22 [History] Pantoprazole [Protonix] 40 mg PO DAILY 02/14/22 [History] Atorvastatin [Lipitor] 80 mg PO DAILY 02/15/22 [History] Bumetanide [BUMEX] 2 mg PO DAILY 02/17/22 [History] Ranolazine [Ranexa] 1,000 mg PO BID 02/17/22 [History] Albuterol Nebulized [Ventolin Nebulized] 2.5 mg INHALATION RT-Q6H PRN #540 ml 02/18/22 [Rx] Benzonatate [Tessalon Perles] 100 mg PO TID PRN #30 cap 02/18/22 [Rx] Budesonide [Pulmicort] 1 mg INHALATION RT-BID #120 ml 02/18/22 [Rx] Colchicine [Colcrys] 0.6 mg PO BID #60 each 02/18/22 [Rx] Levofloxacin [Levaquin] 750 mg PO DAILY #7 tab 02/18/22 [Rx] clonazePAM [KlonoPIN] 1 mg PO BID tab 02/18/22 [Rx] predniSONE 0 mg PO DIRECTED #30 tab 02/18/22 [Rx] Follow up Appointment(s)/Referral(s): Sarath Craig MD [STAFF PHYSICIAN] - 2 Weeks Maury Montesinos MD [Primary Care Provider] - 1 Week Mack Sanchez MD [STAFF PHYSICIAN] - 1 Week [facility],Equipment [NON-STAFF] - 1 Week Activity/Diet/Wound Care/Special Instructions: Nebulizer ordered through [facility] at . Discharge Disposition: HOME SELF-CARE
[2022-02-18] MEDS: LEVOFLOXACIN 750 MG TAB PO SCH (10:33)
[2022-02-18] MEDS: PRASUGREL 10 MG TAB PO SCH (10:33)
[2022-02-18] MEDS: BUMETANIDE 0.5 MG TABLET PO SCH (10:33)
[2022-02-18] MEDS: clonazePAM 1 MG TAB PO SCH (10:33)
[2022-02-18] MEDS: ASPIRIN 81 MG PO SCH (10:34)
[2022-02-18] MEDS: METOPROLOL SUCCINATE (ER) 25 MG TAB.ER.24H PO SCH (10:34)
[2022-02-18] MEDS: EZETIMIBE 10 MG TAB PO SCH (10:34)
[2022-02-18] MEDS: PARoxetine 10 MG TAB PO SCH (10:35)
[2022-02-18] MEDS: ATORVASTATIN 80 MG TAB PO SCH (10:35)
[2022-02-18] MEDS: COLCHICINE 0.6 MG EACH PO SCH (10:35)
--- NOTE | 2022-02-18 11:23 | P.PN ---
Subjective Progress Note Date: 02/18/22 This is a very pleasant 61-year-old female patient with a history of hypertension, hyperlipidemia, anxiety, depression, gastroesophageal reflux disease and coronary artery disease with recent stent placement at [facility] on 01/31/2022. At that time she also had pericarditis. She was discharged home and states she was doing quite well until a few days ago she started developing increasing shortness of breath, chest discomfort and dry nonproductive cough. She was seen in the urgent care and subsequently referred here to the emergency room on 01/14/2022. Chest x-ray revealed basilar atelectasis versus early infiltrate. CT angiogram ruled out pulmonary embolism. There is a left lower lobe opacity. White count 14.2. Hemoglobin 13.0. D- dimer 0.63. Sodium 139. Potassium 3.6. BUN 11. Creatinine 1.0. Glucose 116. Troponin negative 3 Propulsid 10 and 0.07. Tipton virus negative, influenza A and B-, RSV negative. Of note, her daughter and granddaughter who live with her both have RSV. She is still coughing and congestion we are consulted today due to her ongoing symptoms. She is currently sitting up in bed. Maintaining good O2 saturations in the mid 90s on room air. She's been afebrile. Hemodynamically stable. She's been initiated on albuterol, Tessalon Perles, Pulmicort inhalations, IV Solu-Medrol and antibiotics in the form of Zosyn. She is on Colcrys per cardiology. The patient is seen today 02/17/2022 in follow-up on the regular medical floor. She is currently sitting up in bed. Awake and alert in no acute distress. She continues with a loose cough. She is maintaining O2 saturations in the 90s on room air. Afebrile. Hemodynamically stable. Chest x-ray continues to revealed bilateral lower lobe infiltrates. Stable. White count 14.2. Hemoglobin 12.1. Sodium 141 potassium 4.9. BUN 14. Creatinine 0.8. AST 49. ALT 81. Legionella antigen negative. RSV by PCR negative. Pro-calcitonin 0.08. She is continued on Pulmicort inhalations, albuterol inhalations, IV Solu-Medrol. Antibiotics in the form of Zosyn. The patient is seen today 02/18/2022 in follow-up on the regular medical floor. She is awake and alert in no acute distress. Denies any worsening shortness of breath. Still dry nonproductive cough. No chills or fever.maintaining O2 saturations in the 90s on room air.white count 16.0. Hemoglobin 12.2. Sodium 11 potassium 4.1. BUN 14. Creatinine 0.9. AST 38. ALT 68.She is continued on albuterol, Pulmicort. IV symmetric. Antibiotics in the form of Zosyn and Levaquin. Objective - Vital Signs Vital signs: Vital Signs Temp 97.6 F 02/18/22 08:00 Pulse 58 L 02/18/22 08:00 Resp 18 02/18/22 08:00 BP 138/75 02/18/22 08:00 Pulse Ox 98 02/18/22 08:00 FiO2 Intake & Output 02/17/22 02/18/22 02/18/22 18:59 06:59 18:59 Intake Total 600 240 Balance 600 240 Intake: Oral 600 240 Other: Voiding Method Toilet Toilet # Voids 2 2 - Exam GENERAL EXAM: Alert, 61-year-old female, on room air, fairly comfortable in no apparent distress. HEAD: Normocephalic. EYES: Normal reaction of pupils, equal size. NOSE: Clear with pink turbinates. THROAT: No erythema or exudates. NECK: No masses, no JVD. CHEST: No chest wall deformity. LUNGS: Equal air entry with crackles, in the lung bases. CVS: S1 and S2 normal with no audible murmur, regular rhythm. ABDOMEN: No hepatosplenomegaly, normal bowel sounds, no guarding or rigidity. SPINE: No scoliosis or deformity SKIN: No rashes CENTRAL NERVOUS SYSTEM: No focal deficits, tone is normal in all 4 extremities. EXTREMITIES: There is no peripheral edema. No clubbing, no cyanosis. Peripheral pulses are intact. - Labs CBC & Chem 7: 02/18/22 05:22 02/18/22 05:22 Labs: Abnormal Lab Results - Last 24 Hours (Table) 02/17/22 02/17/22 02/18/22 Range/Units 16:34 19:59 05:22 WBC 16.01 H (4.50-10.00) X 10*3/uL RBC 4.00 L (4.10-5.20) X 10*6/uL Hct 37.1 L (37.2-46.3) % Glucose (70-110) mg/dL POC Glucose (mg/dL) 197 H 192 H (70-110) mg/dL Total Bilirubin (0.30-1.20) mg/dL AST (13-35) U/L ALT (8-44) U/L Alkaline Phosphatase (41-126) U/L Total Protein (6.2-8.2) g/dL 02/18/22 02/18/22 Range/Units 05:22 05:34 WBC (4.50-10.00) X 10*3/uL RBC (4.10-5.20) X 10*6/uL Hct (37.2-46.3) % Glucose 162 H (70-110) mg/dL POC Glucose (mg/dL) 178 H (70-110) mg/dL Total Bilirubin <0.15 L (0.30-1.20) mg/dL AST 38 H (13-35) U/L ALT 68 H (8-44) U/L Alkaline Phosphatase 133 H (41-126) U/L Total Protein 6.0 L (6.2-8.2) g/dL Assessment and Plan Assessment: Acute healthcare acquired left lower lobe pneumonia. Currently on Zosyn and Levaquin. Tipton virus negative. Influenza screen negative. RSV negative. Legionella antigen negative Recent admission to [facility] with pericarditis and coronary disease with 2 stents placed on 01/31/2022 Anxiety/depression Chronic obstructive pulmonary disease History of chronic tobacco dependence however quit approximately 1 year ago Chronic back pain Hyperlipidemia Plan: The patient was seen and evaluated Labs and medications reviewed Continue antibiotics and bronchodilators Continue a prednisone taper Cleared for discharge from the pulmonary standpoint Follow up with Dr. Craig in the office in 1 week I have personally seen and examined the patient, performed the documentation and the assessment and plan as written. Number of minutes spent on the visit: 10.
--- NOTE | 2022-02-18 11:55 | P.PN ---
Subjective Progress Note Date: 02/18/22 HISTORY OF PRESENT ILLNESS: This is a 61-year-old female with a past medical history significant for coronary artery disease with recent stenting and hyperlipidemia. 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 We have been asked to see the patient in consultation for chest pain. Patient examined at the bedside. Patient states that she was hospitalized at [facility] at the end of January and underwent stent placement 2. She also states she was diagnosed with pericarditis after her stent placement. She presented to the hospital with multiple complaints. She reports having chest pain that is in the middle of her chest and feels like a stabbing sensation. She states that pain is worse with deep inspiration. She states the pain is better when she is leaning forward. She also reports having a cough without spu abran production. She reports having a fever as high as 104 at home. She also reports generalized weakness and diaphoresis. She states that her daughter and her granddaughter recently had an upper respiratory infection. * EKG reveals sinus mechanism with mild ST elevation in aVR * Chest xray basilar atelectasis versus early infiltrate * Chest CTA: No evidence for PE. Left lower lobe opacified airways correlate for aspiration/retained secretions * Laboratory data: WBC 10.9. Hemoglobin 15.1. Platelet count 293. Sodium 141. Potassium 3.9. BUN 13. Creatinine 0.90. Troponin negative 2. * Current home cardiac medications include Lipitor 80 mg daily, Zetia 10 mg daily, Bumex 0.5 mg twice a day, metoprolol succinate 25 mg daily, aspirin 81 mg daily 02/16/2022 Patient examined this morning at the bedside. Patient continues to report chest pain this morning that is worse with deep . She reports significant coughing and states she has been up since 3:00 this morning with a constant nonproductive cough. She does report that her daughter and granddaughter recently tested positive for RSV. ESR 15. CRP 8.1. Echocardiogram completed revealing ejection fraction 50-55%, mild MR 02/17/2022 Patient examined this morning at the bedside. She reports she is feeling sli ghtly better than yesterday. She continues to have a nonproductive cough. She continues to report chest pain that is worse with deep inspiration. She reports she was started on colchicine at [facility] and she was diagnosed with pericarditis. She states that after taking it for 5 days she began to have nausea, vomiting, and diarrhea. She also reports having bright red blood per rectum. Patient does report having some nausea during this hospitalization. She denies having any further episodes of bleeding per rectum. Patient has been started on IV steroids per internal medicine. Chest x-ray this morning reveals bilateral lower lobe infiltrates. 02/18/2022 Patient complains of feeling tired because she has not been sleeping. She received steroid injection late last night and was not able to sleep all night. She states she is still having chest pain in the low mid sternal area that is a #10. She has pain with deep breathing. Shortness of breath and coughing are improved. Patient is agreeable to continue taking colchicine and follow up with Dr. Sanchez as an outpatient. Patient is cleared from cardiology for discharge home today. PHYSICAL EXAM: VITAL SIGNS: Reviewed. GENERAL: Well-developed in no acute distress. HEENT: Head is normocephalic. Pupils are equal, round. Sclerae anicteric. Mucous membranes of the mouth are moist. Neck supple. No JVD or thyromegaly LUNGS: Respirations even and unlabored. Lungs essentially clear to auscultation bilaterally, diminished. HEART: Regular rate and rhythm. S1 and S2 heard. ABDOMEN: Soft. Nondistended. Nontender. EXTREMITIES: Normal range of motion. No clubbing or cyanosis. Peripheral pulses intact. No lower extremity edema NEUROLOGIC: Awake and alert. Oriented x 3. 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 May use Tylenol if needed. Further recommendations pending patient course Patient would like to follow up with Dr. Sanchez post discharge Nurse practitioner note has been reviewed by physician. Signing provider agrees with the documented findings, assessment, and plan of care. Objective - Vital Signs Vital signs: Vital Signs Temp 98.2 F 02/18/22 02:13 Pulse 57 L 02/18/22 02:13 Resp 18 02/18/22 02:13 BP 125/65 02/18/22 02:13 Pulse Ox 95 02/18/22 02:13 FiO2 Intake & Output 02/17/22 02/18/22 02/18/22 18:59 06:59 18:59 Intake Total 600 Balance 600 Intake: Oral 600 Other: Voiding Method Toilet Toilet # Voids 2 2 - Labs CBC & Chem 7: 02/18/22 05:22 02/18/22 05:22 Labs: Abnormal Lab Results - Last 24 Hours (Table) 02/17/22 02/17/22 02/17/22 Range/Units 05:07 16:34 19:59 WBC (4.50-10.00) X 10*3/uL RBC (4.10-5.20) X 10*6/uL Hct (37.2-46.3) % Anion Gap 9.10 L (10.00-18.00) mmol/L Glucose 144 H (70-110) mg/dL POC Glucose (mg/dL) 197 H 192 H (70-110) mg/dL Total Bilirubin <0.15 L (0.30-1.20) mg/dL AST 49 H (13-35) U/L ALT 81 H (8-44) U/L Alkaline Phosphatase 140 H (41-126) U/L Total Protein 5.9 L (6.2-8.2) g/dL 02/18/22 02/18/22 Range/Units 05:22 05:34 WBC 16.01 H (4.50-10.00) X 10*3/uL RBC 4.00 L (4.10-5.20) X 10*6/uL Hct 37.1 L (37.2-46.3) % Anion Gap (10.00-18.00) mmol/L Glucose (70-110) mg/dL POC Glucose (mg/dL) 178 H (70-110) mg/dL Total Bilirubin (0.30-1.20) mg/dL AST (13-35) U/L ALT (8-44) U/L Alkaline Phosphatase (41-126) U/L Total Protein (6.2-8.2) g/dL
== END 2022-02-18 12:18 | disposition home or self-care (01) | DRG 178 ==
LOC: EC 10:54 → 6NMEDSUR 16:10 → OBSVTOIN 02-15 13:51
PROVIDERS: ADMIT Internal Medicine; ATTEND Internal Medicine
DX: J15.6 Pneumonia due to other Gram-negative bacteria (principal); F33.9 Major depressive disorder, recurrent, unspecified; J98.11 Atelectasis; I50.32 Chronic diastolic (congestive) heart failure; Z20.822 Contact with and (suspected) exposure to COVID-19; I11.0 Hypertensive heart disease with heart failure; E78.5 Hyperlipidemia, unspecified; F17.210 Nicotine dependence, cigarettes, uncomplicated; M47.816 Spondylosis without myelopathy or radiculopathy, lumbar region; F41.1 Generalized anxiety disorder; G89.29 Other chronic pain; I25.10 Atherosclerotic heart disease of native coronary artery without angina pectoris; I44.0 Atrioventricular block, first degree; M54.9 Dorsalgia, unspecified; J44.9 Chronic obstructive pulmonary disease, unspecified; K21.9 Gastro-esophageal reflux disease without esophagitis; K59.00 Constipation, unspecified; Z79.02 Long term (current) use of antithrombotics/antiplatelets; Z79.51 Long term (current) use of inhaled steroids; Z79.82 Long term (current) use of aspirin; Z79.899 Other long term (current) drug therapy; Z85.3 Personal history of malignant neoplasm of breast; Z90.710 Acquired absence of both cervix and uterus; Z95.5 Presence of coronary angioplasty implant and graft; Z88.8 Allergy status to other drugs, medicaments and biological substances; Z88.6 Allergy status to analgesic agent; Z82.49 Family history of ischemic heart disease and other diseases of the circulatory system
CPT/HCPCS: 36415; 71046; 71275; 80053; 81001; 83036; 83605; 83880; 84145; 84484; 85025; 85027; 85379; 85652; 85730; 86140; 87449; 87502; 87634; 87635; 93005; 93306; 94640; 96374; 99285

== ENCOUNTER 2022-03-08 11:06 | Emergency (ER) | payer BC ==
[2022-03-08 11:25] VITALS: BP 101/69; TEMP 98.9
[2022-03-08 11:41] VITALS: RESP 18
[2022-03-08] MEDS ORDERED: IPRATROPIUM 0.5 MG/2.5 ML NEBU INHALATION STA (11:51)
[2022-03-08] MEDS ORDERED: KETOROLAC 15 MG/ML 1 ML VIAL IVP STA (12:08)
--- NOTE | 2022-03-08 12:12 | XR ---
EXAMINATION TYPE: XR chest 2V DATE OF EXAM: 03/08/2022 COMPARISON: 02/17/22 HISTORY: Shortness of breath TECHNIQUE: Frontal and lateral views of the chest are obtained. FINDINGS: Scattered senescent parenchymal changes noted. No evidence for infiltrate. No evidence for atelectasis. Heart size is stable. Mediastinal structures are stable and grossly unremarkable. No evidence for hilar prominence. Degenerative changes dorsal spine. IMPRESSION: 1. No evidence for acute pulmonary disease.
--- NOTE | 2022-03-08 12:41 | ED ---
URI HPI - General Chief Complaint: Upper Respiratory Infection Stated Complaint: fever, cough Time Seen by Provider: 03/08/22 11:26 Source: patient, RN notes reviewed Mode of arrival: ambulatory Limitations: no limitations - History of Present Illness Initial Comments: This is a 61-year-old female who presents to the emergency department for coughing and difficulty breathing. Symptoms have been present for the last 5 days. She reports associated body aches and chest tightness. She attributes the chest tightness to all of the coughing. States that the coughing is worse at night and difficult to control. Her cough is described as productive. She's been taking Tylenol for her body aches with no relief. She has history of coronary artery disease and otherwise has no pulmonary illnesses such as COPD or asthma. Denies any sick contacts. Denies any palpitations, abdominal pain, nausea, vomiting, diarrhea, or back pain. MD Complaint: fever, cough Onset/Timin -: days(s) Associated Symptoms: myalgias, chest pain, shortness of breath Treatments Prior to Arrival: Acetaminophen - Related Data Home Medications Medication Instructions Recorded Confirmed Aspirin 81 mg PO DAILY 05/13/18 02/14/22 HYDROcodone/APAP 10-325MG [[place] 1 tab PO QID PRN 11/07/21 02/14/22 10-325] Metoprolol Succinate [Metoprolol 25 mg PO DAILY 11/07/21 02/14/22 Succinate ER] Nitroglycerin Sl Tabs [Nitrostat] 0.4 mg SUBLINGUAL Q5M PRN 11/07/21 02/14/22 PARoxetine HCL [Paxil Cr] 37.5 mg PO DAILY 11/07/21 02/14/22 Prasugrel HCl 10 mg PO DAILY 11/07/21 02/14/22 Cyclobenzaprine [Flexeril] 5 mg PO HS 02/14/22 02/14/22 DULoxetine HCL [Cymbalta] 30 mg PO DAILY PRN 02/14/22 02/14/22 Ezetimibe [Zetia] 10 mg PO DAILY 02/14/22 02/14/22 Pantoprazole [Protonix] 40 mg PO DAILY 02/14/22 02/14/22 Atorvastatin [Lipitor] 80 mg PO DAILY 02/15/22 02/15/22 Bumetanide [BUMEX] 2 mg PO DAILY 02/17/22 02/17/22 Ranolazine [Ranexa] 1,000 mg PO BID 02/17/22 02/17/22 Previous Rx's Medication Instructions Recorded Albuterol Nebulized [Ventolin 2.5 mg INHALATION RT-Q6H PRN #540 02/18/22 Nebulized] ml Benzonatate [Tessalon Perles] 100 mg PO TID PRN #30 cap 02/18/22 Budesonide [Pulmicort] 1 mg INHALATION RT-BID #120 ml 02/18/22 Colchicine [Colcrys] 0.6 mg PO BID #60 each 02/18/22 Levofloxacin [Levaquin] 750 mg PO DAILY #7 tab 02/18/22 clonazePAM [KlonoPIN] 1 mg PO BID tab 02/18/22 predniSONE 0 mg PO DIRECTED #30 tab 02/18/22 Ipratropium Nebulized [Atrovent 0.5 mg INHALATION Q6HR PRN #300 ml 03/08/22 Nebulized 0.2 MG/ML] Metoclopramide [Reglan] 10 mg PO Q6H PRN #20 tab 03/08/22 Promethazine/Dextromethorphan 5 ml PO Q6H PRN #473 ml 03/08/22 [Promethazine-Dm 6.25-15 mg/5Ml] Allergies Allergy/AdvReac Type Severity Reaction Status Date / Time ondansetron [From Zofran] AdvReac extreme Verified 03/08/22 11:25 constipation steroids Allergy Rash/Hives Uncoded 03/08/22 11:25 Review of Systems ROS Statement: Those systems with pertinent positive or pertinent negative responses have been documented in the HPI. ROS Other: All systems not noted in ROS Statement are negative. Past Medical History Past Medical History: Coronary Artery Disease (CAD), Cancer, GERD/Reflux, Hyperlipidemia Additional Past Medical History / Comment(s): irritable bowel syndrome. right breast cancer 2009 with lumpectomy/chemo x 3 in three sites History of Any Multi-Drug Resistant Organisms: None Reported Past Surgical History: Breast Surgery, Heart Catheterization With Stent, Hysterectomy Additional Past Surgical History / Comment(s): right breast lumpectomy 2009/ chemotherapy 2009. 2012 and 2015 Past Anesthesia/Blood Transfusion Reactions: No Reported Reaction Date of Last Stent Placement:: 2 weeks ago Past Psychological History: Anxiety, Depression Smoking Status: Current every day smoker, Light tobacco smoker Past Alcohol Use History: Rare Past Drug Use History: None Reported - Past Family History Father Family Medical History: Chest Pain / Angina, Coronary Artery Disease (CAD), Myocardial Infarction (SD) Additional Family Medical History / Comment(s): Luisa in his 50s. He was on a cardiac transplant list. Mother Family Medical History: Coronary Artery Disease (CAD), Myocardial Infarction (SD) Additional Family Medical History / Comment(s): history of multiple stents. Mother at age 72. Brother(s) Additional Family Medical History / Comment(s): Patient has 3 brothers. One has no major medical problems, one is unknown medical problems, when his cardiac problems. All brothers have anxiety. Sister(s) Additional Family Medical History / Comment(s): Patient has 3 sisters all gómez ffering from anxiety. Daughter(s) Additional Family Medical History / Comment(s): Patient has 2 daughters. One daughter has MS. One daughter has anxiety. Patient does not have any sons. General Exam Limitations: no limitations General appearance: alert, in distress Head exam: Present: atraumatic, normocephalic, normal inspection Respiratory exam: Present: normal lung sounds bilaterally. Absent: respiratory distress, wheezes, rales, rhonchi, stridor Cardiovascular Exam: Present: regular rate, normal rhythm, normal heart sounds. Absent: systolic murmur, diastolic murmur, rubs, gallop, clicks Neurological exam: Present: alert, oriented X3, CN II-XII intact Psychiatric exam: Present: normal affect, normal mood Skin exam: Present: warm, dry, intact, normal color. Absent: rash Course Vital Signs 03/08/22 03/08/22 03/08/22 11:22 11:37 13:35 Temperature 98.9 F Pulse Rate 98 89 Respiratory 22 18 18 Rate Blood Pressure 101/69 O2 Sat by Pulse 97 Oximetry 03/08/22 13:42 Temperature Pulse Rate 86 Respiratory 18 Rate Blood Pressure O2 Sat by Pulse Oximetry Medical Decision Making - Medical Decision Making This is a 61-year-old female who presents to the emergency department for coughing and difficulty breathing. Patient tested positive for influenza A. My interpretation of her chest x-ray reveals no localized consolidations or infiltrates. Lab work was nonactionable. She was given Toradol and an Atrovent breathing treatment for her symptoms, which she states were effective. She also started to complain of nausea and was subsequently given a dose of Reglan, which was also effective. Given that symptoms have been present for 5 days, she is out of the timeframe where Tamiflu can be prescribed. She is also unable to tolerate oral steroids. Prescription for promethazine DM cough syrup, Atrovent nebulizer solution, and Reglan provided. Advised that the cough syrup can be sedating and she should avoid driving or operating machinery when taking this. Dosing instructions on the Atrovent and Reglan were reviewed. She is also instructed to remain well-hydrated and get plenty of rest. Return precautions reviewed in depth, the patient is instructed to return to the emergency department with any new, worsening, or concerning symptoms. Patient verbalized understanding. This case was discussed in detail with the attending ED physician. Presentation, findings, and treatment plan discussed in detail as well. - Lab Data Result diagrams: 03/08/22 12:32 03/08/22 12:32 Lab Results 03/08/22 03/08/22 03/08/22 Range/Units 12:32 12:32 12:32 WBC 3.9 (3.8-10.6) k/uL RBC 4.62 (3.80-5.40) m/uL Hgb 14.2 (11.4-16.0) gm/dL Hct 41.9 (34.0-46.0) % MCV 90.6 (80.0-100.0) fL MCH 30.8 (25.0-35.0) pg MCHC 34.0 (31.0-37.0) g/dL RDW 13.7 (11.5-15.5) % Plt Count 163 (150-450) k/uL MPV 7.3 Neutrophils % 52 % Lymphocytes % 38 % Monocytes % 5 % Eosinophils % 1 % Basophils % 1 % Neutrophils # 2.0 (1.3-7.7) k/uL Lymphocytes # 1.5 (1.0-4.8) k/uL Monocytes # 0.2 (0-1.0) k/uL Eosinophils # 0.1 (0-0.7) k/uL Basophils # 0.0 (0-0.2) k/uL PT 9.8 (9.0-12.0) sec INR 0.9 (<1.2) APTT 24.9 (22.0-30.0) sec Sodium 139 (137-145) mmol/L Potassium 4.3 (3.5-5.1) mmol/L Chloride 108 H (98-107) mmol/L Carbon Dioxide 24 (22-30) mmol/L Anion Gap 7 mmol/L BUN 12 (7-17) mg/dL Creatinine 0.73 (0.52-1.04) mg/dL Est GFR (CKD-EPI)AfAm >90 (>60 ml/min/1.73 sqM) Est GFR (CKD-EPI)NonAf >90 (>60 ml/min/1.73 sqM) Glucose 99 (74-99) mg/dL Plasma Lactic Acid Jakub (0.7-2.0) mmol/L Calcium 8.5 (8.4-10.2) mg/dL Total Bilirubin 0.4 (0.2-1.3) mg/dL AST 80 H (14-36) U/L ALT 94 H (4-34) U/L Alkaline Phosphatase 113 (38-126) U/L Troponin I (0.000-0.034) ng/mL Total Protein 6.2 L (6.3-8.2) g/dL Albumin 3.9 (3.5-5.0) g/dL Coronavirus (PCR) (Not Detectd) Influenza Type A RNA (Not Detectd) Influenza Type B (PCR) (Not Detectd) 03/08/22 03/08/22 03/08/22 Range/Units 12:32 12:32 12:32 WBC (3.8-10.6) k/uL RBC (3.80-5.40) m/uL Hgb (11.4-16.0) gm/dL Hct (34.0-46.0) % MCV (80.0-100.0) fL MCH (25.0-35.0) pg MCHC (31.0-37.0) g/dL RDW (11.5-15.5) % Plt Count (150-450) k/uL MPV Neutrophils % % Lymphocytes % % Monocytes % % Eosinophils % % Basophils % % Neutrophils # (1.3-7.7) k/uL Lymphocytes # (1.0-4.8) k/uL Monocytes # (0-1.0) k/uL Eosinophils # (0-0.7) k/uL Basophils # (0-0.2) k/uL PT (9.0-12.0) sec INR (<1.2) APTT (22.0-30.0) sec Sodium (137-145) mmol/L Potassium (3.5-5.1) mmol/L Chloride (98-107) mmol/L Carbon Dioxide (22-30) mmol/L Anion Gap mmol/L BUN (7-17) mg/dL Creatinine (0.52-1.04) mg/dL Est GFR (CKD-EPI)AfAm (>60 ml/min/1.73 sqM) Est GFR (CKD-EPI)NonAf (>60 ml/min/1.73 sqM) Glucose (74-99) mg/dL Plasma Lactic Acid Jakub 1.4 (0.7-2.0) mmol/L Calcium (8.4-10.2) mg/dL Total Bilirubin (0.2-1.3) mg/dL AST (14-36) U/L ALT (4-34) U/L Alkaline Phosphatase (38-126) U/L Troponin I <0.012 (0.000-0.034) ng/mL Total Protein (6.3-8.2) g/dL Albumin (3.5-5.0) g/dL Coronavirus (PCR) (Not Detectd) Influenza Type A RNA Detected H (Not Detectd) Influenza Type B (PCR) Not Detected (Not Detectd) 03/08/22 Range/Units 12:32 WBC (3.8-10.6) k/uL RBC (3.80-5.40) m/uL Hgb (11.4-16.0) gm/dL Hct (34.0-46.0) % MCV (80.0-100.0) fL MCH (25.0-35.0) pg MCHC (31.0-37.0) g/dL RDW (11.5-15.5) % Plt Count (150-450) k/uL MPV Neutrophils % % Lymphocytes % % Monocytes % % Eosinophils % % Basophils % % Neutrophils # (1.3-7.7) k/uL Lymphocytes # (1.0-4.8) k/uL Monocytes # (0-1.0) k/uL Eosinophils # (0-0.7) k/uL Basophils # (0-0.2) k/uL PT (9.0-12.0) sec INR (<1.2) APTT (22.0-30.0) sec Sodium (137-145) mmol/L Potassium (3.5-5.1) mmol/L Chloride (98-107) mmol/L Carbon Dioxide (22-30) mmol/L Anion Gap mmol/L BUN (7-17) mg/dL Creatinine (0.52-1.04) mg/dL Est GFR (CKD-EPI)AfAm (>60 ml/min/1.73 sqM) Est GFR (CKD-EPI)NonAf (>60 ml/min/1.73 sqM) Glucose (74-99) mg/dL Plasma Lactic Acid Jakub (0.7-2.0) mmol/L Calcium (8.4-10.2) mg/dL Total Bilirubin (0.2-1.3) mg/dL AST (14-36) U/L ALT (4-34) U/L Alkaline Phosphatase (38-126) U/L Troponin I (0.000-0.034) ng/mL Total Protein (6.3-8.2) g/dL Albumin (3.5-5.0) g/dL Coronavirus (PCR) Not Detected (Not Detectd) Influenza Type A RNA (Not Detectd) Influenza Type B (PCR) (Not Detectd) - EKG Data -: EKG Interpreted by [facility] EKG Comments: Normal sinus rhythm. Ventricular rate 88 bpm, NV interval 161 ms, QRS duration 80 ms, QTC 369 ms. - Radiology Data Radiology results: report reviewed, image reviewed Disposition Clinical Impression: Influenza A, Nausea Disposition: HOME SELF-CARE Instructions (If sedation given, give patient instructions): Influenza (ED) Additional Instructions: Return to the emergency department with any new, worsening, or concerning symptoms. Use the cough syrup every 4-6 hours as needed, be aware that this may be sedating and you should avoid driving or operating machinery when taking this. You can use the nebulizer solution every 4-6 hours as well for coughing and difficulty breathing. The reglan can be taken every 6 hours as needed for nausea and vomiting. Make sure that you remain well-hydrated and get plenty of rest. Use [id number] ibuprofen and Tylenol as needed for body aches. Follow up with your primary care provider in 1-2 days. Prescriptions: Ipratropium Nebulized [Atrovent Nebulized 0.2 MG/ML] 0.5 mg INHALATION Q6HR PRN #300 ml PRN Reason: Shortness Of Breath Promethazine/Dextromethorphan [Promethazine-Dm 6.25-15 mg/5Ml] 5 ml PO Q6H PRN #473 ml PRN Reason: Cough Metoclopramide [Reglan] 10 mg PO Q6H PRN #20 tab PRN Reason: Nausea And Vomiting Is patient prescribed a controlled substance at d/c from ED?: No Referrals: Maury Montesinos MD [Primary Care Provider] - 1-2 days
[2022-03-08] MEDS ORDERED: METOCLOPRAMIDE 5 MG/ML 2 ML VIAL IVP STA (13:23)
[2022-03-08 13:43] VITALS: PULSE 86
[2022-03-08 13:48] LABS: Basophils % (A) 1 %; Eosinophils # (A) 0.1 k/uL (0-0.7); Eosinophils % (A) 1 %; HCT 41.9 % (34.0-46.0); HGB 14.2 gm/dL (11.4-16.0); Lymphocytes # (A) 1.5 k/uL (1.0-4.8); Lymphocytes % (A) 38 %; MCH 30.8 pg (25.0-35.0); MCV 90.6 fL (80.0-100.0); Mean Platelet Volume 7.3; Monocytes # (A) 0.2 k/uL (0-1.0); Monocytes % (A) 5 %; Neutrophils % (A) 52 %; Platelet Count 163 k/uL (150-450); RBC 4.62 m/uL (3.80-5.40); RDW 13.7 % (11.5-15.5); WBC 3.9 k/uL (3.8-10.6)
[2022-03-08 14:02] LABS: ALT 94 U/L (4-34); AST 80 U/L (14-36); African American GFR (CKD) >90 (>60 ml/min/1.73 sqM); Albumin 3.9 g/dL (3.5-5.0); Alkaline Phosphatase 113 U/L (38-126); Anion Gap 7 mmol/L; Blood Urea Nitrogen 12 mg/dL (7-17); Calcium 8.5 mg/dL (8.4-10.2); Carbon Dioxide 24 mmol/L (22-30); Chloride 108 mmol/L (98-107); Glucose 99 mg/dL (74-99); Non-African American GFR(CKD) >90 (>60 ml/min/1.73 sqM); Potassium 4.3 mmol/L (3.5-5.1); Sodium 139 mmol/L (137-145); Total Bilirubin 0.4 mg/dL (0.2-1.3); Total Protein 6.2 g/dL (6.3-8.2)
[2022-03-08 14:35] LABS: INR 0.9 (<1.2); Partial Thromboplastin Time 24.9 sec (22.0-30.0); Prothrombin Time 9.8 sec (9.0-12.0)
== END 2022-03-08 15:24 | disposition home or self-care (01) ==
LOC: EC 11:06
DX: J10.1 Influenza due to other identified influenza virus with other respiratory manifestations (principal); I25.10 Atherosclerotic heart disease of native coronary artery without angina pectoris; E78.5 Hyperlipidemia, unspecified; K21.9 Gastro-esophageal reflux disease without esophagitis; F41.9 Anxiety disorder, unspecified; F32.A Depression, unspecified; F17.200 Nicotine dependence, unspecified, uncomplicated; Z79.82 Long term (current) use of aspirin; Z79.899 Other long term (current) drug therapy; Z88.8 Allergy status to other drugs, medicaments and biological substances; Z20.822 Contact with and (suspected) exposure to COVID-19
CPT/HCPCS: 99284; 36415; 94640; 80053; 83605; 84484; 85025; 85610; 85730; 87502; 87635; 71046; 96374; 96375; J2765; J1885

== ENCOUNTER 2022-07-25 14:46 | Emergency (ER) | payer BC ==
--- NOTE | 2022-07-25 14:49 | ED ---
General Adult HPI <Velvet Fonseca - Last Filed: 07/25/22 14:48> - History of Present Illness Onset/Timin -: days(s) Location: chest Radiation: non-radiation Quality: aching Consistency: constant Improves with: none Worsens with: other (Often) Associated Symptoms: cough, other Treatments Prior to Arrival: none <Newton Mckeon - Last Filed: 08/07/22 00:42> - General Stated complaint: chest pain and pressure Time Seen by Provider: 07/25/22 14:48 - History of Present Illness Initial comments: 61-year-old female presents to the emergency department with a chief complaint of generalized body aches, dizziness, lightheadedness, chest tightness and cough that started 4 days ago. (Velvet Fonseca) This patient is a 61-year-old woman who presents to have evaluation of a constellation of symptoms starting approximately 4 days ago. She has had a little bit of congestion and cough, no hemoptysis or purulent appearing sputum. She states that her chest feels achy and tight. She is also having some myalgia s associated. She feels lightheaded when she gets up. She has not noted fevers. She is denying dyspnea. There is no focal chest pain just kind of diffuse aching related to cough. (Newton Mckeon) - Related Data Home Medications Medication Instructions Recorded Confirmed Aspirin 81 mg PO DAILY 05/13/18 07/25/22 HYDROcodone/APAP 10-325MG [[place] 1 tab PO QID PRN 11/07/21 07/25/22 10-325] Nitroglycerin Sl Tabs [Nitrostat] 0.4 mg SUBLINGUAL Q5M PRN 11/07/21 07/25/22 PARoxetine HCL [Paxil Cr] 37.5 mg PO DAILY 11/07/21 07/25/22 Atorvastatin [Lipitor] 80 mg PO DAILY 02/15/22 07/25/22 Bumetanide [BUMEX] 2 mg PO DAILY 02/17/22 07/25/22 Ranolazine [Ranexa] 1,000 mg PO BID 02/17/22 07/25/22 Acetaminophen [Tylenol Extra 1,000 mg PO Q6H PRN 07/25/22 07/25/22 Strength] Isosorbide Mononitrate ER [Imdur] 30 mg PO DAILY 07/25/22 07/25/22 Temazepam 30 mg PO HS PRN 07/25/22 07/25/22 clonazePAM [KlonoPIN] 1 mg PO TID 07/25/22 07/25/22 Previous Rx's Medication Instructions Recorded Albuterol Inhaler [Ventolin Hfa 2 puff INHALATION Q4HR PRN #8 gm 07/25/22 Inhaler] predniSONE [Deltasone] 20 mg PO BID #8 tab 07/25/22 Allergies Allergy/AdvReac Type Severity Reaction Status Date / Time steroids Allergy Rash/Hives Uncoded 07/25/22 17:17 Review of Systems ROS Other: All systems not noted in ROS Statement are negative. <Velvet Fonseca - Last Filed: 07/25/22 14:48> ROS Other: All systems not noted in ROS Statement are negative. Constitutional: Denies: fever, chills, weakness ENT: Reports: congestion Respiratory: Reports: cough, wheezes. Denies: dyspnea Cardiovascular: Reports: chest pain. Denies: palpitations, orthopnea, edema, syncope Gastrointestinal: Denies: abdominal pain, vomiting, diarrhea Genitourinary: Denies: dysuria, hematuria Musculoskeletal: Denies: back pain, joint swelling Neurological: Reports: headache (Mild diffuse). Denies: weakness, confusion <Newton Mckeon - Last Filed: 08/07/22 00:42> ROS Statement: Those systems with pertinent positive or pertinent negative responses have been documented in the HPI. Past Medical History Past Medical History: Coronary Artery Disease (CAD), Cancer, GERD/Reflux, Hyperlipidemia Additional Past Medical History / Comment(s): irritable bowel syndrome. right breast cancer 2009 with lumpectomy/chemo x 3 in three sites History of Any Multi-Drug Resistant Organisms: None Reported Past Surgical History: Breast Surgery, Heart Catheterization With Stent, Hysterectomy Additional Past Surgical History / Comment(s): right breast lumpectomy 2009/ chemotherapy 2009. 2012 and 2016 Past Anesthesia/Blood Transfusion Reactions: No Reported Reaction Date of Last Stent Placement:: 2 weeks ago Past Psychological History: Anxiety, Depression Smoking Status: Current every day smoker, Light tobacco smoker Past Alcohol Use History: Rare Past Drug Use History: None Reported - Past Family History Father Family Medical History: Chest Pain / Angina, Coronary Artery Disease (CAD), Myocardial Infarction ([place]) Additional Family Medical History / Comment(s): Luisa in his 50s. He was on a cardiac transplant list. Mother Family Medical History: Coronary Artery Disease (CAD), Myocardial Infarction ([place]) Additional Family Medical History / Comment(s): history of multiple stents. Mother at age 72. Brother(s) Additional Family Medical History / Comment(s): Patient has 3 brothers. One has no major medical problems, one is unknown medical problems, when his cardiac problems. All brothers have anxiety. Sister(s) Additional Family Medical History / Comment(s): Patient has 3 sisters all suffering from anxiety. Daughter(s) Additional Family Medical History / Comment(s): Patient has 2 daughters. One daughter has MS. One daughter has anxiety. Patient does not have any sons. <Velvet Fonseca - Last Filed: 07/25/22 14:48> General Exam General appearance: alert, in no apparent distress Head exam: Present: atraumatic, normocephalic Eye exam: Present: normal appearance. Absent: scleral icterus, conjunctival injection Neck exam: Present: normal inspection, full ROM. Absent: meningismus Respiratory exam: Present: wheezes, rhonchi, chest wall tenderness. Absent: respiratory distress, rales, stridor, accessory muscle use, decreased breath sounds Cardiovascular Exam: Present: regular rate, normal rhythm, normal heart sounds. Absent: systolic murmur, diastolic murmur, rubs, gallop GI/Abdominal exam: Present: soft. Absent: distended, tenderness, guarding, rebound, rigid, mass Extremities exam: Present: normal inspection, normal capillary refill. Absent: pedal edema, calf tenderness Back exam: Present: normal inspection. Absent: CVA tenderness (R), CVA tenderness (L) Neurological exam: Present: alert Skin exam: Present: warm, dry, intact, normal color. Absent: rash <Newton Mckeon - Last Filed: 08/07/22 00:42> Course Vital Signs 07/25/22 07/25/22 07/25/22 14:47 15:10 15:15 Temperature 97.4 F L Pulse Rate 89 Respiratory 18 Rate Blood Pressure 91/60 O2 Sat by Pulse 95 90 L 93 L Oximetry 07/25/22 07/25/22 07/25/22 15:24 16:48 16:58 Temperature Pulse Rate 70 60 Respiratory 22 18 Rate Blood Pressure 115/69 O2 Sat by Pulse 98 Oximetry 07/25/22 07/25/22 07/25/22 17:00 17:07 18:20 Temperature Pulse Rate 63 70 78 Respiratory 18 18 Rate Blood Pressure 111/62 116/59 O2 Sat by Pulse 98 97 Oximetry EKG Findings - EKG Results: EKG: interpreted by ERMD, sinus rhythm (Rate 75 bpm), normal axis - Blocks, Reading, Hypertrophy, ST Abn: Repolarization changes or abnormalities: nonspecific abnormality, ST segment, and/or T wave <Newton Mckeon - Last Filed: 08/07/22 00:42> Medical Decision Making - Lab Data Result diagrams: 07/25/22 15:18 07/25/22 15:18 <Newton Mckeon - Last Filed: 08/07/22 00:42> - Medical Decision Making This patient is 61-year-old woman presenting with history and physical suggestive of viral upper respiratory infection with suspected bronchitis. The patient is feeling somewhat better following medications. She would like to go home. We discussed the appropriate further care and follow-up as well as return parameters. The patient had a chest x-ray as part of the workup which I interpreted as being negative for infiltrate, congestive heart failure and pneumothorax. Was pt. sent in by a medical professional or institution ([facility], [employer], urgent care, hospital, or residential...) When possible be specific @ -[No] Did you speak to anyone other than the patient for history (EMS, parent, family, police, friend...)? What history was obtained from this source @ -[No] Did you review nursing and triage notes (agree or disagree)? Why? @ -[I reviewed and agree with nursing and triage notes] Were old charts reviewed (outside hosp., previous admission, EMS record, old EKG, old radiological studies, urgent care reports/EKG's, residential records)? Report findings @ -[No old charts were reviewed] Differential Diagnosis (chest pain, altered mental status, abdominal pain women, abdominal pain men, vaginal bleeding, weakness, fever, dyspnea, syncope, headache, dizziness, GI bleed, back pain, seizure, CVA, palpatations, mental health, musculoskeletal)? @ -[The differential diagnosis for the patient's cough and congestion include upper respiratory infection, ALLERGIC reaction, bronchitis, COPD exacerbation, pneumonia, pneumonitis, amongst other conditions EKG interpreted by me (3pts min.). @ -[As above] X-rays interpreted by me (1pt min.). @ -[As above CT interpreted by me (1pt min.). @ -[None done] U/S interpreted by me (1pt. min.). @ -[None done] What testing was considered but not performed or refused? (CT, X-rays, U/S, labs)? Why? @ -[None] What meds were considered but not given or refused? Why? @ -[None] Did you discuss the management of the patient with other professionals (prof jorgensen i.e. , PA, [employer], lab, RT, psych nurse, dialysis social worker, obiee report developer, teacher, business development officer, manager rn case)? Give summary @ -[No] Was smoking cessation discussed for >3mins.? @ -[No] Was critical care preformed (if so, how long)? @ -[No] Were there social determinants of health that impacted care today? How? (Homelessness, low income, unemployed, alcoholism, drug addiction, trans portation, low edu. Level, literacy, decrease access to med. care, usp, rehab)? @ -[No] Was there de-escalation of care discussed even if they declined (Discuss DNR or withdrawal of care, Hospice)? DNR status @ -[No] What co-morbidities impacted this encounter? (DM, HTN, Smoking, COPD, CAD, Cancer, CVA, ARF, Chemo, Hep., AIDS, mental health diagnosis, sleep apnea, morbid obesity)? @ -[None] Was patient admitted / discharged? Hospital course, mention meds given and route, prescriptions, significant lab abnormalities, going to OR and other pertinent info. @ -[Discharged Undiagnosed new problem with uncertain prognosis? @ -[No] Drug Therapy requiring intensive monitoring for toxicity (Heparin, Nitro, In sulin, Cardizem)? @ -[No] Were any procedures done? @ -[No] Diagnosis/symptom? @ -[Acute bronchitis, uncomplicated Acute, or Chronic, or Acute on Chronic? @ -[default] Uncomplicated (without systemic symptoms) or Complicated (systemic symptoms)? @ -[default] Side effects of treatment? @ -[No] Exacerbation, Progression, or Severe Exacerbation? @ -[No] Poses a threat to life or bodily function? How? (Chest pain, [place], [place], pneumonia, PE, COPD, DKA, ARF, appy, cholecystitis, CVA, Diverticulitis, Homicidal, Suicidal, threat to staff... and all critical care pts) @ -[No] (Newton Mckeon) - Lab Data Lab Results 07/25/22 07/25/22 07/25/22 Range/Units 15:18 15:18 15:18 WBC 6.4 (3.8-10.6) k/uL RBC 5.02 (3.80-5.40) m/uL Hgb 15.4 (11.4-16.0) gm/dL Hct 44.2 (34.0-46.0) % MCV 88.1 (80.0-100.0) fL MCH 30.7 (25.0-35.0) pg MCHC 34.8 (31.0-37.0) g/dL RDW 14.5 (11.5-15.5) % Plt Count 309 (150-450) k/uL MPV 7.4 Neutrophils % 65 % Lymphocytes % 28 % Monocytes % 4 % Eosinophils % 1 % Basophils % 0 % Neutrophils # 4.2 (1.3-7.7) k/uL Lymphocytes # 1.8 (1.0-4.8) k/uL Monocytes # 0.3 (0-1.0) k/uL Eosinophils # 0.1 (0-0.7) k/uL Basophils # 0.0 (0-0.2) k/uL PT 10.4 (9.0-12.0) sec INR 1.0 (<1.2) APTT 24.3 (22.0-30.0) sec D-Dimer (<0.60) mg/L FEU Sodium 138 (137-145) mmol/L Potassium 4.0 (3.5-5.1) mmol/L Chloride 105 (98-107) mmol/L Carbon Dioxide 26 (22-30) mmol/L Anion Gap 7 mmol/L BUN 11 (7-17) mg/dL Creatinine 0.79 (0.52-1.04) mg/dL Est GFR (CKD-EPI)AfAm >90 (>60 ml/min/1.73 sqM) Est GFR (CKD-EPI)NonAf 83 (>60 ml/min/1.73 sqM) Glucose 124 H (74-99) mg/dL Calcium 8.8 (8.4-10.2) mg/dL Total Bilirubin 0.5 (0.2-1.3) mg/dL AST 31 (14-36) U/L ALT 33 (4-34) U/L Alkaline Phosphatase 129 H (38-126) U/L Troponin I (0.000-0.034) ng/mL Total Protein 6.6 (6.3-8.2) g/dL Albumin 4.0 (3.5-5.0) g/dL Influenza Type A (PCR) (Not Detectd) Influenza Type B (PCR) (Not Detectd) RSV (PCR) (Not Detectd) SARS-CoV-2 (PCR) (Not Detectd) 07/25/22 07/25/22 07/25/22 Range/Units 15:18 15:18 16:04 WBC (3.8-10.6) k/uL RBC (3.80-5.40) m/uL Hgb (11.4-16.0) gm/dL Hct (34.0-46.0) % MCV (80.0-100.0) fL MCH (25.0-35.0) pg MCHC (31.0-37.0) g/dL RDW (11.5-15.5) % Plt Count (150-450) k/uL MPV Neutrophils % % Lymphocytes % % Monocytes % % Eosinophils % % Basophils % % Neutrophils # (1.3-7.7) k/uL Lymphocytes # (1.0-4.8) k/uL Monocytes # (0-1.0) k/uL Eosinophils # (0-0.7) k/uL Basophils # (0-0.2) k/uL PT (9.0-12.0) sec INR (<1.2) APTT (22.0-30.0) sec D-Dimer 0.23 (<0.60) mg/L FEU Sodium (137-145) mmol/L Potassium (3.5-5.1) mmol/L Chloride (98-107) mmol/L Carbon Dioxide (22-30) mmol/L Anion Gap mmol/L BUN (7-17) mg/dL Creatinine (0.52-1.04) mg/dL Est GFR (CKD-EPI)AfAm (>60 ml/min/1.73 sqM) Est GFR (CKD-EPI)NonAf (>60 ml/min/1.73 sqM) Glucose (74-99) mg/dL Calcium (8.4-10.2) mg/dL Total Bilirubin (0.2-1.3) mg/dL AST (14-36) U/L ALT (4-34) U/L Alkaline Phosphatase (38-126) U/L Troponin I <0.012 (0.000-0.034) ng/mL Total Protein (6.3-8.2) g/dL Albumin (3.5-5.0) g/dL Influenza Type A (PCR) Not Detected (Not Detectd) Influenza Type B (PCR) Not Detected (Not Detectd) RSV (PCR) Not Detected (Not Detectd) SARS-CoV-2 (PCR) Not Detected (Not Detectd) Disposition <Velvet Fonseca - Last Filed: 07/25/22 14:48> Is patient prescribed a controlled substance at d/c from ED?: No <Newton Mckeon - Last Filed: 08/07/22 00:42> Clinical Impression: Bronchitis Disposition: HOME SELF-CARE Condition: Good Instructions (If sedation given, give patient instructions): Acute Bronchitis (ED) Prescriptions: predniSONE [Deltasone] 20 mg PO BID #8 tab Albuterol Inhaler [Ventolin Hfa Inhaler] 2 puff INHALATION Q4HR PRN #8 gm PRN Reason: Wheezing Referrals: Luis Escalona DO [Primary Care Provider] - 1-2 days
[2022-07-25 14:51] VITALS: TEMP 97.4
[2022-07-25] MEDS ORDERED: IPRATROPIUM-ALBUTEROL 3 ML NEB INHALATION STA (15:52)
[2022-07-25] MEDS ORDERED: HYDROcodone/APAP 10-325MG 1 EACH TAB PO ONE (15:53)
[2022-07-25 15:58] LABS: Basophils % (A) 0 %; Eosinophils # (A) 0.1 k/uL (0-0.7); Eosinophils % (A) 1 %; HCT 44.2 % (34.0-46.0); HGB 15.4 gm/dL (11.4-16.0); Lymphocytes # (A) 1.8 k/uL (1.0-4.8); Lymphocytes % (A) 28 %; MCH 30.7 pg (25.0-35.0); MCHC 34.8 g/dL (31.0-37.0); MCV 88.1 fL (80.0-100.0); Mean Platelet Volume 7.4; Monocytes # (A) 0.3 k/uL (0-1.0); Monocytes % (A) 4 %; Neutrophils # (A) 4.2 k/uL (1.3-7.7); Neutrophils % (A) 65 %; Partial Thromboplastin Time 24.3 sec (22.0-30.0); Platelet Count 309 k/uL (150-450); Prothrombin Time 10.4 sec (9.0-12.0); RBC 5.02 m/uL (3.80-5.40); RDW 14.5 % (11.5-15.5); WBC 6.4 k/uL (3.8-10.6)
--- NOTE | 2022-07-25 16:01 | XR ---
EXAMINATION TYPE: XR chest 2V DATE OF EXAM: 07/25/2022 COMPARISON: Chest x-ray March 08, 2022 HISTORY: Shortness of breath TECHNIQUE: Frontal and lateral views of the chest are obtained. FINDINGS: There is no suspicious new focal air space opacity, pleural effusion, or pneumothorax seen . The cardiac silhouette size is stable and within normal limits. The osseous structures are intac t. IMPRESSION: No acute cardiopulmonary process. No significant change from prior.
[2022-07-25] MEDS ORDERED: clonazePAM 0.5 MG TAB PO STA (16:21)
[2022-07-25 16:25] LABS: ALT 33 U/L (4-34); AST 31 U/L (14-36); African American GFR (CKD) >90 (>60 ml/min/1.73 sqM); Alkaline Phosphatase 129 U/L (38-126); Anion Gap 7 mmol/L; Blood Urea Nitrogen 11 mg/dL (7-17); Calcium 8.8 mg/dL (8.4-10.2); Carbon Dioxide 26 mmol/L (22-30); Chloride 105 mmol/L (98-107); Glucose 124 mg/dL (74-99); Non-African American GFR(CKD) 83 (>60 ml/min/1.73 sqM); Sodium 138 mmol/L (137-145); Total Bilirubin 0.5 mg/dL (0.2-1.3); Total Protein 6.6 g/dL (6.3-8.2)
[2022-07-25 16:48] VITALS: RESP 18
[2022-07-25] MEDS ORDERED: AZITHROMYCIN 500 MG TAB PO STA (16:50)
[2022-07-25] MEDS ORDERED: predniSONE 20 MG TAB PO STA (16:56)
[2022-07-25 18:09] VITALS: BP 116/59; PULSE 78
== END 2022-07-25 18:20 | disposition home or self-care (01) ==
LOC: EC 14:46
DX: J40 Bronchitis, not specified as acute or chronic (principal); I25.10 Atherosclerotic heart disease of native coronary artery without angina pectoris; E78.5 Hyperlipidemia, unspecified; F41.9 Anxiety disorder, unspecified; F32.A Depression, unspecified; F17.200 Nicotine dependence, unspecified, uncomplicated; Z79.82 Long term (current) use of aspirin; Z79.899 Other long term (current) drug therapy; Z88.8 Allergy status to other drugs, medicaments and biological substances; Z20.822 Contact with and (suspected) exposure to COVID-19
CPT/HCPCS: 36415; 94640; 93005; 85379; 80053; 84484; 85025; 85610; 85730; 87636; 71046; 99285; J7512

== ENCOUNTER 2022-09-12 16:26 | Emergency (ER) | payer BC ==
[2022-09-12] MEDS ORDERED: ONDANSETRON ODT 8 MG TAB.RAPDIS PO STA (18:42)
[2022-09-12] MEDS ORDERED: MORPHINE SULFATE 4 MG/ML SYRINGE IM STA (18:43)
[2022-09-12] MEDS ORDERED: KETOROLAC 15 MG/ML 1 ML VIAL IM STA (18:43)
--- NOTE | 2022-09-12 19:14 | XR ---
EXAMINATION TYPE: XR thoracic spine 2V DATE OF EXAM: 09/12/2022 7:03 PM INDICATION: Patient age:Female; 62 years old; Reason for study: fall; COMPARISON: Chest radiograph 07/25/2022. TECHNIQUE: 2 views of the thoracic spine in Frontal and lateral projections. FINDINGS: No evidence of acute fracture. There is scattered multilevel disk space narrowing without loss of ve rtebral body height. There is normal alignment of the thoracic vertebral bodies. Minimal osteophyte f ormation along the anterior and lateral aspects of the vertebral bodies. Neural foramen are patent gi alton limitations of this exam. Spinal canal appears patent. Atherosclerosis of the arterial vasculatur e. IMPRESSION: 1. No acute osseous pathology. 2. Minimal disc degeneration changes of the spine.
--- NOTE | 2022-09-12 19:50 | CT ---
EXAMINATION TYPE: CT brain cspine wo con CT DLP: 1346.4 mGycm, Automated exposure control for dose reduction was used. DATE OF EXAM: 09/12/2022 7:23 PM COMPARISON: None. CLINICAL INDICATION:Female, 62 years old with history of trauma; pain after fall TECHNIQUE: Brain: Multiple axial CT images of the brain were obtained without IV contrast. Cspine: Axial CT images from the skull base to the inferior aspect of T2 we obtained without intraven ous contrast. Coronal and sagittal reformatted images were also reviewed. FINDINGS: Brain: Extra-axial spaces: No abnormal extra-axial fluid collections. Ventricular system: Within normal limits Cerebral parenchyma: No acute intraparenchymal hemorrhage or mass effect. The laird-white junction is well differentiated. Cerebellum: Unremarkable. Mass effect: No evidence of midline shift. Intracranial vasculature: Atherosclerotic calcifications of the intracranial vessels. Soft tissues: Normal. Calvarium/osseous structures: No depressed skull fracture. Paranasal sinuses and mastoid air cells: Mild scattered mucosal thickening and or secretions. Visualized orbits: Orbital contents are intact. Cervical spine: Fracture: None. Osseous structures: Osteophyte formation of the humeral bodies facet and uncovertebral joint arthropa thy. Vertebral alignment: Within normal limits. Spinal canal/Neural Foramina: No evidence of significant spinal canal narrowing. No evidence for sign ificant neural foraminal stenosis. Neck soft tissues: Prevertebral soft tissues are within normal limits. Other: The airway is patent. The lung apices are clear. IMPRESSION: 1. No acute intracranial process. 2. No evidence of cervical spine fracture. 3. Mild multilevel degenerative disc disease.
[2022-09-12] MEDS ORDERED: ACETAMINOPHEN TAB 500 MG TAB PO STA (20:59)
[2022-09-12 21:18] VITALS: RESP 16
--- NOTE | 2022-09-12 21:22 | XR ---
EXAMINATION TYPE: XR foot complete RT DATE OF EXAM: 09/12/2022 9:09 PM INDICATION: Patient age:Female; 62 years old; Reason for study: fracture; COMPARISON: None TECHNIQUE: The right foot was examined in the AP, oblique, and lateral projections. FINDINGS: Diffuse osseous demineralization. No evidence of any acute osseous pathology. No evidence of soft ti ssue swelling. Scattered mild osteoarthrosis changes with joint space narrowing and osteophyte format ion. IMPRESSION: Osseous demineralization which limits evaluation for fracture. The right great metatarsal is without evidence for fracture. If there remains concern consider CT.
--- NOTE | 2022-09-12 21:23 | XR ---
EXAMINATION TYPE: XR Hip Complete RT DATE OF EXAM: 09/12/2022 9:07 PM INDICATION: Patient age:Female; 62 years old; Reason for study: fracture; COMPARISON: None. TECHNIQUE: The right hip was examined in the frontal and lateral projections and a AP pelvis. FINDINGS: No evidence for acute process, joint dislocation or significant soft tissue swelling. IMPRESSION: No acute process.
--- NOTE | 2022-09-12 21:37 | ED ---
Fall HPI - General Chief Complaint: Fall Stated Complaint: fall Time Seen by Provider: 09/12/22 18:33 Source: patient Mode of arrival: ambulatory - History of Present Illness Initial Comments: This 62-year-old female presents with a complaint of a fall. She states that she stepped on a rock which slipped out from underneath her and she fell. She did hit her head and complains of a headache. There is no loss of consciousness, nausea, vomiting, or neurologic changes. She also complains of some neck pain. She states that she has fallen 2 other times both mechanical in the last month or so. She states that she has hairline fracture to her right foot. She also complains of chronic right hip pain and this radiates down her right leg. She denies having any change in her right foot or right hip symptomatology but still requests an x-ray in this regard. Her fall just occurred earlier today. She denies any chest pain, shortness breath, abdominal pain. She also complains of some mild diffuse thoracic back pain posteriorly. No other complaints or modifying factors. - Related Data Home Medications Medication Instructions Recorded Confirmed HYDROcodone/APAP 10-325MG [[place] 1 tab PO QID PRN 11/07/21 09/12/22 10-325] Nitroglycerin Sl Tabs [Nitrostat] 0.4 mg SL Q5M PRN 11/07/21 09/12/22 PARoxetine HCL [Paxil Cr] 37.5 mg PO DAILY 11/07/21 09/12/22 Atorvastatin [Lipitor] 80 mg PO DAILY 02/15/22 09/12/22 Ranolazine [Ranexa] 1,000 mg PO BID 02/17/22 09/12/22 Acetaminophen [Tylenol Extra 1,000 mg PO Q6H PRN 07/25/22 09/12/22 Strength] Temazepam 30 mg PO HS PRN 07/25/22 09/12/22 clonazePAM [KlonoPIN] 1 mg PO BID 07/25/22 09/12/22 Aspirin EC [Ecotrin Low Dose] 81 mg PO DAILY 09/12/22 09/12/22 Ergocalciferol [Vitamin D2 (1250 1,250 mcg PO TU 09/12/22 09/12/22 Mcg = 83486 Iu)] Allergies Allergy/AdvReac Type Severity Reaction Status Date / Time steroids Allergy Rash/Hives Uncoded 09/12/22 20:21 Review of Systems ROS Statement: Those systems with pertinent positive or pertinent negative responses have been documented in the HPI. ROS Other: All systems not noted in ROS Statement are negative. Past Medical History Past Medical History: Coronary Artery Disease (CAD), Cancer, GERD/Reflux, Hyperlipidemia Additional Past Medical History / Comment(s): irritable bowel syndrome. right breast cancer 2010 with lumpectomy/chemo x 3 in three sites History of Any Multi-Drug Resistant Organisms: None Reported Past Surgical History: Breast Surgery, Heart Catheterization With Stent, Hysterectomy Additional Past Surgical History / Comment(s): right breast lumpectomy 2009/ chemotherapy 2009. 2012 and 2016 Past Anesthesia/Blood Transfusion Reactions: No Reported Reaction Date of Last Stent Placement:: 2 weeks ago Past Psychological History: Anxiety, Depression Smoking Status: Former smoker, Light tobacco smoker Past Alcohol Use History: Rare Past Drug Use History: None Reported - Past Family History Father Family Medical History: Chest Pain / Angina, Coronary Artery Disease (CAD), Myocardial Infarction ([place]) Additional Family Medical History / Comment(s): Luisa in his 50s. He was on a cardiac transplant list. Mother Family Medical History: Coronary Artery Disease (CAD), Myocardial Infarction ([place]) Additional Family Medical History / Comment(s): history of multiple stents. Mother at age 72. Brother(s) Additional Family Medical History / Comment(s): Patient has 3 brothers. One has no major medical problems, one is unknown medical problems, when his cardiac problems. All brothers have anxiety. Sister(s) Additional Family Medical History / Comment(s): Patient has 3 sisters all suffering from anxiety. Daughter(s) Additional Family Medical History / Comment(s): Patient has 2 daughters. One daughter has MS. One daughter has anxiety. Patient does not have any sons. General Exam - General Exam Comments Initial Comments: GENERAL: The patient is well nourished and well hydrated. VITAL SIGNS: Heart rate, blood pressure, respiratory rate reviewed as recorded in nurse's notes. EYES: Pupils are round and reactive. Extraocular movements are intact. No conjunctival / lid redness or swelling. ENT: No external evidence of injury, swelling, or ecchymosis. Airway is patent. Throat is clear. NECK: Mild tenderness noted to the paracervical musculature. No swelling or evidence of injury. No subcutaneous emphysema. Trachea is midline. No thyroid mass. HEART: Regular rate and rhythm. Good peripheral pulses. LUNGS/CHEST: Breath sounds clear and equal bilaterally. No rales, rhonchi, or wheezes. No ecchymosis, subcutaneous emphysema, or tenderness. ABDOMEN: Abdomen soft without tenderness. No palpable masses or organomegaly. No peritoneal signs. No abdominal wall swelling or ecchymosis. EXTREMITIES: No extremity tenderness. Normal muscle tone and function. No thoracolumbar tenderness. There is mild tenderness noted to the right hip as well as the right foot without any swelling. There is excellent range of motion in all extremities without any difficulty. There is some slight tenderness present in the bilateral parathoracic musculature. NEUROLOGIC: Sensation is grossly intact. Cranial nerve exam reveals face is symmetrical, tongue is midline, speech is clear. SKIN: No abrasions or ecchymosis is noted. No induration or masses noted. PSYCHIATRIC: Alert and oriented. Appears anxious initially and this later resolved. Limitations: no limitations Course Vital Signs 09/12/22 09/12/22 09/12/22 16:41 21:00 22:37 Temperature 97.5 F L 98.0 F Pulse Rate 73 57 L 61 Respiratory 18 16 16 Rate Blood Pressure 133/81 127/69 120/79 O2 Sat by Pulse 99 95 99 Oximetry Medical Decision Making - Medical Decision Making The patient was seen and examined. All diagnostics are reviewed. She receives morphine and Toradol intramuscularly with some moderate relief. She later receives some Tylenol and additional morphine IM. The computed tomography scan of the brain as well as a cervical spine does not show any acute processes. The thoracic spine x-ray shows some arthritis. The right hip and right foot x-ray does not show any acute process per my interpretation. The patient appears well on recheck. It is felt as though she stable for discharge home. This appears to be a mechanical fall. Return parameters are discussed. Close follow-up with her primary care recommended. She does take [place] at home and she is instructed that she may continue with this medication if needed for additional pain. Was pt. sent in by a medical professional or institution (, PA, BATCHMAKER, urgent care, hospital, or halfway...) When possible be specific @ -[No] Did you speak to anyone other than the patient for history (EMS, parent, family, police, friend...)? What history was obtained from this source @ -[No] Did you review nursing and triage notes (agree or disagree)? Why? @ -[I reviewed and agree with nursing and triage notes] Were old charts reviewed (outside hosp., previous admission, EMS record, old EKG, old radiological studies, urgent care reports/EKG's, halfway records)? Report findings @ -[No old charts were reviewed] Differential Diagnosis (chest pain, altered mental status, abdominal pain women, abdominal pain men, vaginal bleeding, weakness, fever, dyspnea, syncope, headache, dizziness, GI bleed, back pain, seizure, CVA, palpatations, mental health, musculoskeletal)? @ -[not applicable] EKG interpreted by me (3pts min.). @ -[As above] X-rays interpreted by me (1pt min.). @ -As above CT interpreted by me (1pt min.). @ -CT is interpreted by radiologist. U/S interpreted by me (1pt. min.). @ -[None done] What testing was considered but not performed or refused? (CT, X-rays, U/S, labs)? Why? @ -[None] What meds were considered but not given or refused? Why? @ -[None] Did you discuss the management of the patient with other professionals (prof jorgensen i.e. , PA, BATCHMAKER, lab, RT, psych nurse, social media marketer, charge preparation technician, teacher, safety instruction police officer, case sealer)? Give summary @ -[No] Was smoking cessation discussed for >3mins.? @ -[No] Was critical care preformed (if so, how long)? @ -[No] Were there social determinants of health that impacted care today? How? (Homelessness, low income, unemployed, alcoholism, drug addiction, transportation, low edu. Level, literacy, decrease access to med. care, [facility], rehab)? @ -[No] Was there de-escalation of care discussed even if they declined (Discuss DNR or withdrawal of care, Hospice)? DNR status @ -[No] What co-morbidities impacted this encounter? (DM, HTN, Smoking, COPD, CAD, Cancer, CVA, ARF, Chemo, Hep., AIDS, mental health diagnosis, sleep apnea, morbid obesity)? @ -Chronic pain Was patient admitted / discharged? Hospital course, mention meds given and route, prescriptions, significant lab abnormalities, going to OR and other pertinent info. @ -Discharged Undiagnosed new problem with uncertain prognosis? @ -[No] Drug Therapy requiring intensive monitoring for toxicity (Heparin, Nitro, Insulin, Cardizem)? @ -[No] Were any procedures done? @ -[No] Diagnosis/symptom? @ -As below Acute, or Chronic, or Acute on Chronic? @ -Acute Uncomplicated (without systemic symptoms) or Complicated (systemic symptoms)? @ -Uncomplicated Side effects of treatment? @ -[No] Exacerbation, Progression, or Severe Exacerbation? @ -[No] Poses a threat to life or bodily function? How? (Chest pain, [place], [place], pneumonia, PE, COPD, DKA, ARF, appy, cholecystitis, CVA, Diverticulitis, Homicidal, Suicidal, threat to staff... and all critical care pts) @ -[No] Disposition Clinical Impression: Fall, Head injury, Neck strain, Arthritis, Back strain, Right hip pain, Right foot pain, Osteoporosis Disposition: HOME SELF-CARE Condition: Good Instructions (If sedation given, give patient instructions): Cervical Strain (ED), Head Injury (ED), Fall Prevention (ED), Thoracic Back Strain (ED), Arthritis (ED) Additional Instructions: Please take your home norco or tylenol if needed for pain. Is patient prescribed a controlled substance at d/c from ED?: No Referrals: Luis Escalona DO [Primary Care Provider] - 1-2 days Time of Disposition: 21:37
[2022-09-12] MEDS ORDERED: MORPHINE SULFATE 2 MG/ML SYRINGE IM STA (22:13)
[2022-09-12 22:38] VITALS: BP 120/79; PULSE 61; TEMP 98
== END 2022-09-12 22:38 | disposition home or self-care (01) ==
LOC: EC 16:26
DX: S16.1XXA Strain of muscle, fascia and tendon at neck level, initial encounter (principal); S39.012A Strain of muscle, fascia and tendon of lower back, initial encounter; S09.90XA Unspecified injury of head, initial encounter; M25.551 Pain in right hip; M79.671 Pain in right foot; M81.0 Age-related osteoporosis without current pathological fracture; I25.10 Atherosclerotic heart disease of native coronary artery without angina pectoris; E78.5 Hyperlipidemia, unspecified; K21.9 Gastro-esophageal reflux disease without esophagitis; F32.A Depression, unspecified; F41.9 Anxiety disorder, unspecified; F17.200 Nicotine dependence, unspecified, uncomplicated; Z88.8 Allergy status to other drugs, medicaments and biological substances; Z79.82 Long term (current) use of aspirin; Z79.899 Other long term (current) drug therapy; W01.0XXA Fall on same level from slipping, tripping and stumbling without subsequent striking against object, initial encounter
CPT/HCPCS: 72070; 73502; 73630; 72125; 70450; 99284; 96372 ×3; J2270 ×2; J1885

== ENCOUNTER → 2023-03-30 | Outpatient (CLI) | payer BC ==
[2023-03-30 18:57] LABS: Basophils # (A) 0.04 X 10*3/uL (0.00-0.10); Basophils % (A) 0.5 %; Eosinophils # (A) 0.04 X 10*3/uL (0.04-0.35); Eosinophils % (A) 0.5 %; HCT 44.4 % (37.2-46.3); HGB 14.5 g/dL (12.0-15.0); Lymphocytes # (A) 1.87 X 10*3/uL (0.90-5.00); Lymphocytes % (A) 22.2 %; MCH 31.6 pg (27.0-32.0); MCHC 32.7 g/dL (32.0-37.0); MCV 96.7 FL (80.0-97.0); Mean Platelet Volume 9.4 FL (9.5-12.2); Monocytes # (A) 0.47 X 10*3/uL (0.20-1.00); Monocytes % (A) 5.6 %; NRBC Per 100 WBC 0 X 10*3/uL (0.00-0.01); Neutrophils # (A) 5.98 X 10*3/uL (1.80-7.70); Neutrophils % (A) 70.8 %; Platelet Count 239 X 10*3/uL (140-440); RBC 4.59 X 10*6/uL (4.10-5.20); RDW 13.7 % (11.5-14.5); WBC 8.43 X 10*3/uL (4.50-10.00)
[2023-03-30 19:14] LABS: T4, Free (Free Thyroxine) 0.97 ng/dL (0.80-1.80)
[2023-03-30 19:22] LABS: ALT 33 U/L (8-44); AST 56 U/L (13-35); Albumin 4.2 g/dL (3.8-4.9); Albumin/Globulin Ratio 1.68 Ratio (1.60-3.17); Alkaline Phosphatase 118 U/L (41-126); BUN/Creat Ratio 19.44 Ratio (12.00-20.00); Blood Urea Nitrogen 17.5 mg/dL (9.0-27.0); Calcium 9.5 mg/dL (8.7-10.3); Carbon Dioxide 26.1 mmol/L (21.6-31.8); Chloride 103 mmol/L (96-109); Globulin 2.5 g/dL (1.6-3.3); Glucose 70 mg/dL (70-110); Potassium 5.5 mmol/L (3.5-5.5); Sodium 141 mmol/L (135-145); Total Bilirubin <0.2 mg/dL (0.3-1.2); Total Protein 6.7 g/dL (6.2-8.2)
== END | disposition home or self-care (01) ==
LOC: LABWHC1 12:35
PROVIDERS: ATTEND Nurse Practitioner Family
DX: F41.1 Generalized anxiety disorder (principal)
CPT/HCPCS: 36415; 80053; 84439; 84443; 85025

== ENCOUNTER 2023-04-20 19:56 | Observation (INO) | payer BC ==
--- NOTE | 2023-04-20 20:06 | ED ---
Chest Pain HPI - General Source: patient, family, RN notes reviewed <Suzanne Membreno - Last Filed: 04/20/23 20:05> - General Source: RN notes reviewed, old records reviewed Mode of arrival: ambulatory Limitations: no limitations - History of Present Illness MD Complaint: chest pain -: days(s) Onset: during rest, during exertion Pain Location: substernal, left chest Pain Radiation: LUE Severity: moderate Severity scale (1-10): 4 Quality: aching Consistency: constant Improves With: nothing Worsens With: nothing Other Symptoms: palpitations Treatments Prior to Arrival: none <Román Moy - Last Filed: 04/20/23 23:00> - General Stated Complaint: severe chest pain Time Seen by Provider: 04/20/23 20:05 - History of Present Illness Initial Comments: Patient is a 62-year-old female presented ER with chief complaint of chest pain. Patient states it started around 3 PM today. Patient also endorses shortness of breath, dizziness, lightheadedness. Patient does state she has 4 stents and her chest pain feels somewhat similar. (Suzanne Membreno) This is a 62 female to the ER for evaluation. Patient Dese for evaluation regards to chest pain history of ACS with 4 stents. Patient states he feels just like prior stents (Román Moy) - Related Data Home Medications Medication Instructions Recorded Confirmed Nitroglycerin Sl Tabs [Nitrostat] 0.4 mg SL Q5M PRN 11/07/21 04/20/23 clonazePAM [KlonoPIN] 1 mg PO QID 07/25/22 04/20/23 Aspirin EC [Ecotrin Low Dose] 81 mg PO DAILY 09/12/22 04/20/23 Ergocalciferol [Vitamin D2 (1250 1,250 mcg PO TU 09/12/22 04/20/23 Mcg = 10180 Iu)] DULoxetine HCL [Cymbalta] 30 mg PO DAILY 04/20/23 04/20/23 HYDROcodone/APAP 7.5-325MG [[place] 1 tab PO Q4H PRN 04/20/23 04/20/23 7.5-325] Ondansetron [Zofran] 4 mg PO DAILY 04/20/23 04/20/23 Allergies Allergy/AdvReac Type Severity Reaction Status Date / Time Iodinated Contrast Media AdvReac Nausea & Verified 04/20/23 21:53 Vomiting Review of Systems ROS Other: All systems not noted in ROS Statement are negative. <Suzanne Membreno - Last Filed: 04/20/23 20:05> ROS Other: All systems not noted in ROS Statement are negative. <Román Moy - Last Filed: 04/20/23 23:00> ROS Statement: Those systems with pertinent positive or pertinent negative responses have been documented in the HPI. EKG Findings - EKG Comments: EKG Findings:: EKG is sinus 67 GA 156 QRS 85 QTC 372 - EKG Results: EKG: interpreted by ERMD <Román Moy - Last Filed: 04/20/23 23:00> Past Medical History Past Medical History: Coronary Artery Disease (CAD), Cancer, GERD/Reflux, Hyperlipidemia Additional Past Medical History / Comment(s): irritable bowel syndrome. right breast cancer 2010 with lumpectomy/chemo x 3 in three sites History of Any Multi-Drug Resistant Organisms: None Reported Past Surgical History: Breast Surgery, Heart Catheterization With Stent, Hysterectomy Additional Past Surgical History / Comment(s): right breast lumpectomy 2009/ chemotherapy 2009. 2012 and 2016 Past Anesthesia/Blood Transfusion Reactions: No Reported Reaction Date of Last Stent Placement:: 2 weeks ago Past Psychological History: Anxiety, Depression Smoking Status: Former smoker, Light tobacco smoker Past Alcohol Use History: Rare Past Drug Use History: None Reported - Past Family History Father Family Medical History: Chest Pain / Angina, Coronary Artery Disease (CAD), Myocardial Infarction ([place]) Additional Family Medical History / Comment(s): Luisa in his 50s. He was on a cardiac transplant list. Mother Family Medical History: Coronary Artery Disease (CAD), Myocardial Infarction ([place]) Additional Family Medical History / Comment(s): history of multiple stents. Mother at age 72. Brother(s) Additional Family Medical History / Comment(s): Patient has 3 brothers. One has no major medical problems, one is unknown medical problems, when his cardiac problems. All brothers have anxiety. Sister(s) Additional Family Medical History / Comment(s): Patient has 3 sisters all suffering from anxiety. Daughter(s) Additional Family Medical History / Comment(s): Patient has 2 daughters. One daughter has MS. One daughter has anxiety. Patient does not have any sons. <Suzanne Membreno - Last Filed: 04/20/23 20:05> General Exam <Suzanne Membreno - Last Filed: 04/20/23 20:05> General appearance: alert, in no apparent distress Head exam: Present: atraumatic, normocephalic, normal inspection Eye exam: Present: normal appearance, PERRL, EOMI. Absent: scleral icterus, conjunctival injection, periorbital swelling ENT exam: Present: normal exam, mucous membranes moist Neck exam: Present: normal inspection. Absent: tenderness, meningismus, lymphadenopathy Respiratory exam: Present: normal lung sounds bilaterally. Absent: respiratory distress, wheezes, rales, rhonchi, stridor Cardiovascular Exam: Present: regular rate, normal rhythm, normal heart sounds. Absent: systolic murmur, diastolic murmur, rubs, gallop, clicks GI/Abdominal exam: Present: soft, normal bowel sounds. Absent: distended, tenderness, guarding, rebound, rigid Extremities exam: Present: normal inspection, full ROM, normal capillary refill. Absent: tenderness, pedal edema, joint swelling, calf tenderness Back exam: Present: normal inspection Neurological exam: Present: alert, oriented X3, CN II-XII intact Psychiatric exam: Present: normal affect, normal mood Skin exam: Present: warm, dry, intact, normal color. Absent: rash <Román Moy - Last Filed: 04/20/23 23:00> - General Exam Comments Initial Comments: Visual Physical Exam Vital signs reviewed General: Well-appearing, nontoxic, no acute distress. Head: Normocephalic, atraumatic Eyes: PERRLA, EOMI ENT: Airway patent Chest: Nonlabored breathing Skin: No visual rash, normal skin tone Neuro: Alert and oriented 3 Musculoskeletal: No gross abnormalities (Suzanne Membreno) Course <Román Moy - Last Filed: 04/20/23 23:00> Vital Signs 04/20/23 20:00 Temperature 98.0 F Pulse Rate 80 Respiratory 20 Rate Blood Pressure 129/63 O2 Sat by Pulse 98 Oximetry - Reevaluation(s) Reevaluation #1: 04/20/23 22:56 Medical record is reviewed (Román Moy) Reevaluation #2: 04/20/23 22:56 Symptoms are improved (Román Moy) Reevaluation #3: 04/20/23 22:56 Patient informed results and questions answered (Román Moy) Reevaluation #4: 04/20/23 22:56 Was pt. sent in by a medical professional or institution (WALTER Morris, EQUIPMENT OPERATOR/LABORER/SUPERVISOR, urgent care, hospital, or custodial...) When possible be specific @ -no Did you speak to anyone other than the patient for history (EMS, parent, family, police, friend...)? What history was obtained from this source @ -no Did you review nursing and triage notes (agree or disagree)? Why? @ -agree Are old charts reviewed (outside hosp., previous admission, EMS record, old EKG, old radiological studies, urgent care reports/EKG's, custodial records)? Report findings @ -yes Differential Diagnosis (chest pain, altered mental status, abdominal pain women, abdominal pain men, vaginal bleeding, weakness, fever, dyspnea, syncope, headache, dizziness, GI bleed, back pain, seizure, CVA, palpatations, mental health, musculoskeletal)? @ -prior EKG interpreted by me (3pts min.). @ -yes X-rays interpreted by me (1pt min.). @ -yes CT interpreted by me (1pt min.). @ -no U/S interpreted by me (1pt. min.). @ -no What testing was considered but not performed or refused? (CT, X-rays, U/S, labs)? Why? @ -none What meds were considered but not given or refused? Why? @ -none Did you discuss the management of the patient with other professionals (professionals i.e. WALTER Morris, EQUIPMENT OPERATOR/LABORER/SUPERVISOR, lab, RT, psych nurse, manager social services, woodworking machine offbearer, teacher, biological technical officer, special education case manager)? Give summary @ -no Was smoking cessation discussed for >3mins.? @ -no Was critical care preformed (if so, how long)? @ -no Were there social determinants of health that impacted care today? How? (Homelessness, low income, unemployed, alcoholism, drug addiction, transportation, low edu. Level, literacy, decrease access to med. care, residential, rehab)? @ -none Was there de-escalation of care discussed even if they declined (Discuss DNR or withdrawal of care, Hospice)? DNR status @ -no What co-morbidities impacted this encounter? (DM, HTN, Smoking, COPD, CAD, Cancer, CVA, ARF, Chemo, Hep., AIDS, mental health diagnosis, sleep apnea, morbid obesity)? @ -none Was patient admitted / discharged? Hospital course, mention meds given and route, prescriptions, significant lab abnormalities, going to OR and other pertinent info. @ - Undiagnosed new problem with uncertain prognosis? @ -no Drug Therapy requiring intensive monitoring for toxicity (Heparin, Nitro, Insulin, Cardizem)? @ -no Were any procedures done? @ -no Diagnosis/symptom? @ - Acute, or Chronic, or Acute on Chronic? @ -Acute Uncomplicated (without systemic symptoms) or Complicated (systemic symptoms)? @ -Complicated Side effects of treatment? @ -no Exacerbation, Progression, or Severe Exacerbation? @ -exacerbation Poses a threat to life or bodily function? How? (Chest pain, [place], [place], pneumonia, PE, COPD, DKA, ARF, appy, cholecystitis, CVA, Diverticulitis, Homicidal, Suicidal, threat to staff... and all critical care pts) @ -yes (Román Moy) Reevaluation #5: 04/20/23 22:56 Differential Chest Pain: Stable Angina, Unstable Angina, STEMI, NSTEMI Aortic Dissection, Pneumothorax, Musculoskeletal, Esophageal Spasm GERD, Cholecystitis, Pancreatitis, Zoster, this is not meant to be an all-inclusive list. (Román Moy) - Consultations Consultation #1: Spoke with [facility] were agrees to admit this patient (Román Moy) Chest Pain MDM <Suzanne Membreno - Last Filed: 04/20/23 20:05> <Román Moy - Last Filed: 04/20/23 23:00> - MDM I performed the quick note portion of the exam. Electronically signed by Suzanne Membreno PA-C (Suzanne Membreno) 62 female to the emergency department for evaluation patient be admitted for aspirin, history of ACS with stents, patient be admitted for acute coronary syndrome with unstable angina (Román Moy) Critical Care Time Critical Care Time: Yes Total Critical Care Time: 31 <Román Moy - Last Filed: 04/20/23 23:00> Disposition <Suzanne Membreno - Last Filed: 04/20/23 20:05> Is patient prescribed a controlled substance at d/c from ED?: No Time of Disposition: 23:00 <Román Moy - Last Filed: 04/20/23 23:00> Clinical Impression: Unstable angina pectoris, Chest pain, Coronary artery disease, Anxiety Disposition: ADMITTED IP TO THIS HOSP Condition: Undetermined Referrals: Nonstaff,Physician [REFERRING] - 1-2 days
[2023-04-20 20:54] LABS: Basophils # (A) 0.1 k/uL (0-0.2); Basophils % (A) 1 %; Eosinophils # (A) 0.1 k/uL (0-0.7); Eosinophils % (A) 1 %; HCT 44.2 % (34.0-46.0); HGB 15.5 gm/dL (11.4-16.0); Lymphocytes # (A) 2.7 k/uL (1.0-4.8); Lymphocytes % (A) 30 %; MCH 31.9 pg (25.0-35.0); MCHC 35.1 g/dL (31.0-37.0); Mean Platelet Volume 7.2; Monocytes # (A) 0.5 k/uL (0-1.0); Monocytes % (A) 5 %; Neutrophils # (A) 5.7 k/uL (1.3-7.7); Neutrophils % (A) 62 %; Platelet Count 280 k/uL (150-450); RBC 4.85 m/uL (3.80-5.40); RDW 13.3 % (11.5-15.5); WBC 9.2 k/uL (3.8-10.6)
[2023-04-20 20:56] LABS: INR 0.9 (<1.2); Partial Thromboplastin Time 25.1 sec (22.0-30.0)
[2023-04-20 21:07] LABS: ALT 44 U/L (4-34); AST 32 U/L (14-36); African American GFR (CKD) >90 (>60 ml/min/1.73 sqM); Albumin 4.3 g/dL (3.5-5.0); Alkaline Phosphatase 110 U/L (38-126); Anion Gap 14 mmol/L; Blood Urea Nitrogen 18 mg/dL (7-17); Calcium 9.9 mg/dL (8.4-10.2); Carbon Dioxide 25 mmol/L (22-30); Chloride 100 mmol/L (98-107); Glucose 104 mg/dL (74-99); Magnesium 2.2 mg/dL (1.6-2.3); Non-African American GFR(CKD) 80 (>60 ml/min/1.73 sqM); Potassium 3.9 mmol/L (3.5-5.1); Sodium 139 mmol/L (137-145); Total Bilirubin 0.3 mg/dL (0.2-1.3)
[2023-04-20] MEDS ORDERED: ONDANSETRON 4 MG/2 ML VIAL IVP STA (21:26)
[2023-04-20] MEDS ORDERED: SODIUM CHLORIDE 0.9% 500 ML 500 ML IV STA (21:26)
[2023-04-20] MEDS ORDERED: MORPHINE SULFATE 4 MG/ML SYRINGE IVP STA (21:26)
[2023-04-20] MEDS ORDERED: NALOXONE 0.4 MG/ML 1 ML VIAL IV PRN (22:46)
[2023-04-20] MEDS ORDERED: ONDANSETRON 4 MG/2 ML VIAL IVP PRN (22:46)
[2023-04-20] MEDS ORDERED: HEPARIN SODIUM 1,000 UN/ML (10ML VL) IV ONE (22:52)
[2023-04-20] MEDS ORDERED: HEPARIN SODIUM 1,000 UN/ML (10ML VL) IV PRN (22:52)
[2023-04-20] MEDS ORDERED: HEPARIN SOD,PORK IN 0.45% NACL 25,000 UNIT in 0.45% NACL 1 250ML.BAG IV SCH (23:00)
[2023-04-20] MEDS ORDERED: NITROGLYCERIN OINT 1 INCH/GM PACKET TOPICAL STA (23:07)
--- NOTE | 2023-04-20 23:49 | XR ---
EXAMINATION TYPE: XR chest 2V DATE OF EXAM: 04/20/2023 COMPARISON: Prior chest x-ray July 25, 2022 HISTORY: Chest pain TECHNIQUE: Frontal and lateral views of the chest are obtained. FINDINGS: There is no focal air space opacity, pleural effusion, or pneumothorax seen. The cardiac silhouette size is stable and within normal limits. The osseous structures are intact. Overlying EK G leads are redemonstrated. IMPRESSION: No acute process. No significant change from prior.
[2023-04-21] MEDS: HYDROcodone/APAP 7.5-325MG 1 EACH TAB PO PRN ×4 (00:16→18:47)
[2023-04-21] MEDS: clonazePAM 1 MG TAB PO SCH ×5 (00:16→18:47)
[2023-04-21] MEDS: NITROGLYCERIN SL TABS 0.4 MG TAB SUBLINGUAL PRN ×2 (01:58→02:16)
[2023-04-21] MEDS: MORPHINE SULFATE 4 MG/ML SYRINGE IV PRN (02:16)
[2023-04-21] MEDS ORDERED: METOCLOPRAMIDE 5 MG/ML 2 ML VIAL IVP STA (02:49)
[2023-04-21 05:53] LABS: Basophils % (A) 1 %; Eosinophils # (A) 0.1 k/uL (0-0.7); Eosinophils % (A) 1 %; HCT 40.3 % (34.0-46.0); HGB 13.7 gm/dL (11.4-16.0); Lymphocytes # (A) 2.3 k/uL (1.0-4.8); Lymphocytes % (A) 33 %; MCV 93.8 fL (80.0-100.0); Mean Platelet Volume 6.7; Monocytes # (A) 0.4 k/uL (0-1.0); Monocytes % (A) 5 %; Neutrophils # (A) 4.2 k/uL (1.3-7.7); Neutrophils % (A) 58 %; Platelet Count 233 k/uL (150-450); RBC 4.29 m/uL (3.80-5.40); RDW 13.1 % (11.5-15.5); WBC 7.1 k/uL (3.8-10.6)
[2023-04-21] MEDS ORDERED: METOCLOPRAMIDE 5 MG/ML 2 ML VIAL IVP SCH (06:00)
[2023-04-21 06:23] LABS: ALT 36 U/L (4-34); AST 28 U/L (14-36); African American GFR (CKD) >90 (>60 ml/min/1.73 sqM); Albumin 3.5 g/dL (3.5-5.0); Alkaline Phosphatase 91 U/L (38-126); Anion Gap 7 mmol/L; Blood Urea Nitrogen 18 mg/dL (7-17); Carbon Dioxide 26 mmol/L (22-30); Chloride 106 mmol/L (98-107); Glucose 90 mg/dL (74-99); Lipase 46 U/L (23-300); Magnesium 2.1 mg/dL (1.6-2.3); Non-African American GFR(CKD) 81 (>60 ml/min/1.73 sqM); Phosphorus 4.2 mg/dL (2.5-4.5); Potassium 4.8 mmol/L (3.5-5.1); Sodium 139 mmol/L (137-145); Total Bilirubin 0.3 mg/dL (0.2-1.3)
[2023-04-21] MEDS ORDERED: HEPARIN SODIUM,PORCINE 10,000 UNIT in SODIUM CHLORIDE 0.9% 1,000 ML IRRIGATION PRN (07:00)
[2023-04-21] MEDS ORDERED: HEPARIN SODIUM,PORCINE (1 ML) 2,500 UNIT in SODIUM CHLORIDE 0.9% 250 ML IRRIGATION PRN (07:00)
[2023-04-21] MEDS: PANTOPRAZOLE 40 MG/10 ML VIAL IV SCH (09:26)
[2023-04-21] MEDS ORDERED: NITROGLYCERIN SL TABS 0.4 MG TAB SUBLINGUAL PRN ×2 (09:26→10:19)
[2023-04-21] MEDS: DULoxetine HCL 30 MG CAPSULE.DR PO SCH (09:49)
[2023-04-21] MEDS: ASPIRIN 81 MG PO SCH (09:49)
--- NOTE | 2023-04-21 10:06 | P.CRDCN ---
History of Present Illness Consult date: 04/21/23 Chief complaint: Chest pain History of present illness: The patient is a 62-year-old female patient with a past medical history significant for coronary artery disease with a prior stenting with unknown details that was performed at [facility] as well as hypertension and dyslipidemia and anxiety. She presented to the emergency department with a chest discomfort. The discomfort started yesterday after she ate. She describes discomfort as a dull kind of discomfort in the middle of the chest was radiation to the left arm. No associated symptoms of shortness of breath or sweating or dizziness or lightheadedness or any feeling of heart racing or fluttering or any presyncope or syncope. She has been compliant with all of her medications. She underwent further workup including an EKG showing sinus mechanism was low-voltage QRS and it was nonspecific ST or T-wave abnormalities. Cardiac enzymes with troponin checked and came in to be unremarkable. The patient continues to have ongoing chest discomfort now 5/10 in intensity. I advised the patient to undergo a heart catheterization today but patient refused and she stated that she would like to be transferred to her light industrial at [place] to undergo the heart catheterization there. Examination is remarkable for stable vital signs with regular rate and rhythm and clear breathing sounds bilaterally and no lower extremity edema noted Assessment Chest discomfort Coronary artery disease with prior revascularization with unknown details Hypertension and dyslipidemia Anxiety Plan Acute coronary syndrome was ruled out I advised the patient to undergo a heart catheterization but she would like to hold on that I speak with her and probably transferred to [place] Follow-up with the patient if she stays here and consider proceeding with coron marcelle angiogram Past Medical History Past Medical History: Coronary Artery Disease (CAD), Cancer, GERD/Reflux, Hyperlipidemia Additional Past Medical History / Comment(s): irritable bowel syndrome. right breast cancer 2009 with lumpectomy/chemo x 3 in three sites History of Any Multi-Drug Resistant Organisms: None Reported Past Surgical History: Breast Surgery, Heart Catheterization With Stent, Hysterectomy Additional Past Surgical History / Comment(s): right breast lumpectomy 2009/ chemotherapy 2009. 2012 and 2015 Past Anesthesia/Blood Transfusion Reactions: No Reported Reaction Date of Last Stent Placement:: 2 weeks ago Past Psychological History: Anxiety, Depression Smoking Status: Former smoker, Light tobacco smoker Past Alcohol Use History: Rare Past Drug Use History: None Reported - Past Family History Father Family Medical History: Chest Pain / Angina, Coronary Artery Disease (CAD), Myocardial Infarction ([place]) Additional Family Medical History / Comment(s): Luisa in his 50s. He was on a cardiac transplant list. Mother Family Medical History: Coronary Artery Disease (CAD), Myocardial Infarction ([place]) Additional Family Medical History / Comment(s): history of multiple stents. Mother at age 72. Brother(s) Additional Family Medical History / Comment(s): Patient has 3 brothers. One has no major medical problems, one is unknown medical problems, when his cardiac problems. All brothers have anxiety. Sister(s) Additional Family Medical History / Comment(s): Patient has 3 sisters all suffering from anxiety. Daughter(s) Additional Family Medical History / Comment(s): Patient has 2 daughters. One daughter has MS. One daughter has anxiety. Patient does not have any sons. Medications and Allergies Home Medications Medication Instructions Recorded Confirmed Type Nitroglycerin Sl Tabs [Nitrostat] 0.4 mg SL Q5M PRN 11/07/21 04/20/23 History clonazePAM [KlonoPIN] 1 mg PO QID 07/25/22 04/20/23 History Aspirin EC [Ecotrin Low Dose] 81 mg PO DAILY 09/12/22 04/20/23 History Ergocalciferol [Vitamin D2 (1250 1,250 mcg PO TU 09/12/22 04/20/23 History Mcg = 35974 Iu)] DULoxetine HCL [Cymbalta] 30 mg PO DAILY 04/20/23 04/20/23 History HYDROcodone/APAP 7.5-325MG [[place] 1 tab PO Q4H PRN 04/20/23 04/20/23 History 7.5-325] Ondansetron [Zofran] 4 mg PO DAILY 04/20/23 04/20/23 History Allergies Allergy/AdvReac Type Severity Reaction Status Date / Time Iodinated Contrast Media AdvReac Nausea & Verified 04/20/23 21:53 Vomiting Physical Exam Vitals: Vital Signs Temp Pulse Pulse Resp BP BP Pulse Ox 04/21/23 09:17 63 18 102/47 96 04/21/23 02:00 98.2 F 57 L 16 114/62 96 04/21/23 00:12 97.7 F 71 16 144/75 97 04/20/23 20:00 98.0 F 80 20 129/63 98 Intake and Output 04/20/23 04/21/23 04/21/23 22:59 06:59 14:59 Intake Total 10 Balance 10 Intake: IV 10 Invasive Line 2 10 Other: Voiding Method Toilet Weight 67.585 kg Results 04/21/23 05:45 04/21/23 05:45 Cardiac Enzymes 04/20/23 04/20/23 04/21/23 Range/Units 20:30 20:30 05:45 AST 32 28 (14-36) U/L Troponin I <0.012 (0.000-0.034) ng/mL 04/21/23 Range/Units 05:45 AST (14-36) U/L Troponin I <0.012 (0.000-0.034) ng/mL Coagulation 04/20/23 Range/Units 20:30 PT 10.0 (10.0-12.5) sec APTT 25.1 (22.0-30.0) sec CBC 04/20/23 04/21/23 Range/Units 20:30 05:45 WBC 9.2 7.1 (3.8-10.6) k/uL RBC 4.85 4.29 (3.80-5.40) m/uL Hgb 15.5 13.7 (11.4-16.0) gm/dL Hct 44.2 40.3 (34.0-46.0) % Plt Count 280 233 (150-450) k/uL Comprehensive Metabolic Panel 04/20/23 04/21/23 Range/Units 20:30 05:45 Sodium 139 139 (137-145) mmol/L Potassium 3.9 4.8 (3.5-5.1) mmol/L Chloride 100 106 (98-107) mmol/L Carbon Dioxide 25 26 (22-30) mmol/L BUN 18 H 18 H (7-17) mg/dL Creatinine 0.81 0.80 (0.52-1.04) mg/dL Glucose 104 H 90 (74-99) mg/dL Calcium 9.9 9.0 (8.4-10.2) mg/dL AST 32 28 (14-36) U/L ALT 44 H 36 H (4-34) U/L Alkaline Phosphatase 110 91 (38-126) U/L Total Protein 7.0 6.0 L (6.3-8.2) g/dL Albumin 4.3 3.5 (3.5-5.0) g/dL Current Medications Generic Name Dose Route Start Last Admin Trade Name Freq PRN Reason Stop Dose Admin Hydrocodone Bitart/Acetaminophen 1 each 04/20/23 23:20 04/21/23 06:34 Hydrocodone/Apap 7.5-325mg 1 Each Tab PO 1 each Q4H PRN Administration Pain Aspirin 81 mg 04/21/23 09:30 04/21/23 09:49 Aspirin 81 Mg PO 81 mg DAILY SYDNEE Administration Clonazepam 1 mg 04/21/23 07:00 04/21/23 06:36 Clonazepam 1 Mg Tab PO 1 mg Q6H SYDNEE Administration Duloxetine HCl 30 mg 04/21/23 09:30 04/21/23 09:49 Duloxetine Hcl 30 Mg Capsule.Dr PO 30 mg DAILY SYDNEE Administration Enoxaparin Sodium 40 mg 04/22/23 09:00 Enoxaparin 40 Mg/0.4 Ml Syringe SQ DAILY SYDNEE Metoclopramide HCl 5 mg 04/21/23 06:43 Metoclopramide 5 Mg/Ml 2 Ml Vial IVP Q6HR PRN Nausea Morphine Sulfate 4 mg 04/20/23 22:46 04/21/23 02:16 Morphine Sulfate 4 Mg/Ml Syringe IV 4 mg Q4HR PRN Administration Severe Pain (Scale 7 to 10) Naloxone HCl 0.2 mg 04/20/23 22:46 Naloxone 0.4 Mg/Ml 1 Ml Vial IV Q2M PRN Opioid Reversal Nitroglycerin 0.4 mg 04/20/23 21:41 04/21/23 02:16 Nitroglycerin Sl Tabs 0.4 Mg Tab SUBLINGUAL 0.4 mg Q5M PRN Administration Chest Pain Ondansetron HCl 4 mg 04/21/23 05:40 Ondansetron 4 Mg/2 Ml Vial IVP Q6HR PRN Nausea And Vomiting Pantoprazole Sodium 40 mg 04/21/23 09:00 04/21/23 09:26 Pantoprazole 40 Mg/10 Ml Vial IV 40 mg DAILY SYDNEE Administration Intake and Output 04/20/23 04/21/23 04/21/23 22:59 06:59 14:59 Intake Total 10 Balance 10 Intake: IV 10 Invasive Line 2 10 Other: Voiding Method Toilet Weight 67.585 kg 04/21/23 05:45 04/21/23 05:45
[2023-04-21] MEDS ORDERED: ASPIRIN 325 MG TAB PO STA (10:19)
[2023-04-21] MEDS ORDERED: ALPRAZolam 0.25 MG TAB PO PRN (10:19)
[2023-04-21] MEDS ORDERED: ATORVASTATIN 80 MG TAB PO STA (10:19)
[2023-04-21] MEDS: ASPIRIN 81 MG PO STA ×2 (10:39→10:40)
[2023-04-21] MEDS: ONDANSETRON 4 MG/2 ML VIAL IVP PRN ×2 (10:46→17:47)
[2023-04-21] MEDS: SODIUM CHLORIDE 0.9% 1,000 ML in EMPTY BAG 1 BAG IV SCH (10:51)
[2023-04-21] MEDS ORDERED: diphenhydrAMINE 50 MG/ML 1 ML VIAL IVP STA (10:59)
[2023-04-21] MEDS ORDERED: methylPREDNISolone SOD SUCCI 125 MG/2 ML VIAL IV STA (10:59)
[2023-04-21] MEDS: ALPRAZolam 0.5 MG TAB PO PRN (11:30)
[2023-04-21] MEDS ORDERED: HEPARIN SODIUM 1,000 UN/ML (10ML VL) ONE (12:06)
[2023-04-21] MEDS ORDERED: IV FLUID CONTINUATION 1,000 ML IV ONE (12:18)
[2023-04-21] MEDS ORDERED: MIDAZOLAM 2 MG/2 ML VIAL IVP ONE (12:22)
[2023-04-21] MEDS ORDERED: LIDOCAINE 1% INJ 10MG/ML (20 ML MDV) SQ ONE (12:22)
[2023-04-21] MEDS ORDERED: VERAPAMIL SYRINGE (5 MG/10 ML) INTRAARTER ONE (12:24)
[2023-04-21] MEDS ORDERED: HEPARIN SODIUM 1,000 UN/ML (10ML VL) IV ONE (12:26)
[2023-04-21] MEDS ORDERED: NITROGLYCERIN SL TABS 0.4 MG TAB SUBLINGUAL ONE ×2 (12:26→12:27)
[2023-04-21] MEDS ORDERED: IOPAMIDOL-370 100ML BTL INJ ONE (12:30)
[2023-04-21] MEDS ORDERED: RX INFO: IV CONTRAST WAS GIVEN 1 EACH MISC MISCELLANE PRN (12:33)
--- NOTE | 2023-04-21 12:36 | P.PCN ---
Date of Procedure: 04/21/23 Operative Findings: CARDIAC CATHETERIZATION PERFORMING PHYSICIAN: Mack Sanchez MD, RPVI PROCEDURE PERFORMED: 1. Selective right and left coronary angiogram 2. Ultrasound-guided access of the right radial artery INDICATION: Unstable angina COMPLICATION: None APPROACH: Right radial artery LEVEL OF SEDATION: Moderate with a sedation length of 9 minutes PROCEDURE DESCRIPTION: After obtaining an informed consent, the patient was brought to cardiac label printer. Local anesthesia was performed using lidocaine subcutaneously. The right radial artery was cannulated using Seldinger technique, the guidewire passed easily, following that we advanced a 5-Kittitian sheath dilator assembly, the wire and dilator were removed and sheath was flushed. Following that, 2 mg of verapamil along with 5000 unit heparin were given. Selective right and left coronary angiogram using a 6-Kittitian JR4 and JL 3.5 catheters. The procedure was completed there was no complication. SELECTIVE CORONARY ANGIOGRAM: The right coronary artery: Large-caliber vessel and a dominant vessel. The RCA is a stented in the proximal portion and midportion and the stent appeared to be patent with only mild in-stent restenosis. Left main: Is angiographically normal. Bifurcates into an LCx and LAD The left circumflex: Large caliber vessel nondominant vessel. The LCx is normal and gives rises into an OM which appeared to be normal. The left anterior descending artery: The LAD has mild ostial disease. The LAD in the proximal portion is a stented and the stent is patent. The LAD gives rise into a diagonal branch which has mild disease in the ostium. The LAD distally appears to be normal CONCLUSION: 1. Patent stents in the RCA and LAD with only mild disease involving the ostial LAD POSTPROCEDURE MANAGEMENT: Medical treatment
[2023-04-21] MEDS ORDERED: SODIUM CHLORIDE 0.9% 1,000 ML IV SCH (12:45)
--- NOTE | 2023-04-21 16:32 | P.HPIM ---
History of Present Illness H&P Date: 04/21/23 Chief Complaint: Chest pain * 62-year-old patient with past medical history significant for coronary artery disease, history of gastric physical reflux, hyperlipidemia, history of lumpectomy right breast, status course chemo for breast cancer presents to the emergency department with complaints of chest pain * Patient states chest pain started on 04/20/22 around 3 PM. This was associated with shortness of breath dizziness lightheadedness. Patient does have history of PCI with multiple stents per chart review * Workup in ER included CBC which was essentially negative, INR of 0.9, serum chemistry obtained showed sodium 139 potassium 4 chloride 106 BU and 18 creatinine 0.8 * Serial troponins were obtained which were within normal limits * EKG obtained in ER showed bradycardia with no significant ST segment changes REVIEW OF SYSTEMS: Chest pain CONSTITUTIONAL: No fever, no malaise, no fatigue. HEENT: No recent visual problems or hearing problems. Denied any sore throat. CARDIOVASCULAR: No chest pain, orthopnea, PND, no palpitations, no syncope. PULMONARY: No shortness of breath, no cough, no hemoptysis. GASTROINTESTINAL: No diarrhea, no nausea, no vomiting, no abdominal pain. NEUROLOGICAL: No headaches, no weakness, no numbness. HEMATOLOGICAL: Denies any bleeding or petechiae. GENITOURINARY: Denies any burning micturition, frequency, or urgency. MUSCULOSKELETAL/RHEUMATOLOGICAL: Denies any joint pain, swelling, or any muscle pain. ENDOCRINE: Denies any polyuria or polydipsia. PHYSICAL EXAMINATION: GENERAL: The patient is alert and oriented x3, not in any acute distress. Well developed, well nourished. HEENT: Pupils are round and equally reacting to light. EOMI. CARDIOVASCULAR: S1 and S2 present. No murmurs, rubs, or gallops. PULMONARY: Chest is clear to auscultation, no wheezing or crackles. ABDOMEN: Soft, nontender, nondistended, normoactive bowel sounds. No palpable organomegaly. MUSCULOSKELETAL: No joint swelling or deformity. EXTREMITIES: No cyanosis, clubbing, or pedal edema. NEUROLOGICAL: Gross neurological examination did not reveal any focal deficits. Past Medical History Past Medical History: Coronary Artery Disease (CAD), Cancer, GERD/Reflux, Hyperlipidemia Additional Past Medical History / Comment(s): irritable bowel syndrome. right breast cancer 2009 with lumpectomy/chemo x 3 in three sites History of Any Multi-Drug Resistant Organisms: None Reported Past Surgical History: Breast Surgery, Heart Catheterization With Stent, Hysterectomy Additional Past Surgical History / Comment(s): right breast lumpectomy 2009/ chemotherapy 2009. 2012 and 2015 Past Anesthesia/Blood Transfusion Reactions: No Reported Reaction Date of Last Stent Placement:: 2 weeks ago Past Psychological History: Anxiety, Depression Smoking Status: Former smoker, Light tobacco smoker Past Alcohol Use History: Rare Past Drug Use History: None Reported - Past Family History Father Family Medical History: Chest Pain / Angina, Coronary Artery Disease (CAD), Myocardial Infarction ([place]) Additional Family Medical History / Comment(s): Luisa in his 50s. He was on a cardiac transplant list. Mother Family Medical History: Coronary Artery Disease (CAD), Myocardial Infarction ([place]) Additional Family Medical History / Comment(s): history of multiple stents. Mother at age 72. Brother(s) Additional Family Medical History / Comment(s): Patient has 3 brothers. One has no major medical problems, one is unknown medical problems, when his cardiac problems. All brothers have anxiety. Sister(s) Additional Family Medical History / Comment(s): Patient has 3 sisters all suffering from anxiety. Daughter(s) Additional Family Medical History / Comment(s): Patient has 2 daughters. One daughter has MS. One daughter has anxiety. Patient does not have any sons. Medications and Allergies Home Medications Medication Instructions Recorded Confirmed Type Nitroglycerin Sl Tabs [Nitrostat] 0.4 mg SL Q5M PRN 11/07/21 04/20/23 History clonazePAM [KlonoPIN] 1 mg PO QID 07/25/22 04/20/23 History Aspirin EC [Ecotrin Low Dose] 81 mg PO DAILY 09/12/22 04/20/23 History Ergocalciferol [Vitamin D2 (1250 1,250 mcg PO TU 09/12/22 04/20/23 History Mcg = 87870 Iu)] DULoxetine HCL [Cymbalta] 30 mg PO DAILY 04/20/23 04/20/23 History HYDROcodone/APAP 7.5-325MG [[place] 1 tab PO Q4H PRN 04/20/23 04/20/23 History 7.5-325] Ondansetron [Zofran] 4 mg PO DAILY 04/20/23 04/20/23 History Furosemide [Lasix] 20 mg PO DAILY 04/21/23 04/21/23 History Allergies Allergy/AdvReac Type Severity Reaction Status Date / Time Iodinated Contrast Media AdvReac Nausea & Verified 04/20/23 21:53 Vomiting Physical Exam Vitals: Vital Signs Temp Pulse Pulse Resp BP BP Pulse Ox 04/21/23 09:17 63 18 102/47 96 04/21/23 02:00 98.2 F 57 L 16 114/62 96 04/21/23 00:12 97.7 F 71 16 144/75 97 04/20/23 20:00 98.0 F 80 20 129/63 98 Intake and Output 04/20/23 04/21/23 04/21/23 22:59 06:59 14:59 Intake Total 10 Balance 10 Intake: IV 10 Invasive Line 2 10 Other: Voiding Method Toilet Weight 67.585 kg Results CBC & Chem 7: 04/21/23 05:45 04/21/23 05:45 Labs: Abnormal Lab Results - Last 24 Hours (Table) 04/20/23 04/21/23 Range/Units 20:30 05:45 BUN 18 H 18 H (7-17) mg/dL Glucose 104 H (74-99) mg/dL ALT 44 H 36 H (4-34) U/L Total Protein 6.0 L (6.3-8.2) g/dL Thrombosis Risk Factor Assmnt - DVT/VTE Prophylaxis DVT/VTE Prophylaxis: Pharmacologic Prophylaxis ordered, Mechanical Prophylaxis ordered Assessment and Plan Assessment: Assessment and plan * Coronary artery disease with chest pain rule out ACS * History of generalized anxiety disorder * Hyperlipidemia * Gastroesophageal reflux disease * In regards to chest pain, serial troponins ordered, sublingual nitroglycerin, continue aspirin, cardiology consulted * In regards to history of generalized anxiety continue patient on Cymbalta, Klonopin been resumed * In regards to gastric region reflux disease continue Protonix * CODE STATUS full code
[2023-04-21] MEDS: METOCLOPRAMIDE 5 MG/ML 2 ML VIAL IVP PRN (20:31)
[2023-04-22] MEDS: HYDROcodone/APAP 7.5-325MG 1 EACH TAB PO PRN ×4 (02:31→22:03)
[2023-04-22] MEDS: ALPRAZolam 0.5 MG TAB PO PRN ×2 (02:31→17:07)
[2023-04-22] MEDS: clonazePAM 1 MG TAB PO SCH ×4 (06:32→19:02)
[2023-04-22] MEDS: SODIUM CHLORIDE 0.9% 1,000 ML in EMPTY BAG 1 BAG IV SCH ×2 (07:50→16:29)
[2023-04-22] MEDS: PANTOPRAZOLE 40 MG/10 ML VIAL IV SCH (08:01)
[2023-04-22] MEDS: ASPIRIN 81 MG PO SCH (08:01)
[2023-04-22] MEDS: ENOXAPARIN 40 MG/0.4 ML SYRINGE SQ SCH (08:01)
[2023-04-22] MEDS: DULoxetine HCL 30 MG CAPSULE.DR PO SCH (08:01)
--- NOTE | 2023-04-22 10:13 | P.PN ---
Subjective Progress Note Date: 04/22/23 Principal diagnosis: CP The patient is a pleasant 62-year-old female patient with a past medical history significant for hypertension and dyslipidemia and coronary artery disease with previous stenting of the LAD and RCA was admitted to the hospital with chest discomfort concerning for unstable angina and underwent heart catheterization revealed patent stents in both arteries. She was seen this morning. She is chest pain-free. For some reason she is only on aspirin be she stated that she has a statin intolerance. She is not on beta lul once after a small dose of metoprolol at 12.5 mg by mouth twice a day. The examination is remarkable for regular rhythm with a clear breathing sounds bilaterally and no lower extremity edema noted. Assessment Chest discomfort which has improved Coronary artery disease as described above Hypertension Dyslipidemia Plan Severe obstructive CAD was ruled out Pulmonary embolism was ruled out Start the patient on small dose of beta lul Follow-up on the echocardiogram Objective - Vital Signs Vital signs: Vital Signs Temp 97.7 F 04/22/23 07:58 Pulse 72 04/22/23 07:58 Resp 16 04/22/23 07:58 BP 123/63 04/22/23 07:58 Pulse Ox 99 04/22/23 07:58 FiO2 Intake & Output 04/21/23 04/22/23 04/22/23 18:59 06:59 18:59 Intake Total 708 250 Balance 708 250 Weight 67.585 kg Intake: IV 50 10 Invasive Line 2 10 Oral [id number] Other: Voiding Method Toilet Toilet # Voids 1 1 - Labs CBC & Chem 7: 04/21/23 05:45 04/21/23 05:45
[2023-04-22 12:23] LABS: Glucose,Whole Blood 121 mg/dL (70-110)
--- NOTE | 2023-04-22 13:18 | P.PN ---
Subjective Progress Note Date: 04/22/23 * 62-year-old patient with past medical history significant for coronary artery disease, history of gastric physical reflux, hyperlipidemia, history of lumpectomy right breast, status course chemo for breast cancer presents to the emergency department with complaints of chest pain * Patient states chest pain started on 04/20/22 around 3 PM. This was associated with shortness of breath dizziness lightheadedness. Patient does have history of PCI with multiple stents per chart review * Workup in ER included CBC which was essentially negative, INR of 0.9, serum chemistry obtained showed sodium 139 potassium 4 chloride 106 BU and 18 creatinine 0.8 * Serial troponins were obtained which were within normal limits * EKG obtained in ER showed bradycardia with no significant ST segment changes * 04/22/2023: Patient seen and evaluated bedside, on evaluation patient is alert and oriented 4, does complain of fatigue REVIEW OF SYSTEMS: Chest pain resolved him a complain of fatigue and co nstipation CONSTITUTIONAL: No fever, no malaise, no fatigue. HEENT: No recent visual problems or hearing problems. Denied any sore throat. CARDIOVASCULAR: No chest pain, orthopnea, PND, no palpitations, no syncope. PULMONARY: No shortness of breath, no cough, no hemoptysis. GASTROINTESTINAL: No diarrhea, no nausea, no vomiting, no abdominal pain. NEUROLOGICAL: No headaches, no weakness, no numbness. HEMATOLOGICAL: Denies any bleeding or petechiae. GENITOURINARY: Denies any burning micturition, frequency, or urgency. MUSCULOSKELETAL/RHEUMATOLOGICAL: Denies any joint pain, swelling, or any muscle pain. ENDOCRINE: Denies any polyuria or polydipsia. PHYSICAL EXAMINATION: GENERAL: The patient is alert and oriented x3, not in any acute distress. Well developed, well nourished. HEENT: Pupils are round and equally reacting to light. EOMI. CARDIOVASCULAR: S1 and S2 present. No murmurs, rubs, or gallops. PULMONARY: Chest is clear to auscultation, no wheezing or crackles. ABDOMEN: Soft, nontender, nondistended, normoactive bowel sounds. No palpable organomegaly. MUSCULOSKELETAL: No joint swelling or deformity. EXTREMITIES: No cyanosis, clubbing, or pedal edema. NEUROLOGICAL: Gross neurological examination did not reveal any focal deficits. Objective - Vital Signs Vital signs: Vital Signs Temp 97.7 F 01/14/24 07:58 Pulse 72 04/22/23 07:58 Resp 16 04/22/23 07:58 BP 123/63 04/22/23 07:58 Pulse Ox 99 04/22/23 07:58 FiO2 Intake & Output 04/21/23 04/22/23 04/22/23 18:59 06:59 18:59 Intake Total 708 370 Balance 708 370 Weight 67.585 kg Intake: IV 50 10 Invasive Line 2 10 Oral 658 [id number] Other: Voiding Method Toilet Toilet Toilet # Voids 1 1 - Labs CBC & Chem 7: 04/21/23 05:45 04/21/23 05:45 Labs: Abnormal Lab Results - Last 24 Hours (Table) 04/22/23 Range/Units 12:21 POC Glucose (mg/dL) 121 H (70-110) mg/dL Assessment and Plan Assessment: Assessment and plan * Coronary artery disease with chest pain rule out ACS * IBSconstipation * History of generalized anxiety disorder * Hyperlipidemia * Gastroesophageal reflux disease * In regards to chest pain and coronary artery disease, cardiac catheterization done no intervention medical management. Cardiology to do echocardiogram * In regards to history of generalized anxiety continue patient on Cymbalta, Klonopin been resumed * In regards to gastric recent visual reflux disease continue Protonix * In regards to IBS/constipation started on bowel regimen * CODE STATUS full code Time with Patient: Greater than 30
[2023-04-22] MEDS: SIMETHICONE 80 MG CHEWABLE PO SCH ×3 (13:43→22:03)
[2023-04-22] MEDS: polyethylene glycoL 3350 17 GM POWD.PACK PO SCH (13:44)
[2023-04-22] MEDS: NITROGLYCERIN SL TABS 0.4 MG TAB SUBLINGUAL PRN ×3 (15:40→15:55)
[2023-04-22] MEDS: MORPHINE SULFATE 4 MG/ML SYRINGE IV PRN (16:04)
[2023-04-22] MEDS: METOCLOPRAMIDE 5 MG/ML 2 ML VIAL IVP PRN (17:48)
[2023-04-22] MEDS: METOPROLOL TARTRATE 12.5 MG TAB PO SCH (22:00)
[2023-04-23] MEDS: clonazePAM 1 MG TAB PO SCH ×3 (00:43→12:55)
[2023-04-23] MEDS: HYDROcodone/APAP 7.5-325MG 1 EACH TAB PO PRN ×2 (05:07→15:14)
[2023-04-23 07:39] LABS: HCT 33.8 % (34.0-46.0); HGB 11.6 gm/dL (11.4-16.0); MCH 32.6 pg (25.0-35.0); MCHC 34.4 g/dL (31.0-37.0); MCV 94.6 fL (80.0-100.0); Mean Platelet Volume 7.9; Platelet Count 165 k/uL (150-450); RBC 3.57 m/uL (3.80-5.40); RDW 13.2 % (11.5-15.5); WBC 8.5 k/uL (3.8-10.6)
[2023-04-23] MEDS: SODIUM CHLORIDE 0.9% 1,000 ML in EMPTY BAG 1 BAG IV SCH (07:42)
[2023-04-23] MEDS: PANTOPRAZOLE 40 MG/10 ML VIAL IV SCH (07:51)
[2023-04-23] MEDS: ENOXAPARIN 40 MG/0.4 ML SYRINGE SQ SCH (07:51)
[2023-04-23] MEDS: ASPIRIN 81 MG PO SCH (07:51)
[2023-04-23] MEDS: DULoxetine HCL 30 MG CAPSULE.DR PO SCH (07:51)
[2023-04-23] MEDS: SIMETHICONE 80 MG CHEWABLE PO SCH ×3 (07:52→18:13)
[2023-04-23] MEDS: polyethylene glycoL 3350 17 GM POWD.PACK PO SCH (07:52)
[2023-04-23] MEDS: METOPROLOL TARTRATE 12.5 MG TAB PO SCH (07:52)
[2023-04-23 08:32] LABS: African American GFR (CKD) >90 (>60 ml/min/1.73 sqM); Anion Gap 10 mmol/L; Blood Urea Nitrogen 19 mg/dL (7-17); Calcium 8.4 mg/dL (8.4-10.2); Carbon Dioxide 20 mmol/L (22-30); Chloride 110 mmol/L (98-107); Glucose 84 mg/dL (74-99); Non-African American GFR(CKD) >90 (>60 ml/min/1.73 sqM); Sodium 140 mmol/L (137-145)
[2023-04-23] MEDS ORDERED: FUROSEMIDE 20 MG TAB PO SCH (12:15)
[2023-04-23 12:18] LABS: Potassium 4.5 mmol/L (3.5-5.1)
[2023-04-23 13:12] VITALS: RESP 16; TEMP 97.9
--- NOTE | 2023-04-23 13:41 | P.DS ---
Providers Date of admission: 04/20/23 22:50 Expected date of discharge: 04/23/23 Attending physician: Danette Clay Consults: 04/20/23 22:46 Consult Physician Routine Consulting Provider: Kasey Hollingsworth Consult Reason/Comments: cp Do you want consulting provider notified?: Yes Primary care physician: [place] [facility] Course: * 62-year-old patient with past medical history significant for coronary artery disease, history of gastric physical reflux, hyperlipidemia, history of lumpectomy right breast, status course chemo for breast cancer presents to the emergency department with complaints of chest pain * Patient states chest pain started on 04/20/22 around 3 PM. This was associated with shortness of breath dizziness lightheadedness. Patient does have history of PCI with multiple stents per chart review * Workup in ER included CBC which was essentially negative, INR of 0.9, serum chemistry obtained showed sodium 139 potassium 4 chloride 106 BU and 18 creatinine 0.8 * Serial troponins were obtained which were within normal limits * EKG obtained in ER showed bradycardia with no significant ST segment changes * 04/22/2023: Patient seen and evaluated bedside, on evaluation patient is alert and oriented 4, does complain of fatigue * 04/23/2023: Patient seen and evaluated bedside, patient did complain of abdominal distention, patient complained of constipation however she already had a bowel movement. Patient discharged on simethicone and Protonix. Echocardiogram completed. Information for outpatient follow-up with cardiology provided. Chest pain has resolved. Lasix resumed. All questions answered prior to discharge PHYSICAL EXAMINATION: GENERAL: The patient is alert and oriented x3, not in any acute distress. Well developed, well nourished. HEENT: Pupils are round and equally reacting to light. EOMI. CARDIOVASCULAR: S1 and S2 present. No murmurs, rubs, or gallops. PULMONARY: Chest is clear to auscultation, no wheezing or crackles. ABDOMEN: Soft, nontender, nondistended, normoactive bowel sounds. No palpable organomegaly. MUSCULOSKELETAL: No joint swelling or deformity. EXTREMITIES: No cyanosis, clubbing, or pedal edema. NEUROLOGICAL: Gross neurological examination did not reveal any focal deficits. Assessment: Assessment and plan * Coronary artery disease with chest pain rule out ACS * IBSconstipation * History of generalized anxiety disorder * Hyperlipidemia * Gastroesophageal reflux disease * In regards to chest pain and coronary artery disease, cardiac catheterization done no intervention medical management. Echocardiogram completed, continue medical management * In regards to history of generalized anxiety continue patient on Cymbalta, Klonopin been resumed * In regards to GERD visual reflux disease continue Protonix, simethicone provided * In regards to IBS/constipation , continue MiraLAX [id number] as needed Patient Condition at Discharge: Good Plan - Discharge Summary Discharge Rx Participant: No New Discharge Prescriptions: New Metoprolol Tartrate [Lopressor] 12.5 mg PO BID 30 Days #60 tab Simethicone Chew [Mylicon Chew] 40 mg PO QID 15 Days #60 tab Pantoprazole [Protonix] 40 mg PO DAILY 30 Days #30 tab Continue Nitroglycerin Sl Tabs [Nitrostat] 0.4 mg SL Q5M PRN PRN Reason: Chest Pain Ergocalciferol [Vitamin D2 (1250 Mcg = 06191 Iu)] 1,250 mcg PO TU Furosemide [Lasix] 20 mg PO DAILY clonazePAM [KlonoPIN] 1 mg PO QID Aspirin EC [Ecotrin Low Dose] 81 mg PO DAILY DULoxetine HCL [Cymbalta] 30 mg PO DAILY HYDROcodone/APAP 7.5-325MG [[place] 7.5-325] 1 tab PO Q4H PRN PRN Reason: Pain Ondansetron [Zofran] 4 mg PO DAILY Discharge Medication List Nitroglycerin Sl Tabs [Nitrostat] 0.4 mg SL Q5M PRN 11/07/21 [History] clonazePAM [KlonoPIN] 1 mg PO QID 07/25/22 [History] Aspirin EC [Ecotrin Low Dose] 81 mg PO DAILY 09/12/22 [History] Ergocalciferol [Vitamin D2 (1250 Mcg = 79465 Iu)] 1,250 mcg PO TU 09/12/22 [History] DULoxetine HCL [Cymbalta] 30 mg PO DAILY 04/20/23 [History] HYDROcodone/APAP 7.5-325MG [Et[place] 7.5-325] 1 tab PO Q4H PRN 04/20/23 [History] Ondansetron [Zofran] 4 mg PO DAILY 04/20/23 [History] Furosemide [Lasix] 20 mg PO DAILY 04/21/23 [History] Metoprolol Tartrate [Lopressor] 12.5 mg PO BID 30 Days #60 tab 04/23/23 [Rx] Pantoprazole [Protonix] 40 mg PO DAILY 30 Days #30 tab 04/23/23 [Rx] Simethicone Chew [Mylicon Chew] 40 mg PO QID 15 Days #60 tab 04/23/23 [Rx] Follow up Appointment(s)/Referral(s): Nonstaff,Physician [REFERRING] - 1-2 days Mack Sanchez MD [STAFF PHYSICIAN] - 2 Weeks Discharge Disposition: HOME SELF-CARE
[2023-04-23 14:00] VITALS: BMI 33.2
--- NOTE | 2023-04-23 14:43 | P.PN ---
Subjective Progress Note Date: 04/23/23 Principal diagnosis: CP The patient is a pleasant 62-year-old female patient with a past medical history significant for hypertension and dyslipidemia and coronary artery disease with previous stenting of the LAD and RCA was admitted to the hospital with chest discomfort concerning for unstable angina and underwent heart catheterization revealed patent stents in both arteries. She was seen this morning. She is chest pain-free. For some reason she is only on aspirin be she stated that she has a statin intolerance. She is not on beta lul once after a small dose of metoprolol at 12.5 mg by mouth twice a day. 04/23 Patient is seen today in follow-up. She is complaining of constipation for the past 9 days. Echocardiogram remains pending. Patient denies having any chest pain or shortness of breath. The examination is remarkable for regular rhythm with a clear breathing sounds bilaterally and no lower extremity edema noted. Assessment Chest discomfort which has improved Coronary artery disease as described above Hypertension Dyslipidemia Plan Severe obstructive CAD was ruled out Pulmonary embolism was ruled out Start the patient on small dose of beta lul Follow-up on the echocardiogram if echocardiogram is unremarkable, patient is cleared for discharge Nurse practitioner note has been reviewed, I agree with the documented findings and plan of care. Patient was seen and examined. Objective - Vital Signs Vital signs: Vital Signs Temp 97.9 F 04/23/23 12:54 Pulse 60 04/23/23 12:54 Resp 16 04/23/23 12:54 BP 114/68 04/23/23 12:54 Pulse Ox 99 04/23/23 12:54 FiO2 Intake & Output 04/22/23 04/23/23 04/23/23 18:59 06:59 18:59 Intake Total 488 110 490 Balance 488 110 490 Intake: IV 10 10 10 Invasive Line 2 10 Invasive Line 3 10 10 Oral 478 100 480 Other: Voiding Method Toilet Toilet Toilet # Voids 2 - Labs CBC & Chem 7: 04/23/23 06:37 04/23/23 06:37 Labs: Abnormal Lab Results - Last 24 Hours (Table) 04/23/23 04/23/23 Range/Units 06:37 06:37 RBC 3.57 L (3.80-5.40) m/uL Hct 33.8 L (34.0-46.0) % Chloride 110 H (98-107) mmol/L Carbon Dioxide 20 L (22-30) mmol/L BUN 19 H (7-17) mg/dL
[2023-04-23 15:38] VITALS: BP 114/70; PULSE 63
--- NOTE | 2023-04-23 17:25 | CA ---
Transthoracic Echo Report Name: Lois Sanders Age: 62 Gender: F : 1960 Exam Date: 04/23/2023 09:38 Exam Location: [facility] Ht (in): 61 Wt (lb): 149 Ordering Physician: Mack Sanchez MD ([id number]) Attending/Referring Phys: Event Marketing Assistant Alena Martinez RDCS Procedure CPT: Indications: chest pain/pressure Cardiac Hx: Technical Quality: Fair Contrast 1: Total Dose (mL): Contrast 2: Total Dose (mL): MEASUREMENTS (Male / Female) Normal Values 2D ECHO LV Diastolic Diameter PLAX 4.1 cm 4.2 - 5.9 / 3.9 - 5.3 cm LV Systolic Diameter PLAX 2.8 cm IVS Diastolic Thickness 1.0 cm 0.6 - 1.0 / 0.6 - 0.9 cm LVPW Diastolic Thickness 1.2 cm 0.6 - 1.0 / 0.6 - 0.9 cm LV Relative Wall Thickness 0.5 RV Internal Dim ED PLAX 2.9 cm LA Systolic Diameter LX 4.0 cm 3.0 - 4.0 / 2.7 - 3.8 cm LV Diastolic Volume MOD 4C 59.6 cm??? LV Systolic Volume MOD 4C 33.4 cm??? LV Ejection Fraction MOD 4C 44.0 % LV Cardiac Index MOD 4C 926.3 cm???/min???m??? LV Diastolic Length 4C 7.6 cm LV Systolic Length 4C 6.4 cm LV Diastolic Volume MOD 2C 62.5 cm??? LV Systolic Volume MOD 2C 30.7 cm??? LV Ejection Fraction MOD 2C 51.0 % LV Cardiac Index MOD 2C 1125.3 cm???/min???m??? LV Diastolic Length 2C 7.4 cm LV Systolic Length 2C 5.9 cm LA Volume 32.8 cm??? 18 - 58 / 22 - 52 cm??? LA Volume Index 19.0 cm???/m??? 16 - 28 cm???/m??? M-MODE Aortic Root Diameter MM 3.1 cm MV E Point Septal Separation 0.7 cm AV Cusp Separation MM 1.7 cm DOPPLER AV Peak Velocity 118.9 cm/s AV Peak Gradient 5.7 mmHg MV Area PHT 3.1 cm??? Mitral E Point Velocity 80.4 cm/s Mitral A Point Velocity 63.7 cm/s Mitral E to A Ratio 1.3 MV Deceleration Time 243.8 ms MV E' Velocity 12.4 cm/s Mitral E to MV E' Ratio 6.5 TR Peak Velocity 229.9 cm/s TR Peak Gradient 21.1 mmHg Right Ventricular Systolic Press 25.8 mmHg FINDINGS Left Ventricle Left ventricular ejection fraction is estimated at 50-55 %. Left ventricular cavity size normal. Mildly increased septal wall thickness. Mildly increased posterior wall thickness. Right Ventricle Normal right ventricular size. Right ventricular systolic pressure within normal limits. Right Atrium Normal right atrial size. Left Atrium Mildly increased left atrial diameter. Mitral Valve Structurally normal mitral valve. Mitral annular calcification. Trace mitral regurgitation. Aortic Valve Trileaflet aortic valve. Thickened aortic valve without stenosis. Tricuspid Valve Structurally normal tricuspid valve. Mild tricuspid regurgitation. Pulmonic Valve Structurally normal pulmonic valve. Pericardium No pericardial effusion. Aorta Normal size aortic root and proximal ascending aorta. CONCLUSIONS Preserved LV systolic function Previewed by: Dr. Ildefonso Ruvalcaba MD (Electronically Signed) Final Date: 23 April 2023 17:25
[2023-04-23] MEDS: ONDANSETRON 4 MG/2 ML VIAL IVP PRN (18:13)
== END 2023-04-23 18:24 | disposition home or self-care (01) ==
LOC: EC 19:56 → 6NMEDSUR 22:50 → 3SCARD 04-21 12:31
PROVIDERS: ADMIT Hospitalist; ATTEND Hospitalist
DX: I25.10 Atherosclerotic heart disease of native coronary artery without angina pectoris (principal); E78.5 Hyperlipidemia, unspecified; K21.9 Gastro-esophageal reflux disease without esophagitis; F32.A Depression, unspecified; F41.1 Generalized anxiety disorder; I10 Essential (primary) hypertension; K58.1 Irritable bowel syndrome with constipation; Z85.3 Personal history of malignant neoplasm of breast; Z87.891 Personal history of nicotine dependence; Z95.5 Presence of coronary angioplasty implant and graft; Z79.82 Long term (current) use of aspirin; Z79.899 Other long term (current) drug therapy; Z82.49 Family history of ischemic heart disease and other diseases of the circulatory system
CPT/HCPCS: 96376 ×4; 96361 ×3; 96372 ×2; 96375 ×3; 96374; 99291; 36415; 93005; 93306; 93454; 76937; 85379; 80053 ×2; 80048; 83690; 83735 ×2; 84100; 84484 ×2; 85025 ×2; 85027; 85610; 85730; 71046; G0378 ×4; C1769; C1894; J2250; J2270 ×3; J1200; J2765 ×2; J2930; J2405 ×3; J2001; J1650 ×2; J1644; C9113 ×3; Q9967

== ENCOUNTER → 2023-09-24 | Outpatient (CLI) | payer BC ==
[2023-09-24 20:00] LABS: Follicle Stimulating Hormone 42.4 mIU/mL; Luteinizing Hormone 18.2 mIU/mL
== END | disposition home or self-care (01) ==
LOC: LABWHC1 12:00
PROVIDERS: ATTEND Family Medicine
DX: R53.82 Chronic fatigue, unspecified (principal)
CPT/HCPCS: 36415; 82671; 83001; 83002; 84443

== ENCOUNTER 2023-09-28 19:08 | Emergency (ER) | payer BC ==
[2023-09-28 19:18] VITALS: RESP 18
--- NOTE | 2023-09-28 19:42 | ED ---
Extremity Problem HPI - General Source: patient, family, RN notes reviewed Mode of arrival: wheelchair Limitations: no limitations <Suzanne Membreno - Last Filed: 09/28/23 19:42> <Nathaly Gastelum - Last Filed: 09/29/23 00:09> - General Chief complaint: Extremity Problem,Nontraumatic Stated complaint: Possible blood clot Time Seen by Provider: 09/28/23 19:42 - History of Present Illness Initial comments: Quick note: 63-year-old female presented to the ER with a chief complaint of right calf tenderness and swelling. Patient sent in by PCP to rule out DVT. Patient denies any chest pain, shortness of breath, fevers or chills. (Suzanne Membreno) 63-year-old female presents to the emergency department for evaluation of right lower extremity swelling. Patient states that this has been going on for almost 5 years after her right ankle injury. She states that it has been worse recently. Patient states that she underwent a Doppler of some sort yesterday here but we are unable to obtain the results of this. Patient was sent in by her PCP for an ultrasound of her lower extremity. She denies redness or calf tenderness. Denies chest pain, shortness of breath. Denies fever, chills. (Nathaly Gastelum) - Related Data Home Medications Medication Instructions Recorded Confirmed Nitroglycerin Sl Tabs [Nitrostat] 0.4 mg SL Q5M PRN 11/07/21 04/20/23 clonazePAM [KlonoPIN] 1 mg PO QID 07/25/22 04/20/23 Aspirin EC [Ecotrin Low Dose] 81 mg PO DAILY 09/12/22 04/20/23 Ergocalciferol [Vitamin D2 (1250 1,250 mcg PO TU 09/12/22 04/20/23 Mcg = 77447 Iu)] DULoxetine HCL [Cymbalta] 30 mg PO DAILY 04/20/23 04/20/23 HYDROcodone/APAP 7.5-325MG [[place] 1 tab PO Q4H PRN 04/20/23 04/20/23 7.5-325] Ondansetron [Zofran] 4 mg PO DAILY 04/20/23 04/20/23 Furosemide [Lasix] 20 mg PO DAILY 04/21/23 04/21/23 Previous Rx's Medication Instructions Recorded Metoprolol Tartrate [Lopressor] 12.5 mg PO BID 30 Days #60 tab 04/23/23 Pantoprazole [Protonix] 40 mg PO DAILY 30 Days #30 tab 04/23/23 Simethicone Chew [Mylicon Chew] 40 mg PO QID 15 Days #60 tab 04/23/23 Allergies Allergy/AdvReac Type Severity Reaction Status Date / Time Iodinated Contrast Media AdvReac Nausea & Verified 09/28/23 19:17 Vomiting Review of Systems ROS Other: All systems not noted in ROS Statement are negative. <Suzanne Membreno - Last Filed: 09/28/23 19:42> ROS Other: All systems not noted in ROS Statement are negative. <Nathaly Gastelum - Last Filed: 09/29/23 00:09> ROS Statement: Those systems with pertinent positive or pertinent negative responses have been documented in the HPI. Past Medical History Past Medical History: Coronary Artery Disease (CAD), Cancer, GERD/Reflux, Hyperlipidemia Additional Past Medical History / Comment(s): irritable bowel syndrome. right breast cancer 2010 with lumpectomy/chemo x 3 in three sites History of Any Multi-Drug Resistant Organisms: None Reported Past Surgical History: Breast Surgery, Heart Catheterization With Stent, Hysterectomy Additional Past Surgical History / Comment(s): right breast lumpectomy 2009/ chemotherapy 2009. 2012 and 2015 Past Anesthesia/Blood Transfusion Reactions: No Reported Reaction Date of Last Stent Placement:: 2 weeks ago Past Psychological History: Anxiety, Depression Smoking Status: Current every day smoker, Light tobacco smoker Past Alcohol Use History: Rare Past Drug Use History: None Reported - Past Family History Father Family Medical History: Chest Pain / Angina, Coronary Artery Disease (CAD), Myocardial Infarction (AK) Additional Family Medical History / Comment(s): Luisa in his 50s. He was on a cardiac transplant list. Mother Family Medical History: Coronary Artery Disease (CAD), Myocardial Infarction ([place]) Additional Family Medical History / Comment(s): history of multiple stents. Mother at age 72. Brother(s) Additional Family Medical History / Comment(s): Patient has 3 brothers. One has no major medical problems, one is unknown medical problems, when his cardiac problems. All brothers have anxiety. Sister(s) Additional Family Medical History / Comment(s): Patient has 3 sisters all suffering from anxiety. Daughter(s) Additional Family Medical History / Comment(s): Patient has 2 daughters. One daughter has MS. One daughter has anxiety. Patient does not have any sons. <Suzanne Membreno - Last Filed: 09/28/23 19:42> General Exam Limitations: no limitations <Suzanne Membreno - Last Filed: 09/28/23 19:42> Limitations: no limitations General appearance: alert, in no apparent distress Head exam: Present: atraumatic, normocephalic, normal inspection Eye exam: Present: normal appearance, PERRL, EOMI. Absent: scleral icterus, conjunctival injection, periorbital swelling ENT exam: Present: normal exam, mucous membranes moist Neck exam: Present: normal inspection. Absent: tenderness, meningismus, lymphadenopathy Respiratory exam: Present: normal lung sounds bilaterally. Absent: respiratory distress, wheezes, rales, rhonchi, stridor Cardiovascular Exam: Present: regular rate, normal rhythm, normal heart sounds. Absent: systolic murmur, diastolic murmur, rubs, gallop, clicks Extremities exam: Present: full ROM, normal capillary refill, pedal edema (Right-sided), other (DP and PT pulses 2+). Absent: tenderness, joint swelling, calf tenderness Neurological exam: Present: alert, oriented X3 Psychiatric exam: Present: normal affect, normal mood Skin exam: Present: warm, dry, intact, normal color. Absent: rash <Nathaly Gastelum - Last Filed: 09/29/23 00:09> - General Exam Comments Initial Comments: Visual Physical Exam Vital signs reviewed General: Well-appearing, nontoxic, no acute distress. Head: Normocephalic, atraumatic Eyes: PERRLA, EOMI ENT: Airway patent Chest: Nonlabored breathing Skin: No visual rash, normal skin tone Neuro: Alert and oriented 3 Musculoskeletal: No gross abnormalities (Suzanne Membreno) Course Vital Signs 09/28/23 09/28/23 19:15 22:42 Temperature 97.9 F 98.1 F Pulse Rate 81 75 Respiratory 18 18 Rate Blood Pressure 113/62 114/64 O2 Sat by Pulse 99 99 Oximetry Medical Decision Making <Suzanne Membreno - Last Filed: 09/28/23 19:42> <Nathaly Gastelum - Last Filed: 09/29/23 00:09> - Medical Decision Making I performed the quick note portion of this chart. Electronically signed by Suzanne Membreno PA-C (Suzanne Membreno) Was pt. sent in by a medical professional or institution (WALTER Morris, PAYROLL REPRESENTATIVE, urgent care, hospital, or [place] health care facility...) When possible be specific @ -No Did you speak to anyone other than the patient for history (EMS, parent, family, police, friend...)? What history was obtained from this source @ -No Did you review nursing and triage notes (agree or disagree)? Why? @ -I reviewed and agree with nursing and triage notes Were old charts reviewed (outside hosp., previous admission, EMS record, old EKG, old radiological studies, urgent care reports/EKG's, [place] health care facility records)? Report findings @ -No old charts were reviewed Differential Diagnosis (chest pain, altered mental status, abdominal pain women, abdominal pain men, vaginal bleeding, weakness, fever, dyspnea, syncope, headache, dizziness, GI bleed, back pain, seizure, CVA, palpatations, mental health, musculoskeletal)? @ -Differential Musculoskeletal Muscular strain, contusion, ligament sprain, fracture, arthritis, septic arthritis, bursitis, cellulitis, muscle spasm, nerve compression, DVT, arterial occlusion, herpes zoster, electrolyte abnormality, tumor.... This is not meant to be in all inclusive list EKG interpreted by me (3pts min.). @ -None X-rays interpreted by me (1pt min.). @ -None done CT interpreted by me (1pt min.). @ -None done U/S interpreted by me (1pt. min.). @ -Ultrasound of the right lower extremity shows no evidence of DVT What testing was considered but not performed or refused? (CT, X-rays, U/S, labs)? Why? @ -None What meds were considered but not given or refused? Why? @ -None Did you discuss the management of the patient with other professionals (professionals i.e. WALTER Morris, PAYROLL REPRESENTATIVE, lab, RT, psych nurse, social science professor, elevator inspector, teacher, aerospace engineer officer armament, case specialist)? Give summary @ -Management was discussed with Dr. Humphrey who looked up the patient's chart. He states that the patient called the office and told them that her neurology provider at [facility] was concerned for a DVT. Her PCP attempted to get the patient into the office but patient came to the emergency department. Was smoking cessation discussed for >3mins.? @ -No Was critical care preformed (if so, how long)? @ -No Were there social determinants of health that impacted care today? How? (Homelessness, low income, unemployed, alcoholism, drug addiction, transportation, low edu. Level, literacy, decrease access to med. care, [facility], rehab)? @ -No Was there de-escalation of care discussed even if they declined (Discuss DNR or withdrawal of care, Hospice)? DNR status @ -No What co-morbidities impacted this encounter? (DM, HTN, Smoking, COPD, CAD, Cancer, CVA, ARF, Chemo, Hep., AIDS, mental health diagnosis, sleep apnea, morbid obesity)? @ -None Was patient admitted / discharged? Hospital course, mention meds given and route, prescriptions, significant lab abnormalities, going to OR and other pertinent info. @ -Discharge. Patient presented to the emergency department for evaluation of right lower extremity swelling. Ultrasound was obtained which shows no evidence of DVT. I did discuss case with the patient's primary care provider who has no further concerns. Patient will be discharged home with follow-up to PCP. Patient is understanding and agreeable with this plan. Patient stable at time of discharge. Case discussed with Dr. Person Undiagnosed new problem with uncertain prognosis? @ -No Drug Therapy requiring intensive monitoring for toxicity (Heparin, Nitro, Insulin, Cardizem)? @ -No Were any procedures done? @ -No Diagnosis/symptom? @ -Right lower extremity edema Acute, or Chronic, or Acute on Chronic? @ -Acute Uncomplicated (without systemic symptoms) or Complicated (systemic symptoms)? @ -Uncomplicated Side effects of treatment? @ -No Exacerbation, Progression, or Severe Exacerbation? @ -No Poses a threat to life or bodily function? How? (Chest pain, [place], [place], pneumonia, PE, COPD, DKA, ARF, appy, cholecystitis, CVA, Diverticulitis, Homicidal, Suicidal, threat to staff... and all critical care pts) @ -No (Nathaly Gastelum) Disposition <Suzanne Membreno - Last Filed: 09/28/23 19:42> Is patient prescribed a controlled substance at d/c from ED?: No <Nathaly Gastelum - Last Filed: 09/29/23 00:09> Clinical Impression: Leg edema, right Disposition: HOME SELF-CARE Condition: Stable Instructions (If sedation given, give patient instructions): Leg Edema (ED) Additional Instructions: Please follow up with your primary care provider. Return to the emergency department for new or worsening symptoms. Referrals: Jcarlos Humphrey DO [Primary Care Provider] - 1-2 days
--- NOTE | 2023-09-28 20:20 | US ---
EXAMINATION TYPE: US venous doppler duplex LE RT DATE OF EXAM: 09/28/2023 8:06 PM COMPARISON: NONE CLINICAL INDICATION: Female, 63 years old with history of swelling; pain on right rivera SIDE PERFORMED: Right TECHNIQUE: The lower extremity deep venous system is examined utilizing real time linear array sonog richard with graded compression, doppler sonography and color-flow sonography. VESSELS IMAGED: Common Femoral Vein Deep Femoral Vein Greater Saphenous Vein * Femoral Vein Popliteal Vein Small Saphenous Vein * Proximal Calf Veins (* superficial vessels) The deep venous system of the right lower extremity from the common femoral vein to the proximal calf veins is patent and compressible with augmentable flow with normal waveforms. IMPRESSION: No evidence of right lower extremity DVT from the common femoral vein to the proximal calf veins
[2023-09-28 22:44] VITALS: BP 114/64; PULSE 75; TEMP 98.1
== END 2023-09-28 22:44 | disposition home or self-care (01) ==
LOC: EC 19:08
DX: R60.0 Localized edema (principal); F17.200 Nicotine dependence, unspecified, uncomplicated; Z91.041 Radiographic dye allergy status
CPT/HCPCS: 99283

== ENCOUNTER → 2024-01-07 | Outpatient (CLI) | payer BC ==
[2024-01-07 13:56] VITALS: BP 120/80; PULSE 90; RESP 16; TEMP 97.8
--- NOTE | 2024-01-07 15:28 | P.PAINPG ---
PQRS Measure Charge Sheet Comment: HISTORY OF PRESENT ILLNESS: A 63 yr old female as a referral from Dr Humphrey presents today w severe and chronic LBP > 3 mo secondary to radiculopathy, spondylosis and facet arthropathy without myelopathy for evaluation. Pt states pain level is provoked at 10 /10 in intensity, constant, localized in the lumbar spine, predominantly axial, stabbing in character w occasional shooting pain towards R lumbar spine and LE. Pain is provoked by bending. Pain is alleviated by physician guided home exercises/ stretches daily since Sep 2021, medications ([place] 10/325 #[address] Tamayo, Neurontin), manual massage, repositioning and rest . PMH: OA, CAD, R Breast CA, GERD, Hyperlipidemia, IBS, MDD/ Anxiety PSH: R Breast Lumpectomy (2009), Heart Catheterization With Stent, Hysterectomy SH: Daily tobacco use, Rare ETOH use, No illicit drug use FH: Fa- CAD, [place], in his 50s. Mo0 CAD, [place], at age 74. Bro- Anxiety. Sis- Anxiety. Daughter- MS, Anxiety All: See list Meds: See list REVIEW OF ORGAN SYSTEMS: CONSTITUTIONAL: No fevers or chills. No recent weight los s. NEUROLOGICAL: + numbness and tingling along the distal extremities. No seizure disorders or headaches. MUSCULOSKELETAL: + pain PSYCHIATRIC: Denies current depression or suicidal thoughts. Physical Examinations : Constitutional : Cooperative , not in acute distress . Neurologic : Cranial nerve II to XII intact. No focal neurological deficits. Psychiatric : alert & oriented x 3. Matching mood & appropriate affect. Judgment & insight intact. Musculoskeletal : Cervical Spine Motor strength in the deltoid and biceps: Normal right side. Normal Left side Motor strength biceps and the wrist ex tensors: Normal right side . Normal left side Motor strength in the triceps muscle: Normal right side. Normal left side Deep tendon reflexes: Normal at the biceps. Normal at Brachioradialis. Normal at triceps Vertebral body tenderness to deep palpation over Cervical facet loading test: positive bilaterally Spurling test: positive bilaterally Neck distraction test: positive bilaterally Tara sign: positive bilaterally Lumbar spine Motor strength lower extremities ,thigh and legs 5/5 Right side , 5/5 Left side Deep tendon reflexes : Normal Knee Jerk. Normal Ankle Jerk Vertebral body tenderness over L5 Garland Test positive BL L5-S1 Lumbar facet Loading Test: positive Right / positive Left Range of motion of the lumbar spine Flexion 30 degrees, extension 10 degrees Straight Leg Raise test: Left/ Right positive at degrees Yessenia test: positive right / positive left. Severe tenderness over the Sacroiliac joint on the Right / Left sides Gaenslen test: positive bilaterally Seated flexion test: positive bilaterally. Sacral spine : Severe tenderness over the Sacroiliac joint: right side / left side Range of motion: Flexion of the lumbar spine <60 degrees Range of motion: Extension of the lumbar spine <20 degrees Gaenslen's Test positive Yessenia test: positive right side / left side Thigh Thrust Test Sacral Thrust Test Imaging: MRI non contrast lumbar spine from 12/07/21 reviewed Assessment/ Plan : Lumbar radiculopathy Recommendation of GWYN L5-S1 #1. Risks, benefits of procedure discussed and patient verbalized understanding. Admits to anti- coagulant use or medical history of diabetes. Protocol for discontinuation/ continuation of medications alonzo procedure discussed. All questions answered. I have spent greater than 30 minutes on patient care today. Dr Graff was available by phone for the evaluation of this patient. The time was used to review the medical records including relevant urine studies and Prescription history (MAPs), review of the available imaging, evaluation and examination of the patient, coordination of care with the medical staff and if applicable referring physicians, as well as creation of the medical record PQRS Narrative: Smoking Status Current every day smoker Home Medications: Ambulatory Orders Nitroglycerin Sl Tabs [Nitrostat] 0.4 mg SL Q5M PRN 11/07/21 clonazePAM [KlonoPIN] 1 mg PO QID 07/25/22 Aspirin EC [Ecotrin Low Dose] 81 mg PO DAILY 09/12/22 Ergocalciferol [Vitamin D2 (1250 Mcg = 00977 Iu)] 1,250 mcg PO TU 09/12/22 DULoxetine HCL [Cymbalta] 30 mg PO DAILY 04/20/23 Ondansetron [Zofran] 4 mg PO DAILY 04/20/23 Furosemide [Lasix] 20 mg PO DAILY 04/21/23 Metoprolol Tartrate [Lopressor] 12.5 mg PO BID 30 Days #60 tab 04/23/23 Controlled Substance Measures - Controlled Substance Measures Is patient prescribed a controlled substance at discharge?: No
== END | disposition home or self-care (01) ==
LOC: PNWHC3 13:15
PROVIDERS: ATTEND Specialist
DX: M54.41 Lumbago with sciatica, right side (principal); M79.671 Pain in right foot; M54.16 Radiculopathy, lumbar region
CPT/HCPCS: 99211

== ENCOUNTER 2024-01-11 07:52 | Day surgery (SDC) | payer BC ==
[~2024-01-11 07:52] MED LIST: LACTATED RINGERS 1,000 ML IV SCH
[2024-01-11] MEDS: ALPRAZolam 0.5 MG TAB PO STA (08:22)
[2024-01-11] MEDS ORDERED: methylPREDNISolone ACETATE 40 MG/ML 1 ML VIAL ONE (08:49)
--- NOTE | 2024-01-11 08:56 | P.PCN ---
Date of Procedure: 01/11/24 Description of Procedure: Diagnosis: Lumbar radiculopathy, and lumbar spondylosis without myelopathy Procedure: L5-S1 Inter-Laminar Lumbar Epidural Steroid Injection under biplanar fluoroscopy #1 Surgeon: Emily Tejada Anesthesia: Local: 1% Lidocaine, IV sedation : None. Complications: None Estimated blood loss: None Specimens removed: none. Fluoroscopic image: Saved to patient EMR. Indications for Procedure: The patient has been suffering from lower back pain and leg pain. Inadequate pain control with pharmacologic regimen. Came here for lumbar epidural steroid injection for better pain control. Procedure and Findings: The patient was seen and examined in the holding area. The written informed consent was obtained after explaining the risks, benefits, and alternatives of the procedure to the patient. The patient was brought to the procedure room and was placed in the prone position on the operating room table. A pillow was placed under the abdomen to reduce lumbar lordosis. The anesthesia was started as mentioned above and monitoring was done with noninvasive blood pressure cuff, EKG and pulse oximetry. The skin preparation was done with ChloraPrep and draping was done in usual sterile fashion. Sterile technique was observed throughout the procedure. Under fluoroscopic guidance, the L5- S1 inter-laminar space was identified. 4 ml of 1% Lidocaine was injected with a 25 gauge needle to achieve adequate local anesthesia of the skin and subcutaneous tissue. A 20 gauge, 3.5 inch Tuohy type epidural needle was placed and advanced up to the epidural space using loss of resistance technique and fluoroscopic guidance. No paresthesia was noted. A negative aspiration was confirmed , A total of 8 ml solution containing Depo- Medrol 40 mg mixed with 7 mL of preservative-free Normal Saline was injected slowly with intermittent aspiration. The needle was removed intact, area was cleaned and bandage was applied. Disposition : The patient tolerated the procedure very well. The patient was transferred to the recovery room and remained stable until discharged home. The patient was given detailed discharge instructions for infection, bleeding, headache , leg weakness, and increased pain at the injection site, and was advised to seek immediate medical attention should significant side effects develop. The patient will be followed up with our Pain [facility] within 4 weeks for follow-up visit.
[2024-01-11] MEDS: ACETAMINOPHEN TAB 500 MG TAB PO STA (09:06)
--- NOTE | 2024-01-11 09:16 | FL ---
EXAMINATION TYPE: FL guided pain mgmt statistic DATE OF EXAM: 01/11/2024 9:00 AM COMPARISON: Pre Operative Images if available both CT/MRI or plain film CLINICAL INDICATION: Female, 63 years old with history of M54.16; TECHNIQUE: FL guided pain mgmt statistic, multiple fluoroscopic images provided for procedure. Total fluoroscopy time: 5.6 seconds Total submitted images to PACS: 2 DAP: 0.70837 mGym2 Gycm2 uGym2 cGycm2 or equivalent. FINDINGS: Fluoroscopic images during injection for pain management demonstrate multilevel degeneration changes throughout the spine. No evidence for fracture. No acute process identified. IMPRESSION: 1. No evidence for intraoperative complication. 2. Please see the operative/procedural note for further details. [facility], , 01/11/2024 9:14 AM
[2024-01-11 09:33] VITALS: BP 123/74; PULSE 79; RESP 16
== END 2024-01-11 09:45 | disposition home or self-care (01) ==
LOC: ORPAIN 07:52
DX: M54.16 Radiculopathy, lumbar region
CPT/HCPCS: 62323

== ENCOUNTER → 2024-02-21 | Outpatient (CLI) | payer BC ==
[2024-02-21 13:19] VITALS: BP 119/84; PULSE 108; RESP 19; TEMP 97.6
--- NOTE | 2024-02-21 14:36 | P.PAINPG ---
PQRS Measure Charge Sheet Comment: HISTORY OF PRESENT ILLNESS: A 63 yr old female presents today w severe and chronic LBP > 3 mo secondary to radiculopathy, spondylosis and facet arthropathy without myelopathy for evaluation s/p GWYN L5-S1 #1. Pt states she experienced 100 % pain relief x 5 wks s/p procedure. Pt states pain level is provoked at 1 /10 in intensity, constant, localized in the lumbar spine, predominantly axial, stabbing in character w occasional shooting pain towards R lumbar spine and LE. Pain is provoked by bending. Pain is alleviated by physician guided home exercises/ stretches daily since Sep 2021, medications, manual massage, repositioning and rest . Interventional procedures include GWYN L5-S1 x1 (Jan 2024) Medications include [place] 10/325mg #120 discontinued by Flaquita Perez REVIEW OF ORGAN SYSTEMS: CONSTITUTIONAL: No fevers or chills. No recent weight loss. NEUROLOGICAL: + numbness and tingling along the distal extremities. No seizure disorders or headaches. MUSCULOSKELETAL: + pain PSYCHIATRIC: Denies current depression or suicidal thoughts. Physical Examinations : Constitutional : Cooperative , not in acute distress . Neurologic : Cranial nerve II to XII intact. No focal neurological deficits. Psychiatric : alert & oriented x 3. Matching mood & appropriate affect. Judgment & insight intact. Musculoskeletal : Cervical Spine Motor strength in the deltoid and biceps: Normal right side. Normal Left side Motor strength biceps and the wrist extensors: Normal right side . Normal left side Motor strength in the triceps muscle: Normal right side. Normal left side Deep tendon reflexes: Normal at the biceps. Normal at Brachioradialis. Normal at triceps Vertebral body tenderness to deep palpation over Cervical facet loading test: positive bilaterally Spurling test: positive bilaterally Neck distraction test: positive bilaterally Tara sign: positive bilaterally Lumbar spine Motor strength lower extremities ,thigh and legs 5/5 Right side , 5/5 Left side Deep tendon reflexes : Normal Knee Jerk. Normal Ankle Jerk Vertebral body tenderness over L5 Garland Test positive BL L5-S1 Lumbar facet Loading Test: positive Right / positive Left Range of motion of the lumbar spine Flexion 30 degrees, extension 10 degrees Straight Leg Raise test: Left/ Right positive at degrees Yessenia test: positive right / positive left. Severe tenderness over the Sacroiliac joint on the Right / Left sides Gaenslen test: positive bilaterally Seated flexion test: positive bilaterally. Sacral spine : Severe tenderness over the Sacroiliac joint: right side / left side Range of motion: Flexion of the lumbar spine <60 degrees Range of motion: Extension of the lumba r spine <20 degrees Gaenslen's Test positive Yessenia test: positive right side / left side Thigh Thrust Test Sacral Thrust Test Imaging: MRI non contrast lumbar spine from 12/07/21 reviewed Pt has history of cardiac cath w stenting Assessment/ Plan : Lumbar radiculopathy Will manage residual pain and may RTC on an as needed basis. All questions answered. I have spent greater than 30 minutes on patient care today. Dr Graff was a vailable by phone for the evaluation of this patient. The time was used to review the medical records including relevant urine studies and Prescription history (MAPs), review of the available imaging, evaluation and examination of the patient, coordination of care with the medical staff and if applicable referring physicians, as well as creation of the medical record - Pain Location Lower Back Pharmacological Interventions: Epidural PQRS Narrative: Smoking Status Current every day smoker Hx Alcohol Use (MH) No Home Medications: Ambulatory Orders Nitroglycerin Sl Tabs [Nitrostat] 0.4 mg SL Q5M PRN 11/07/21 Aspirin EC [Ecotrin Low Dose] 81 mg PO DAILY 09/12/22 Ondansetron [Zofran] 4 mg PO DAILY PRN 04/20/23 Furosemide [Lasix] 20 mg PO DAILY PRN 04/21/23 diazePAM [Valium] 5 mg PO DAILY PRN 1 Days #2 tab 01/10/24 Linaclotide [Linzess] 01/11/24 Magnesium 400 mg PO HS 01/11/24 Controlled Substance Measures - Controlled Substance Measures Is patient prescribed a controlled substance at discharge?: No
== END ==
LOC: PNWHC3 12:49
PROVIDERS: ATTEND Specialist
DX: M47.26 Other spondylosis with radiculopathy, lumbar region (principal); F17.200 Nicotine dependence, unspecified, uncomplicated; Z91.041 Radiographic dye allergy status
CPT/HCPCS: 99211

== ENCOUNTER → 2024-03-11 | Outpatient (CLI) | payer BC ==
--- NOTE | 2024-03-11 09:27 | US ---
EXAMINATION TYPE: US abdomen complete DATE OF EXAM: 03/11/2024 COMPARISON: CT abdomen and pelvis 01/17/2022, 04/06/2021 CLINICAL INDICATION: Female, 63 years old with history of R10.30 ABD PAIN; Generalized abdomen pain. Patient states she is unable to poop. TECHNIQUE: Grayscale and color Doppler imaging of the abdomen was performed. FINDINGS: EXAM MEASUREMENTS: Liver Length: 19.4 cm Gallbladder Wall: 0.1 cm Spleen: 11.6 cm Right Kidney: 9.7 x 4.5 x 3.7 cm Left Kidney: 9.6 x 4.3 x 4.7 cm Pancreas: Echogenic in appearance Liver: Increased attenuation, decreased visualization of vessels suggestive of fatty infiltrate. En larged in size. Gallbladder: no stones or wall thickening Evidence for sonographic Mitchell's sign: neg CBD: Obscured by overlying bowel gas Spleen: wnl Right Kidney: No hydronephrosis or masses seen Left Kidney: No hydronephrosis or masses seen Upper IVC: limited visualization Abd Aorta: Mid and distal obscured by overlying bowel gas The liver demonstrates diffusely increased echogenicity with decreased visualization of the vessels. It is enlarged in size. No focal lesion identified. Poor visualization of the upper IVC. Visualized p ortion of the proximal abdominal aorta is within normal limits. The mid and distal portions are obscu red by overlying bowel gas. There is no evidence of cholelithiasis. Common bile duct is obscured by overlying bowel gas. The visualized portions of the pancreas are echogenic suggesting fatty infiltrat ion. The spleen is unremarkable. Kidneys are symmetric and free of hydronephrosis. No renal lesion s are seen. IMPRESSION: Limited examination due to overlying bowel gas. 1. No ultrasound evidence for acute process. 2. Hepatomegaly with fatty infiltration. [facility], , 03/11/2024 9:25 AM
== END | disposition home or self-care (01) ==
LOC: RADUSWWP 08:45
PROVIDERS: ATTEND Internal Medicine Gastroenterology
DX: K76.0 Fatty (change of) liver, not elsewhere classified (principal); R16.0 Hepatomegaly, not elsewhere classified
CPT/HCPCS: 76700

== ENCOUNTER → 2024-06-02 | Outpatient (CLI) | payer BC ==
--- NOTE | 2024-06-02 14:35 | XR ---
EXAMINATION TYPE: XR abdomen 2V DATE OF EXAM: 06/02/2024 CLINICAL HISTORY: Lower abdominal pain TECHNIQUE: Supine and upright views of the abdomen are obtained. COMPARISON: CT abdomen and pelvis January 17, 2022. FINDINGS: Scattered gas is seen in non-distended small bowel loops. Gas and fecal material is seen in non-distended colon. Bilateral pelvic phleboliths are seen. The lung bases are clear. Osseous stru ctures are intact. IMPRESSION: Overall nonobstructive bowel gas pattern. [facility], , 06/02/2024 2:33 PM
--- NOTE | 2024-06-02 14:37 | XR ---
EXAMINATION TYPE: XR pelvis AP view DATE OF EXAM: 06/02/2024 2:28 PM COMPARISON: CT abdomen and pelvis January 17, 2022 CLINICAL INDICATION: Female, 63 years old with history of LOWER ABDOMINAL PAIN, UNSPECIFIED, TECHNIQUE: A single AP view of the pelvis is obtained. FINDINGS: There is no acute fracture/dislocation evident in the pelvis. [id number] symmetric axial joint space loss in both hips. The sacroiliac joints are symmetric and within normal limits. P ubic symphysis is intact. Bilateral small pelvic phleboliths are seen. IMPRESSION: As above. [facility], , 06/02/2024 2:34 PM
== END | disposition home or self-care (01) ==
LOC: RADXRMAIN 14:06
PROVIDERS: ATTEND Nurse Practitioner Family
DX: I87.8 Other specified disorders of veins (principal); R10.30 Lower abdominal pain, unspecified
CPT/HCPCS: 72170; 74019

== ENCOUNTER → 2024-06-16 | Outpatient (CLI) | payer BC ==
[2024-06-16 13:12] VITALS: BP 118/82; PULSE 106; RESP 15; TEMP 96.9
--- NOTE | 2024-06-16 16:50 | P.PAINPG ---
PQRS Measure Charge Sheet Comment: HISTORY OF PRESENT ILLNESS: A 63 yr old female presents today w severe and chronic LBP > 3 mo secondary to radiculopathy, spondylosis and facet arthropathy without myelopathy for evaluation. Pt states pain level is provoked at 6 /10 in intensity, constant, localized in the lumbar spine, predominantly axial, stabbing in character w occasional shooting pain towards R lumbar spine and LE. Pain is provoked by bending. Pain is alleviated by physician guided home exercises/ stretches daily since Sep 2021, medications, manual massage, repositioning and rest . Interventional procedures include GWYN L5-S1 x1 (Jan 2024) Medications include [place] 10/325mg #120 discontinued by Flaquita Perez REVIEW OF ORGAN SYSTEMS: CONSTITUTIONAL: No fevers or chills. No recent weight loss. NEUROLOGICAL: + numbness and tingling along the distal extremities. No seizure disorders or headaches. MUSCULOSKELETAL: + pain PSYCHIATRIC: Denies current depression or suicidal thoughts. Physical Examinations : Constitutional : Cooperative , not in acute distress . Neurologic : Cranial nerve II to XII intact. No focal neurological deficits. Psychiatric : alert & oriented x 3. Matching mood & appropriate affect. Judgment & insight intact. Musculoskeletal : Cervical Spine Motor strength in the deltoid and biceps: Normal right side. Normal Left side Motor strength biceps and the wrist extensors: Normal right side . Normal left side Motor strength in the triceps muscle: Normal right side. Normal left side Deep tendon reflexes: Normal at the biceps. Normal at Brachioradialis. Normal at triceps Vertebral body tenderness to deep palpation over Cervical facet loading test: positive bilaterally Spurling test: positive bilaterally Neck distraction test: positive bilaterally Tara sign: positive bilaterally Lumbar spine Motor strength lower extremities ,thigh and legs 5/5 Right side , 5/5 Left side Deep tendon reflexes : Normal Knee Jerk. Normal Ankle Jerk Vertebral body tenderness over L5 Garland Test positive BL L5-S1 Lumbar facet Loading Test: positive Right / positive Left Range of motion of the lumbar spine Flexion 30 degrees, extension 10 degrees Straight Leg Raise test: Left/ Right positive at degrees Yessenia test: positive right / positive left. Severe tenderness over the Sacroiliac joint on the Right / Left sides Gaenslen test: positive bilaterally Seated flexion test: positive bilaterally. Sacral spine : Severe tenderness over the Sacroiliac joint: right side / left side Range of motion: Flexion of the lumbar spine <60 degrees Range of motion: Extension of the lumbar spine <20 degrees Gaenslen's Test positive Yessenia test: positive right side / left side Thigh Thrust Test Sacral Thrust Test Imaging: MRI non contrast lumbar spine from 12/07/21 reviewed Pt has history of cardiac cath w stenting Assessment/ Plan : Lumbar radiculopathy Recommendation of GWYN L5-S1 #2. Risks, benefits of procedure discussed and pt verbalized understanding. [place] 7.5/325mg #18 NR. Use, side effects, adverse reactions, safe storage discussed. All questions answered. I have spent greater than 30 minutes on patient care today. Dr Graff was available by phone for the evaluation of this patient. The time was used to review the medical records including relevant urine studies and Prescription his tory (MAPs), review of the available imaging, evaluation and examination of the patient, coordination of care with the medical staff and if applicable referring physicians, as well as creation of the medical record PQRS Narrative: Smoking Status Current every day smoker Narcotic Agreement Date Signed 02/21/24 Hx Alcohol Use (MH) No Home Medications: Ambulatory Orders Nitroglycerin Sl Tabs [Nitrostat] 0.4 mg SL Q5M PRN 11/07/21 Aspirin EC [Ecotrin Low Dose] 81 mg PO DAILY 09/12/22 Ondansetron [Zofran] 4 mg PO DAILY PRN 04/20/23 Furosemide [Lasix] 20 mg PO DAILY PRN 04/21/23 diazePAM [Valium] 5 mg PO DAILY PRN 1 Days #2 tab 01/10/24 Linaclotide [Linzess] 01/11/24 Magnesium 400 mg PO HS 01/11/24 Controlled Substance Measures - Controlled Substance Measures Is patient prescribed a controlled substance at discharge?: Yes When asked, does pt state using other controlled substances?: No If prescribed controlled substance>3 days was MAPS reviewed?: Prescribed <3 Days
== END ==
LOC: PNWHC3 12:43
PROVIDERS: ATTEND Specialist
DX: M54.16 Radiculopathy, lumbar region (principal); F17.210 Nicotine dependence, cigarettes, uncomplicated; Z91.041 Radiographic dye allergy status
CPT/HCPCS: 99212

== ENCOUNTER → 2024-07-17 | Day surgery (SDC) | payer BC ==
[2024-07-04 11:23] VITALS: BMI 34.2
[~2024-07-17] MED LIST changes: +methylPREDNISolone ACETATE 80 MG/ML 1 ML VIAL ONE
[2024-07-17 06:31] VITALS: TEMP 97.8
--- NOTE | 2024-07-17 07:26 | P.PCN ---
Description of Procedure: PREOPERATIVE DIAGNOSIS: 1- Lumbar Degenerative Disc Diseases 2-Lumbar spondylosis with Facet arthropathy without myelopathy. 3-lumbar spinal stenosis POSTOPERATIVE DIAGNOSIS: 1-lumbar degenerative disc disease. 2-lumbar spondylosis with facet arthropathy without myelopathy. 3-lumbar spinal stenosis. PROCEDURE Injection of steroid at L5-S1 epidural space under fluoroscopic guidance. ANESTHESIA: Lidocaine 1% subcutaneously. In OR continuous pulse ox, EKG, blood pressure and verbal communication was maintained with the patient. EBL: Minimal PROCEDURE INDICATION: Before the procedure were discussed with the patient detailed procedure, alternatives, complications including infection, bleeding, nerve damage, paralysis all of which could be permanent. Patient understands and all questions were answered. PROCEDURE DESCRIPTION : After getting consent, patient in OR in prone position. Back was prepped with chlorhexidine and draped in sterile fashion. After injecting 10 mL of 1% lidocaine subcutaneously, a 20-gauge Tuohy needle was introduced at L5-S1 interspace with loss of resistance technique using a syringe filled with air. Negative CSF, negative blood, negative paresthesia. Needle position was confirmed with AP and lateral view of the fluoroscope. After repeat negative aspiration 6 mL solution was injected intermittently which consists of 5 mL of preservative-free normal saline mixed with 1 mL of 80 mg Depo-Medrol. Needle was withdrawn intact. Skin was cleansed and Band-Aids was applied. DISPOSITION / PLANS: The patient tolerated the procedure well. No complication. The patient was placed in a supine position and transferred to the recovery area in a stable condition for observation. There was no evidence of lower extremity motor or sensory deficit after the procedure. Patient was discharged from the recovery room after meeting discharge criteria. Home discharge instructions were given to the patient by the staff. The patient was reexamined prior to discharge. The patient will schedule a follow up in the clinic in 2-4 weeks.
[2024-07-17 07:31] VITALS: RESP 16
[2024-07-17 07:37] VITALS: BP 136/80; PULSE 82
--- NOTE | 2024-07-17 09:16 | FL ---
Fluoroscopy INDICATION: Pain FINDINGS: Fluoroscopy time: 7.7 seconds. Total dose area product (DAP) in uGy*m?, mGy*cm? (or similar): 0.11355 Images obtained: 2. Images document needle directed towards the lumbosacral region IMPRESSION: 1. Documentation of fluoroscopy. [facility] , 07/17/2024 9:14 AM
== END ==
LOC: ORPAIN 06:02
PROVIDERS: ATTEND Pain Medicine Interventional Pain Medicine
DX: M51.369 Other intervertebral disc degeneration, lumbar region without mention of lumbar back pain or lower extremity pain (principal); M47.816 Spondylosis without myelopathy or radiculopathy, lumbar region; M48.061 Spinal stenosis, lumbar region without neurogenic claudication
CPT/HCPCS: 62323; J1010

== ENCOUNTER 2024-09-16 06:57 | Day surgery (SDC) | payer BC ==
[2024-09-16 07:55] VITALS: RESP 16; TEMP 97.2
[2024-09-16] MEDS: LACTATED RINGERS 1,000 ML IV SCH (08:10)
[2024-09-16] MEDS: IV FLUID CONTINUATION 1,000 ML IV ONE ×2 (08:10→10:15)
[2024-09-16] MEDS ORDERED: fentaNYL (PF) 50 MCG/ML 2 ML AMP ONE (09:40)
[2024-09-16] MEDS ORDERED: MIDAZOLAM 2 MG/2 ML VIAL ONE (09:40)
[2024-09-16] MEDS ORDERED: ROPIVACAINE 5 MG/ML 30 ML VIAL ONE (09:40)
--- NOTE | 2024-09-16 10:16 | FL ---
Fluoroscopy INDICATION: Pain FINDINGS: Fluoroscopy time: 48.1 seconds. Total dose area product (DAP) in uGy*m?, mGy*cm? (or similar): 0.03337 Images obtained: 5. Images document [place] directed towards the lumbar spine IMPRESSION: 1. Documentation of fluoroscopy. [facility], , 09/16/2024 10:13 AM
--- NOTE | 2024-09-16 10:20 | P.PCN ---
Description of Procedure: Preprocedure diagnosis. 1. Lumbar spondylosis with facet joint arthropathy without myelopathy. 2. Lumbar degenerative disc disease. Postprocedure diagnosis. As above. Procedure done. Bilateral diagnostic block with local anesthetics at L3, L4, L5 medial branch to target the facet joint L4- 5 and L5-S1 with fluoroscopic guidan ce (fluoroscopy images are available in the radiology department) . Anesthesia. Moderate sedation with intravenous Versed 2 mg and fentanyl microgram and local infiltration with local anesthetics. In OR, continuous pulse ox, EKG, blood pressure and verbal communication was maintained. Sedation time-start end . Blood loss. Minimal. Indication. The patient has low back pain secondary to lumbar facet joint arthropathy. Discussed the procedure and alternative and complications which includes infection, bleeding, nerve damage, paralysis ,aggravation of pain. Patient understands and all questions were answered. Patient iunderstands that if any pain relief occurs it will last for a few hours to a few days maximum. Procedure description. After getting consent patient was taken in the OR in prone position. Back prepped with chlorhexidine and draped in sterile fashion. After injecting 5 mL of plain 1% lidocaine subcutaneously, a 22-gauge spinal needle was introduced under tunnel vision of the fluoroscope at the junction of the superior articular process with RIGHT ala of the sacrum. With slight oblique fluoroscope, after injecting 5 mL of plain 1% lidocaine subcutaneously, a 22-gauge spinal needle was introduced under tunnel vision of the fluoroscope at the junction of the superior articular process with RIGHT L5 transverse process, junction of the superior articular process with the RIGHT L4 transverse process. Negative CSF, negative blood, negative paresthesia. After needle position confirmation by AP and crosstable lateral view, after negative aspiration, half milliliters of solution were injected at each point. Total 1- 1/2 mL of solution was injected on the right side which consists of 0.5% ropivacaine. In exactly same way, LEFT sided injections were done at the following 3 points. Junction of the superior articular process with left ala of the sacrum, junction of the superior articular process with the left L5 transverse process, junction of the superior articular process with left L4 transverse process using 0.5 mL of solution at each point. Total 1-1/2 mL of solution was injected on the left side which consists of 0.5% ropivacaine . Spinal needles were taken out and bandages were applied. Disposition. Patient tolerated the procedure well. No complication. Discharged home in stable condition
[2024-09-16 10:22] LABS: Glucose,Whole Blood 94 mg/dL (70-110)
[2024-09-16 10:31] VITALS: BP 134/70; PULSE 73
== END 2024-09-16 10:48 | disposition home or self-care (01) ==
LOC: ORPAIN 06:57
PROVIDERS: ATTEND Pain Medicine Interventional Pain Medicine
DX: M47.816 Spondylosis without myelopathy or radiculopathy, lumbar region (principal); M51.369 Other intervertebral disc degeneration, lumbar region without mention of lumbar back pain or lower extremity pain; Z79.82 Long term (current) use of aspirin; Z88.8 Allergy status to other drugs, medicaments and biological substances
CPT/HCPCS: 64493; 64494; J2250; J3010; J2795; 99152; 99153

== ENCOUNTER → 2024-10-01 | Outpatient (CLI) | payer BC ==
[2024-10-01 14:45] VITALS: BP 157/84; PULSE 105; RESP 14
--- NOTE | 2024-10-01 16:17 | P.PAINPG ---
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 Pt states she experienced 95 % pain relief x 72 hrs s/p procedure. Pt states pain level is provoked at 8 /10 in intensity, constant, localized in the lumbar spine, predominantly axial, stabbing in character without shooting pain. Pain is provoked by bending. Pain is alleviated by physician guided home exercises/ stretches daily since Sep 2021, medications, manual massage, repositioning and rest . She also complains of R ankle pain x 5 yrs, achy, sore in character without radiation. RUFUS form for [facility] completed. Interventional procedures include GWYN L5-S1 x2 (Jan 2024, Jul 2024), BL MBB L3- L5 x1 Medications include Maynard 10/325mg #[address] Tamayo, Neuronconrado, Klonopin (added Narcan, discussed use) REVIEW OF ORGAN SYSTEMS: CONSTITUTIONAL: No fevers or chills. No recent weight loss. NEUROLOGICAL: + numbness and tingling along the distal extremities. No seizure disorders or headaches. MUSCULOSKELETAL: + pain PSYCHIATRIC: Denies current depression or suicidal thoughts. Physical Examinations : Constitutional : Cooperative , not in acute distress . Neurologic : Cranial nerve II to XII intact. No focal neurological deficits. Psychiatric : alert & oriented x 3. Matching mood & appropriate affect. Judgment & insight intact. Musculoskeletal : Cervical Spine Motor strength in the deltoid and biceps: Normal right side. Normal Left side Motor strength biceps and the wrist extensors: Normal right side . Normal left side Motor strength in the triceps muscle: Normal right side. Normal left side Deep tendon reflexes: Normal at the biceps. Normal at Brachioradialis. Normal at triceps Vertebral body tenderness to deep palpation over C7 Cervical facet loading test: positive bilaterally Spurling test: positive bilaterally Neck distraction test: positive bilaterally Tara sign: positive bilaterally Lumbar spine Motor strength lower extremities ,thigh and legs 5/5 Right side , 5/5 Left side Deep tendon reflexes : Normal Knee Jerk. Normal Ankle Jerk Vertebral body tenderness over L5 Garland Test positive BL L5-S1 Lumbar facet Loading Test: positive Right / positive Left L4-L5, L5-S1 Range of motion of the lumbar spine Flexion 30 degrees, extension 10 degrees Straight Leg Raise test: Left/ Right positive at degrees Yessenia test: positive right / positive left. Severe tenderness over the Sacroiliac joint on the Right / Left sides Gaenslen test: positive bilaterally Seated flexion test: positive bilaterally. Sacral spine : Severe tenderness over the Sacroiliac joint: right side / left side Range of motion: Flexion of the lumbar spine <60 degrees Range of motion: Extension of the lumbar spine <20 degrees Gaenslen's Test positive Yessenia test: positive right side / left side Thigh Thrust Test Sacral Thrust Test Imaging: MRI non contrast lumbar spine from 12/07/21 reviewed Pt has history of cardiac cath w stenting Assessment/ Plan : Lumbar radiculopathy, Cervical radiculopathy Recommendation of BL MBB L4-L5/ L5-S1 #2 and medication management. Maynard 10/325mg #120 w RF. Opiate/ narcotic agreement signed 09/04/24. Use, side effects, adverse reactions, safe storage discussed. Can not afford $95 out of pocket PT costs, so provided pt w HEP x 6 wks. All questions answered. I have spent greater than 30 minutes on patient care today. Dr Graff was available by phone for the evaluation of this patient. The time was used to review the medical records including relevant urine studies and Prescription history (MAPs), review of the available imaging, evaluation and examination of the patient, coordination of care with the medical staff and if applicable referring physicians, as well as creation of the medical record - Pain Location Lower Back Non-Pharmacological Interventions: Heat, Ice Pharmacological Interventions: Medication PQRS Narrative: Smoking Status Current every day smoker Narcotic Agreement Date Signed 02/21/24 Hx Alcohol Use (MH) No Home Medications: Ambulatory Orders Aspirin EC [Ecotrin Low Dose] 81 mg PO DAILY 09/12/22 Magnesium 400 mg PO HS 01/11/24 Amitriptyline HCl [Elavil] 150 mg PO HS 07/04/24 clonazePAM [KlonoPIN] 1 mg PO QID 07/04/24 Naloxone HCl [Narcan] 4 mg NASAL ONCE PRN 365 Days #1 each 09/04/24 Ibuprofen [Advil] 200 mg PO Q6HR PRN 09/15/24 HYDROcodone/APAP 10-325MG [Maynard 10-325] 1 tab PO Q6HR PRN 30 Days #120 tab 10/01/24 HYDROcodone/APAP 10-325MG [Maynard 10-325] 1 tab PO Q6HR PRN 30 Days #120 tab 10/01/24 Controlled Substance Measures - Controlled Substance Measures Is patient prescribed a controlled substance at discharge?: Yes When asked, does pt state using other controlled substances?: No If prescribed controlled substance>3 days was MAPS reviewed?: Yes
== END ==
LOC: PNWHC3 14:17
PROVIDERS: ATTEND Specialist
DX: M47.26 Other spondylosis with radiculopathy, lumbar region (principal); M47.22 Other spondylosis with radiculopathy, cervical region; F17.200 Nicotine dependence, unspecified, uncomplicated; Z91.041 Radiographic dye allergy status
CPT/HCPCS: 99212

== ENCOUNTER 2024-10-21 06:57 | Day surgery (SDC) | payer BC ==
[2024-10-17 10:24] VITALS: BMI 36.2
[~2024-10-21 06:57] MED LIST changes: -methylPREDNISolone ACETATE 80 MG/ML 1 ML VIAL ONE
[2024-10-21 07:20] VITALS: TEMP 97.6
[2024-10-21] MEDS: ONDANSETRON 4 MG/2 ML VIAL IVP STA (07:28)
[2024-10-21] MEDS ORDERED: fentaNYL (PF) 50 MCG/ML 2 ML AMP ONE (08:20)
[2024-10-21] MEDS ORDERED: ROPIVACAINE 5 MG/ML 30 ML VIAL ONE (08:20)
[2024-10-21] MEDS ORDERED: MIDAZOLAM 2 MG/2 ML VIAL ONE (08:20)
[2024-10-21] MEDS: IV FLUID CONTINUATION 1,000 ML IV ONE (08:24)
--- NOTE | 2024-10-21 08:34 | P.PCN ---
Date of Procedure: 10/21/24 Procedure(s) Performed: PREOPERATIVE DIAGNOSIS : 1- Lumbar spondylosis with Facet Arthropathy without myelopathy . 2- Lumber degenerative disc disease POSTOPERATIVE DIAGNOSIS: 1- Lumbar spondylosis with Facet Arthropathy without myelopathy . 2- Lumber degenerative disc disease PROCEDURE: Diagnostic bilateral L3 , L4 , and L5 medial branch block under fluoroscopy guidance(fluoroscopy images available in the radiology Department ) ( To target the facet joint between Bilateral L4-5 , and L5- S1 )#2nd ANESTHESIA:moderate sedation with intravenous Versed 2 mg and Fentanyl 100 mcg. (Sedation start time 08:20 ,end time 08:30 ) EBL: Minimal COMPLICATION: None PROCEDURE INDICATION: Chronic low back pain secondary to Facet arthropathy unresponsive to conservative treatment. PROCEDURE DESCRIPTION: the patient was seen and identified in the preop holding area , risks and benefits and possible complications of the procedure and alternative were discussed with the patient, and the patient agreed to proceed with the procedure and signed the consent and vital signs monitored during the procedure and fluoroscopy was used to maximize the benefit and accuracy of the needle placement, and sedation was given to decrease patient anxiety, patient was taken to the procedure room and placed in prone position vital signs monitored in the back prepped with chlorhexidine X3 then under strict sterile technique using a right oblique fluoroscopy ,the junction of the transverse process and the superior articulating process of the right L3 , L4 , and L5 vertebra which corresponding to the fluoroscopy image of the eye of the Jarrod dog on the block side for the medial branches and subsequently , after local infiltration of skin and subcu tissuies with Ropivacaine 0.5 % , one mL at each level ,then 22-gauge 5 inches long Quincke-type needles , 3 needle was used , each one of them placed at the junction of the base of the transverse process and the superior articular process at the appropriate level, and the needle was advanced until the periosteum contacted, needle placement confirmed with AP oblique and lateral view and after appropriate needle placement confirmed, and after negative aspiration for heme and CSF and there was no paresthesia 1-1/2 mL of Ropivacaine 0.5% used, then half mL injected at each level after negative aspiration the needle subsequently removed and the same procedure repeated for the left side at left side at L3 , L4 and L5 levels. At the end of the procedure and the needles removed and a bandage applied after the skin was cleaned the cleaning solution patient taken to recovery room in stable condition and monitors in the recovery room for 20-30 minutes and discharged home in stable condition after discharge criteria met and patient will follow up with the pain clinic in 2-4 weeks
[2024-10-21] MEDS: IV FLUID CONTINUATION 600 ML IV ONE (08:38)
--- NOTE | 2024-10-21 08:54 | FL ---
EXAMINATION TYPE: FL guided pain mgmt statistic DATE OF EXAM: 10/21/2024 8:37 AM COMPARISON: Pre Operative Images if available both CT/MRI or plain film CLINICAL INDICATION: Female, 64 years old with history of FACET BLOCK JASEN LUM; TECHNIQUE: FL guided pain mgmt statistic, multiple fluoroscopic images provided for procedure. DAP: 0.26815 mGym2 Gycm2 uGym2 cGycm2 or equivalent. FINDINGS: Fluoroscopic images during injection for pain management demonstrate multilevel degeneration changes throughout the spine. No evidence for fracture. No acute process identified. IMPRESSION: 1. No evidence for intraoperative complication. 2. Please see the operative/procedural note for further details. [facility], , 10/21/2024 8:52 AM
[2024-10-21 08:58] VITALS: BP 123/71; PULSE 72; RESP 16
== END 2024-10-21 09:10 | disposition home or self-care (01) ==
LOC: ORPAIN 06:57
PROVIDERS: ATTEND Specialist
DX: M47.816 Spondylosis without myelopathy or radiculopathy, lumbar region (principal); M51.360 Other intervertebral disc degeneration, lumbar region with discogenic back pain only; Z91.041 Radiographic dye allergy status
CPT/HCPCS: 64493; 64494; J2250; J2405; J3010; J2795; 99152

== ENCOUNTER → 2024-11-03 | Outpatient (CLI) | payer BC ==
[2024-11-03 13:46] VITALS: BP 131/73; PULSE 93; RESP 18
--- NOTE | 2024-11-03 15:11 | P.PAINPG ---
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 Pt states she experienced 90 % pain relief x 24 hrs s/p procedure. Pt states pain level is provoked at 8 /10 in intensity, constant, localized in the lumbar spine, predominantly axial, stabbing in character without shooting pain. Pain is provoked by bending. Pain is alleviated by physician guided home exercises/ stretches daily since Sep 2021, medications, manual massage, repositioning and rest . She also complains of R ankle pain x 5 yrs, achy, sore in character without radiation. Awaiting [facility] documentation. Will follow up w PCP for additional imaging and intervention. Interventional procedures include GWYN L5-S1 x2 (Jan 2024, Jul 2024), BL MBB L3- L5 x2 Medications include Lincoln 10/325mg #[address] Tamayo, Neurontin, Klonopin (added Narcan, discussed use) REVIEW OF ORGAN SYSTEMS: CONSTITUTIONAL: No fevers or chills. No recent weight loss. NEUROLOGICAL: + numbness and tingling along the distal extremities. No seizure disorders or headaches. MUSCULOSKELETAL: + pain PSYCHIATRIC: Denies current depression or suicidal thoughts. Physical Examinations : Constitutional : Cooperative , not in acute distress . Neurologic : Cranial nerve II to XII intact. No focal neurological deficits. Psychiatric : alert & oriented x 3. Matching mood & appropriate affect. Judgment & insight intact. Musculoskeletal : Cervical Spine Motor strength in the deltoid and biceps: Normal right side. Normal Left side Motor strength biceps and the wrist extensors: Normal right side . Normal left side Motor strength in the triceps muscle: Normal right side. Normal left side Deep tendon reflexes: Normal at the biceps. Normal at Brachioradialis. Normal at triceps Vertebral body tenderness to deep palpation over C7 Cervical facet loading test: positive bilaterally Spurling test: positive bilaterally Neck distraction test: positive bilaterally Tara sign: positive bilaterally Lumbar spine Motor strength lower extremities ,thigh and legs 5/5 Right side , 5/5 Left side Deep tendon reflexes : Normal Knee Jerk. Normal Ankle Jerk Vertebral body tenderness over L5 Garland Test positive BL L5-S1 Lumbar facet Loading Test: positive Right / positive Left L4-L5, L5-S1 Range of motion of the lumbar spine Flexion 30 degrees, extension 10 degrees Straight Leg Raise test: Left/ Right positive at degrees Yessenia test: positive right / positive left. Severe tenderness over the Sacroiliac joint on the Right / Left sides Gaenslen test: positive bilaterally Seated flexion test: positive bilaterally. Sacral spine : Severe tenderness over the Sacroiliac joint: right side / left side Range of motion: Flexion of the lumbar spine <60 degrees Range of motion: Extension of the lumbar spine <20 degrees Gaenslen's Test positive Yessenia test: positive right side / left side Thigh Thrust Test Sacral Thrust Test Imaging: MRI non contrast lumbar spine from 12/07/21 reviewed Pt has history of cardiac cath w stenting Assessment/ Plan : Lumbar radiculopathy, Cervical radiculopathy Recommendation of BL RFA L4-L5/ L5-S1 and medication management. Lincoln 10/325mg #120 w RF. UDS 11/03/24. Opiate/ narcotic agreement signed 09/04/24. Use, side effects, adverse reactions, safe storage discussed. Can not afford $95 out of pocket PT costs, so provided pt w HEP x 6 wks. All questions answered. I have spent greater than 30 minutes on patient care today. Dr Graff was available by phone for the evaluation of this patient. The time was used to rev iew the medical records including relevant urine studies and Prescription history (MAPs), review of the available imaging, evaluation and examination of the patient, coordination of care with the medical staff and if applicable referring physicians, as well as creation of the medical record - Pain Location Bilateral Lower Back Non-Pharmacological Interventions: Heat, Home Exercise, Ice Pharmacological Interventions: Block PQRS Narrative: Smoking Status Current every day smoker Narcotic Agreement Date Signed 02/21/24 Hx Alcohol Use (MH) No Home Medications: Ambulatory Orders Aspirin EC [Ecotrin Low Dose] 81 mg PO DAILY 09/12/22 Magnesium 400 mg PO HS 01/11/24 Amitriptyline HCl [Elavil] 10 mg PO HS 07/04/24 clonazePAM [KlonoPIN] 1 mg PO QID 07/04/24 Naloxone HCl [Narcan] 4 mg NASAL ONCE PRN 365 Days #1 each 09/04/24 Ibuprofen [Advil] 200 mg PO Q6HR PRN 09/15/24 Red Beet [Beet Root] 2 capsule PO BID 10/17/24 Ondansetron [Ondansetron ODT] 4 mg PO PRN 10/21/24 HYDROcodone/APAP 10-325MG [Lincoln 10-325] 1 tab PO Q6HR PRN 30 Days #120 tab 11/03/24 HYDROcodone/APAP 10-325MG [Lincoln 10-325] 1 tab PO QID PRN 30 Days #120 tab 11/03/24 Controlled Substance Measures - Controlled Substance Measures Is patient prescribed a controlled substance at discharge?: Yes When asked, does pt state using other controlled substances?: Yes If prescribed controlled substance>3 days was MAPS reviewed?: Yes
== END ==
LOC: PNWHC3 13:17
PROVIDERS: ATTEND Specialist
DX: M47.26 Other spondylosis with radiculopathy, lumbar region (principal); M47.22 Other spondylosis with radiculopathy, cervical region; F17.200 Nicotine dependence, unspecified, uncomplicated; Z91.041 Radiographic dye allergy status
CPT/HCPCS: 80307; 99212